=== PATIENT | male | born 1955 | race Caucasian/White ===

== ENCOUNTER → 2019-06-15 13:46 | Outpatient (CLI) | payer BC, SELFPAY ==
--- NOTE | ~2019-06-15 | XR_ITS ---
EXAMINATION: XR chest 2V DATE: 06/15/2019 13:58 INDICATION: Cough and chest tightness TECHNIQUE: Frontal and lateral views of the chest are obtained COMPARISON: 08/23/2018 FINDINGS: The lungs are free of acute opacities. There is no pleural effusion or pneumothorax. The ca rdiomediastinal silhouette is normal. There are bridging osteophytes at multiple levels in the spine, consistent with diffuse idiopathic skeletal hyperostosis (DISH). IMPRESSION: 1. No acute cardiopulmonary abnormality. Reviewed, dictated and finalized at location B.
== END ==
PROVIDERS: PCP Family Medicine; Visit Provider Family Medicine
DX: R05 Cough (principal)
CPT/HCPCS: 71046

== ENCOUNTER 2019-09-07 17:52 | Emergency (ER) | payer BC, SELFPAY ==
--- NOTE | ~2019-09-07 | CT_ITS ---
EXAMINATION: CTA chest PE protocol DATE: 09/07/2019 19:38 INDICATION: Chest pain, shortness of breath, fever and cough TECHNIQUE: Computed tomography (CT) pulmonary angiogram of the chest was performed with 100 mL Omnipa que-350 intravenous contrast. Additional 3D reconstructions utilizing coronal maximum intensity proje ction (MIP) were performed. Automated exposure control and iterative reconstruction technique were em ployed. The dose-length product was 870.30 mGy-cm. COMPARISON: 10/16/2015 FINDINGS: Excellent contrast opacification of the pulmonary arteries. There is mild streak artifact from dense contrast in the superior vena cava and right atrium. Mild scattered respiratory motion artifact. No p ulmonary embolism. Calcified nodule in the right middle lobe consistent with old granulomatous diseas e. Unchanged noncalcified 4 mm left lower lobe granuloma. Mild linear atelectasis in the lingula and left lower lobe. No pneumonia, pulmonary edema, pleural effusion or pneumothorax. Heart size is jones l. No pericardial effusion. Minimal atherosclerotic calcific lesion along the left anterior descendin g coronary artery. No pathologically enlarged thoracic lymphadenopathy. Visualized upper abdomen is u nremarkable. There are bridging osteophytes at multiple levels in the spine, consistent with diffuse idiopathic skeletal hyperostosis (DISH). IMPRESSION: 1. No pulmonary embolism or other acute cardiopulmonary disease. Reviewed, dictated and finalized at location A.
--- NOTE | ~2019-09-07 | XR_ITS ---
EXAMINATION: XR chest 1V portable DATE: 09/07/2019 18:17 INDICATION: Mid chest pain, shortness of breath, fever and cough TECHNIQUE: frontal view of the chest was obtained. COMPARISON: Chest radiograph dated 06/15/2019 FINDINGS: The lungs remain clear with no focal airspace opacities, pulmonary edema, pleural effusion or pneumot horax. The cardiomediastinal silhouette is normal. Moderate polyarticular osteoarthritis at the right glenohumeral and bilateral acromioclavicular joints. IMPRESSION: 1. No acute cardiopulmonary disease. Reviewed, dictated and finalized at location A.
--- NOTE | 2019-09-07 17:53 | ECG_ITS ---
Measurements Intervals [place] Rate: 103 P: 60 GA: 141 QRS: 9 QRSD: 97 T: 28 QT: 327 QTc: 429 Interpretive Statements SINUS TACHYCARDIA INCOMPLETE RIGHT BUNDLE BRANCH BLOCK BASELINE ARTIFACT- V1-V6 ABNORMAL ECG Electronically Signed On 09-08-2019 10:43:59 CDT by Feng Calderon D.O.
[2019-09-07 17:56] VITALS: BP 161/99; PULSE 113; RESP 18; TEMP 36.6; O2SAT 97
[2019-09-07 18:01] VITALS: PULSE 119
--- NOTE | 2019-09-07 18:03 | ED.CHESTPAIN ---
HPI - Chest Pain General Chief Complaint: Chest Pain <Roni Arellano DO - Last Filed: 09/07/19 18:06> Stated Complaint: CP <Roni Arellano DO - Last Filed: 09/07/19 18:06> Time Seen by Provider: 09/07/19 17:56 <Roni Arellano DO - Last Filed: 09/07/19 18:06> Source: RN notes reviewed <Roni Arellano DO - Last Filed: 09/07/19 18:06> History of Present Illness HPI narrative: Patient presents emergency department from home for chest pain. Patient states symptoms been ongoing for the past 3 months worse over the past 2 days. States pain across the bilateral anterior chest with shortness of breath. Feels that the pain is described as a tightness. He states that he has had a cough that the symptoms. He states he was seen by his PCP on Wednesday and had a cover test that came back negative. He states he has had a fever up to 101 on Wednesday and states he has had a fever yesterday. He denies any abdominal pain nausea vomiting or any other symptoms <Roni Arellano DO - Last Filed: 09/07/19 18:06> Related Data Allergies/Adverse Reactions: Allergies Allergy/AdvReac Type Severity Reaction Status Date / Time No Known Allergies Allergy Unknown Verified 10/10/18 16:22 <Roni Arellano DO - Last Filed: 09/07/19 18:06> Review of Systems Review of Systems: Narrative: Gen.: Denies fevers or chills ENT: Denies congestion Respiratory: Reports shortness of breath CV: Reports chest pain GI: Denies abdominal pain nausea, emesis or diarrhea Musculoskeletal: Denies back pain or muscle pain Neuro: Denies numbness, tingling, weakness or focal weakness Skin: Denies rash Except as documented, all other systems reviewed and negative <Roni Arellano DO - Last Filed: 09/07/19 18:06> PMFSH Past Medical History Medical History: Medical History (Updated 09/07/19 @ 21:25 by Katelyn Pope MD) GERD (gastroesophageal reflux disease) Hypercholesterolemia <Roni Arellano DO - Last Filed: 09/07/19 18:06> Social History Social History: Social History (Updated 09/07/19 @ 18:05 by oRni Arellano DO) Smoking status: Never smoker Gender identity (if verbalized by the patient): Male <Roni Arellano DO - Last Filed: 09/07/19 18:06> Exam Narrative: Exam Narrative: Gen.: Denies fevers or chills Eyes: Denies eye pain or visual change ENT: Denies congestion Respiratory: Denies shortness of breath or cough CV: Denies chest pain or palpitations GI: Denies abdominal pain nausea, emesis or diarrhea Musculoskeletal: Denies back pain or muscle pain Neuro: Denies numbness, tingling, weakness or focal weakness Skin: Denies rash Except as documented, all other systems reviewed and negative <Roni Arellano DO - Last Filed: 09/07/19 18:06> Course Vital Signs Vital signs: Vital Signs Temperature 36.6 C 09/07/19 17:56 Pulse Rate 113 H 09/07/19 17:56 Respiratory Rate 18 09/07/19 17:56 Blood Pressure 161/99 H 09/07/19 17:56 Pulse Oximetry 97 09/07/19 17:56 Temperature 36.8 C 09/07/19 20:26 Pulse Rate 92 09/07/19 20:26 Respiratory Rate 14 09/07/19 20:26 Blood Pressure 138/80 09/07/19 20:26 Pulse Oximetry 94 09/07/19 20:26 <Roni Arellano DO - Last Filed: 09/07/19 18:06> Vital Signs Temperature 36.6 C 09/07/19 17:56 Pulse Rate 113 H 09/07/19 17:56 Respiratory Rate 18 09/07/19 17:56 Blood Pressure 161/99 H 09/07/19 17:56 Pulse Oximetry 97 09/07/19 17:56 Temperature 36.8 C 09/07/19 20:26 Pulse Rate 92 09/07/19 20:26 Respiratory Rate 14 09/07/19 20:26 Blood Pressure 138/80 09/07/19 20:26 Pulse Oximetry 94 09/07/19 20:26 <Katelyn Pope MD - Last Filed: 09/07/19 21:26> MDM - Chest Pain Differential Diagnosis Differential diagnosis: Likely atypical chest pain, chest pain and biliary colic <Katelyn Pope MD - Last Filed: 09/07/19 21:26> Medical Records Data Atte
[2019-09-07 18:12] LABS: Basophils Absolute Auto 0.1 K/mm3 (0.0-0.1); Basophils Percent Auto 0.7 % (0.2-1.2); Eosinophils Absolute Auto 0.1 K/mm3 (0-0.3); Eosinophils Percent Auto 1.5 % (0-4.4); Hematocrit 50.1 % (42.0-52.0); Hemoglobin 17.2 g/dL (14.0-18.0); Immature Granulocyte Absolute 0.04 K/mm3 (0.00-0.031); Immature Granulocyte Percent A 0.5 % (0-0.5); Lymphocytes Absolute Auto 1.42 K/mm3 (0.9-3.2); Lymphocytes Percent Auto 16.1 % (18.3-44.2); Mean Corpuscular HGB Conc 34.3 g/dl (32-36); Mean Corpuscular Hemoglobin 29.9 pg (26-34); Mean Corpuscular Volume 87.1 fl (80-100); Monocytes Absolute Auto 0.7 K/mm3 (0.1-0.6); Monocytes Percent Auto 8.4 % (2.6-8.5); Neutrophils Absolute Auto 6.4 K/mm3 (1.3-6.7); Neutrophils Percent Auto 72.8 % (45.5-73.1); Platelet Count Result 246 k/mm3 (150-375); Red Blood Count 5.75 M/mm3 (4.6-6.20); Red Cell Distribution Width 12.4 % (11.5-14.5); White Blood Count 8.8 K/mm3 (4.5-10.0)
[2019-09-07 18:23] LABS: Blood Urea Nitrogen 17 mg/dL (9-20); Calcium 9.1 mg/dL (8.4-10.2); Carbon Dioxide 26 mmol/L (22-30); Chloride 99 mmol/L (98-107); Estimated CRCL calculation 69 ml/min; Estimated Glomerular Filt Rate > 60; Glucose 357 mg/dL (75-110); Potassium 4.2 mmol/L (3.4-5.0); Sodium 133 mmol/L (137-145)
[2019-09-07 18:35] LABS: Troponin I < 0.012 ng/mL (0.000-0.034)
[2019-09-07] MEDS: SODIUM CHLORIDE 0.9% IV 1,000 ML 999 ML IV CONT (18:36)
[2019-09-07] MEDS: ASPIRIN 81 MG CHEWABLE TABLET 324 MG PO (18:36)
[2019-09-07 18:38] LABS: Prothrombin Time 12.8 Seconds (11.1-14.7)
[2019-09-07 18:39] LABS: Partial Thromboplastin Time 25.8 SECONDS (22.3-36.8)
[2019-09-07 19:09] VITALS: BP 149/87; PULSE 96; RESP 13; O2SAT 96
[2019-09-07 20:26] VITALS: BP 138/80; PULSE 92; RESP 14; TEMP 36.8; O2SAT 94
[2019-09-07 21:20] LABS: Troponin I < 0.012 ng/mL (0.000-0.034)
[2019-09-07 21:58] VITALS: BP 132/88; PULSE 80; RESP 20; TEMP 36.7; O2SAT 99
== END 2019-09-07 21:59 | disposition home or self-care (01) ==
PROVIDERS: Emergency Medicine; Emergency Provider Emergency Medicine; PCP Family Medicine
DX: R07.89 Other chest pain (principal); K21.9 Gastro-esophageal reflux disease without esophagitis; E78.00 Pure hypercholesterolemia, unspecified; R00.0 Tachycardia, unspecified; I45.10 Unspecified right bundle-branch block
CPT/HCPCS: 36415; 71045; 71275; 80048; 84484; 85025; 85610; 85730; 93005; 96360; 99284; A9270; J7030; Q9967

== ENCOUNTER → 2020-06-11 02:49 | Outpatient (CLI) | payer BC, SELFPAY ==
[2020-06-11 18:08] LABS: SARS-CoV-2 RNA PCR Negative
== END ==
PROVIDERS: Family Provider Family Medicine; PCP Family Medicine; Visit Provider Internal Medicine Gastroenterology
DX: Z01.812 Encounter for preprocedural laboratory examination (principal); Z20.822 Contact with and (suspected) exposure to COVID-19
CPT/HCPCS: C9803; U0003; U0005

== ENCOUNTER 2020-06-14 00:36 | Day surgery (SDC) | payer BC, SELFPAY ==
[2020-04-19 15:30] VITALS: BMI 35.3
--- NOTE | 2020-05-31 13:43 | PC.NURSE ---
Patient denies any changes in health history or medications. Updated on new arrival and COVID times. No questions at this time.
[2020-06-14 09:02] VITALS: BP 137/87; PULSE 97; RESP 18; TEMP 35.8; O2SAT 95
[2020-06-14] MEDS: LACTATED RINGERS 1,000 ML 150 ML IV CONT (09:07)
--- NOTE | 2020-06-14 09:22 | WPDANESEPPF ---
Anes - Initial Pre Proc Eval Procedure: Operation Date: 06/14/20 10:30 Proposed Procedures p Screening Colonoscopy - Benjamin Tolbert MD Date/Time: 06/14/20 09:22 Surgeon: Benjamin Tolbert MD Pre Op Diagnosis: Neoplasm Screening Patient Data Age: 65 Gender: M Height: 5 ft 9.5 in Weight: 110 kg Last Vital Signs Temp 96.4 F L 06/14/20 09:02 Pulse 97 06/14/20 09:02 Resp 18 06/14/20 09:02 BP 137/87 06/14/20 09:02 Pulse Ox 95 06/14/20 09:02 Allergies Allergy/AdvReac Type Severity Reaction Status Date / Time No Known Allergies Allergy Unknown Verified 06/14/20 09:01 Home Medications Medication Instructions Recorded Confirmed Type albuterol sulfate 1 puff INHALATION DAILY PRN 04/19/20 06/14/20 History alprazolam 0.5 mg PO DAILY PRN 04/19/20 06/14/20 History escitalopram oxalate 20 mg PO DAILY 04/19/20 06/14/20 History esomeprazole magnesium [Nexium] 20 mg PO BID 04/19/20 06/14/20 History finasteride 5 mg PO DAILY 04/19/20 06/14/20 History meclizine 25 mg PO DAILY PRN 04/19/20 06/14/20 History Patient hx anesthesia problems: none Family hx anesthesia problems: none PMFSH Past Medical History Medical History (Updated 03/28/20 @ 16:05 by LANRE Baker) Anxiety Arthritis Chest tightness Coughing Diabetes Diarrhea GERD (gastroesophageal reflux disease) Hypercholesterolemia Light headedness Obstructive sleep apnea Prepatellar bursitis Psoriasis Right knee pain Vertigo Vomiting Wears glasses Surgical History Surgical History History of carpal tunnel release 2018 History of neck surgery 2014 Family History Family History Other Arthritis Depression Diabetes mellitus Heart disease High cholesterol Hypertension Kidney disorder Lung disease Malignant neoplasm Social History Social History Smoking packs per day: 3 Smoking cigarettes per day: 60.0 Years smoked: 15 Smoking pack-years: 45.00 Smoking status: Former smoker Smokeless tobacco user: chewing tobacco Smoking end date: 03/22/87 Alcohol intake: never Substance use: never Substance use type: does not use Living arrangements: with family Gender identity (if verbalized by the patient): Male Spiritual care concerns: No Anes - Eval Final PreProcedure Day of Procedure 06/14/20 09:22 Patient weight: obese Heart: regular rate and rhythm Lungs: clear to auscultation Airway: Mallampati scale class II Neurological: alert and oriented Last oral intake: >/= 8 hours ASA classification: III Emergent: no Anesthetic plan: proceed Anesthesia type and monitoring: general GIVS and standard monitoring Informed Consent: The patient's anesthetic plan and its attendant risks and benefits were discussed with the patient/family/POA. Questions were solicited and answers provided to the satisfaction of the patient/family/POA.
--- NOTE | 2020-06-14 09:46 | PM.HPGS ---
History of Present Illness History of Present Illness Consent: Risks, benefits, and alternatives have been discussed and questions answered. Patient agrees to proceed with procedure. Chief complaint: Neoplasm Screening Narrative: Keyur Carranza is a 65 year old male here for screening colonoscopy, last one in the 80's Review of Systems Constitutional: Constitutional: Denies headache(s) and Denies weakness Eyes: Eyes: Denies blurry vision ENT: Reports Normal hearing present, Denies headache(s) and Denies neck pain Cardiovascular: Cardiovascular: Denies chest pain and Denies dyspnea Respiratory: Respiratory: Denies dyspnea Gastrointestinal: Gastrointestinal: Reports no additional gastrointestinal complaints Genitourinary: Genitourinary: Denies dysuria Musculoskeletal: Musculoskeletal: Denies neck pain Integumentary/Breasts: Skin/Breast: Denies dry skin Neurologic: Reports Normal hearing present, Denies headache(s) and Denies weakness Psychiatric: Psychiatric: Denies anxiety Endocrine: Endocrine: Denies change in body appearance Hematologic/Lymphatic: Hematologic/Lymphatic: Denies easy bleeding Allergic/Immunologic: Allergic/Immunologic: Denies urticaria PMFSH Past Medical History Medical History (Updated 06/14/20 @ 09:47 by Benjamin Tolbert MD) Anxiety Arthritis Chest tightness Colon cancer screening Coughing Diabetes Diarrhea GERD (gastroesophageal reflux disease) Hypercholesterolemia Light headedness Obstructive sleep apnea Prepatellar bursitis Psoriasis Right knee pain Vertigo Vomiting Wears glasses Surgical History Surgical History History of carpal tunnel release 2018 History of neck surgery 2014 Family History Family History Other Arthritis Depression Diabetes mellitus Heart disease High cholesterol Hypertension Kidney disorder Lung disease Malignant neoplasm Social History Social History Smoking packs per day: 3 Smoking cigarettes per day: 60.0 Years smoked: 15 Smoking pack-years: 45.00 Smoking status: Former smoker Smokeless tobacco user: chewing tobacco Smoking end date: 03/22/87 Alcohol intake: never Substance use: never Substance use type: does not use Living arrangements: with family Gender identity (if verbalized by the patient): Male Spiritual care concerns: No Meds Home Medications and Allergies Home Medications Medication Instructions Recorded Confirmed Type albuterol sulfate 1 puff INHALATION DAILY PRN 04/19/20 06/14/20 History alprazolam 0.5 mg PO DAILY PRN 04/19/20 06/14/20 History escitalopram oxalate 20 mg PO DAILY 04/19/20 06/14/20 History esomeprazole magnesium [Nexium] 20 mg PO BID 04/19/20 06/14/20 History finasteride 5 mg PO DAILY 04/19/20 06/14/20 History meclizine 25 mg PO DAILY PRN 04/19/20 06/14/20 History Allergies Allergy/AdvReac Type Severity Reaction Status Date / Time No Known Allergies Allergy Unknown Verified 06/14/20 09:01 Vital Signs Vital Signs - 24 hr 06/14/20 09:02 Temperature 96.4 F L Pulse Rate 97 Respiratory Rate 18 Blood Pressure 137/87 Pulse Oximetry 95 Exam Const: General: comfortable and no acute distress HENMT: General nose exam: Normal nares present Eyes: General: appearance normal, both eyes and all related structures Neck: Neck: no JVD Resp: Auscultation: clear to auscultation bilaterally Cardio: Rate: regular rate Rhythm: regular rhythm GI: Inspection: non-distended GI Palp: Yes Soft to palpation Skin: General skin exam: normal color Neuro: General: gait normal Speech: normal speech Extrem: General: normal to inspection Psych: Mental Status: mental status grossly normal Assessment and Plan Assessment and plan (1) Colon cancer screening: Code(s): Z12.11 - [place]
[2020-06-14 10:12] VITALS: BP 118/70; PULSE 86; RESP 34; O2SAT 95
[2020-06-14 10:22] VITALS: BP 117/65; PULSE 76; RESP 13; O2SAT 95
[2020-06-14 10:32] VITALS: BP 124/82; PULSE 82; RESP 18; O2SAT 95
== END 2020-06-14 10:57 | disposition home or self-care (01) ==
PROVIDERS: Family Provider Family Medicine; PCP Family Medicine; Visit Provider Internal Medicine Gastroenterology
PROC: 0DJD8ZZ Inspection of Lower Intestinal Tract, Via Natural or Artificial Opening Endoscopic (ICD-10-PCS; CPT 45378; principal; 2020-06-14 10:30)
DX: Z12.11 Encounter for screening for malignant neoplasm of colon (principal); D12.0 Benign neoplasm of cecum; K63.5 Polyp of colon; K57.30 Diverticulosis of large intestine without perforation or abscess without bleeding; K64.8 Other hemorrhoids; E11.9 Type 2 diabetes mellitus without complications; G47.33 Obstructive sleep apnea (adult) (pediatric); E78.00 Pure hypercholesterolemia, unspecified; K21.9 Gastro-esophageal reflux disease without esophagitis; F41.9 Anxiety disorder, unspecified; L40.9 Psoriasis, unspecified; Z87.891 Personal history of nicotine dependence; Z79.51 Long term (current) use of inhaled steroids; E66.9 Obesity, unspecified; Z68.35 Body mass index [BMI] 35.0-35.9, adult
CPT/HCPCS: 45385; 88305; J2704; J7120

== ENCOUNTER 2022-04-28 11:21 | Emergency (ER) | payer MEDICARE, SELFPAY ==
--- NOTE | ~2022-04-28 | CT_ITS ---
EXAMINATION: CT thoracic lumbar wo con DATE: 04/28/2022 12:33 INDICATION: Back injury. Back pain. TECHNIQUE: Computed tomography (CT) of the thoracic and lumbar spine was performed without intravenou s contrast. Automated exposure control and iterative reconstruction technique were employed. The dose -length product was 2184.52 mGy-cm. COMPARISON: Chest CT 09/07/2019 FINDINGS: CT THORACIC SPINE: There is 3 degrees dextrocurvature of thoracic spine. 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 There are bridging endplate osteophytes from C7 to at least L1, consistent with diffuse idiopathic skeletal hyperostosis (DISH). There is mild chronic anterior wedgi ng of T8 and T9 vertebral bodies. There is multilevel level mild facet joint osteoarthritis. At T9-T1 0, there is moderate right facet joint hypertrophy with moderate right neural foraminal stenosis. The re is no central canal stenosis in thoracic spine. CT LUMBAR SPINE: Bone alignment is normal. Vertebral body heights are normal. There are bridging endp late osteophytes from the thoracic spine and L5, consistent with DISH. The following disc levels are specifically discussed: L1-L2: The disc does not extend beyond the endplate margin. There is mild bilateral facet joint hyper trophy. There is no neural foraminal stenosis. There is no central canal stenosis. L2-L3: There is a left foraminal protrusion. There is mild bilateral facet joint hypertrophy. There i s mild left neural foraminal stenosis. There is no central canal stenosis. L3-L4: The disc does not extend beyond the endplate margin. There is mild bilateral facet joint hyper trophy. There is no neural foraminal stenosis. There is no central canal stenosis. L4-L5: The disc is bulging. There is severe bilateral facet joint hypertrophy. There is moderate bila teral neural foraminal stenosis. There is mild central canal stenosis. L5-S1: The disc is bulging. There is severe bilateral facet joint osteoarthritis. There is mild bilat eral neural foraminal stenosis. There is no central canal stenosis. IMPRESSION: 1. No fracture. 2. DISH. 3. Moderate spondylosis at T9-T10 and L4-L5. Reviewed, dictated and finalized at location A. ENT SERVICES REP
--- NOTE | ~2022-04-28 | XR_ITS ---
Right wrist Technique: PA, oblique, lateral, and ulnar deviation views were obtained. Clinical History: Pain Findings: No acute fracture or dislocation is seen. Osseous alignment is anatomic. Joint spaces are p reserved. Soft tissues are unremarkable. Impression: Unremarkable right wrist radiographs. Reviewed, dictated and finalized at location . W[employer]ER Impression: Unremarkable right wrist radiographs.
--- NOTE | ~2022-04-28 | XR_ITS ---
EXAMINATION: XR knee RT min 4V DATE: 04/28/2022 12:47 INDICATION: Right knee pain and swelling. TECHNIQUE: 4 views of right knee were obtained. COMPARISON: Right knee radiographs 03/07/2020 FINDINGS: Bone alignment is normal. No fracture. There is mild tricompartmental osteoarthritis. There is a small knee joint effusion. There is prepatellar and superficial infrapatellar bursitis. IMPRESSION: 1. Mild right knee osteoarthritis. 2. Small right knee joint effusion. 3. Prepatellar and superficial infrapatellar bursitis. Reviewed, dictated and finalized at location A. DATA ADMIN
--- NOTE | ~2022-04-28 | XR_ITS ---
AP and lateral views of the right tibia/fibula Clinical History: Trauma Findings: No acute fracture or dislocation is seen. Osseous alignment is anatomic. Joint spaces are p reserved without significant erosive or degenerative change. Evidence of old [place]-Schlatter's disea se noted. Soft tissues are unremarkable. Impression: No acute abnormality. Reviewed, dictated and finalized at location . [employer] Impression: No acute abnormality.
--- NOTE | ~2022-04-28 | CT_ITS ---
EXAMINATION: CT cervical spine wo con DATE: 04/28/2022 12:33 INDICATION: Neck pain. Head injury. TECHNIQUE: Computed tomography (CT) of the cervical spine was performed without intravenous contrast. Automated exposure control and iterative reconstruction technique were employed. The dose-length pro duct was 484.54 mGy-cm. COMPARISON: None FINDINGS: There is mild kyphosis of cervical spine. Vertebral body heights are normal. There is mildl y decreased disc height at C5-C6 and C6-C7. There are bridging anterior endplate osteophytes from C2 to C6, consistent with diffuse idiopathic skeletal hyperostosis (DISH). There are bridging endplate o steophytes at C7-T1. 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 There is an old fracture of T1 spinous process with nonunion. There are changes of posterior fus ion procedure from C2 to C4 with lateral mass screws. There are left hemilaminectomies from C4 to C6 with instrumentation. The following disc levels are specifically discussed: C2-C3: There is no uncovertebral joint hypertrophy. There is no facet joint hypertrophy. There is no neural foraminal stenosis. There is mild central canal stenosis with posterior decompression. C3-C4: There is mild right and moderate left uncovertebral joint hypertrophy. There is mild right and moderate left facet joint hypertrophy. There is mild right and moderate left neural foraminal stenos is. There is mild central canal stenosis with posterior decompression. C4-C5: There is moderate right and mild left uncovertebral joint hypertrophy. There is moderate right and mild left facet joint hypertrophy. There is moderate and mild left neural foraminal stenosis. Th ere is mild central canal stenosis with posterior decompression. C5-C6: There is mild bilateral uncovertebral joint hypertrophy. There is mild right and moderate left facet joint hypertrophy. There is mild bilateral neural foraminal stenosis. There is mild central ca nal stenosis. C6-C7: There is moderate right and severe left uncovertebral joint osteoarthritis. There is mild bila teral facet joint osteoarthritis. There is mild right and moderate left neural foraminal stenosis. Th ere is mild central canal stenosis with posterior decompression. C7-T1: There is mild bilateral uncovertebral joint hypertrophy. There is mild bilateral facet joint h ypertrophy. There is no neural foraminal stenosis. There is mild central canal stenosis. IMPRESSION: 1. No fracture. 2. Moderate cervical spondylosis. 3. DISH. 4. Posterior fusion procedure from C2 to C4. Reviewed, dictated and finalized at location A. [employer]
--- NOTE | ~2022-04-28 | XR_ITS ---
EXAMINATION: XR chest 1V INDICATION: Ground-level fall TECHNIQUE: Frontal view of the chest is obtained. COMPARISON: 09/07/2019 FINDINGS: The lungs are free of acute opacities. No pleural effusion or pneumothorax. The cardiomedia stinal silhouette is normal. There is moderate osteoarthritis of the shoulders. IMPRESSION: 1. No acute cardiopulmonary abnormality. Reviewed, dictated and finalized at location L. S MAKER
--- NOTE | ~2022-04-28 | CT_ITS ---
Non-contrast Head CT History: Head injury COMPARISON: 07/18/2015 Technique: Axial non-contrast imaging of the brain was performed. Dose reduction technique was used on this scan by utilizing automated exposure control and iterative reconstruction technique. The dose -length product (DLP) was 605.33 mGy-cm. Findings: There is no evidence of intracranial hemorrhage, mass lesion, or acute infarct. Brain par enchyma appears normal. The ventricles and subarachnoid spaces are normal in size. The calvarium ap pears normal. The visualized paranasal sinuses and mastoid air cells are clear. Impression: No significant abnormality seen. Reviewed, dictated and finalized at [facility]. GATION TEACHER Impression: No significant abnormality seen.
--- NOTE | ~2022-04-28 | XR_ITS ---
EXAMINATION: XR pelvis 1-2V DATE: 04/28/2022 12:20 INDICATION: Fall. TECHNIQUE: An anteroposterior view of the pelvis was obtained. COMPARISON: Pelvis radiograph 10/10/2018 FINDINGS: Bone alignment is normal. No fracture. There is moderate osteoarthritis of the hips. Widesp read enthesophytes are noted. IMPRESSION: 1. Moderate osteoarthritis of the hips. Reviewed, dictated and finalized at location A. ER
[2022-04-28 11:28] VITALS: BP 115/75; PULSE 96; RESP 16; TEMP 36.7; O2SAT 95
--- NOTE | 2022-04-28 11:51 | PC.NURSE ---
EDP at bedside to assess pt.
--- NOTE | 2022-04-28 12:03 | ED.FALL ---
HPI - Fall General Chief Complaint: Fall Stated Complaint: fall/hi/knee injury/no thinners Time Seen by Provider: 04/28/22 11:30 Source: patient Mode of arrival: wheelchair Limitations: no limitations History of Present Illness HPI Narrative: This is a 67-year-old male that presents to the emergency department after a fall today with head injury. Reports he got tangled up in a cord and tripped and fell. He did hit his head. He did not lose consciousness. Since he has had headache, neck pain, back pain, right wrist pain, and right knee pain. Denies visual changes, vomiting, numbness, or weakness. Related Data Home Medications Medication Instructions Recorded Confirmed albuterol sulfate 90 mcg/actuation 1 puff inhalation DAILY PRN 04/19/20 06/14/20 aerosol inhaler .difficulty breathing alprazolam 0.5 mg tablet 0.5 mg PO DAILY PRN Anxiety 04/19/20 06/14/20 escitalopram oxalate 20 mg tablet 20 mg PO DAILY 04/19/20 06/14/20 esomeprazole magnesium 20 mg 20 mg PO BID 04/19/20 06/14/20 capsule,delayed release (Nexium) finasteride 5 mg tablet 5 mg PO DAILY 04/19/20 06/14/20 meclizine 25 mg tablet 25 mg PO DAILY PRN Dizziness 04/19/20 06/14/20 Allergies Allergy/AdvReac Type Severity Reaction Status Date / Time No Known Allergies Allergy Unknown Verified 04/28/22 11:35 Review of Systems Review of Systems: CONSTITUTIONAL: Denies fever EYES: Denies visual changes CARDIOVASCULAR: Denies chest pain GASTROINTESTINAL: Denies vomiting MUSCULOSKELETAL: Reports back pain, joint pain, and myalgia. NEUROLOGIC: Reports headache. Denies numbness, or weakness. All systems reviewed & are unremarkable except as noted in HPI and below PMFSH Past Medical History Medical History (Updated 04/28/22 @ 13:57 by Lorenza Schuler PA-C) Anxiety Arthritis Chest tightness Colon cancer screening Coughing Diabetes Diarrhea GERD (gastroesophageal reflux disease) Hypercholesterolemia Light headedness Obstructive sleep apnea Prepatellar bursitis Psoriasis Right knee pain Vertigo Vomiting Wears glasses Surgical History Surgical History History of carpal tunnel release 2018 History of neck surgery 2013 Family History Family History Other Arthritis Depression Diabetes mellitus Heart disease High cholesterol Hypertension Kidney disorder Lung disease Malignant neoplasm Social History Social History Smoking packs per day: 3 Smoking cigarettes per day: 60.0 Years smoked: 15 Smoking pack-years: 45.00 Smoking status: Former smoker Smokeless tobacco user: chewing tobacco Smoking end date: 03/22/87 Alcohol intake: never Substance use: never Substance use type: does not use Living arrangements: with family Gender identity (if verbalized by the patient): Male Spiritual care concerns: No Exam Narrative: GENERAL: Well-appearing, well-nourished, and in no acute distress. HEAD: Normocephalic. Superficial 1cm irregular laceration over the right eyebrow EYES: PERRLA and EOMI. ENT: Nares clear, no rhinorrhea or epistaxis. Mucous membranes moist. Oropharynx without tonsillar hypertrophy exudate or other lesions. Bilateral TMs pearly stein non-bulging NECK: Supple. No adenopathy or masses. C-collar in place CHEST: Clear to auscultation. No respiratory distress. No wheezes rales or rhonchi HEART: Regular rate and rhythm. No murmur heard. Normal peripheral pulses. BACK: Tender to palpation of midline thoracic and lumbar spine EXTREMITIES: Normal range of motion and strength in the upper extremities. Decreased active range of motion in the right knee with pre-patellar swelling noted. No overlying erythema. Normal straight leg raise. Normal DP pulse. Normal sensation SKIN: Warm, dry, no rash. NEURO: No focal deficits. Alert and oriented x3. Cranial ner
--- NOTE | 2022-04-28 12:17 | PC.NURSE ---
Patient off unit to CT.
[2022-04-28] MEDS: HYDROcodone/acetaminophen (*CRX) 5-325 MG TABLET 1 TAB PO (13:07)
[2022-04-28] MEDS: TETANUS,DIPHTHERIA,AC PERTUSSIS ADULT (0.5 ML) BOOSTRIX IM (14:16)
[2022-04-28 14:29] VITALS: BP 133/73; PULSE 75; RESP 18; TEMP 36.2; O2SAT 96
== END 2022-04-28 14:31 | disposition home or self-care (01) ==
PROVIDERS: Emergency Provider Physician Assistant; PCP Family Medicine
DX: S01.111A Laceration without foreign body of right eyelid and periocular area, initial encounter (principal); S83.91XA Sprain of unspecified site of right knee, initial encounter; Z23 Encounter for immunization; E11.9 Type 2 diabetes mellitus without complications; E78.00 Pure hypercholesterolemia, unspecified; K21.9 Gastro-esophageal reflux disease without esophagitis; G47.33 Obstructive sleep apnea (adult) (pediatric); F41.9 Anxiety disorder, unspecified; Z87.891 Personal history of nicotine dependence; M16.0 Bilateral primary osteoarthritis of hip; Z98.1 Arthrodesis status; M48.12 Ankylosing hyperostosis [Forestier], cervical region; M47.812 Spondylosis without myelopathy or radiculopathy, cervical region; M47.816 Spondylosis without myelopathy or radiculopathy, lumbar region; M47.814 Spondylosis without myelopathy or radiculopathy, thoracic region; M17.11 Unilateral primary osteoarthritis, right knee; W18.09XA Striking against other object with subsequent fall, initial encounter
CPT/HCPCS: 12011; 70450; 71045; 72125; 72128; 72131; 72170; 73110; 73564; 73590; 90471; 90715; 99284; A9270; L0140

== ENCOUNTER → 2023-02-16 08:35 | Outpatient (CLI) | payer MEDICARE, SELFPAY ==
--- NOTE | ~2023-02-16 | XR_ITS ---
EXAMINATION: XR chest 2V 02/16/2023 08:56 INDICATION: Chronic cough PROCEDURE: 2 view chest COMPARISON: Comparison to multiple prior studies sequentially, with oldest reviewed study dated 06/2018. FINDINGS: The lungs are clear. The cardiomediastinal silhouette is within normal limits. There are no pleural effusions. There is no pneumothorax suspected. IMPRESSION: 1: NO ACUTE CARDIOPULMONARY DISEASE. Reviewed, dictated and finalized at location L. FILLER P[employer] DO[employer]S
== END ==
PROVIDERS: PCP Family Medicine; Visit Provider Family Medicine
DX: R05.3 Chronic cough (principal); R01.1 Cardiac murmur, unspecified
CPT/HCPCS: 71046

== ENCOUNTER 2023-04-13 07:02 | Outpatient (CLI) | payer MEDICARE, SELFPAY ==
--- NOTE | 2023-04-13 | ECHO_ITS ---
Patient Info Name: Keyur Carranza Age: 68 years : 1955 Gender: Male Ht: 70 in Wt: 230 lbs BSA: 2.30 m2 HR: 71 bpm BP: 137 / 83 mmHg Heart Rhythm: Sinus Rhythm Technical Quality: Fair Exam Date: 04/13/2023 7:59 AM Exam Location: Echo Lab Patient Status: Outpatient Admit Date: 04/13/2023 Staff Ordering Physician: PHYSICIAN NOT ON STAFF, NONSTAFF Attending Provider: PHYSICIAN NOT ON STAFF, NONSTAFF Exam Type: CA echo doppler color flow Study Info Indications R01.1 - Cardiac murmur, unspecified Complete two-dimensional, color flow and Doppler transthoracic echocardiogram is performed. Summary 1. Complete two-dimensional, color flow and Doppler transthoracic echocardiogram is performed. 2. Left ventricular chamber dimension is normal. 3. Left ventricular systolic function is normal, estimated at 55-60%. 4. There is mildly increased left ventricular wall thickness. 5. The left ventricular diastolic function is grade I diastolic dysfunction. 6. Right ventricular systolic function is normal. 7. There is moderate aortic valve calcification. 8. There is mild aortic valve stenosis. 9. There is mild aortic valve regurgitation. Left Ventricle Left ventricular chamber dimension is normal. Left ventricular systolic function is normal, estimated at 55-60%. There is mildly increased left ventricular wall thickness. The left ventricular diastolic function is grade I diastolic dysfunction. Right Ventricle Right ventricular chamber dimension is normal. Right ventricular systolic function is normal. Left Atria Left atrial chamber dimension is normal. Right Atria Right atrial chamber dimension is normal. Atrial Septum Intact interatrial septum visualized by color flow imaging. Aortic Valve The aortic valve is probable trileaflet. There is mild aortic valve stenosis. There is mild aortic valve regurgitation. There is moderate aortic valve calcification. Pulmonic Valve The pulmonic valve is not well visualized. Mitral Valve There is trace mitral valve regurgitation. Tricuspid Valve There is trace tricuspid valve regurgitation. Pericardium/Pleural The pericardium appears epicardial fat pad. There is no pericardial effusion. Inferior Vena Cava Normal inferior vena cava with >50% collapse upon inspiration consistent with normal right atrial pressure, 3 mmHg. Aorta The aortic root size at the sinus of Valsalva is normal. Left Ventricular Outflow Tract Name Value Normal LVOT 2D LVOT Diameter 2.0 cm LVOT Doppler LVOT Peak Gradient 5 mmHg LVOT Mean Gradient 3 mmHg LVOT VTI 23 cm LVOT VTI/AV VTI Ratio 0.5 LVOT Stroke Volume 75 ml LVOT CO 4.9 l/min LVOT CI 2.1 l/min/m2 Pulmonic Valve Name Value Normal PV Doppler PV Peak Gradient
== END 2023-04-13 07:03 | disposition home or self-care (01) ==
PROVIDERS: PCP Family Medicine; Visit Provider Family Medicine
DX: R01.1 Cardiac murmur, unspecified (principal); I34.0 Nonrheumatic mitral (valve) insufficiency; I35.1 Nonrheumatic aortic (valve) insufficiency
CPT/HCPCS: 93306

== ENCOUNTER 2023-07-20 09:31 | Outpatient (CLI) | payer MEDICARE, SELFPAY ==
--- NOTE | ~2023-07-20 | CT_ITS ---
EXAMINATION: CT soft tissue neck w con DATE: 07/20/2023 10:04 INDICATION: Cervical lymphadenopathy. TECHNIQUE: Computed tomography (CT) of the neck was performed with 75 mL Omnipaque-350 intravenous co ntrast. Automated exposure control and iterative reconstruction technique were employed. The dose-beverly gth product was 474.03 mGy-cm. COMPARISON: None FINDINGS: There are no pathologically enlarged lymph nodes. There is no visible plaque in the proxima l internal carotid arteries. The paranasal sinuses are clear. The mastoid air cells are normal. There are bridging endplate osteophytes at multiple levels in the spine, consistent with diffuse idiopathi c skeletal hyperostosis (DISH). There are changes of posterior fusion procedure from C3 to C4. There are laminoplasties from C4 to C6. IMPRESSION: 1. No abnormal cervical lymphadenopathy. Reviewed, dictated and finalized at location A.
[2023-07-20 09:51] LABS: Estimated Glomerular Filt Rate > 60
== END 2023-07-20 09:32 ==
LOC: MICIMG 09:33
PROVIDERS: PCP Family Medicine; Visit Provider Family Medicine
DX: R59.0 Localized enlarged lymph nodes (principal)
CPT/HCPCS: 70491; Q9967

== ENCOUNTER 2024-05-21 18:16 | Inpatient (IN) | payer MEDICARE, SELFPAY ==
[2024-05-21] VITALS (7 sets, daily range): BP systolic 121–174; BP diastolic 70–83; PULSE 79–100; RESP 10–16; TEMP 36.5; O2SAT 95–98
--- NOTE | ~2024-05-21 | CT_ITS ---
Non-contrast Head CT History: Syncope COMPARISON: 04/28/2022 Technique: Axial non-contrast imaging of the brain was performed. Dose reduction technique was used on this scan by utilizing automated exposure control and iterative reconstruction technique. The dose -length product (DLP) was 681.00 mGy-cm. Findings: There is no evidence of intracranial hemorrhage, mass lesion, or acute infarct. Brain par enchyma appears normal. The ventricles and subarachnoid spaces are normal in size. The calvarium ap pears normal. The visualized paranasal sinuses and mastoid air cells are clear. Impression: No significant abnormality seen. Reviewed, dictated and finalized at [facility]. [employer] Impression: No significant abnormality seen.
--- NOTE | ~2024-05-21 | US_ITS ---
EXAMINATION: US carotid duplex BI DATE: 05/22/2024 15:50 SUPERVISOR PUMPING INDICATION: Syncope TECHNIQUE: Grayscale, color Doppler, and pulsed Doppler images of the cervical carotid arteries were obtained. The degree of vessel stenosis is placed in one of the following categories: normal, <50%, 50-69%, >=7 0% but less than near-occlusion, near-occlusion, or total occlusion. Note that percent stenosis relative to normal distal artery lumen diameter is indirectly measured fro m velocity measurements as described originally by Canelo, et al. Radiology 2003; 229:340-346 and upda dorothy by Maximiliano Ku et al STROKE 2012;43(3);915-921. COMPARISON: None. FINDINGS: There is mild atherosclerosis of both carotid arteries. Peak systolic velocity (in cm/s) is detailed below RIGHT: Right common carotid artery (CCA): 108 cm/s. Right internal carotid artery (ICA) PSV: 89 cm/s. Right ICA end-diastolic velocity (EDV): 22 cm/s. Right ICA/CCA PSV ratio is 0.8. Right external carotid artery (ECA): 173cm/s. There is antegrade flow in the right vertebral artery with a LEFT: Left common carotid artery (CCA): 109 cm/s. Left internal carotid artery (ICA) PSV: 96 cm/s. Left ICA end-diastolic velocity (EDV): 26 cm/s. Left ICA/CCA PSV ratio is 0.9. Left external carotid artery (ECA): 118cm/s. There is antegrade flow in the left vertebral artery. IMPRESSION: 1. Less than 50% stenosis in the right internal carotid artery. 2. Less than 50% stenosis in the left internal carotid artery. Reviewed, dictated and finalized at location [facility]. RVISOR PUMPING
--- NOTE | ~2024-05-21 | MR_ITS ---
EXAMINATION: MR brain/brain stem wo/w con DATE: 05/24/2024 08:04 INDICATION: Syncope. TECHNIQUE: Magnetic resonance imaging (MRI) of the brain and brainstem was performed without and with 20 mL ProHance intravenous contrast. COMPARISON: Brain MRI 07/26/2013, head CT 05/21/2024 FINDINGS: There are scattered areas of nonspecific increased T2-weighted signal intensity in the cere bral white matter, which is within normal limits for the patient's age. There is no intracranial hemo rrhage, acute infarction, or abnormal intracranial mass lesion. The ventricles are normal in size. Th ere is minimal mucosal thickening in the left ethmoid sinuses. The orbits are normal. The mastoid air cells are normal. IMPRESSION: 1. Normal aging brain. Reviewed, dictated and finalized at location [] E SURGEON IMPRESSION: 1. Normal aging brain.
--- NOTE | ~2024-05-21 | CT_ITS ---
Clinical Indication: Syncope CT Scan of the Chest with Contrast: Technique: Contiguous sections were acquired throughout the chest after intravenous administration of 100 cc of Omnipaque 350. Dose reduction technique was used on this scan by utilizing automated expos ure control and iterative reconstruction technique. The dose-length product (DLP) was 975.15 mGy-cm. Findings: There is no evidence of any significant mediastinal, hilar or axillary lymphadenopathy. There is no f illing defect in the pulmonary arterial tree to suggest pulmonary embolus. There is no evidence of ao rtic dissection or aneurysm. There is no evidence of pleural or pericardial effusion. The lungs are clear. No pulmonary nodules or infiltrates are noted. Images through the upper abdomen reveal no abnormalities. Impression: No evidence of pulmonary embolus, aortic dissection, or aortic aneurysm. Clear lungs. Reviewed, dictated and finalized at [facility]. NICAL ARCHITECT Impression: No evidence of pulmonary embolus, aortic dissection, or aortic aneurysm. Clear lungs.
--- NOTE | ~2024-05-21 | XR_ITS ---
XR chest 2V Ordering provider: Lorenza Schuler PA-C History: 69 years Male with . syncope . Comparison: February 16, 2023 FINDINGS: MEDIASTINUM: The cardiac silhouette is not enlarged. LUNGS: No infiltrates, effusions or pneumothorax. OTHER: No free air under the diaphragm. Degenerative changes of the spine. IMPRESSION: No acute cardiopulmonary pathology. Reviewed, dictated and finalized at location A. CHOOL EDUCATION DIRECTOR
--- OUTSIDE RECORDS SUMMARY | 2024-05-21 18:18 | XMS_ITS | Clinical Summary ---
Author Organization [facility] Address [address] [place] [address] Care Team Providers Care Run Lead Name Role Phone Unavailable Primary Care Provider Unavailabl e Source Comments [facility],non-owned Affiliates and Associated Physician Practices is amultiple site organization consisting of ambulatory clinics and hospital sitesin [place], [place], [place] and [place]. This disclosure is being madepursuant to the Care Everywhere program and may not contain all information available regarding this patient. Last updated 17.[facility] Social History Tobacco Use Types Packs/Day Years Used Date Smoking Tobacco: Never Assessed Sex and Gender Information Value Date Recorded Sex Assigned at Not on file Gender Identity Not on file Sexual Orientation Not on file Plan of Treatment Health Maintenance Due Date Last Done Comments COLOGUARD (AGES 45-75) - COL ON CA SCREENING 1955 COLON MONITORING 1955 COLONOSCOPY - COLON CA SCREENING 1955 CT COLONOGRAPHY - COLON CA SCREENING 1955 Colorectal Cancer Screening 1955 FIT - COLON CA SCREENING 1955 FLEX SIG - COLON CA SCREENING 1955 LIPID TESTING 1955 HEPATITIS C SCREENING 01/14/1975 DTAP/TDAP/TD VACCINES (1 - Tdap) 01/19/1976 PNEUMOCOCCAL VACCINE 50+ (1 of 1 - PCV) 2007 ZOSTER VACCINE (1 of 2) 2007 COVID-19 VACCINE ( - 2023-2 5 season) 2023 INFLUENZA VACCINE (#1) 2023 DEPRESSION SCREENING 03/22/2024 Respiratory Syncytial Virus (RSV) Vaccine Pt: or over 60 yrs (1 - 1-dose 75+ series) 01/19/2032 HEPATITIS B VACCINE Aged Out No longe r eligible based on patient's age to complete this topic HIB VACCINE Aged Out No longer eligi ble based on patient's age to complete this topic HPV VACCINE Aged Out No longer eligi ble based on patient's age to complete this topic MENINGOCOCCAL (Group B) VACCINE Aged Out No longer eligible based on patient's age to complete this topic MENINGOCOCCAL VACCINE Aged Out No irina sia eligible based on patient's age to complete this topic
--- OUTSIDE RECORDS SUMMARY | 2024-05-21 18:18 | XMS_ITS | Continuity of Care Document ---
Author Organization [facility] Address [address] [place] [address] Phone Care Team Providers Care Personalized Living Manager Name Role Phone Maggi SIMPSON, Gregorio Unavailable Unavai lable Allergies, Adverse Reactions, Alerts Substance Reaction Status Criticality No Known Allergies Active No Inform ation Medications Medication Instructions Dosage Effective Dates (start - stop) Status Comments methotrexate sodium 2.5 mg tablet take 1 tablet by oral route every week 2.5 MG - Active escitalopram 5 mg tablet take 1 tablet by oral route every day 5 MG - Active folic acid 1 mg tablet take 1 tablet by oral route every day 1 MG - Active Nexium 24HR 20 mg tablet,delayed release - Active Synjardy XR 10 mg-1,000 mg tablet, extended release take 2 tablet by oral route every day in the morning with a meal 2.00 tablet - Active atorvastatin 10 mg tablet take 1 tablet by oral route every day 10 MG - Active Procedures Procedure Date Medical Testimony Deposition X-ray exam Cervical 4 Or 5 Views [address] Advance Directives Directive Yes / No Effective Date File Name No Information Encounters Encounter Description Practice Location Reason(s) For Visit Diagnoses Date Provider Providers Copied on Encounter [facility], [address], [place], [place], [id number], [place] tel:[phone] [facility] No Information 3 Maggi Rodriguez er. [address], [address], [place], [place], [id number] , [place]. tel: [phone] Independent Medical Examination [facility], [address], [place], [place], [id number], [phone] [facility] LANE (chief complaint)c ervical spine (chief complaint) Cervicalgia Sep 2 Maggi Rodriguez er. [address], [address], [place], [place], [id number] , [place]. tel: [phone] Family History Family Member Type Diagnosis Age At Onset Brother Problem (finding) Diabetes Mother Problem (finding) Heart Disease Mother Problem (finding) Cancer, unknown Sister Problem (finding) Cancer, unknown Father Problem (finding) Diabetes Mother Problem (finding) Kidney Disease Father Problem (finding) Cancer, unknown Father Problem (finding) Osteoarthritis Payers Payer name Insurance type Covered republican ID Authoriza tion(s) No Information Social History Type Description Quantity Date Captured Comments Sex Male Smoking Status No Information Chief Complaint And Reason For Visit No Information Reason For Referral Reason For Referral No Information Plan Of Treatment Date Type Action Status Referral Ordered: X-ray exam Cervical 4 Or 5 Views spine, cervical ordered History Of Present Illness Encounter Date Complaint History Of Prese nt Illness LANE Urrutiaclau comes int o the office for an LANE. cervical spine Dr. Gregorio TayBoard Certified Orthopedic Surgeon with Fellowship Training in Spine SurgeryOrthopedic [facility] [place] [address], [address] [address] Keyur Carranza is a pleasant 66-year-old male who presents as part of an independent medical examination for a work-related injury sustained on 07/22/2020. He is accompanied by an adult female on today's visit. The patient reports that he does not have a specific mechanism of injury. 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 He states that he finished the last apartment and moved onto [employer]. He did have aches and pain throughout his body during the year of working on apartments. He then began to have progressive pain across his shoulders, between his scapulae, and in his neck while picking up and moving small rocks. The day before that, he was pulling weeds, plants, and filter cloths out of plant beds. The patient reports a history of cervical issues, which was initially evaluated in 2014 with Rochelle Bassett MSN, [facility], . She referred him to Dr. Omar Beck for his neck and Dr. Wil Camejo for his shoulders. He was seen by Dr. Beck, who ordered an MRI of the cervical spine and x-rays. He subsequently underwent a cervical spine surgery with Dr. Beck in 2014 secondary to significant numbness and tingling, dropping objects, and difficulty with ambulation and balance. These difficulties improved postoperatively; however, he began having tingling in his fingers in approximately 2019.Following his recent onset of symptoms, the patient presented to JO[facility]O Joe, [facility] [place] for an evaluation of his new through the neck and shoulders. He was referred to Dr. Shepard for increased his shoulder pain, Dr. Hale for generalized joint pains, and Dr. Beck for an evaluation of his neck secondary to his pain. Dr. Beck informed him that while he was in need of a shoulder surgery, his cervical spine took priority as he had significant stenosis at C2-3. After waiting several months for his A1c to decrease, he underwent a second cervical surgery. He notes that he did have balance issues prior to his second spine surgery, in addition to pain while looking up. He was last seen by Dr. Beck yesterday for his 1-year postoperative follow-up evaluation, who informed him that the current state of his neck is likely going to be his new baseline. Today, the patient reports decreased range of motion of the neck that causes difficulty with looking up and rotating the neck. 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 He notes that he does drive his own vehicle as it has many sensors and other devices to help him drive with limited motion. He refuses to drive company vehicles secondary to his lack of range of motion. The patient also reports that he continues to have tingling in his fingers. He has difficulty with balance when he first stands from a resting state, which improves as he ambulates. The adult female relates that he has been taking pain medication for 2 years. The patient reports that he is currently off of work due to a recent right rotator cuff repair with Dr. Camejo. Prior to that, he was treated with a left rotator cuff repair and biceps procedure in the past. His restriction of no lifting with the right arm, and no lifting over 4 to [address] Camejo has advised him that he will likely not be able to return to all of his preoperative activities. The patient has been diagnosed with rheumatoid arthritis by Dr. Hale after blood testing and MRI scans. He takes methotrexate for this, which does help with his generalized joint aches throughout his body.The patient reports that he is a nonsmoker. Functional Status Date Functional Assessmen t No Information Instructions Date Instruction Additional Infor cony Plan of Care:Keyur Carranza is a pleasant 66-year-old male who has a reported date of injury of 08/19/2020; however, he does not have a specific reported event on that date. He describes it more as a culmination of symptoms and a differentiation of his symptoms as of that date. Again, there is no specific event that preceded his report of injury. His diagnoses today include cervicalgia, cervical stenosis potentially resulting in cervical myelopathy, cervical spondylosis, status post C2 to C4 decompression and fusion, and a previous laminoplasty from C4 to C6. Of note, I have no imaging for this patient. All imaging has been requested and I will complete this document after the arrival of that imaging. Related to Cervicalgia Assessments Type Assessment Date No Information Patient Care Teams Name Effective Dates (start - stop) Status Members No Information
--- OUTSIDE RECORDS SUMMARY | 2024-05-21 18:18 | XMS_ITS | Encounter Summary ---
Author Organization [facility] Address [address] [place] [address] Care Team Providers Care Magazine Editor Name Role Phone Marisa Boyce MD Primary Care Provider + Unknown, Notinfile Primary Care Provider Unavail able Matt Mendez MD Unavailable [phone] Fariha Dennis MD Primary Care Provider + Main Ny MD Unavailable Wil Camejo MD Unavailable [phone] Leola Hale MD Unavailable Da Villaseñor OT Unavailable Unavailable Reason for Visit * Auth/Cert (Routine) Specialty Diagnoses / Procedures Referred By Contac t Referred To Contact Diagnoses Primary osteoarthritis of right hip Primary osteoarthritis of right hip [M16.11] Procedures NH ARTHRP ACETBLR/PROX FEM PROSTC AGRFT/ALGRFT NH CPTR-ASST SHAD BARRJ ORTHO CT/MRI ARTHROPLASTY RIGHT TOTAL HIP - CARRIE ROBOTIC ARM - EM Referral ID Status Reason Start Date Expiration Date Visits Re quested Visits Authorized [id number] 1 1 Encounter Details Date Type Department Care Team (Late st Contact Info) Description 06/17/2023 Hospital Encounter [facility] Operating Room [address] [address] [id number] Michael Anguiano MD [address] [place] [address] Social History Tobacco Use Types Packs/Day Years Used Date Smoking Tobacco: Former Cigarettes 1 15 0 03/22/1971 - 03/22/1984 Smokeless Tobacco: Current Snuff Last attempted to quit: 2021 Comments:Currently uses a ni cotine and tobacco free chew that is just herbs Alcohol Use Standard Drinks/Week Comments No 0 (1 standard drink = 0.6 oz pur e alcohol) AUDIT-C Answer Date Recorded Q1: How often do you have a drink containing alc ohol? Monthly or less 05/18/2024 Q2: How many drinks containi ng alcohol do you have on a typical day when you are drinking? 1 or 2 05/18/2024 Q3: How often do you have si x or more drinks on one occasion? Less than monthly 05/18/2024 PHQ-2 Answer Date Recorded PHQ-2 Total Score (If total score is 3 or more points, staff should administer the PHQ-9) 0 05/18/2024 Personal Safety Answer Date Recorded Have you ever been in or are you currently in a harmful physical or emotional relationship or is someone making you feel afraid or unsafe? 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 Monthly or less 05/18/2024 8:48 AM Vita Gandara MA Q2: How many drinks containing alcohol do you have on a typical day when you are drinking? 1 or 2 05/18/2024 8:48 AM Vita Gandara MA Q3: How often do you have six or more drinks on one occasion? Less than monthly 05/18/2024 8:48 AM Vita Gandara MA documented as of this encounter Plan of Treatment Upcoming Encounters Date Type Department Care Team (Latest Contact Info) Description 05/24/2024 11:25 AM BANK APPRAISER Hospital Encounter [facility] Operating Room [address] [place] [address] Matt Mendez MD [address] [place] [address] 05/24/2024 11:25 AM BANK APPRAISER - 05/24/2024 1:50 PM BANK APPRAISER Surgery [facility] Operating Room [address] [place] [address] Matt Mendez MD [address] [place] [address] [address] [place] [address] Left Total Hip Artthroplasty- Anterior Approach, Depuy- Actis, Omnitrac, Aquamantys, 1 liter beta rinse, Pt to stay Scheduled Procedures Name Priority Associated Diagnoses Date/Ti me ARTHROPLASTY TOTAL HIP - ANTERIOR APPROACH Primary osteoarthritis of left hip 05/24/2024 11:25 AM BANK APPRAISER documented as of this encounter Visit Diagnoses Diagnosis Type 2 diabetes mellitus (HCC) Right bundle branch block (RBBB) ZAHIDA on CPAP Hyperlipidemia Other and unspecified hyperlipidemia Anxiety Anxiety state, unspecified Depressive disorder Depressive disorder, not elsewhere classified Inflammatory arthritis Unspecified inflammatory polyarthropathy Fatigue Other malaise and fatigue Osteoarthritis- Primary Osteoarthrosis, unspecified whether generalized or localized, unspecified site Primary osteoarthritis of left hip documented in this encounter Admitting Diagnoses Diagnosis Osteoarthritis Osteoarthrosis, unspecified whether generalized or localized, unspecified site documented in this encounter Care Teams Magazine Editor Relationship Specialty Start Date End Date Marisa Boyce MD [address] [place] [address] [address] [place] [address] PCP - General Family Medicine 08/12/20 02/07/24 Unknown, Notinfile PCP - General 02/08/24 04/16/24 Fariha Dennis MD [address] [place] [address] [address] [place] [address] PCP - General Family Medicine 04/17/24 Matt Mendez MD [address] [place] [address] [place] [address] Surgeon Orthopedic Surgery 02/15/24 Main Ny MD [address] [place] [address] [address] [place] [address] Consulting Physician General Surgery 04/17/24 Wil Camejo MD [address] [facility] [facility] [address]6B[address] [place] [address] Surgeon Orthopedic Surgery 04/17/24 Leola Hale MD [address] [address] [facility] [address] [place] [address] Consulting Physician Internal Medicine 04/17/24 Da Villaseñor OT Occupational Therapist Occupational Therapy 05/18/24 documented as of this encounter
--- OUTSIDE RECORDS SUMMARY | 2024-05-21 18:18 | XMS_ITS | Clinical Summary ---
Author Organization [facility] Address [address] [place] [address] Care Team Providers Care Fur Comber Name Role Phone Matt Mendez MD Unavailable Fariha Dennis MD Primary Care Provider + Main Ny MD Unavailable Wil Camejo MD Unavailable [phone] Leola Hale MD Unavailable Da Villaseñor OT Unavailable Unavailable Allergies Active Allergy Reactions Criticality Noted Date Comments Clindamycin Rash Medium 01/11/2024 Medications finasteride (PROSCAR) 5 mg tablet Take 1 tablet (5 mg total) by mouth every evening 2 8 Active esomeprazole magnesium (NEXIUM 24HR ORAL) Take 40 mg by mouth nightly Active meclizine (ANTIVERT) 25 mg tablet Take 1 tablet (25 mg total) by mouth as needed for dizziness Active valACYclovir (VALTREX) 1 gram tabletIndicatio ns:Prophylaxis, Medical,cold sore Take 1 tablet (1,000 mg total) by mouth as needed (cold sores) 2 Active ALPRAZolam (XANAX) 0.5 mg tablet Take 1 tablet (0.5 mg total) by mouth as needed for anxiety 3 Active triamcinolone (NASACORT) 55 mcg nasal inhaler Administer 2 sprays into each nostril as needed for allergies or rhinitis Active LANTUS 100 unit/mL (3 mL) pen for injection 25 Units nightly 3 Active OneTouch Verio test strips strip USE TO TEST BLOOD SUGAR TWICE DAILY 3 Active OneTouch Verio Flex meter misc 2 (two) times a day 3 Active BD Aletha 2nd Gen Pen Needle 32 gauge x 5/32 needle daily 3 Active lancets (Microlet Lancet) misc TEST DAILY UTD Ac tive DULoxetine DR (CYMBALTA) 60 mg capsule Take 1 capsule (60 mg total) by mouth daily 30 capsule 11 4 09/07/19 25 Active Farxiga 10 mg tablet Take 1 tablet (10 mg total) by mouth daily Active metFORMIN (FORTAMET) 1,000 mg 24 hr tablet Take 2 tablets (2,000 mg total) by mouth daily with breakfast Active naproxen (NAPROSYN) 500 mg tablet Take 1 tablet (500 mg total) by mouth 2 (two) times a day with meals 60 tablet 1 5 06/11/19 25 Active traZODone (DESYREL) 100 mg tablet TAKE 1 TABLET BY MOUTH EVERY DAY AT BEDTIME NEEDED FOR INSOMNIA 5 Active albuterol HFA (PROVENTIL HFA,VENTOLIN HFA,PROAIR HFA) 90 mcg/actuation inhaler Inhale 2 puffs as needed for shortness of breath (cough) 1 each 11 5 Active atorvastatin (LIPITOR) 20 mg tablet Take 1 tablet (20 mg total) by mouth nightly 90 tablet 1 5 Active benzonatate (TESSALON) 100 mg capsuleIndicati ons:Cough Take 1 capsule (100 mg total) by mouth 3 (three) times a day as needed for cough 42 capsule 5 Active azithromycin (ZITHROMAX) 250 mg tabletIndicatio ns:Acute bronchitis, unspecified organism Take 2 tabs (500 mg) by mouth today, than 1 tab (250 mg) daily for 4 days. 6 tablet 5 05/24/19 25 Active atorvastatin (LIPITOR) 20 mg tablet Take 1 tablet (20 mg total) by mouth nightly 1 05/15/19 25 Discontin ued(Reord er) Active Problems Problem Noted Date Diagnosed Date Preop examination 05/18/2024 Assessment & Plan (05/18/2024 11:21 AM FLAME CUTTING MACHINE OPERATOR): Revised Cardiac Risk Index; 6% risk for major cardiac event. Perioperative risk for [place]/CA; 0.2% Patient is at acceptable risk for the left hip arthroplasty with Dr. Mendez on 05/24/24. Discussed with Orthopedic Surgery, THELMA Gonzaelz, regarding patient's cough and plan for course of antibiotics. Ortho aware, and planning on proceeding with surgery barring any issues with cough resolution. Pre-Op Evaluation form completed and faxed to Ortho office. Primary osteoarthritis of left hip 05/18/2024 Assessment & Plan (05/18/2024 2:00 PM FLAME CUTTING MACHINE OPERATOR): Primary OA of left hip. Plans for arthroplasty by orthopedic surgery. Type 2 diabetes mellitus with hyperglycemia ([facility]) 04/17/2024 Acute cough 04/17/2024 Assessment & Plan (04/17/2024 8:49 AM FLAME CUTTING MACHINE OPERATOR): No evidence of bacterial infection. Will refill albuterol and patient will let me know if not improving or wrosening in the next week or so Severe obesity 04/17/2024 Assessment & Plan (04/17/2024 11:12 AM FLAME CUTTING MACHINE OPERATOR): We discussed healthy lifestyle issues including healthy diet and regular exercise of 150 minutes weekly, and exercise including resistance training. Primary osteoarthritis of right hip 02/14/2024 Mass of subcutaneous tissue of back 01/13/2024 Assessment & Plan (01/25/2024 9:28 AM FLAME CUTTING MACHINE OPERATOR): Pathology has been reviewed with the patient and family is just a simple cyst. Sutures removed and Steri-Strips placed. They can cover with gauze and tape as needed for comfort. Call us back with any further questions or concerns. S/P bilateral inguinal hernia repair, follow-up exam 10/28/2023 Cervical lymphadenopathy 06/02/2023 Bilateral inguinal hernia 06/02/2023 Assessment & Plan (10/14/2023 10:25 AM CDT): Given the symptomatic nature we will set him up for bilateral inguinal hernia repairs. We have discussed the need for mesh implantation. We have discussed postoperative restrictions. All questions have been answered. Preadmission testing will be sent in. Consent to be obtained. Abnormal magnetic resonance imaging of cervical spine 06/02/2023 Mild aortic valve stenosis 02/15/2023 Overview (10/07/2023): Echo 03/2023 Assessment & Plan (05/18/2024 2:08 PM FLAME CUTTING MACHINE OPERATOR): Reportedly has mild aortic stenosis on echo from . Not available in chart. Grade 1/4 murmur heard on exam. Currently asymptomatic. Post-viral cough syndrome 02/15/2023 Pruritic rash 12/24/2022 Rash 07/27/2022 Multiple joint pain 05/26/2022 Insomnia 05/26/2022 Assessment & Plan (04/17/2024 11:06 AM FLAME CUTTING MACHINE OPERATOR): Currently using trazodone at night, alprazolam p.r.n.. Recommended he cut down the use of alprazolam as tolerated, however with his intermittent use I am okay with refilling when the time comes. Inflammatory arthritis 10/01/2021 Right bundle branch block (RBBB) 11/20/2020 Class 1 obesity in adult 11/20/2020 Complete tear of left rotator cuff 11/13/2020 Overview (11/13/2020): Added automatically from request for surgery [id number] Spinal stenosis in cervical region 09/17/2020 Raised prostate specific antigen 04/30/2020 Assessment & Plan (04/17/2024 11:06 AM FLAME CUTTING MACHINE OPERATOR): His chart has previously elevated PSA, he also has known BPH. No longer follow with Urology, will check PSA this year Hyperlipidemia 04/30/2020 Assessment & Plan (05/18/2024 2:04 PM FLAME CUTTING MACHINE OPERATOR): Lipid panel ordered. Continue atorvastatin 20 mg daily. Assessment & Plan (04/17/2024 8:47 AM FLAME CUTTING MACHINE OPERATOR): Will recheck lipids, unclear to me why he is not on a statin. Type 2 diabetes mellitus 04/30/2020 Assessment & Plan (05/18/2024 2:03 PM FLAME CUTTING MACHINE OPERATOR): A1c 7.3, Can be better controlled, but stable at this time. Continue current Lantus 25 units nightly, metformin 2000 mg daily, and Farxiga 10 mg. Assessment & Plan (04/17/2024 11:14 AM FLAME CUTTING MACHINE OPERATOR): Has been well controlled previously, will check A1c, needs dilated eye exam and urine microalbumin. Spinal stenosis 04/08/2020 ZAHIDA on CPAP 04/08/2020 Diverticulitis 04/08/2020 Depressive disorder 04/08/2020 Chronic sinusitis 04/08/2020 Osteoarthritis 04/08/2020 Anxiety 04/08/2020 Acute bronchitis 04/07/2020 Assessment & Plan (05/18/2024 11:20 AM FLAME CUTTING MACHINE OPERATOR): Clinically consistent with acute bronchitis. Cough with low concerns for cardiac/pulmonary etiology. Exam with clear breath sounds. Does have a known murmur from mild aortic stenosis. No evidence of volume overload. CXR images reviewed by myself, with no evidence of any acute cardiopulmonary abnormalities. Possible cough may be related to post nasal drip or GERD, however, patient is on appropriate therapy, with no significant issues. Discussed diagnosis and treatment with patient. Patient prefers to be treated with course of antibiotics, as it previously was beneficial for him. Risks of antibiotic use discussed. -Plan for treatment with course of Z-pack -RTC in 5 days prior to surgery to ensure cough resolution -Benzonatate PRN -Mucinex OTC -Continue with nasocort, saline spray, and Nexium. -If no improvement/worsening, consider communicating with Ortho for possible rescheduling of surgery Knee pain 01/29/2016 Cervicalgia 07/13/2014 Paresthesia 06/06/2014 Paresthesia of lower extremity 06/06/2014 Fatigue 06/06/2014 Lumbago 06/06/2014 Resolved Problems Problem Noted Date Diagnosed Date Resolved Date Tobacco user 05/09/2020 01/13/2024 Encounters Date Type Department Care Team Description 05/18/2024 9:00 AM FLAME CUTTING MACHINE OPERATOR Office Visit [facility] Medical [facility] Residency Clinic at [address] [place] [address] Riri Veliz MD Preop examination (Primary Dx); Primary osteoarthritis of left hip; Acute bronchitis, unspecified organism; Type 2 diabetes mellitus without complication, with long-term current use of insulin ([facility] ([facility]); Hyperlipidemia, unspecified hyperlipidemia type; Mild aortic valve stenosis 05/16/2024 Telephone [facility] Medical [facility] [address] [place] [address] [address] [place] [address] Eun Baeza MA 05/12/2024 8:46 AM FLAME CUTTING MACHINE OPERATOR - 05/12/2024 11:59 PM FLAME CUTTING MACHINE OPERATOR Hospital Encounter [address] [address] Pre-op testing Discharge Disposition: Discharge to home or self care 05/12/2024 8:35 AM FLAME CUTTING MACHINE OPERATOR Lab [address] [address] Pre-op testing 05/12/2024 Telephone [facility] Medical Group Primary Care at [address] [place] [address] Fariha Dennis MD 05/08/2024 Telephone [facility] [address] [place] [address] [address], [place] [address] Matt Mendez MD Surgery Date 04/25/2024 11:45 AM FLAME CUTTING MACHINE OPERATOR Office Visit [facility] Medical [facility] [address] [place] [phone] Matt Mendez MD Primary osteoarthritis of left hip (Primary Dx); Pre-op testing 04/25/2024 7:44 AM FLAME CUTTING MACHINE OPERATOR - 04/25/2024 11:59 PM FLAME CUTTING MACHINE OPERATOR Hospital Encounter [facility] [address] [place] [phone] Discharge Disposition: Discharge to home or self care 04/25/2024 Documentation [facility] Medical [facility] [address] [place] [address] [place] [phone] Eun Baeza MA 04/25/2024 Telephone [facility] Primary Care at [address] [phone] Fariha Dennis MD Medication 04/18/2024 Orders Only [facility] at [address] [phone] Fariha Dennis MD Type 2 diabetes mellitus without complication, with long-term current use of insulin ([facility]) ([facility]) (Primary Dx); Diabetic eye exam ([facility]) (HCC) 04/17/2024 8:00 AM FLAME CUTTING MACHINE OPERATOR Office Visit [facility] at [address] [phone] Fariha Dennis MD Hyperlipidemia, unspecified hyperlipidemia type (Primary Dx); Raised prostate specific antigen; Type 2 diabetes mellitus without complication, with long-term current use of insulin (CMS/HCC) ([facility]); Type 2 diabetes mellitus with hyperglycemia, with long-term current use of insulin ([facility]); Acute cough; Primary insomnia; Arthritis; Encounter for abdominal aortic aneurysm (AAA) screening; Severe obesity (HCC) 04/17/2024 Telephone [facility] Medical [facility] at [address] [phone] Fariha Dennis MD 04/17/2024 Orders Only [facility] Primary Care at [address] [phone] Vita Saravia MA 04/12/2024 8:45 AM FLAME CUTTING MACHINE OPERATOR Therapy [facility] - [place] [address] Roni Gaspar, PT S/P total right hip arthroplasty (Primary Dx) 04/11/2024 8:15 AM FLAME CUTTING MACHINE OPERATOR Office Visit [facility] [address] [place] [address] [address] [place] [phone] Janine Ayers NP Aftercare following right hip joint replacement surgery (Primary Dx) 04/11/2024 7:48 AM FLAME CUTTING MACHINE OPERATOR - 04/11/2024 11:59 PM FLAME CUTTING MACHINE OPERATOR Hospital Encounter [facility] [address] [place] [address] [address] [place] [phone] Discharge Disposition: Discharge to home or self care 04/05/2024 8:30 AM FLAME CUTTING MACHINE OPERATOR Therapy [facility] [place] [address] Silvina Rey, PT S/P total right hip arthroplasty (Primary Dx) 03/09/2024 9:15 AM FLAME CUTTING MACHINE OPERATOR Therapy [facility] [place] [address] Silvina Rey, PT S/P total right hip arthroplasty (Primary Dx) 03/09/2024 Plan of Care Documentation [facility] [place] [address] 03/07/2024 9:30 AM FLAME CUTTING MACHINE OPERATOR Telemedicine [facility] [address] [place] [address] [address] [place] [address] Janine Ayers NP Aftercare following right hip joint replacement surgery (Primary Dx) 03/07/2024 Telephone [facility] [address] [place] [address] [address] [place] [address] Matt Mendez MD 03/07/2024 Orders Only [facility] [address] [place] [address] [address] [place] [address] Janine Ayers NP S/P total right hip arthroplasty (Primary Dx) from Last 3 Months Immunizations Immunization Administration Dates Next Due Hep B Vaccine 11/06/2003,07/09/2003,06/06/2003 Influenza, Quadrivalent, Hig h Dose, Preservative Free, Intrr 03/18/2023,02/07/2022 Influenza, Quadrivalent, Spl it, Intramuscular 12/05/2019 Influenza, Quadrivalent, Spl it, Preservative Free, Intramuscular 12/31/2020 Influenza, Trivalent, High D ose, Split, Preservative Free, Intramuscular 12/25/2023 Influenza, Unspecified 11/24/2023 Moderna SARS-CoV-2 Monovalen t Vaccination (12+ YRS) 04/27/2020,03/30/2020 Pneumococcal Conjugate PCV 13 12/31/2020 Pneumococcal Polysaccharide PPV23 02/16/2022 Tdap 04/28/2022 Surgical History Surgery Date Site/Laterality Comments CARPAL TUNNEL RELEASE 03/22/2017 - 03/21/2018 Bilateral ELBOW SURGERY 03/22/2017 - 03/21/2018 Bilateral CERVICAL LAMINECTOMY 03/22/2014 - 03/21/2015 with laminoplasty C2-7 CERVICAL FUSION 11/26/2020 C2-4 FLUORO GUIDED INJECTION HIP RIGHT 01/29/2022 Right ROTATOR CUFF REPAIR 03/22/2021 - 03/21/2022 Bilateral COSMETIC SURGERY SPINE SURGERY 2014 & 2020 VASECTOMY 1989 COLONOSCOPY HERNIA REPAIR CYSTECTOMY on the back JOINT REPLACEMENT 02/14/2024 Right hip Medical History Medical History Date Comments Arthritis Gout Gastric reflux Sleep apnea does not use c-p ap GERD (gastroesophageal reflux disease) HLD (hyperlipidemia) Cervical myelopathy (HCC) PONV (postoperative nausea a nd vomiting) vomiting after cervical surg andi transporting to radiology Motion sickness Diabetes mellitus, type 2 (HCC) BPH (benign prostatic hyperplasia) Osteoarthritis Emphysema of lung (HCC) Heart murmur Tobacco user 05/09/2020 Family History Medical History Relation Name Comments Arthritis Brother Matt Lobo. Family history of arthritis - (Added by TW Conv) Diabetes Brother Matt W. Arthritis Father Matt D. Family history of arthritis - (Added by TW Conv) Cancer Father Matt D. Diabetes Father Matt D. Family history of diabetes mellitus - (Added by TW Conv) Lung disease Father Matt D. Cancer Maternal Grandfather Apollo Cai Fa lane history of malignant neoplasm - Relation: Grandfather (Added by TW Conv) Heart disease Maternal Grandfather Apollo Mccartypj F amiljustin history of cardiac disorder - Relation: Grandfather (Added by TW Conv) Stroke Maternal Grandfather Apollo Cai [address] history of cerebrovascular accident - Relation: Grandfather (Added by TW Conv) Cancer Mother Irma Esquivel. Family history of malignant neoplasm - (Added by TW Conv) Diabetes Mother Irma Esquivel. Family history of diabetes mellitus - (Added by TW Conv) Heart disease Mother Irma Esquivel. Family history of cardiac disorder - (Added by TW Conv) Kidney disease Mother Irma Esquivel. Family histor y of kidney disease - (Added by TW Conv) Arthritis Other Blood Clot Other Gout Other Osteoporosis Other Cancer Sister Giovana Mayes Family history of malignant neoplasm - (Added by TW Conv) Anesthesia problems Neg Hx Relation Name Status Comments Brother Matt Lobo. Father Matt Jaeger. 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 Not on file Not on file Not on file Obstetrics History Last Filed Vital Signs Vital Sign Reading Time Taken Comments Blood Pressure 127/74 05/18/2024 8:49 AM FLAME CUTTING MACHINE OPERATOR Pulse 87 05/18/2024 8:49 AM FLAME CUTTING MACHINE OPERATOR Temperature 36.7 C (98 F) 05/18/2024 8:49 AM FLAME CUTTING MACHINE OPERATOR Respiratory Rate 18 05/18/2024 8:49 AM FLAME CUTTING MACHINE OPERATOR Oxygen Saturation 99% 05/18/2024 8:49 AM FLAME CUTTING MACHINE OPERATOR Inhaled Oxygen Concentration - - Weight 109.8 kg (242 lb) 05/18/2024 8:49 AM FLAME CUTTING MACHINE OPERATOR Height 174.2 cm (5' 8.58 ) 05/18/2024 8:49 AM CS T Body Mass Index 36.17 05/18/2024 8:49 AM FLAME CUTTING MACHINE OPERATOR Plan of Treatment Upcoming Encounters Date Type Department Care Team (Latest Contact Info) Description 05/24/2024 11:25 AM FLAME CUTTING MACHINE OPERATOR Hospital Encounter [facility] Operating Room [address] [place] [address] Matt Mendez MD [address] [place] [address] 05/24/2024 11:25 AM FLAME CUTTING MACHINE OPERATOR - 05/24/2024 1:50 PM FLAME CUTTING MACHINE OPERATOR Surgery [facility] Operating Room [address] [place] [address] Matt Mendez MD [address] [place] [address] Left Total Hip Artthroplasty- Anterior Approach, Depuy- Actis, Omnitrac, Aquamantys, 1 liter beta rinse, Pt to stay Scheduled Procedures Name Priority Associated Diagnoses Date/Ti me ARTHROPLASTY TOTAL HIP - ANTERIOR APPROACH Primary osteoarthritis of left hip 05/24/2024 11:25 AM FLAME CUTTING MACHINE OPERATOR Health Maintenance Due Date Last Done Comments Albumin Creatinine Ratio, Urine 1957 Colon Cancer Screening-Colonoscopy 1957 Prostate Cancer Screening-PSA 1957 Dilated Eye Exam 1957 Lipid Panel 1957 Zoster Vaccine (1 of 2) 2007 Well Visit 65+ 2022 Covid-19 Vaccine (2023-2 5 season) 2024 12/25/2023, 02/07/2022, 03/06/2021, Additional history exists Hemoglobin A1C 11/09/2024 05/12/2024, 01/20, 12/07/2023, Additional history exists Fall Risk Assessment 04/17/2025 04/17/2024, 02/15/20 24 Foot Exam 04/17/2025 04/17/2024 eGFR 05/12/2025 05/12/2024, 01/21, 02/02/2024, Additional history exists Depression Screening 05/18/2025 05/18/2024, 04/17/19 25 DTaP/Tdap/Td Vaccine (2 - Td or Tdap) 04/28/2032 04/28/2022 Hepatitis B Screening Completed 11/06/2003 , 07/09/2003, 06/06/2003 Hepatitis C Screening Completed 10/28/2020 Pneumococcal vaccine 65+ Completed 02/16/2022, 12/20 Influenza Vaccine Completed 12/25/2023, , 03/18/2023, Additional history exists Abdominal Aortic Aneurysm (A AA) Screen Completed 04/17/2024 Medical Devices Implanted Type Area Post Acute Care Nurse Practitioner Device Identifier Shelf Expiration Date Model / Serial / Lot Depuy Synthes Spine [id number] Set Screw - [id number] Implanted:Qty: 6 on 11/26/2020 by Omar Beck MD at [facility] N/A: Spine Cervical Depuy Synthes Spine [id number] / / Depuy Synthes Spine [id number] 3.5mm 18mm Ply Spine Screw Bone Nonsterile 4mm Gold - [id number] Implanted:Qty: 2 on 11/26/2020 by Omar Beck MD at [facility] N/A: Spine Cervical Depuy Synthes Spine [id number] / / Depuy Synthes Spine [id number] 4mm 240mm Straight Gold Spinal Titanium - [id number] Implanted:Qty: 1 on 11/26/2020 by Omar Beck MD at [facility] N/A: Spine Cervical Depuy Synthes Spine [id number] / / Depuy Synthes Spine [id number] 3.5mm 16mm Ply Spine Screw Bone Nonsterile 4mm Gold - [id number] Implanted:Qty: 2 on 11/26/2020 by Omar Beck MD at [facility] N/A: Spine Cervical Depuy Synthes Spine [id number] / / 4.0x20mm Screw Implanted:Qty: 2 on 11/26/2020 by Omar Beck MD at [facility] N/A: Spine Cervical DEPUY SYNTHES COMPANIES [id number] / / Description:Depuy synthes sy mphony spine Allosource [id number] Freeze Dried Crushed 1-4mm Graft 15ml Bone Cancellous - [id number] Implanted:Qty: 1 on 11/26/2020 by Omar Beck MD at [facility] N/A: Spine Cervical [employer]ource 06/08/2025 [id number] / / [id number] [employer] Ar-2324 Bcm Swivelock 4.75mm 24.5mm Self Punch Vent Shoulder Randolph Suture - [id number] Implanted:Qty: 1 on 04/17/2021 by Wil Camejo MD at [facility] Left: Shoulder [employer] 12/19/2024 AR-2324BCM / / [id number] [employer] Ar-2290 Fiberloop 3.2mm Drill Pin Needle Shoehorn Cannula Kit Suture - [id number] Implanted:Qty: 1 on 04/17/2021 by Wil Camejo MD at [facility] Left: Shoulder [employer] 02/18/2026 AR-2290 / / [id number] [employer] Ar-1927bct Corkscrew Suturetape 5.5mm 14.7mm Bioabsorbable Full Thread 1.3mm - [id number] Implanted:Qty: 1 on 04/17/2021 by Wil Camejo MD at [facility] Left: Shoulder [employer] 01/19/2023 AR-[id number] / / [id number] [employer] Ar-2324 Bcm Swivelock 4.75mm 24.5mm Self Punch Vent Shoulder Randolph Suture - [id number] Implanted:Qty: 1 on 04/17/2021 by Wil Camejo MD at [facility] Left: Shoulder [employer] 12/19/2024 AR-2324BCM / / [id number] [employer] Fiberloop 3.2mm Drill Pin Needle Shoehorn Cannula Kit Suture Ar-2290 - [id number] Implanted:Qty: 1 on 10/10/2021 by Wil Camejo MD at [facility] Right: Shoulder [employer] 05/19/2026 AR-2290 / / [id number] [employer] Corkscrew Suturetape 5.5mm 14.7mm Bioabsorbable Full Thread 1.3mm Ar-1927bct - [id number] Implanted:Qty: 1 on 10/10/2021 by Wil Camejo MD at [facility] Right: Shoulder [employer] 06/20/2023 AR-1927BCT / / [id number] [employer] Ar-2324 Bcm Swivelock 4.75mm 24.5mm Self Punch Vent Shoulder Randolph Suture - [id number] Implanted:Qty: 1 on 10/10/2021 by Wil Camejo MD at [facility] Right: Shoulder [employer] 05/19/2025 AR-2324BCM / / [id number] [employer] Ar-2324 Bcm Swivelock 4.75mm 24.5mm Self Punch Vent Shoulder Randolph Suture - [id number] Implanted:Qty: 1 on 10/10/2021 by Wil Camejo MD at [facility] Right: Shoulder [employer] 05/19/2025 AR-2324BCM / / [id number] [employer]/C R Bard Mesh Surgical Mid Anatomical Synthetic Patch 3dmax 4x6in [id number] - [id number] Implanted:Qty: 1 on 10/20/2023 by Main Ny MD at [facility] Right: Inguinal [employer] Bard 01/17/2028 [id number] / / [id number] [employer] Mesh Surgical Inguinal Hernia Synthetic Patch 3dmax 4x6in [id number] - [id number] Implanted:Qty: 1 on 10/20/2023 by Main Ny MD at [facility] Left: Inguinal [employer] 04/18/2028 [id number] / / [id number] [employer] Center Sandwich 58mm Sector Hip Shell Acetabular Gription Sterile Latex Free [id number] - [id number] Implanted:Qty: 1 on 02/14/2024 by Matt Mendez MD at [facility] Right: Hip [employer] [id number] 11/19/2033 [id number] / / [id number] [employer] Center Sandwich 58mm 36mm Hip Neutral Liner Acetabular Altrx Sterile Latex Free [id number] - [id number] Implanted:Qty: 1 on 02/14/2024 by Matt Mendez MD at [facility] Right: Hip [employer] [id number] 11/19/2028 [id number] / / [id number] [employer] Actis L107 Mm Collar Hip 6 High Offset Stem Femoral [id number] - [id number] Implanted:Qty: 1 on 02/14/2024 by Matt Mendez MD at [facility] Right: Hip [employer] [id number] 06/19/2033 [id number] / / [id number] [employer] Articul/Francisco Javier 36mm Cementless Hip +1.5mm 12/14 Taper Head Femoral Latex Free [id number] - [id number] Implanted:Qty: 1 on 02/14/2024 by Matt Mendez MD at [facility] Right: Hip [employer] [id number] 11/19/2028 [id number] / / [id number] Procedures Procedure Name Priority Date/Time Associated Diagnosis Comments XR CHEST PA LATERAL 2 VIEWS Schedule Routine, Read Routine (OP Routine) 05/12/2024 9:42 AM FLAME CUTTING MACHINE OPERATOR Pre-op testing EGFR Routine 05/12/2024 8:41 AM FLAME CUTTING MACHINE OPERATOR Pre-op testing DIFFERENTIAL AUTO Routine 05/12/2024 8:4 1 AM FLAME CUTTING MACHINE OPERATOR Pre-op testing URINALYSIS, MICROSCOPIC ONLY Routine 05/12/2024 8:41 AM FLAME CUTTING MACHINE OPERATOR Pre-op testing HEMOGLOBIN A1C Routine 05/12/2024 8:41 AM FLAME CUTTING MACHINE OPERATOR Pre-op testing COMPREHENSIVE METABOLIC PANEL Routine 05/12/2024 8:41 AM FLAME CUTTING MACHINE OPERATOR Pre-op testing CBC WITH AUTO DIFFERENTIAL Routine 05/12/2024 8:41 AM FLAME CUTTING MACHINE OPERATOR Pre-op testing URINE CULTURE Routine 05/12/2024 8:41 AM FLAME CUTTING MACHINE OPERATOR URINALYSIS AND REFLEX TO MICROSCOPIC AND CULTURE Routine 05/12/2024 8:41 AM FLAME CUTTING MACHINE OPERATOR Pre-op testing XR HIP LEFT 2 OR 3 VIEWS Schedule Routine, Read Routine (OP Routine) 04/25/2024 11:03 AM FLAME CUTTING MACHINE OPERATOR Primary osteoarthritis of left hip US ABDOMINAL AORTIC ANEURYSM SCREENING Schedule Routine, Read Routine (OP Routine) 04/17/2024 11:32 AM FLAME CUTTING MACHINE OPERATOR Encounter for abdominal aortic aneurysm (AAA) screening XR HIP RIGHT 2 OR 3 VIEWS Schedule Routine, Read Routine (OP Routine) 04/11/2024 8:04 AM FLAME CUTTING MACHINE OPERATOR Aftercare following right hip joint replacement surgery HEPATITIS PANEL, ACUTE Routine 10/28/2020 11:46 AM CDT DISH (diffuse idiopathic skeletal hyperostosis) from Last 3 Months or Most Recently Relevant to Health Maintenance Results * XR Chest PA Lateral 2 View (05/12/2024 9:42 AM FLAME CUTTING MACHINE OPERATOR) Anatomical Region Laterality Modality Body, Chest N/A Computed Radiogr aphy 05/18/2024 12:2 9 PM FLAME CUTTING MACHINE OPERATOR Narrative 05/18/2024 12:30 PM FLAME CUTTING MACHINE OPERATOR EXAM DESCRIPTION: XR CHEST PA LATERAL 2 VIEWS REASON FOR STUDY: Pre op for hip replacement No current chest complaints No known heart/lung conditions Sleep apnea and diabetic TECHNIQUE: Frontal and lateral radiographic view(s) of the chest. COMPARISON: 12/07/2023. FINDINGS: LUNGS: No focal opacity, pleural effusion, or pneumothorax. HEART/MEDIASTINUM: Cardiac silhouette normal in size. Mediastinal and hilar contours appear normal. LINES/TUBES: None. BONES: No acute osseous abnormality. IMPRESSION: No acute cardiopulmonary abnormality. THIS IS AN ELECTRONICALLY VERIFIED FINAL REPORT 05/18/2024 12:30 PM - Electronically signed by Noe Sanchez M.D. CH: Report ID: [id number] Reading Location: [id number] Procedure Note Noe Sanchez Jr., MD - 05/18/2024 EXAM DESCRIPTION: XR CHEST PA LATERAL 2 VIEWS REASON FOR STUDY: Pre op for hip replacement No current chest complaints No knownheart/lung conditions Sleep apnea and diabetic TECHNIQUE: Frontal and lateral radiographic view(s) of the chest. COMPARISON: 12/07/2023. FINDINGS: LUNGS: No focal opacity, pleural effusion, or pneumothorax. HEART/MEDIASTINUM: Cardiac silhouette normal in size. Mediastinal andhilar contours appear normal. LINES/TUBES: None. BONES: No acute osseous abnormality. IMPRESSION: No acute cardiopulmonary abnormality. THIS IS AN ELECTRONICALLY VERIFIED FINAL REPORT 05/18/2024 12:30 PM - Electronically signed by Noe Sanchez M.D. CH: Report ID: [id number] Reading Location: [id number] Matt Mendez MD IMG XR PROCEDURES Final Result * eGFR (05/12/2024 8:41 AM FLAME CUTTING MACHINE OPERATOR) eGFR 75 >=60 mL/min/1. 73 m2 Comment: Interpretive Data Reference Interval Normal >/= 90 mL/min/1.73m2 Mildly decreased* 60 - 89 mL/min/1.73m2 Mildly to moderately decreased 45 - 59 mL/min/1.73m2 Moderately to severely decreased 30 - 44 mL/min/1.73m2 Severely decreased 15 - 29 mL/min/1.73m2 Kidney Failure < 15 mL/min/1.73m2 *Relative to young adult level Estimated glomerular filtration rate is determined by the 2020 CKD-EPI equation recommended by the National Kidney Foundation (A Unifying Approach to GFR Estimation: Recommendations of the NKF-ASK Task Force on Reassessing the Inclusion of Race in Diagnosing Kidney Disease, JASN 2020). The CKD-EPI equation should not be used for patients with unstable renal function and has not been validated in children and those over 70. Current interpretive data was last reviewed 2021. Blood 05/12/2024 8:41 AM FLAME CUTTING MACHINE OPERATOR 05/12/2024 9:04 AM FLAME CUTTING MACHINE OPERATOR us Matt Mendez MD LAB BLOOD ORDERABLES Fin al Result [facility] [address] [facility] Department [place] [address] * Differential, auto (05/12/2024 8:41 AM FLAME CUTTING MACHINE OPERATOR) Neutrophil abs 4.6 1.5 - 6.5 K/cumm Imm gran abs 0.0 0.0 - 0.1 K/cumm [facility] ([place]) Lymphocyte abs 1.6 0.8 - 3.3 K/cumm [facility] ([place]) Monocyte abs 0.6 0.2 - 0.8 K/cumm [facility] ([place]) Eosinophil abs 0.5 0.0 - 0.5 K/cumm [facility] ([place]) Basophil abs 0.1 0.0 - 0.1 K/cumm [facility] ([place]) Neutrophil pct 63.1 % [facility] ([place] Comment: Interpretive Data Percent cell count reference ranges are not reported, since discordance with absolute values may lead to misinterpretation of CBC data. Current Interpretive Data was last revised on 2017. Imm gran pct 0.4 % [facility] ([place]) Comment: Interpretive Data Percent cell count reference ranges are not reported, since discordance with absolute values may lead to misinterpretation of CBC data. Current Interpretive Data was last revised on 2017. Lymphocyte pct 21.3 % [facility] ([place] Comment: Interpretive Data Percent cell count reference ranges are not reported, since discordance with absolute values may lead to misinterpretation of CBC data. Current Interpretive Data was last revised on 2017. Monocyte pct 7.8 % [facility] ([place]) Comment: Interpretive Data Percent cell count reference ranges are not reported, since discordance with absolute values may lead to misinterpretation of CBC data. Current Interpretive Data was last revised on 2017. Eosinophil pct 6.4 % [facility] ([place] Comment: Interpretive Data Percent cell count reference ranges are not reported, since discordance with absolute values may lead to misinterpretation of CBC data. Current Interpretive Data was last revised on 2017. Basophil pct 1.0 % [facility] ([place]) Comment: Interpretive Data Percent cell count reference ranges are not reported, since discordance with absolute values may lead to misinterpretation of CBC data. Current Interpretive Data was last revised on 2017. Blood 05/12/2024 8:41 AM FLAME CUTTING MACHINE OPERATOR 05/12/2024 9:04 AM FLAME CUTTING MACHINE OPERATOR us Matt Mendez MD LAB BLOOD ORDERABLES Fin al Result [facility] [address] [facility] Department [place] [address] * (ABNORMAL) Urinalysis reflex to microscopic and culture Urine, clean voided (05/12/2024 8:41 AM FLAME CUTTING MACHINE OPERATOR) Color, ur Yellow Yellow Clarity, ur Clear Clear [facility]) Specific gravity, ur 1.028 1.003 - 1.030 [facility] ([place]) pH, urine 5.5 [facility] ([place]) Comment: Interpretive Data U rine pH is affected by diet, medications, systemic acid-base disturbances, and renal tubular function. pH may affect urinary stone formation. For example, urine pH below 6.0 may help reduce the tendency for calcium phosphate stones and pH greater than 6.0 may reduce the tendency for uric acid stone formation. Source: [facility] [employer] Current Interpretive Data was last revised on 2017 Protein, ur ql Negative Negative [facility] Glucose, ur ql 4+(A) Negative [facility] Ketones, ur Negative Negative [facility] Bilirubin, ur Negative Negative [facility] ([place]) Blood, ur Negative Negative [facility] ([place]) Urobilinogen, ur <2.0 <2.0 mg/dL [facility] ([place]) Nitrite, ur Negative Negative [facility] ([place]) Leukocyte esterase, ur 3+(A) Negative [facility] ([place]) UA reflex comment Reflex to microscopic UA will be performed. [facility] ([place]) Urine, clean voided 05/12/2024 8:41 AM FLAME CUTTING MACHINE OPERATOR 05/12/2024 8:52 AM FLAME CUTTING MACHINE OPERATOR us Matt Mendez MD LAB MICROBIOLOGY - GENER AL ORDERABLES Final Result [facility] ([place] [address] [facility] [place] [address] * (ABNORMAL) CBC with auto differential (05/12/2024 8:41 AM FLAME CUTTING MACHINE OPERATOR) WBC 7.3 3.8 - 9.9 K/cumm Hgb 15.4 13.0 - 17.5 g/dL [facility] Hct 48.6 38.9 - 50.3 % [facility] Plt 240 150 - 400 K/cumm [facility] MPV 9.8 9.1 - 12.3 fL [facility] RBC 5.67 4.30 - 5.80 M/cumm [facility] MCV 85.7 81.3 - 96.4 fL [facility] MCH 27.2 27.1 - 33.3 pg [facility] MCHC 31.7(L) 32.3 - 35.7 g/dL [facility] RDW CV 13.2 11.1 - 14.9 % [facility] RDW SD 41.3 35.7 - 48.1 fL [facility] NRBC abs 0.00 0.00 - 0.01 K/cumm [facility] Blood 05/12/2024 8:41 AM FLAME CUTTING MACHINE OPERATOR 05/12/2024 9:04 AM FLAME CUTTING MACHINE OPERATOR Matt Mendez MD LAB BLOOD ORDERABLES Fin al Result Performing Organization Address City/[facility] Co de Phone Number [facility] ([place]) [address] [facility] [employer] [place] [address] * (ABNORMAL) Urinalysis, microscopic only (05/12/2024 8:41 AM FLAME CUTTING MACHINE OPERATOR) WBC, ur 11-20(A) 0 - 5 /HPF RBC, ur 0-2 0 - 2 /HPF [facility] ([place]) Epithelial cells, squamous, ur 1-5 0 - 5 /HPF [facility] Culture Reflex Comment Reflex to urine culture will be performed. [facility]) Urine, clean voided 05/12/2024 8:41 AM FLAME CUTTING MACHINE OPERATOR 05/12/2024 8:52 AM FLAME CUTTING MACHINE OPERATOR us Matt Mendez MD LAB URINE ORDERABLES Fin al Result Performing Organization Address [facility] de Phone Number [facility] ([place] [address] [place] [address] * Urine culture Urine, clean voided (05/12/2024 8:41 AM FLAME CUTTING MACHINE OPERATOR) Report Final Report: Less than 100,000 colonies/mL (clinically insignificant growth based on current clinical standards) Comment:Testing performed by : [facility], [address] [place] [address] Organism (CLINICALLY INSIGNIFICANT GROWTH [facility] Urine, clean voided 05/12/2024 8:41 AM FLAME CUTTING MACHINE OPERATOR 05/12/2024 6:07 PM FLAME CUTTING MACHINE OPERATOR Narrative [facility] ([place]) - 05/13/2024 8:19 PM FLAME CUTTING MACHINE OPERATOR Urine culture reflexed based upon urinalysis results. Testing performed by [facility] Microbiology Laboratory ([phone]) us Matt Mendez MD LAB MICROBIOLOGY - GENER AL ORDERABLES Final Result Performing Organization Address [facility] Co de Phone Number [facility] ([place]) [address] [facility] [employer] [place] [address] * (ABNORMAL) Hemoglobin A1c (05/12/2024 8:41 AM FLAME CUTTING MACHINE OPERATOR) Hgb A1C 7.3(H) 4.0 - 5.6 % Estimated Average Glucose 163 mg/dL [facility] ([place]) Comment: The ADA recommends reporting an estimated Average Glucose (eAG) with all Hemoglobin A1c results using the equation derived from a study of 507 normal and diabetic adults. Minority populations were underrepresented and children were not included. (Diabetes Care 31:2255-3325, 2008). The eAG is not equivalent to a fasting glucose. Blood 05/12/2024 8:41 AM FLAME CUTTING MACHINE OPERATOR 05/12/2024 9:04 AM FLAME CUTTING MACHINE OPERATOR us Matt Mendez MD LAB BLOOD ORDERABLES Fin al Result [facility] ([place] [address] [facility] Department [place] [address] * Comprehensive metabolic panel (05/12/2024 8:41 AM FLAME CUTTING MACHINE OPERATOR) Sodium 138 135 - 145 mmol/L Potassium, pl 4.5 3.3 - 4.9 mmol/L [facility] ([place]) Chloride 101 97 - 110 mmol/L [facility] ([place]) CO2 26 22 - 32 mmol/L [facility] ([place] Anion gap 11 2 - 15 mmol/L [facility] ([place] BUN 12 6 - 25 mg/dL [facility] ([place]) Creatinine 1.08 0.80 - 1.30 mg/dL [facility] ([place] Glucose 133 70 - 199 mg/dL [facility] ([place]) Comment: Interpretive Data Fasting glucose >/= 126 mg/dl is diagnostic for diabetes. Fasting is defined as no caloric intake for at least 8 hours. Fasting glucose between 100 mg/dl to 125 mg/dl is diagnostic of prediabetes. In a patient with classic symptoms of hyperglycemia or hyperglycemic crisis, a random glucose >/= 200 mg/dl is diagnostic for diabetes. In the absence of unequivocal hyperglycemia, results should be confirmed by repeat testing. The classification and Diagnosis of Diabetes Diabetes Care 2021; 46: S19-S40. Current interpretive data was last revised 2022. Calcium 9.3 8.5 - 10.3 mg/dL [facility] ([place]) Bilirubin, total 0.4 0.1 - 1.2 mg/dL [facility] ([place]) Protein, pl 7.1 6.5 - 8.5 g/dL [facility] ([place]) Albumin 4.4 3.5 - 5.0 g/dL [facility] ([place]) Alk phos 117 40 - 130 Units/L [facility] ([place]) ALT 22 7 - 55 Units/L [facility]) AST 22 10 - 50 Units/L [facility] ([place]) Blood 05/12/2024 8:41 AM FLAME CUTTING MACHINE OPERATOR 05/12/2024 9:04 AM FLAME CUTTING MACHINE OPERATOR Matt Mendez MD LAB BLOOD ORDERABLES Fin al Result [facility] [address] [facility] Department [place] [address] * XR Hip Left 2 or 3 Views (04/25/2024 11:03 AM FLAME CUTTING MACHINE OPERATOR) Anatomical Region Laterality Modality Lower Extremities, Hip, Pelvis Left D igital Radiography Narrative 04/27/2024 12:58 PM FLAME CUTTING MACHINE OPERATOR Severe advanced left hip osteoarthritis with [id number] contact, osteophyte formation, subluxation. Right total hip arthroplasty noted in appropriate position. Matt Mendez MD IMG XR PROCEDURES Final Result * US Abdominal Aortic Aneurysm Screening (04/17/2024 11:32 AM FLAME CUTTING MACHINE OPERATOR) Anatomical Region Laterality Modality Abdomen Ultrasound Fariha Dennis MD IMG US PROCEDURES Final Result * XR Hip Right 2 or 3 Views (04/11/2024 8:04 AM FLAME CUTTING MACHINE OPERATOR) Anatomical Region Laterality Modality Lower Extremities, Hip, Pelvis Right D igital Radiography Narrative 04/11/2024 8:25 AM FLAME CUTTING MACHINE OPERATOR Radiographs taken of the right hip today reveal a total hip arthroplasty in appropriate position with no interval change from the time of surgery. us Janine Ayers NP IMG XR PROCEDURES Final Result * Hepatitis panel, acute (10/28/2020 11:46 AM CDT) Hep A IgM Nonreactive Nonreactive [facility] Comment: Interpretive Data: If Hep A IgM Ab is reported as Equivocal, a new sample should be drawn in two weeks for testing. Current interpretive data was last revised on 19. Hep B core IgM Nonreactive Nonreactive [facility] Comment: Interpretive Data If HepB Core IgM Ab is reported as Equivocal, a new sample should be drawn in two weeks for testing. Current interpretive data was last revised on 19. Hep C Ab Nonreactive Nonreactive [facility] Comment:Antibodies to HCV no t detected. Does NOT exclude the possibility of recent exposure to HCV. HepBsAg Nonreactive Nonreactive [facility] Blood specimen (specimen) 10/28/2020 11:46 AM CDT 10/28/2020 1:42 PM CDT us Leola Hale MD LAB MICROBIOLOGY - GENERAL ORDER ELIS Edited Result - Final [facility] [address] [facility] Department [place] [address] from Last 3 Months or Most Recently Relevant to Health Maintenance Insurance MEDICARE SOLUTIONS MEDICARE SOLUTIONS Advance Directives For more information, please contact: [phone] * Full Code (Latest Code Status on File) Date Activated Date Inactivated Comments 02/14/2024 3:12 PM 02/15/2024 3:18 PM * Full Code Date Activated Date Inactivated Comments 11/26/2020 12:56 PM 11/28/2020 2:34 PM Care Teams Fur Comber Relationship Specialty Start Date End Date Fariha Dennis MD [address] [place] [address] [address] [place] [place] [address] PCP - General Family Medicine 04/17/24 Matt Mendez MD [address] [facility] [place] [address] Surgeon Orthopedic Surgery 02/15/24 Main Ny MD [address] [facility] [address] [place] [address] Consulting Physician General Surgery 04/17/24 Wil Camejo MD [address] [facility] [address] [place] [address] Surgeon Orthopedic Surgery 04/17/24 Leola Hale MD [address] [facility] [address] [place] [address] Consulting Physician Internal Medicine 04/17/24 Da Villaseñor, OT Occupational Therapist Occupational Therapy 05/18/24
--- OUTSIDE RECORDS SUMMARY | 2024-05-21 18:18 | XMS_ITS | Encounter Summary ---
Author Organization [facility] Address [address] [place] [address] Care Team Providers Care Model Maker Plastic Name Role Phone Unavailable Primary Care Provider Unavailabl e Encounter Details Date Type Department Care Team (Late st Contact Info) Description 01/20/2022 Lab Requisition [facility] [address] [facility] [place] [place] [id number] Juan Justice MD [address] [place] [address] Social History Tobacco Use Types Packs/Day Years Used Date Smoking Tobacco: Never Assessed Sex and Gender Information Value Date Recorded Sex Assigned at Not on file Gender Identity Not on file Sexual Orientation Not on file documented as of this encounter Plan of Treatment Not on file documented as of this encounter Procedures Procedure Name Priority Date/Time Associated Diagnosis Comments DERMATOPATHOLOGY Routine 01/20/2022 12:0 0 AM CDT documented in this encounter Results * DERMATOPATHOLOGY (01/20/2022 12:00 AM CDT) Case Report Dermatopathology Report Case: [id number] Authorizing Provider: Juan Justice MD Collected: 01/20/2022 12:00 AM Ordering Location: [facility] Lab Received: 01/20/2022 04:46 PM Pathologist: Floresita White MD Specimens: A) - Skin, left sup shoulder B) - Skin, left waist 2 5:32 PM CDT DERMATOPATHOLOGY LABORATORY Final Diagnosis Specimen A. SKIN, left sup shoulder: ACROCHORDON (SOFT FIBROMA, SKIN TAG) (L91.8) PRESENT AT MARGIN Specimen B. SKIN, left waist: BENIGN VERRUCOUS KERATOSIS, INFLAMED (L82.1) PRESENT AT MARGIN 2 5:32 PM CDT DERMATOPATHOLOGY LABORATORY Clinical History A-B: IFEP. Please Check Margins. 2 5:32 PM T DERMATOPATHOLOGY LABORATORY Gross Description Specimen A: Received is one formalin filled container labeled with the patients name and designated left sup shoulder. The specimen consists of a shave removal measuring [id number] that is inked and bisected. Jar 0. Specimen B: Received is one formalin filled container labeled with the patients name and designated left waist. The specimen consists of a shave removal measuring [id number] that is inked and bisected. Jar 0. 2 5:32 PM [facility] DERMATOPATHOLOGY LABORATORY Microscopic Description Specimen A. SKIN, left sup shoulder: There is a gently folded epidermis surrounding a connective tissue core in which fat and collagen are intermingled. This lesion is present at the margin of the specimen. Specimen B. SKIN, left waist: Sections show hyperkeratosis, papillomatosis, hypergranulosis, and acanthosis. Inflammatory cells are present within the dermis. These histological findings can be seen in a verruca vulgaris or a seborrheic keratosis. This lesion is present at the margin of the specimen. 2 5:32 PM [facility] DERMATOPATHOLOGY LABORATORY Disclaimer An external and internal positive and negative controls are appropriate for the histochemical, immunohistochemical and immunofluorescence stain(s) in this case (if any), except where stated explicitly. The performance characteristics of the stain(s) cited in this report were developed and its performance characteristic determined by the Dermatopathology Laboratory at [facility], directed by Dr. Sugey White. These tests need not be, and therefore are not, approved by the [place] Food and Drug Administration. The tests are used for clinical purposes. Billing Codes Specimen Charges Stain Charges 67989 03272 1 1 2 5:32 PM CDT DERMATOPATHOLOGY LABORATORY Embedded Images 2 5:32 PM T DERMATOPATHOLOGY LABORATORY Pathology/Cytology TISSUE SPECIMEN FROM SKIN / Unknown 01/20/2022 01/20/2022 4:46 PM CDT Miscellaneous samples (specimen) TISSUE SPECIMEN FROM SKIN / Unknown 01/20/2022 01/20/2022 4:46 PM CDT Juan Justice MD LAB - PATHOLOGY/CYTO LOGY ORDERABLES DERMATOPATHOLOGY LABORATORY [facility] - Department of Dermatology [facility] Specialized Medicine [address] [place] [address], [address] [phone] documented in this encounter Visit Diagnoses Not on filedocumented in this encounter
--- OUTSIDE RECORDS SUMMARY | 2024-05-21 18:18 | XMS_ITS | Referral Summary ---
Author Organization [facility] Address [address] [facility] [place] [address] Care Team Providers Care Member Of The Legislative [employer] Name Role Phone Unavailable Primary Care Provider Unavailabl e Source Comments [facility],non-owned Affiliates and Associated Physician Practices is amultiple site organization consisting of ambulatory clinics and hospital sitesin [place], [place], [place] and [place]. This disclosure is being madepursuant to the Care Everywhere program and may not contain all information available regarding this patient. Last updated 17.[facility] [employer] Social History Tobacco Use Types Packs/Day Years Used Date Smoking Tobacco: Never Assessed Sex and Gender Information Value Date Recorded Sex Assigned at Not on file Gender Identity Not on file Sexual Orientation Not on file Plan of Treatment Not on file
--- OUTSIDE RECORDS SUMMARY | 2024-05-21 18:18 | XMS_ITS | Referral Summary ---
Author Organization [facility] Address [address] [place] [address] Care Team Providers Care Clay Molder Name Role Phone Matt Mendez MD Unavailable [phone] Fariha Dennis MD Primary Care Provider + Main Ny MD Unavailable Wil Camejo MD Unavailable [phone] Leola Hale MD Unavailable Da Villaseñor OT Unavailable Unavailable Encounters Date Type Department Care Team Description 05/18/2024 9:00 AM RN RENAL Office Visit [facility] Residency Clinic at [address] [place] [address] Riri Veliz MD Preop examination (Primary Dx); Primary osteoarthritis of left hip; Acute bronchitis, unspecified organism; Type 2 diabetes mellitus without complication, with long-term current use of insulin ([facility]) (HCC); Hyperlipidemia, unspecified hyperlipidemia type; Mild aortic valve stenosis 05/16/2024 Telephone [facility] Orthopedics and Sports Medicine [address] [facility] [address] [place] [address] Eun Baeza MA 05/12/2024 Telephone [facility] Primary Care at [address] [place] [address] Fariha Dennis MD 05/12/2024 8:46 AM RN RENAL - 05/12/2024 11:59 PM RN RENAL Hospital Encounter [facility] [address] [place] [address] Pre-op testing Discharge Disposition: Discharge to home or self care 05/12/2024 8:35 AM RN RENAL Lab [address] [address] Pre-op testing 05/08/2024 Telephone [facility] [address] [place] [address] [address] [place] [address] Matt Mendez MD Surgery Date 04/25/2024 Documentation [facility] Medical [facility] Orthopedics and Sports Medicine [address] [place] [address] [address] [place] [address] Eun Baeza MA 04/25/2024 Telephone [facility] Primary Care at [address] [address] Fariha Dennis MD Medication 04/25/2024 7:44 AM RN RENAL - 04/25/2024 11:59 PM RN RENAL Hospital Encounter [facility] [address] [place] [address] [address] [place] [address] Discharge Disposition: Discharge to home or self care 04/25/2024 11:45 AM RN RENAL Office Visit [facility] [address] [place] [address] [address] [place] [address] Matt Mendez MD Primary osteoarthritis of left hip (Primary Dx); Pre-op testing 04/18/2024 Orders Only [facility] Residency Clinic at [address] [address] Fariha Dennis MD Type 2 diabetes mellitus without complication, with long-term current use of insulin ([facility]) ([facility]) (Primary Dx); Diabetic eye exam (CMS/[facility]) (HCC) 04/17/2024 Telephone [facility] Residency Clinic at [address] [address] Fairha Dennis MD 04/17/2024 Orders Only [facility] Primary Care at [address] [address] Rani VitaLUCAS munoz 04/17/2024 8:00 AM RN RENAL Office Visit [facility] Residency Clinic at [place] [address] [facility] [address] [place] [address] Fariha Dennis MD Hyperlipidemia, unspecified hyperlipidemia type (Primary Dx); Raised prostate specific antigen; Type 2 diabetes mellitus without complication, with long-term current use of insulin (CMS/HCC) (HCC); Type 2 diabetes mellitus with hyperglycemia, with long-term current use of insulin ([facility]); Acute cough; Primary insomnia; Arthritis; Encounter for abdominal aortic aneurysm (AAA) screening; Severe obesity (HCC) 04/12/2024 8:45 AM RN RENAL Therapy [facility] [place] [address] Roni Gaspar, PT S/P total right hip arthroplasty (Primary Dx) 04/11/2024 7:48 AM RN RENAL - 04/11/2024 11:59 PM RN RENAL Hospital Encounter [facility] Medical [facility] Orthopedics and Sports Medicine [address] [place] [address] [address] [place] [address] Discharge Disposition: Discharge to home or self care 04/11/2024 8:15 AM RN RENAL Office Visit [facility] [address] [place] [address] [address] [place] [address] Janine Ayers NP Aftercare following right hip joint replacement surgery (Primary Dx) 04/05/2024 8:30 AM RN RENAL Therapy [facility] [place] [address] Silvina Rey, PT S/P total right hip arthroplasty (Primary Dx) 03/09/2024 Plan of Care Documentation [facility] [place] [address] 03/09/2024 9:15 AM RN RENAL Therapy [facility] [place] [address] Silvina Rey, PT S/P total right hip arthroplasty (Primary Dx) 03/07/2024 Telephone [facility] [address] [facility] [address] [place] [address] Matt Mendez MD 03/07/2024 Orders Only [facility] [address] [facility] [address] [place] [address] Janine Ayers NP S/P total right hip arthroplasty (Primary Dx) 03/07/2024 9:30 AM RN RENAL Telemedicine [facility] [address] [facility] [address] [place] [address] Janine Ayers NP Aftercare following right hip joint replacement surgery (Primary Dx) from Last 3 Months Allergies Active Allergy Reactions Criticality Noted Date [...] 05/18/2024 Assessment & Plan (05/18/2024 11:21 AM RN RENAL): Revised Cardiac Risk Index; 6% risk for major cardiac event. Perioperative risk for AL/CA; 0.2% Patient is at acceptable risk for the left hip arthroplasty with Dr. Mendez on 05/24/24. Discussed with Orthopedic Surgery, THELMA Gonzalez, regarding patient's cough and plan for course of antibiotics. Ortho aware, and planning on proceeding with surgery barring any issues with cough resolution. Pre-Op Evaluation form completed and faxed to Ortho office. Primary osteoarthritis of left hip 05/18/2024 Assessment & Plan (05/18/2024 2:00 PM RN RENAL): Primary OA of left hip. Plans for arthroplasty by orthopedic surgery. Type 2 diabetes mellitus with hyperglycemia ([facility]) 04/17/2024 Acute cough 04/17/2024 Assessment & Plan (04/17/2024 8:49 AM RN RENAL): No evidence of bacterial infection. Will refill albuterol and patient will let me know if not improving or wrosening in the next week or so Severe obesity 04/17/2024 Assessment & Plan (04/17/2024 11:12 AM RN RENAL): We discussed healthy lifestyle issues including healthy diet and regular exercise of 150 minutes weekly, and exercise including resistance training. Primary osteoarthritis of right hip 02/14/2024 Mass of subcutaneous tissue of back 01/13/2024 Assessment & Plan (01/25/2024 9:28 AM RN RENAL): Pathology has been reviewed with the patient [...] 03/2023 Assessment & Plan (05/18/2024 2:08 PM RN RENAL): Reportedly has mild aortic stenosis on echo from . Not available in chart. Grade 1/4 murmur heard on exam. Currently asymptomatic. Post-viral cough syndrome 02/15/2023 Pruritic rash 12/24/2022 Rash 07/27/2022 Multiple joint pain 05/26/2022 Insomnia 05/26/2022 Assessment & Plan (04/17/2024 11:06 AM RN RENAL): Currently using trazodone at night, alprazolam p.r.n.. Recommended he cut down the use of alprazolam as tolerated, however with his intermittent use I am okay with refilling when the time comes. Inflammatory arthritis 10/01/2021 Right bundle branch block (RBBB) 11/20/2020 Class 1 obesity in adult 11/20/2020 Complete tear of left rotator cuff 11/13/2020 Overview (11/13/2020): Added automatically from request for surgery [id number] Spinal stenosis in cervical region 09/17/2020 Raised prostate specific antigen 04/30/2020 Assessment & Plan (04/17/2024 11:06 AM RN RENAL): His chart has previously elevated PSA, he also has known BPH. No longer follow with Urology, will check PSA this year Hyperlipidemia 04/30/2020 Assessment & Plan (05/18/2024 2:04 PM RN RENAL): Lipid panel ordered. Continue atorvastatin 20 mg daily. Assessment & Plan (04/17/2024 8:47 AM RN RENAL): Will recheck lipids, unclear to me why he is not on a statin. Type 2 diabetes mellitus 04/30/2020 Assessment & Plan (05/18/2024 2:03 PM RN RENAL): A1c 7.3, Can be better controlled, but stable at this time. Continue current Lantus 25 units nightly, metformin 2000 mg daily, and Farxiga 10 mg. Assessment & Plan (04/17/2024 11:14 AM RN RENAL): Has been well controlled previously, will check A1c, needs dilated eye exam and urine microalbumin. Spinal stenosis 04/08/2020 ZAHIDA on CPAP 04/08/2020 Diverticulitis 04/08/2020 Depressive disorder 04/08/2020 Chronic sinusitis 04/08/2020 Osteoarthritis 04/08/2020 Anxiety 04/08/2020 Acute bronchitis 04/07/2020 Assessment & Plan (05/18/2024 11:20 AM RN RENAL): Clinically consistent with acute bronchitis. 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 Not on file Not on file Not on file Last Filed Vital Signs Vital Sign Reading Time Taken Comments Blood Pressure 127/74 05/18/2024 8:49 AM RN RENAL Pulse 87 05/18/2024 8:49 AM RN RENAL Temperature 36.7 C (98 F) 05/18/2024 8:49 AM RN RENAL Respiratory Rate 18 05/18/2024 8:49 AM RN RENAL Oxygen Saturation 99% 05/18/2024 8:49 AM RN RENAL Inhaled Oxygen Concentration - - Weight 109.8 kg (242 lb) 05/18/2024 8:49 AM RN RENAL Height 174.2 cm (5' 8.58 ) 05/18/2024 8:49 AM CS T Body Mass Index 36.17 05/18/2024 8:49 AM RN RENAL Plan of Treatment Upcoming Encounters Date Type Department Care Team (Latest Contact Info) Description 05/24/2024 11:25 AM RN RENAL Hospital Encounter [facility] [address] [place] [address] Matt Mendez MD [address] [place] [address] [address] [place] [address] 05/24/2024 11:25 AM RN RENAL - 05/24/2024 1:50 PM RN RENAL Surgery [facility] [address] [place] [address] Matt Mendez MD [address] [place] [address] [address] [place] [address] Left Total Hip Artthroplasty- Anterior Approach, Depuy- Actis, Omnitrac, Aquamantys, 1 liter beta rinse, Pt to stay Scheduled Procedures Name Priority Associated Diagnoses Date/Ti me ARTHROPLASTY TOTAL HIP - ANTERIOR APPROACH Primary osteoarthritis of left hip 05/24/2024 11:25 AM RN RENAL Medical Devices Implanted Type Area Construction Secretary Device Identifier Shelf Expiration Date Model / Serial / Lot Depuy Synthes Spine [id number] Set Screw - [id number] Implanted:Qty: 6 on 11/26/2020 by Omar Beck MD at [facility] N/A: Spine Cervical Depuy Synthes Spine [id number] / / Depuy Synthes Spine [id number] 3.5mm 18mm Ply Spine Screw Bone Nonsterile 4mm Gold - [id number] Implanted:Qty: 2 on 11/26/2020 by Omar Beck MD at [facility] N/A: Spine Cervical Depuy Synthes Spine [id number] / / Depuy Synthes Spine [id number] 4mm 240mm Straight Gold Spinal Titanium - [id number] Implanted:Qty: 1 on 11/26/2020 by Omar Beck MD at [facility] N/A: Spine Cervical Depuy Synthes Spine [id number] / / Depuy Synthes Spine [id number] 3.5mm 16mm Ply Spine Screw Bone Nonsterile 4mm Gold - [id number] Implanted:Qty: 2 on 11/26/2020 by Omar Beck MD at [facility] N/A: Spine Cervical Depuy Synthes Spine [id number] / / 4.0x20mm Screw Implanted:Qty: 2 on 11/26/2020 by Omar Beck MD at [facility] N/A: Spine Cervical DEPUY SYNTHES [place] [id number] / / Description:Depuy synthes sy mphony spine Allosource [id number] Freeze Dried Crushed 1-4mm Graft 15ml Bone Cancellous - [id number] Implanted:Qty: 1 on 11/26/2020 by Omar Beck MD at [facility] N/A: Spine Cervical Allosource 06/08/2025 [id number] / / [id number] [employer] Ar-2324 Bcm Swivelock 4.75mm 24.5mm Self Punch Vent Shoulder [place] Suture - [id number] Implanted:Qty: 1 on 04/17/2021 by Wil Camejo MD at [facility] Left: Shoulder [employer] 12/19/2024 AR-2324BCM / / [id number] [employer] Ar-2290 Fiberloop 3.2mm Drill Pin Needle [facility] Cann[facility] Kit Suture - [id number] Implanted:Qty: 1 on 04/17/2021 by Wil Camejo MD at [facility] Left: Shoulder [employer] 02/18/2026 AR-2290 / / [id number] [employer] Ar-1927bct Corkscrew Suturetape 5.5mm 14.7mm Bioabsorbable Full Thread 1.3mm - [id number] Implanted:Qty: 1 on 04/17/2021 by Wil Camejo MD at [facility] Left: Shoulder [employer] 01/19/2023 AR-1927BCT / / [id number] [employer] Ar-2324 Bcm Swivel[place] 4.75mm 24.5mm Self Punch Vent Shoulder [place] Suture - [id number] Implanted:Qty: 1 on 04/17/2021 by Wil Camejo MD at [facility] Left: Shoulder [employer] 12/19/2024 AR-2324BCM / / [id number] [employer] Fiberloop 3.2mm Drill Pin Needle [place] Cannula Kit Suture Ar-2290 - [id number] Implanted:Qty: 1 on 10/10/2021 by Wil Camejo MD at [facility] Right: Shoulder [employer] 05/19/2026 AR-2290 / / [id number] [employer] Corkscrew Suturetape 5.5mm 14.7mm Bioabsorbable Full Thread 1.3mm Ar-1927bct - [id number] Implanted:Qty: 1 on 10/10/2021 by Wli Camejo MD at [facility] Right: Shoulder [employer] 06/20/2023 AR-1927BCT / / [id number] [employer] Ar-2324 Bcm Swivelock 4.75mm 24.5mm Self Punch Vent Shoulder [place] Suture - [id number] Implanted:Qty: 1 on 10/10/2021 by Wil Camejo MD at [facility] Right: Shoulder [employer] 05/19/2025 AR-2324BCM / / [id number] [employer] Ar-2324 Bcm Swivelock 4.75mm 24.5mm Self Punch Vent Shoulder [place] Suture - [id number] Implanted:Qty: 1 on 10/10/2021 by Wil Camejo MD at [facility] Right: Shoulder [employer] 05/19/2025 AR-2324BCM / / [id number] Davol Inc/C R Bard Mesh Surgical Mid Anatomical Synthetic Patch 3dmax 4x6in [id number] - [id number] Implanted:Qty: 1 on 10/20/2023 by Main Ny MD at [facility] Right: Inguinal [employer]ol Inc/C R Bard 01/17/2028 [id number] / / [id number] [employer]ol Inc/C R Bard Mesh Surgical Inguinal Hernia Synthetic Patch 3dmax 4x6in [id number] - [id number] Implanted:Qty: 1 on 10/20/2023 by Main Ny MD at [facility] Left: Inguinal [employer] Inc/C R Bard 04/18/2028 [id number] / / [id number] Depuy Orthopaedics Inc [place] 58mm Sector Hip Shell Acetabular Gription Sterile Latex Free [id number] - [id number] Implanted:Qty: 1 on 02/14/2024 by Matt Mendez MD at [facility] Right: Hip Depuy Orthopaedics Inc [id number] 11/19/2033 [id number] / / [id number] Depuy [employer] [place] 58mm 36mm Hip Neutral Liner Acetabular Altrx Sterile Latex Free [id number] - [id number] Implanted:Qty: 1 on 02/14/2024 by Matt Mendez MD at [facility] Right: Hip Depuy Orthopaedics Inc [id number] 11/19/2028 [id number] / / [id number] Depuy Orthopaedics Inc Actis L107 Mm Collar Hip 6 High Offset Stem Femoral [id number] - [id number] Implanted:Qty: 1 on 02/14/2024 by Matt Mendez MD at [facility] Right: Hip Depuy Orthopaedics Inc [id number] 06/19/2033 [id number] / / [id number] Depuy Orthopaedics Inc Articul/Francisco Javier 36mm Cementless Hip +1.5mm 12/14 Taper Head Femoral Latex Free [id number] - [id number] Implanted:Qty: 1 on 02/14/2024 by Matt Mendez MD at [facility] Right: Hip Depuy Orthopaedics Inc [id number] 11/19/2028 [id number] / / [id number] Procedures Procedure Name Priority Date/Time Associated Diagnosis Comments XR CHEST PA LATERAL 2 VIEWS Schedule Routine, Read Routine (OP Routine) 05/12/2024 9:42 AM RN RENAL Pre-op testing EGFR Routine 05/12/2024 8:41 AM RN RENAL Pre-op testing DIFFERENTIAL AUTO Routine 05/12/2024 8:4 1 AM RN RENAL Pre-op testing URINALYSIS, MICROSCOPIC ONLY Routine 05/12/2024 8:41 AM RN RENAL Pre-op testing HEMOGLOBIN A1C Routine 05/12/2024 8:41 AM RN RENAL Pre-op testing COMPREHENSIVE METABOLIC PANEL Routine 05/12/2024 8:41 AM RN RENAL Pre-op testing CBC WITH AUTO DIFFERENTIAL Routine 05/12/2024 8:41 AM RN RENAL Pre-op testing URINE CULTURE Routine 05/12/2024 8:41 AM RN RENAL URINALYSIS AND REFLEX TO MICROSCOPIC AND CULTURE Routine 05/12/2024 8:41 AM RN RENAL Pre-op testing XR HIP LEFT 2 OR 3 VIEWS Schedule Routine, Read Routine (OP Routine) 04/25/2024 11:03 AM RN RENAL Primary osteoarthritis of left hip US ABDOMINAL AORTIC ANEURYSM SCREENING Schedule Routine, Read Routine (OP Routine) 04/17/2024 11:32 AM RN RENAL Encounter for abdominal aortic aneurysm (AAA) screening XR HIP RIGHT 2 OR 3 VIEWS Schedule Routine, Read Routine (OP Routine) 04/11/2024 8:04 AM RN RENAL Aftercare following right hip joint replacement surgery HEPATITIS PANEL, ACUTE Routine 10/28/2020 11:46 AM CDT DISH (diffuse idiopathic skeletal hyperostosis) from Last 3 Months or Most Recently Relevant to Health Maintenance Results * XR Chest PA Lateral 2 View (05/12/2024 9:42 AM RN RENAL) Anatomical Region Laterality Modality Body, Chest N/A Computed Radiogr aphy 05/18/2024 12:2 9 PM RN RENAL Narrative 05/18/2024 12:30 PM RN RENAL EXAM DESCRIPTION: XR CHEST PA LATERAL 2 [...] Electronically signed by Noe Sanchez M.D. CH: JUSTICE Report ID: [id number] Reading Location: [id number] Procedure Note Noe Sanchez Jr., MD - [...] Electronically signed by Noe Sanchez M.D. CH: JUSTICE Report ID: [id number] Reading Location: [id number] us Matt Mendez MD IMG XR PROCEDURES Final Result * eGFR (05/12/2024 8:41 AM RN RENAL) eGFR 75 >=60 mL/min/1. 73 m2 Comment: [...] last reviewed 2021. Blood 05/12/2024 8:41 AM RN RENAL 05/12/2024 9:04 AM RN RENAL us Matt Mendez MD LAB BLOOD ORDERABLES Fin al Result [facility] ([place]) [address] [facility] [place] [address] * Differential, auto (05/12/2024 8:41 AM RN RENAL) Neutrophil abs 4.6 1.5 - 6.5 K/cumm Imm gran abs 0.0 0.0 - 0.1 K/cumm [facility] ([place]) Lymphocyte abs 1.6 0.8 - 3.3 K/cumm [facility] ([place]) Monocyte abs 0.6 0.2 - 0.8 K/cumm [...] revised on 2017. Basophil pct 1.0 % [facility] ([place]) Comment: Interpretive Data Percent cell count reference ranges are not reported, since discordance with absolute values may lead to misinterpretation of CBC data. Current Interpretive Data was last revised on 2017. Blood 05/12/2024 8:41 AM RN RENAL 05/12/2024 9:04 AM RN RENAL Matt Mendez MD LAB BLOOD ORDERABLES [facility] al Result [facility] ([place]) [address] [facility] Department of Laboratories [place], [place] [address] * (ABNORMAL) Urinalysis reflex to microscopic and culture Urine, clean voided (05/12/2024 8:41 AM RN RENAL) Color, ur Yellow Yellow Clarity, ur Clear Clear [facility] ([place]) Specific gravity, ur 1.028 1.003 - 1.030 [facility] ([place]) pH, urine 5.5 [facility] ([place]) Comment: Interpretive Data U rine pH is affected by diet, medications, systemic acid-base disturbances, and renal tubular function. pH may affect urinary stone formation. For example, urine pH below 6.0 may help reduce the tendency for calcium phosphate stones and pH greater than 6.0 may reduce the tendency for uric acid stone formation. Source: [facility] Laboratories Current Interpretive Data was last revised on 2017 Protein, ur ql Negative Negative [facility] ([place]) Glucose, ur ql 4+(A) Negative [facility] ([place]) Ketones, ur Negative Negative [facility] ([place]) Bilirubin, ur Negative Negative [facility] ([place]) Blood, ur Negative Negative [facility] ([place]) Urobilinogen, ur <2.0 <2.0 mg/dL [facility] ([place]) Nitrite, ur Negative Negative [facility] ([place]) Leukocyte esterase, ur 3+(A) Negative [facility] ([place]) UA reflex comment Reflex to microscopic UA will be performed. [facility] ([place]) Urine, clean voided 05/12/2024 8:41 AM RN RENAL 05/12/2024 8:52 AM RN RENAL Matt Mendez MD LAB MICROBIOLOGY - [facility] AL ORDERABLES Final Result [facility] ([place]) [address] [facility] Department [place] [address] * (ABNORMAL) CBC with auto differential (05/12/2024 8:41 AM RN RENAL) WBC 7.3 3.8 - 9.9 K/cumm Hgb 15.4 13.0 - 17.5 g/dL [facility] ([place]) Hct 48.6 38.9 - 50.3 % [facility] ([place]) Plt 240 150 - 400 K/cumm [facility] ([place]) MPV 9.8 9.1 - 12.3 fL [facility] ([place]) RBC 5.67 4.30 - 5.80 M/cumm [facility] ([place]) MCV 85.7 81.3 - 96.4 fL [facility] ([place]) MCH 27.2 27.1 - 33.3 pg [facility] ([place]) MCHC 31.7(L) 32.3 - 35.7 g/dL [facility] ([place]) RDW CV 13.2 11.1 - 14.9 % [facility] ([place]) RDW SD 41.3 35.7 - 48.1 fL [facility] NRBC abs 0.00 0.00 - 0.01 K/cumm [facility] ([place]) Blood 05/12/2024 8:41 AM RN RENAL 05/12/2024 9:04 AM RN RENAL Matt Mendez MD LAB BLOOD ORDERABLES Fin al Result Performing Organization Address City/[facility] Co de Phone Number [facility] ([place]) 1 [facility] [address] [place] [address] * (ABNORMAL) Urinalysis, microscopic only (05/12/2024 8:41 AM RN RENAL) WBC, ur 11-20(A) 0 - 5 /HPF RBC, ur 0-2 0 - 2 /HPF [facility] Epithelial cells, squamous, ur 1-5 0 - 5 /HPF [facility] ([place]) Culture Reflex Comment Reflex to urine culture will be performed. [facility] ([place] Urine, clean voided 05/12/2024 8:41 AM RN RENAL 05/12/2024 8:52 AM RN RENAL Matt Mendez MD LAB URINE ORDERABLES Fin al Result Performing Organization Address [facility] Co de Phone Number [facility] ([place]) 1 [facility] [address] [place] [address] * Urine culture Urine, clean voided (05/12/2024 8:41 AM RN RENAL) Report Final Report: Less than 100,000 colonies/mL (clinically insignificant growth based on current clinical standards) Comment:Testing performed by : [facility], [address], [place]., [address] Organism (CLINICALLY INSIGNIFICANT GROWTH [facility] ([place]) Urine, clean voided 05/12/2024 8:41 AM RN RENAL 05/12/2024 6:07 PM RN RENAL Narrative [facility] ([place]) - 05/13/2024 8:19 PM RN RENAL Urine culture reflexed based upon urinalysis results. Testing performed by [facility] Microbiology Laboratory ([phone]) Matt Mendez MD LAB MICROBIOLOGY - GENER AL ORDERABLES Final Result Performing Organization Address [facility] de Phone Number [facility] ([place]) [address] [place] [address] * (ABNORMAL) Hemoglobin A1c (05/12/2024 8:41 AM RN RENAL) Hgb A1C 7.3(H) 4.0 - 5.6 % Estimated Average Glucose 163 mg/dL [facility] ([place]) Comment: The ADA recommends reporting an estimated Average Glucose (eAG) with all Hemoglobin A1c results using the equation derived from a study of 507 normal and diabetic adults. Minority populations were underrepresented and children were not included. (Diabetes Care 31:8383-7490, 2008). The eAG is not equivalent to a fasting glucose. Blood 05/12/2024 8:41 AM RN RENAL 05/12/2024 9:04 AM RN RENAL Matt Mendez MD LAB BLOOD ORDERABLES Fin al Result Performing Organization Address [facility] Co de Phone Number [facility] ([place]) [address] [place] [address] * Comprehensive metabolic panel (05/12/2024 8:41 AM RN RENAL) Sodium 138 135 - 145 mmol/L Potassium, pl 4.5 3.3 - 4.9 mmol/L [facility] ([place]) Chloride 101 97 - 110 mmol/L [facility] ([place]) CO2 26 22 - 32 mmol/L [facility] ([place]) Anion gap 11 2 - 15 mmol/L [facility] ([place]) BUN 12 6 - 25 mg/dL [facility] ([place]) Creatinine 1.08 0.80 - 1.30 mg/dL [facility] Glucose 133 70 - 199 mg/dL [facility] Comment: Interpretive Data Fasting glucose >/= [...] classification and Diagnosis of Diabetes Diabetes Care 202; 46: S19-S40. Current interpretive data was last [...] [facility] ([place]) Blood 05/12/2024 8:41 AM RN RENAL 05/12/2024 9:04 AM RN RENAL Matt Mendez MD LAB BLOOD ORDERABLES Fin al Result [facility] Department [place] [address] * XR Hip Left 2 or 3 Views (04/25/2024 11:03 AM RN RENAL) Anatomical Region Laterality Modality Lower Extremities, Hip, Pelvis Left D igital Radiography Narrative 04/27/2024 12:58 PM RN RENAL Severe advanced left hip osteoarthritis with jamr-le-[id number] contact, osteophyte formation, subluxation. Right total hip arthroplasty noted in appropriate position. Matt Mendez MD IMG XR PROCEDURES Final Result * US Abdominal Aortic Aneurysm Screening (04/17/2024 11:32 AM RN RENAL) Anatomical Region Laterality Modality Abdomen Ultrasound Fariha Dennis MD IMG US PROCEDURES Final Result * XR Hip Right 2 or 3 Views (04/11/2024 8:04 AM RN RENAL) Anatomical Region Laterality Modality Lower Extremities, Hip, Pelvis Right D igital Radiography Narrative 04/11/2024 8:25 AM RN RENAL Radiographs taken of the right hip today reveal a total hip arthroplasty in appropriate position with no interval change from the time of surgery. Janine Ayers NP IMG XR PROCEDURES Final Result * Hepatitis panel, acute (10/28/2020 11:46 AM CDT) Hep A IgM Nonreactive Nonreactive [facility] Comment: Interpretive Data: If Hep A IgM Ab is reported as Equivocal, a new sample should be drawn in two weeks for testing. Current interpretive data was last revised on 19. Hep B core IgM Nonreactive Nonreactive [facility] Comment: Interpretive Data If HepB Core IgM Ab is reported as Equivocal, a new sample should be drawn in two weeks for testing. Current interpretive data was last revised on 19. Hep C Ab Nonreactive Nonreactive [facility] Comment:Antibodies to HCV no t detected. Does NOT exclude the possibility of recent exposure to HCV. HepBsAg Nonreactive Nonreactive [facility] Blood specimen (specimen) 10/28/2020 11:46 AM CDT 10/28/2020 1:42 PM CDT Leola Hale MD LAB MICROBIOLOGY - GENERAL ORDER ELIS Edited Result - Final [facility] Department [place] [address] from Last 3 Months or Most Recently Relevant to Health Maintenance Insurance MED[employer]ARE [employer] MED[employer]ARE [employer]UTIONS Advance Directives For more information, please contact: [phone] * Full Code (Latest Code Status on File) Date Activated Date Inactivated Comments 02/14/2024 3:12 PM 02/15/2024 3:18 PM * Full Code Date Activated Date Inactivated Comments 11/26/2020 12:56 PM 11/28/2020 2:34 PM Care Teams Clay Molder Relationship Specialty Start Date End Date Fariha Dennis MD [address] [place] [address] PCP - General Family Medicine 04/17/24 Matt Mendez MD [address] [place] [address] [address] [place] [address] Surgeon Orthopedic Surgery 02/15/24 Main Ny MD [address] [place] [address] [address] [place] [address] Consulting Physician General Surgery 04/17/24 Wli Camejo MD [address] [facility] [address] [place] [address] Surgeon Orthopedic Surgery 04/17/24 Leola Hale MD [address] [facility] [address] [place] [address] Consulting Physician Internal Medicine 04/17/24 Da Villaseñor, OT Occupational Therapist Occupational Therapy 05/18/24
--- OUTSIDE RECORDS SUMMARY | 2024-05-21 18:18 | XMS_ITS | Patient Health Summary ---
Author Organization [facility] Address [address] [address] Care Team Providers Care Rental Representative Name Role Phone Unavailable Primary Care Provider Unavailabl e Note from [facility],non-owned Affiliates and Associated Physician Practices is amultiple site organization consisting of ambulatory clinics and hospital sitesin [place] and [place]. This disclosure is being madepursuant to the Care Everywhere program and may not contain all information available regarding this patient. Last updated 17.[facility] Social History Tobacco Use Types Packs/Day Years Used Date Smoking Tobacco: Never Assessed Sex and Gender Information Value Date Recorded Sex Assigned at Not on file Gender Identity Not on file Sexual Orientation Not on file Procedures * DERMATOPATHOLOGY(Performed 01/20/2022) Results * DERMATOPATHOLOGY (01/20/2022 12:00 AM CDT) Case Report Dermatopathology Report Case: [id number] Authorizing Provider: Juan Justice MD Collected: 01/20/2022 12:00 AM Ordering Location: [facility] DermPath Lab Received: 01/20/2022 04:46 PM [...] Clinical History A-B: IFEP. Please Check Margins. 5:32 PM CDT DERMATOPATHOLOGY LABORATORY Gross Description Specimen A: Received is one formalin filled container labeled with the patients name and designated left sup shoulder. The specimen consists of a shave removal measuring [id number] that is inked and bisected. Jar 0. Specimen B: Received is one formalin filled container labeled with the patients name and designated left waist. The specimen consists of a shave removal measuring [id number] that is inked and bisected. Jar 0. 2 5:32 PM T DERMATOPATHOLOGY LABORATORY Microscopic Description Specimen A. SKIN, [...] margin of the specimen. 2 5:32 PM T DERMATOPATHOLOGY LABORATORY Disclaimer An external and internal positive and negative controls are appropriate for the histochemical, immunohistochemical and immunofluorescence stain(s) in this case (if any), except where stated explicitly. The performance characteristics of the stain(s) cited in this report were developed and its performance characteristic determined by the Dermatopathology Laboratory at [facility], directed by Dr. Sugey White. These tests need not be, and therefore are not, approved by the [place] Food and Drug Administration. The tests are used for clinical purposes. Billing Codes Specimen Charges Stain Charges 48157 28522 1 1 2 5:32 PM CDT DERMATOPATHOLOGY LABORATORY Embedded Images 2 5:32 PM CDT DERMATOPATHOLOGY LABORATORY Pathology/Cytology TISSUE SPECIMEN FROM SKIN / Unknown 01/20/2022 01/20/2022 4:46 PM CDT Miscellaneous samples (specimen) TISSUE SPECIMEN FROM SKIN / Unknown 01/20/2022 01/20/2022 4:46 PM CDT Juan Justice MD LAB - PATHOLOGY/CYTO LOGY ORDERABLES DERMATOPATHOLOGY LABORATORY [facility] - Department of Dermatology [facility] [address] [place] [address], [facility] [phone]
--- OUTSIDE RECORDS SUMMARY | 2024-05-21 18:19 | XMS_ITS | Data Portability ---
Author Organization [facility] [employer], Main Office Address [address] [place] [address] Care Team Providers Care Migration Agent Name Role Phone MUNA PRADHAN Primary Care Provider [phone] Assessment No assessment recorded. Plan of Treatment Reminders Order Date Submit Date Provider Last Modified By Organization Details Last Modified Time Details Appointments None recorded. Lab drug screen, urine 2023 024 [facility] ([facility]), [address] [place], [address], 4 13:40:44 Referral pain managemen t referral - Please call patient to schedule an appointme nt. 2023 024 [facility], 2022 Shilo Barron, [facility] [address], [place], [address], 4 14:41:25 Procedures None recorded. Surgeries None recorded. Imaging CT, neck, soft tissue, w/ contrast - MRI cervical spine done at [facility] showed prominent asymmetri c left cervical lymph nodes [address] [facility], [address], [place], [address], 4 17:56:13 Medication Orders trazodone 100 mg tablet 2023 024 [facility] [address] [facility], [place], [address], 4 09:16:21 alprazola m 0.5 mg tablet [address] [facility] [address], [address], [place], [address], 4 09:16:22 metformin ER 500 mg tablet,ex tended release 24 hr [address] [facility] [address], [address], [place], [address], 4 08:49:45 Farxiga 10 mg tablet [address] [facility] [address], [address], [place], [address], 4 10:17:12 alprazola m 0.5 mg tablet [address] [facility] [address], [address], [place], [address], 4 09:41:24 Patient TargetsNo targets recorded. Patient InstructionsNo instructions recorded. Reason for Referral Pain Management Referral for Rheumatoid arthritis Please call patient to schedule an appointment. Referring Physician: Marisa Boyce, Family Medicine, Encounter Date: 06/02/2023 Results Created Date Observation Date Name Description Value Unit Range Abnormal Flag Note LastModifiedBy Organization Detail LastModifiedTime 05/07/19 24 05/07/2023 CBC/C OMPLE TE BLD COUNT W/DIF F white blood cells 6.7 x10'3 /uL 4.2-10 .8 Not Available [facility] (Lab) [address] [place], [address], 05/07/2023 20:27:30 05/07/19 24 05/07/2023 CBC/C OMPLE TE BLD COUNT W/DIF F red blood cells 5.59 x10'6 /uL 4.10-5 .80 Not Available [facility] (Lab) [address] [place], [address], 05/07/2023 20:27:30 05/07/19 24 05/07/2023 CBC/C OMPLE TE BLD COUNT W/DIF F hemoglobin 16.0 g/dL 13.2-1 7.0 Not Available [facility] (Lab) [address] [place], [address], 05/07/2023 20:27:30 05/07/19 24 05/07/2023 CBC/C OMPLE TE BLD COUNT W/DIF F hematocrit 49.9 % 39.3-5 0.0 Not Available [facility] (Lab) [address] [place], [address], 05/07/2023 20:27:30 05/07/19 24 05/07/2023 CBC/C OMPLE TE BLD COUNT W/DIF F mean red cell volume 89.3 fL 80.0-9 7.0 Not Available [facility] (Lab) [address] [place], [address], 05/07/2023 20:27:30 05/07/19 24 05/07/2023 CBC/C OMPLE TE BLD COUNT W/DIF F mean red cell hemoglobin 28.6 pg 27.0-3 3.0 Not Available [facility] (Lab) [address] [place], [address], 05/07/2023 20:27:30 05/07/19 24 05/07/2023 CBC/C OMPLE TE BLD COUNT W/DIF F mean RBC HGB concentratio n 32.1 g/dL 31.0-3 6.0 Not Available [facility] (Lab) [address] [place], [address], 05/07/2023 20:27:30 05/07/19 24 05/07/2023 CBC/C OMPLE TE BLD COUNT W/DIF F red cell distribution width 13.8 % 11.8-1 5.5 Not Available [facility] (Lab) [address] [place], [address], 05/07/2023 20:27:30 05/07/19 24 05/07/2023 CBC/C OMPLE TE BLD COUNT W/DIF F platelets 246 x10'3 /uL 150-40 0 Not Available [facility] (Lab) [address] [place], [address], 05/07/2023 20:27:30 05/07/19 24 05/07/2023 CBC/C OMPLE TE BLD COUNT W/DIF F mean platelet volume 10.2 fL 9.0-12 .4 Not Available [facility] (Lab) [address] [place], [address], 05/07/2023 20:27:30 05/07/19 24 05/07/2023 CBC/C OMPLE TE BLD COUNT W/DIF F neutrophils 66.8 % 39.0-7 2.0 Not Available [facility] (Lab) [address] [place], [address], 05/07/2023 20:27:30 05/07/19 24 05/07/2023 CBC/C OMPLE TE BLD COUNT W/DIF F lymphocytes 17.3 % 16.0-4 7.0 Not Available [facility] (Lab) [address] [place], [address], 05/07/2023 20:27:30 05/07/19 24 05/07/2023 CBC/C OMPLE TE BLD COUNT W/DIF F monocytes 9.7 % 5.0-12 .0 Not Available [facility] (Lab) [address] [place], [address], 05/07/2023 20:27:30 05/07/19 24 05/07/2023 CBC/C OMPLE TE BLD COUNT W/DIF F eosinophils 5.1 % 1.0-7. 0 Not Available [facility] (Lab) [address] [place], [address], 05/07/2023 20:27:30 05/07/19 24 05/07/2023 CBC/C OMPLE TE BLD COUNT W/DIF F basophils 1.0 % 0.0-2. 0 Not Available [facility] (Lab) [address] [place], [address], 05/07/2023 20:27:30 05/07/19 24 05/07/2023 CBC/C OMPLE TE BLD COUNT W/DIF F immature granulocytes 0.1 % 0.00-0 .50 Not Available [facility] (Lab) [address] [place], [address], 05/07/2023 20:27:30 05/07/19 24 05/07/2023 CBC/C OMPLE TE BLD COUNT W/DIF F neutrophils, absolute count 4.46 x10'3 /uL 1.5-8. 0 Not Available [facility] (Lab) [address] [place], [address], 05/07/2023 20:27:30 05/07/19 24 05/07/2023 CBC/C OMPLE TE BLD COUNT W/DIF F lymphocytes, absolute count 1.16 x10'3 /uL 1.07-3 .43 Not Available [facility] (Lab) [address] [place], [address], 05/07/2023 20:27:30 05/07/19 24 05/07/2023 CBC/C OMPLE TE BLD COUNT W/DIF F monocytes, absolute count 0.65 x10'3 /uL 0.29-0 .99 Not Available [facility] (Lab) [address] [place], [address], 05/07/2023 20:27:30 05/07/19 24 05/07/2023 CBC/C OMPLE TE BLD COUNT W/DIF F eosinophils, absolute count 0.34 x10'3 /uL 0.02-0 .53 Not Available [facility] (Lab) [address] [place], [address], 05/07/2023 20:27:30 05/07/19 24 05/07/2023 CBC/C OMPLE TE BLD COUNT W/DIF F basophils, absolute count 0.07 x10'3 /uL 0.01-0 .08 Not Available [facility] (Lab) [address] [place], [address], 05/07/2023 20:27:30 05/07/19 24 05/07/2023 CBC/C OMPLE TE BLD COUNT W/DIF F immature granulocytes ,absolute 0.01 x10'3 /uL 0.00-0 .05 Not Available [facility] (Lab) [address] [place], [address], 05/07/2023 20:27:30 05/07/19 24 05/07/2023 CBC/C OMPLE TE BLD COUNT W/DIF F nucleated red blood cells 0.0 % -0 Not Available [facility] (Lab) [address] [place], [address], 05/07/2023 20:27:30 05/07/19 24 05/07/2023 CBC/C OMPLE TE BLD COUNT W/DIF F NRBC# 0.00 x10'3 /uL Not Available [facility] (Lab) [address] [place], [address], 05/07/2023 20:27:30 05/07/19 24 05/07/2023 BASIC METAB OLIC PANEL sodium 140 mmol/ L 137-14 5 Not Available [facility] (Lab) [address] [place], [address], 05/07/2023 20:40:23 05/07/19 24 05/07/2023 BASIC METAB OLIC PANEL potassium 4.6 mmol/ L 3.5-5. 1 Not Available [facility] (Lab) [address] [place], [address], 05/07/2023 20:40:23 05/07/19 24 05/07/2023 BASIC METAB OLIC PANEL chloride 107 mmol/ L 98-107 Not Available [facility] (Lab) [address] [facility], [place], [address], 05/07/2023 20:40:23 05/07/19 24 05/07/2023 BASIC METAB OLIC PANEL carbon dioxide 25 mmol/ L 22-30 Not Available [facility] (Lab) [address] [place], [address], 05/07/2023 20:40:23 05/07/19 24 05/07/2023 BASIC METAB OLIC PANEL anion gap 12.6 mmol/ L 14-22 low Not Available [facility] (Lab) [address] [place], [address], 05/07/2023 20:40:23 05/07/19 24 05/07/2023 BASIC METAB OLIC PANEL glucose 147 mg/dL 70-99 high Not Available [facility] (Lab) [address] [place], [address], 05/07/2023 20:40:23 05/07/19 24 05/07/2023 BASIC METAB OLIC PANEL BUN 18 mg/dL 8-19 Not Available [facility] (Lab) [address] [place], [address], 05/07/2023 20:40:23 05/07/19 24 05/07/2023 BASIC METAB OLIC PANEL creatinine 0.96 mg/dL 0.66-1 .25 Not Available [facility] (Lab) [address] [place], [address], 05/07/2023 20:40:23 05/07/19 24 05/07/2023 BASIC METAB OLIC PANEL GFR >60 Refer ence Range : Soper ge GFR Healt hy Adult : >60 mL/mi n/1.7 3 m2 Chron ic Kidne y Disea se: 15-60 mL/mi n/1.7 3 m2 Kidne y Failu re: <15/m L/min /1.73 m2 www.n iddk. nih.g ov The MDRD study equat ion has not been valid ated in child monique <18 years of age; pregn ant women ; the elder ly >85 years of age; or in some racia l or ethni c subgr oups, such as Hispa nics. Outsi de the valid ated saman eters , estim ated GFR is less accur ate, requi ring clini caren judgm ent on a case- by-ca se basis . Clini caren inter preta tion for other races and ages must be made by the clini ruchi. The MDRD study equat ion has not been valid ated for the evalu ation of serum creat inine relat ed to nutri bassem l statu s or medic ation usage . For perso ns <18 years of age, a pedia tric GFR calcu lator is avail able on the [facility] websi te: https ://sandro w.kid yulisa.o rg/pr ofess ional s/kdo qi/gf r_cal culat or Not Available [facility] (Lab) [address] [place], [address], 05/07/2023 20:40:23 05/07/19 24 05/07/2023 BASIC METAB OLIC PANEL calcium 9.4 mg/dL 8.4-10 .2 Not Available [facility] (Lab) [address] [place], [address], 05/07/2023 20:40:23 05/07/19 24 05/07/2023 LIPID PANEL cholesterol 121 mg/dL 140-19 9 low NIH WISAM NSUS RECOM MENDA TION FOR IRVING STERO L: ADULT CHILD LOW RISK: <200 <170 BORDE RLINE : <200- 239 ----- HIGH RISK: >240 >200 Not Available [facility] (Lab) [address] [place], [address], 05/07/2023 20:40:27 05/07/19 24 05/07/2023 LIPID PANEL triglyceride s 97 mg/dL 0-150 NIH WISAM NSUS REPOR T RECOM MENDA TION FOR TRIGL YCERI RORY: ADULT CHILD LOW RISK: <150 ----- BODER LINE: 150-1 99 ----- HIGH RISK: >200 ----- Not Available [facility] (Lab) [address] [place], [address], 05/07/2023 20:40:27 05/07/19 24 05/07/2023 LIPID PANEL HDL cholesterol 41 mg/dL 40- Not Available [facility] (Lab) [address] [place], [address], 05/07/2023 20:40:27 05/07/19 24 05/07/2023 LIPID PANEL LDL cholesterol, calculated 61 mg/dL 0-130 NIH WISAM NSUS REPOR T RECOM MENDA TIONS FOR LDL: ADULT CHILD LOW RISK <130 <110 (OPTI MAL LDL) <100 ----- BORDE RLINE : 130-1 59 ----- HIGH RISK: >160 >130 A TRIGL YCERI DE RESUL T >400 INVAL IDATE S THE CALCU LATIO N FOR LDL FRACT IONAT ION - THE LDL RESUL T WILL NOT BE REPOR TAMMIE. Not Available [facility] (Lab) [address] [place], [address], 05/07/2023 20:40:27 05/07/19 24 05/07/2023 HEPAT IC/LI DARSHAN PANEL alkaline phosphatase 111 U/L 38-126 Not Available [facility] (Lab) [address] [place], [address], 05/07/2023 20:40:32 05/07/19 24 05/07/2023 HEPAT IC/LI DARSHAN PANEL alanine aminotransfe rase 26 U/L 0-50 Not Available [facility] (Lab) [address] [place], [address], 05/07/2023 20:40:32 05/07/19 24 05/07/2023 HEPAT IC/LI DARSHAN PANEL aspartate aminotransfe rase 28 U/L 15-46 Not Available [facility] (Lab) [address] [place], [address], 05/07/2023 20:40:32 05/07/19 24 05/07/2023 HEPAT IC/LI DARSHAN PANEL bilirubin, total 0.60 mg/dL 0.20-1 .30 Not Available [facility] (Lab) [address] [place], [address], 05/07/2023 20:40:32 05/07/19 24 05/07/2023 HEPAT IC/LI DARSHAN PANEL bilirubin, conjugated (direct) 0.00 mg/dL 0.00-0 .30 Not Available [facility] (Lab) [address] [place], [address], 05/07/2023 20:40:32 05/07/19 24 05/07/2023 HEPAT IC/LI DARSHAN PANEL biliurubin,u ncong. (indirect) 0.20 mg/dL 0.00-1 .1 Not Available [facility] (Lab) [address] [place], [address], 05/07/2023 20:40:32 05/07/19 24 05/07/2023 HEPAT IC/LI DARSHAN PANEL total protein 7.0 g/dL 6.3-8. 2 Not Available [facility] (Lab) [address] [place], [address], 05/07/2023 20:40:32 05/07/19 24 05/07/2023 HEPAT IC/LI DARSHAN PANEL albumin 4.1 g/dL 3.0-4. 4 Not Available [facility] (Lab) [address] [place], [address], 05/07/2023 20:40:32 05/07/19 24 05/07/2023 HEPAT IC/LI DARSHAN PANEL globulin 2.9 g/dL 2.6-4. 2 Not Available [facility] (Lab) [address] [place], [address], 05/07/2023 20:40:32 05/07/19 24 05/07/2023 HEPAT IC/LI DARSHAN PANEL A/G ratio 1.4 ratio 1.0-2. 0 Not Available [facility] (Lab) [address] [place], [address], 05/07/2023 20:40:32 05/07/19 24 05/07/2023 PSA SCREE N PSA medicare screen 3.06 NG/mL 0.00-4 .00 Not Available [facility] (Lab) [address] [place], [address], 05/07/2023 21:09:01 05/07/19 24 05/07/2023 HEMOG LOBIN A1C HA1C 7.4 % 4.0-6. 0 high Diabe easton Scree sridhar Crite mehnaz: <5.7% Consi stent with absen ce of diabe easton 5.7-6 .4% Consi stent with incre ased risk for diabe easton (pred iabet es) >OR=6 .5% Consi stent with diabe easton REFER ENCE: Diabe easton Care 2016, 39(Nice ppl.1 ):s13 -s22 Not Available Not Available 05/07/2023 21:28:45 04/16/19 24 04/13/2023 US, echoc ardio gram, trans thora cic, compl ete, w/ color flow No observ ation record ed. [email or web address] [place] [address] [address], [place], [address], 04/19/2023 09:51:41 07/20/19 24 07/20/2023 CT, neck, soft tissu e, w/ contr ast No observ ation record ed. [email or web address] [facility] [address], [place], [address], 07/26/2023 10:48:24 Result Notes None recorded. Problems Name Problem SNOMED Code Status Onset Date Resolution Date Notes Provider Name and Address Organization Details Recorded Time Tobacco user 606486452 Active 2020 Not Available [facility] 3 06:07:11 Large prostate 391271738 Active 2020 normal biopsy Not Available [facility] 3 06:07:11 Diverticulit is 387559281 Active 2020 Not Available [facility] 3 06:07:11 Bronchitis 89620408 Active 2020 Not Available [facility] 3 06:07:11 Depressive disorder 41042700 Active 2020 Not Available [facility] 3 06:07:11 Arthritis 8733277 Active 2020 Not Available [facility] 3 06:07:11 Prostate specific antigen above reference range 712395132 Active 2020 Not Available [facility] 3 06:07:11 Osteoarthrit is 212310452 Active 2020 [facility] Available [facility] 3 06:07:11 Chronic sinusitis 67550298 Active 2020 [facility] Available [facility] 3 06:07:12 Anxiety 89632079 Active 2020 Not Available [facility] 3 06:07:12 Hyperlipidem ia 95174166 Active 2020 Not Available [facility] 3 06:07:12 Acid reflux 933557422 Active 2020 Not Available [facility] 3 06:07:12 Rheumatoid arthritis 68024560 Active 2021 Not Available [facility] 3 06:07:12 Diabetes mellitus 97018751 Active 2020 Not Available [facility] 3 06:07:12 Spinal stenosis 55961344 Active 2020 Not Available [facility] 3 06:07:12 Obstructive sleep apnea syndrome 60206959 Active 2020 Not Available [facility] 3 06:07:13 Insomnia 986714688 Active 2022 Marisa Boyce MD [address], [place], [address] , [facility] [employer] [facility] [employer] 3 08:11:31 Multiple joint pain 78482676 Active 2022 Marisa Boyce MD [address], [place], [address] , [employer] [facility] [employer] [facility] 3 08:18:18 Eruption 708529708 Active 2022 Marisa Boyce MD [address], [place], [address] , [employer] - [facility] 3 09:24:59 Pruritic rash 91867577 Active 2022 LANRE Canales [address], [place], [address] , [employer] - [facility] 3 08:41:53 Postviral cough 419682660 Active 2022 Marisa Boyce MD [address], [place], [address] , [employer] - [facility] 3 09:05:40 Heart murmur 09419723 Active 2022 Marisa Boyce MD [address], [place], [address] , [employer] - [facility] 3 09:05:43 Mild aortic valve stenosis 601099757 Active 2023 Echo 03/2023 Marisa Boyce MD [address], [place], [address] , [facility] - [facility] 4 17:33:04 Magnetic resonance imaging of cervical spine abnormal 351493608 Active 2023 Marisa Boyce MD [address], [place], [address] , [facility] [employer] [facility] [employer] 4 12:41:06 Cervical lymphadenopa thy 031471492 Active 2023 Marisa Boyce MD [address] [facility], [facility] [address], [place], [address] , [facility] [employer] [facility] [employer] 4 12:42:43 Bilateral inguinal hernia 83519574 Active 2023 Marisa Boyce MD [address] [facility], [facility] [address], [place], [address] , [facility] [employer] [facility] [employer] 4 12:43:26 Pain in right lower limb 665106032 Active 2023 LANRE Del Cid [address] [facility], [address] [address], [place], [address] , [facility] [employer] [facility] [employer] 10:36:11 Problem Notes None recorded. Procedures Surgical History Date Name Laterality Status Provider Name and Address Organization Details Recorded Time colonoscopy completed Not Available [facility] 05/21/19 05:58:17 Imaging Results Imaging Date Name Status LastModified by Organiz ation Details LastModified Time 04/13/2023 US, echocardiogra m, transthoracic , complete, w/ color flow completed [address], [place], [address], 04/19/2023 09:51:41 07/20/2023 CT, neck, soft tissue, w/ contrast completed [email or web address] [facility] 2022 Shilo Barron [facility] [address], [place], [address], 07/26/2023 10:48:24 Procedure Notes None recorded. Medical Equipment None Reported. Allergies Allergen ID Allergen Name Allergen Category Reaction Reaction Severity Criticality Documentation Date Start Date Code Code System Note Provider Name and Address Organization Details Recorded Time [address] clindamyc in Not available rash Not available high 02/04/2024 2582 RxNorm Lissy Pedraza RN null, [place] [employer] [facility] [employer] 4 10:23:14 Medications Name Sig Start Date Stop Date Status Note LastModified by Organization Details LastModified Time celecoxib 200 mg capsule active Not Available Not Available Not Available prednisone 10 mg tablet TAKE 4 TABLETS BY MOUTH IN THE MORNING FOR 5 DAYS , THEN 2 TABLETS EACH MORNING FOR 5 DAYS, THEN 1 TABLET EACH MORNING FOR 5 DAYS 02/03 completed Not Available Not Available Not Available atorvastati n 20 mg tablet TAKE 1 TABLET BY MOUTH EVERY EVENING active Not Available Not Available No t Available clindamycin HCl 300 mg capsule TAKE 1 CAPSULE BY MOUTH THREE TIMES DAILY FOR 10 DAYS 02/03 completed Not Available Not Available Not Available cetirizine 10 mg tablet TAKE 1 TABLET BY MOUTH DAILY 02/03 completed Not Available Not Available Not Available azithromyci n 250 mg tablet active Not Available Not Available Not Available benzonatate 200 mg capsule Take 1 capsule 3 times a day by oral route as needed for 10 days. active Not Available Not Available No t Available valacyclovi r 1 gram tablet TAKE 2 TABLETS BY MOUTH TWICE DAILY AT ONSET FOR 1 DAY. REPEAT DOSE NEEDED AT ONSET OF SYMPTOMS THROUGH THE MONTHS 05/27 completed Not Available Not Available Not Available meloxicam 15 mg tablet TAKE 1 TABLET BY MOUTH EVERY DAY NEEDED FOR PAIN 09/08 completed Not Available Not Available Not Available prednisone 20 mg tablet 3 po qday x 3 days then 2 po qday x 3 days then 1 po qday x 3 days then 1/2 po qday x 3 days then stop 06/01 completed Not Available Not Available Not Available prednisone 5 mg tablet 08/18 completed Not Available Not Available Not Available promethazin e 6.25 mg-codeine 10 mg/5 mL syrup TK 5 ML PO QID PRN COU 04/08 completed Not Available Not Available Not Available leflunomide 10 mg tablet 07/27 completed Not Available Not Available Not Available Nexium 40 mg capsule,del ayed release Take 1 capsule every day by oral route. 2020 active Not Available Not Available Not Avai lable triamcinolo ne acetonide 0.1 % topical cream APPLY A THIN LAYER TO THE AFFECTED AREA TOPICALLY TWICE DAILY 09/08 completed Not Available Not Available Not Available oxycodone-a cetaminophe n 5 mg-325 mg tablet active Not Available Not Available No t Available alprazolam 0.5 mg tablet TAKE 1 TABLET BY MOUTH ONCE DAILY active Not Available Not Available No t Available amoxicillin 875 mg tablet TAKE 1 TABLET BY MOUTH EVERY 12 HOURS FOR 7 DAYS active Not Available Not Available No t Available triamcinolo ne acetonide 0.025 % topical cream APPLY AND RUB CREAM IN WELL TOPICALLY TO AFFECTED AREA TWICE DAILY UNTIL CLEAR 02/03 completed Not Available Not Available Not Available methotrexat e sodium 2.5 mg tablet TAKE 8 TABLETS BY MOUTH EVERY 7 DAYS 07/27 completed Not Available Not Available Not Available trazodone 100 mg tablet TAKE 1 TABLET BY MOUTH EVERY DAY AT BEDTIME NEEDED FOR INSOMNIA active Not Available Not Available No t Available meclizine 25 mg tablet TAKE 1 TABLET BY MOUTH THREE TIMES DAILY FOR DIZZINESS active Not Available Not Available No t Available baclofen 10 mg tablet 08/11 completed Not Available Not Available Not Available benzonatate 100 mg capsule TAKE 1 CAPSULE BY MOUTH THREE TIMES DAILY FOR 10 DAYS 02/16 completed Not Available Not Available Not Available cephalexin 500 mg capsule TAKE 1 CAPSULE BY MOUTH TWICE DAILY FOR 10 DAYS 02/16 completed Not Available Not Available Not Available metformin 1,000 mg tablet TAKE 2 TABLETS BY MOUTH ONCE DAILY DIRECTED 2024 active Not Available Not Available Not Avai lable triamcinolo ne acetonide 0.1 % topical ointment LIZBETH TO RIGHT KNEE HS active Not Available Not Available No t Available docusate sodium 100 mg capsule TAKE ONE CAPSULE BY MOUTH TWICE DAILY 02/03 completed Not Available Not Available Not Available gabapentin 300 mg capsule TAKE 1 CAPSULE BY MOUTH NIGHTLY FOR 3 DAYS THEN 1 TWICE DAILY FOR 3 DAYS THEN 1 THREE TIMES DAILY 09/08 completed Not Available Not Available Not Available Advil 200 mg tablet Take 1 tablet every 6 hours by oral route. 09/08 completed Not Available Not Available Not Available Tylenol 325 mg tablet Take 2 tablets every 6 hours by oral route. 09/08 completed Not Available Not Available Not Available diclofenac sodium 75 mg tablet,en yed release TAKE 1 TABLET BY MOUTH TWICE DAILY WITH FOOD 09/08 completed Not Available Not Available Not Available folic acid 1 mg tablet 1 po qday 09/08 completed Not Available Not Available Not Available codeine 10 mg-guaifene sin 100 mg/5 mL oral liquid TAKE 10 ML BY MOUTH FOUR TIMES DAILY 06/01 completed Not Available Not Available Not Available mupirocin 2 % topical ointment APPLY TOPICALLY TO NOSTRILS TWICE DAILY FOR 5 DAYS. STARTING 5 DAYS PRIOR TO SURGERY 09/08 completed Not Available Not Available Not Available levofloxaci n 500 mg tablet TK 1 T PO QD 04/08 completed Not Available Not Available Not Available albuterol sulfate HFA 90 mcg/actuati on aerosol inhaler INHALE 1 TO 2 PUFFS BY MOUTH EVERY 4 HOURS NEEDED FOR WHEEZING FOR 10 DAYS active Not Available Not Available No t Available ondansetron 4 mg disintegrat ing tablet active Not Available Not Available N ot Available metformin ER 500 mg tablet,exte nded release 24 hr TAKE 2 TABLETS BY MOUTH ONCE DAILY DIRECTED 12/09 completed Not Available Not Available Not Available finasteride 5 mg tablet TAKE 1 TABLET BY MOUTH ONCE DAILY active Not Available Not Available No t Available naproxen 500 mg tablet TAKE 1 TABLET BY MOUTH TWICE DAILY NEEDED FOR PAIN active Not Available Not Available No t Available Microlet Lancet TEST DAILY UTD active Not Available Not Available No t Available amoxicillin 875 mg-potassiu m clavulanate 125 mg tablet TAKE 1 TABLET BY MOUTH TWICE DAILY FOR 10 DAYS 02/16 completed Not Available Not Available Not Available oxycodone 5 mg tablet TAKE 1 TO 2 TABLETS BY MOUTH EVERY 4 TO 6 HOURS NEEDED FOR PAIN 12/24 completed Not Available Not Available Not Available escitalopra m 10 mg tablet TAKE 1 TABLET BY MOUTH EVERY DAY 12/09 completed Not Available Not Available Not Available escitalopra m 20 mg tablet TAKE 1 TABLET BY MOUTH EVERY DAY active Not Available Not Available No t Available duloxetine 30 mg capsule,del ayed release 12/09 completed Not Available Not Available Not Available duloxetine 60 mg capsule,del ayed release TAKE 1 CAPSULE BY MOUTH ONCE DAILY active Not Available Not Available No t Available methotrexat e per injection 09/08 completed Not Available Not Available Not Available Lantus Solostar U-100 Insulin 100 unit/mL (3 mL) subcutaneou s pen INJECT 30 UNITS SUBCUTANE OUSLY EVERY DAY AT BEDTIME 2024 active Not Available Not Available Not Avai lable Humalog KwikPen (U-100) Insulin 100 unit/mL subcutaneou s INJECT PER SLIDING SCALE UP TO 45 UNITS DAILY 09/08 completed Not Available Not Available Not Available Suprep Bowel Prep Kit 17.5 gram-3.13 gram-1.6 gram oral solution active Not Available Not Available Not Available OneTouch Verio test strips USE TO TEST BLOOD SUGAR TWICE DAILY active Not Available Not Available No t Available Stimulant Laxative Plus 8.6 mg-50 mg tablet TAKE 1 TABLET BY MOUTH TWICE DAILY. MAY INCREASE TO 4 TABLETS TWICE DAILY IF NEEDED. HOLD MEDICATIO N IF DIARRHEA OCCURS 09/08 completed Not Available Not Available Not Available Farxiga 10 mg tablet Take 1 tablet every day by oral route as directed for 30 days. 2023 active Not Available Not Available Not Avai lable Nasacort 55 mcg nasal spray aerosol Durant 2 sprays every day by intranasa l route. 2020 active Not Available Not Available Not Avai lable OneTouch Verio Flex Meter TEST TWICE DAILY active Not Available Not Available No t Available Synjardy XR 10 mg-1,000 mg tablet, extended release TAKE 2 TABLETS BY MOUTH EVERY DAY 09/08 completed Not Available Not Available Not Available Synjardy XR 5 mg-1,000 mg tablet, extended release Take 2 tablets every day by oral route. 08/11 completed Not Available Not Available Not Available BD Aletha 2nd Gen Pen Needle 32 gauge x 5/32 USE ONCE DAILY active Not Available Not Available No t Available Trijardy XR 12.5 mg-2.5 mg-1,000 mg tablet, extended release Take 1 tablet every day by oral route. 04/02 completed Not Available Not Available Not Available Trijardy XR 5 mg-2.5 mg-1,000 mg tablet, extended release Take 1 tablet every day by oral route. 04/02 completed Not Available Not Available Not Available Vitals Date Recorded Body height Provider Name an d Address Organization Details Last Updated DateTime 05/07/2023 176.53 cm Alee Daley LPN [place] - [facility] [employer] 05/07/2023 08:39:05 Date Recorded Body height Body mass index (BMI) Body weight Body temperature Heart rate Oxygen saturation Oxygen saturation in Arterial blood by Pulse oximetry Systolic blood pressure Diastolic blood pressure Provider Name and Address Organization Details Last Updated DateTime 4 176.53 cm 33.6 kg/m2 591477. 84 g 98 [degF] 81 /min 98 % 98 % 150 mm[Hg] 86 mm[Hg] Jahaira Irby RN [facility] [facility] 4 12:21:09 Date Recorded Body height Body mass index (BMI) Body weight Body temperature Heart rate Respiratory rate Oxygen saturation Oxygen saturation in Arterial blood by Pulse oximetry Pain severity - 0-10 verbal numeric rating [Score] - Reported Systolic blood pressure Diastolic blood pressure Provider Name and Address Organization Details Last Updated DateTime 4 176.53 cm 34.4 kg/m2 472539. 9 g 97.9 [degF] 73 /min 20 /min 96 % 96 % 4 140 mm[Hg] 82 mm[Hg] MARYANN Cali [facility] [employer] [facility] 4 09:02:11 Date Recorded Body height Body mass index (BMI) Body weight Body temperature Heart rate Respiratory rate Oxygen saturation Oxygen saturation in Arterial blood by Pulse oximetry Pain severity - 0-10 verbal numeric rating [Score] - Reported Systolic blood pressure Diastolic blood pressure Provider Name and Address Organization Details Last Updated DateTime 4 176.53 cm 35.4 kg/m2 612042 g 97.2 [degF] 76 /min 20 /min 97 % 97 % 2 142 mm[Hg] 70 mm[Hg] Lissy Pedraza RN [facility] [employer] [facility] 4 08:52:02 Date Recorded Body height Body mass index (BMI) Body weight Body temperature Heart rate Respiratory rate Oxygen saturation Oxygen saturation in Arterial blood by Pulse oximetry Pain severity - 0-10 verbal numeric rating [Score] - Reported Systolic blood pressure Diastolic blood pressure Provider Name and Address Organization Details Last Updated DateTime 4 176.53 cm 37.3 kg/m2 841195. 45 g 97.2 [degF] 87 /min 20 /min 94 % 94 % 0 136 mm[Hg] 88 mm[Hg] MARYANN Cali [facility] [employer] [facility] 4 10:28:41 Social History Question Answer Notes LastModified by Organization Details LastModified Time Tobacco Smoking Status Never [facility]oker Not Available [facility]22 05:56:01 Do You Have An Advance Directive? No Information not available 09/09/2023 What Is Your Level Of Alcohol Consumption? None [id number] Information not available 05/20/2022 Are You Blind Or Do You Have Difficulty Seeing? No Wears Glasses Information not available 09/09/2023 Is Blood Transfusion Acceptable In An Emergency? Yes Information not available 09/09/2023 What Is Your Level Of Caffeine Consumption? Occasional [id number] Information not available 05/20/2022 How Much Tobacco Do You Chew? 2-4/day [id number].[id number] Information not available 05/20/2022 What Is Your Code Status? Full Code Information not available 09/09/2023 In The 14 Days Before Symptom Onset, Have You Had Close Contact With A Laboratory-confi rmed COVID-19 While That Case Was Ill? No Information not available 09/09/2023 In The 14 Days Before Symptom Onset, Have You Had Close Contact With A Person Who Is Under Investigation For COVID-19 While That Person Was Ill? No Information not available 09/09/2023 Are You Deaf Or Do You Have Serious Difficulty Hearing? Yes Hard To Hear With Alot Of Back Ground Noises Information not available 09/09/2023 What Type Of Diet Are You Following? REGULAR [id number] Information not available 05/20/2022 Which Illicit Or Recreational Drugs Have You Used? 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 No Information not available 09/09/2023 Are There Any Guns Present In Your Home? Yes Information not available 09/09/2023 Do You Use Insect Repellent Routinely? No Information not available 09/09/2023 Where Do You Live? SingleLevelHouse Information not available 09/09/2023 Do You Have A Medical Power Of Postie? No Information not available 09/09/2023 How Many Children Do You Have? 5 Information not available 09/09/2023 Do You Have Any Pets? Yes Information not available 09/09/2023 What Is Your Relationship Status? Information not available 09/09/2023 Do You Use Your Seat Belt Or Car Seat Routinely? Yes Information not available 09/09/2023 Do You Have Smoke And Carbon Monoxide Detectors In Your Home? Yes Information not available 09/09/2023 At What Age Did You Start Smoking Tobacco? 25 [id number] Information not available 05/20/2022 Are You Passively Exposed To Smoke? No Information not available 09/09/2023 Do You Or Have You Ever Used Smokeless Tobacco? [id number] Chews But Herbal Information not available 02/04/2024 Are There Any Smokers In Your House? No Information not available 09/09/2023 Do You Participate In Social Media? No Information not available 09/09/2023 Do You Feel Stressed (tense, Restless, Nervous, Or Anxious, Or Unable To Sleep At Night)? [id number] Information not available 09/09/2023 Do You Use Sunscreen Routinely? No Information not available 09/09/2023 How Many Years Have You Smoked Tobacco? 40 MIGRATION.0301 [id number] Information not available 05/20/2022 Have You Recently Traveled Abroad? No Information not available 09/09/2023 Sex: Unknown Functional Status Question Answer Note LastModified by Organizat ion Details LastModified Time Do you have difficulty walking or climbing stairs? No Information not available 09/09/2023 Do you have transportation difficulties? Yes Information not available 09/09/2023 Are you able to walk? YESWOREST Information not available 09/09/2023 Do you have difficulty doing errands alone? No Information not available 09/09/2023 Are you able to care for yourself? Yes Information n ot available 09/09/2023 Do you have difficulty dressing or bathing? No Information not available 09/09/2023 What is your exercise level? Occasional [id number] Information not available 05/20/2022 Mental Status Question Answer Note LastModified by Organizat ion Details LastModified Time Do you have difficulty concentrating, remembering or making decisions? Yes at times Information no t available 09/09/2023 Family History Nothing Reported. Medical History Condition Response ARTHRITIS Y DIABETES, TYPE Y DEPRESSION (INCLUDING POST ) Y ASTHMA Y Immunizations Vaccine Type Date Status Note Provider Nam e and Address Organization Details Recorded Time SARS-COV-2 (COVID-19) vaccine, UNSPECIFIED 1 completed MARYANN Cali, [place] [employer] [facility] [employer] 02/04/2024 10:18:52 SARS-COV-2 (COVID-19) vaccine, UNSPECIFIED 1 completed Lissy Pedraza RN null, [employer] [facility] [employer] 02/04/2024 10:18:52 pneumococcal polysaccharide PPV23 2 completed Not Available [facility] 05/20/2022 06:17:19 Pneumococcal conjugate PCV 13 1 completed Not Available [facility] 05/20/2022 06:17:19 Influenza, split virus, quadrivalent, PF 1 completed Not Available [facility] 05/20/2022 06:17:19 Influenza, high-dose, quadrivalent, PF 3 completed Greta Hui CMA null, [employer] [facility] [employer] 03/18/2023 08:59:54 Past Encounters Encounter ID Performer Location Encounter Start Date Encounter Closed Date Diagnosis/Indication Diagnosis SNOMED-CT Code Diagnosis ICD10 Code Diagnosis Note [id number] [facility] [address] [place] [address] 10/07/2020 00:00:00 10/11/2020 09:36:43 [id number] [facility] [address] [place] [address] 10/21/2020 00:00:00 10/21/2020 13:38:07 [id number] [facility] [place] [address] [place] [address] 11/19/2020 00:00:00 11/19/2020 13:50:12 [id number] [facility] [place] [address] [place] [address] 12/31/2020 00:00:00 12/31/2020 09:49:29 [id number] [facility] [place] [address] [place] [address] 04/02/2021 00:00:00 04/02/2021 09:40:43 [id number] [facility] [place] [address] [place] [address] 08/11/2021 00:00:00 08/11/2021 08:54:35 [id number] [facility] [place] [address] [place] [address] 09/09/2021 00:00:00 09/10/2021 10:12:44 [id number] [facility] [place] [address] [place] [address] 11/11/2021 00:00:00 11/18/2021 13:58:50 [id number] [facility] [place] [address] [place] [address] 02/16/2022 00:00:00 02/16/2022 08:50:44 [id number] Marisa Boyce MD [facility] [place] [address] [place] [address] 05/27/2022 07:54:28 05/27/2022 08:22:46 Insomnia 380421552 G47.00 Anxiety 19077662 F41.9 Renewal of prescription 159389401 Z76.0 Multiple joint pain 3567 8005 M25.50 [id number] [facility] [place] [address] [place] [address] 07/27/2022 09:06:54 07/27/2022 09:42:24 Eruption 759221700 R21 Not responsive to steroids yet, but on lower doseIncrea se prednisone 60 mg and taper down over 12 days with foodstay off leflunomid ederm referral given, will try to get in ASAPwill call his rheumatolo gy office as well, he sent pics last week but has not gotten a response [id number] Marisa Boyce MD [facility] Primary Care [facility] [address] [place] [address] 08/18/2022 08:38:35 08/18/2022 09:09:22 Diabetes mellitus 47771993 E11.9 uncertain control-wheeler s been on steroids for for RAcontinue current medscheck labs Hyperlipidemia 66615853 E78.5 Z79.899 Rheumatoid arthritis 698 73466 M06.9 [id number] LANRE Canales [facility] Primary Care [facility] [address] [place] [address] 12/24/2022 08:07:43 12/24/2022 09:01:28 Depressive disorder 66470555 F32.A Not well controlled off anti-depre ssantsHigh ly encouraged pt to consider counseling . Denies any SI/HI at this time. Pt to stop medication and be seen if s/e develop. Will resume escitalopr am since pt no longer taking duloxetine and he reports sx were well controlled . Pt to start 10mg dose x 2 weeks, then resume 20mg dose. Rheumatoid arthritis 698 53234 M06.9 Not well controlled off medsNo improvemen t with ibuprofen/ acetaminop henStopped leflunomid e s/t skin peeling. Methotrexa te ineffectiv e. Duloxetine also caused skin peeling.Pt encouraged to keep upcoming f/u appt with rheumatolo gy. Will give rx for gabapentin to help with pain management in the meantime. Pruritic rash 86703681 L 28.2 Recurrentp soriasis vs eczema vs diabetic dry skin vs contact dermPt reports derm does not believe this is psoriasis. discussed in detail treatment for eczema including demonstrat ion of various lotions/cr eams/dyan leum. discussed moisturizi ng soaps, unscented/ mild products and detergents . discussed limited time for bathing, pat dry, apply medication and then emollient. discussed use of steroid cream until flareup resolved however if more than 3-4 weeks to hold steroid for 1-2 weeks then resume. [id number] Marisa Boyce MD [facility] Primary Care [address] [place] [address] 02/16/2023 08:28:32 02/16/2023 09:21:43 Diabetes mellitus 17632218 E11.9 uncertain control-wheeler s been on steroids for coughconti nue current medscheck labs, need to get to 7.5 for hip surgery in April Postviral cough 93242587 4 R05.3 persistent cough x 4 weekscxrpr ednisone taperhas albuterol hfa alreadycou gh syrup with codeine-us e sparingly, he understand s this can cause drowsiness Heart murmur 47694585 R0 1.1 newly dxecho ordered [id number] Marisa Boyce MD [facility] Primary Care [address] [place] [address] 03/18/2023 08:16:17 03/18/2023 08:43:14 Diabetes mellitus 06463351 E11.9 improving but not yet to baselinein crease lantus to 25 units and call with blood sugars in 1 weekNeed to get to 7.5 for hip surgery in April Administra tion of influenza vaccine 47707433 Z23 [id number] Marisa Boyce MD [facility] Primary Care [address] [place] [address] 05/07/2023 08:31:03 05/07/2023 08:57:43 [id number] Marisa Boyce MD [facility] Primary Care [address] [place] [address] 06/02/2023 12:08:08 06/02/2023 15:15:34 Cervical lymphadenopathy 483610434 R59.0 noted on MRI cervical spine-prom inent left cervical lymph nodes Bilateral inguinal hernia 99594043 K40.[address] abd/pelvis , ok to observe for now Rheumatoid arthritis 698 65934 M06.9 M50.30 [id number] Muna Pradhan [facility]_[address] [address] 09/09/2023 08:50:08 09/09/2023 09:53:28 Diabetes mellitus 64048526 E11.9 Anxiety 61966800 F41.9 [id number] Muna Pradhan [address] [address] 12/10/2023 08:42:30 12/10/2023 09:19:46 Diabetes mellitus 90870414 E11.9 Anxiety 33425683 F41.9 Insomnia 302638844 F51.0 1 [id number] Muna Pradhan [address] [address] 02/04/2024 10:13:32 02/04/2024 10:46:45 Pre-surgery evaluation 646585118 Z01.818 Last surgery cancelled. Patient is overall stable. Cleared for surgery, form completed and faxed Health Concerns Section Related Observation LastModified by Organization Detai ls LastModified Time None Recorded Concern Status LastModified by Organization Details LastModified Time None Recorded Advance Directives Directive N: Payers Encounter Date Sequence Insurance Name Policy Number Policy Portillo Covered Member ID Portillo Member ID Guarantor Name 05/07/2023 1 [facility] (MEDICARE REPLACEMENT/A DVANTAGE - HMO) [id number] Keyur Pinonox [id number] Keyur Carranza 06/02/2023 1 [facility] (MEDICARE REPLACEMENT/A DVANTAGE - HMO) [id number] Keyur Pinonox [id number] Keyur Carranza 09/09/2023 1 [facility] (MEDICARE REPLACEMENT/A DVANTAGE - HMO) [id number] Keyur Pinonox [id number] Keyur Carranza 12/10/2023 1 [facility] (MEDICARE REPLACEMENT/A DVANTAGE - HMO) [id number] Keyur Pinonox [id number] Keyur Carranza 02/04/2024 1 [facility] (MEDICARE REPLACEMENT/A DVANTAGE - HMO) [id number] Keyur Carranza [id number] Keyur Carranza Notes Date Note Type Note Provider Name and Address Organization Details Recorded Time 06/02/2023 text/html Right hip replacement in 2 weeks home blood sugars are running 140s-150s average lantus 26 units qhs, AM fasting was 144 today MRI cervical spine done 04/12/23 showed prominent left cervical lymph nodes CT can hip showed b/l inguinal hernias Marisa Boyce MD [address], [place], [address], [employer] 06/20/2023 07:58:55 09/09/2023 text/html Keyur Carranza isaak 68 year old male patient here today to establish care. He was previously under the care of Dr. Boyce Type 2 DM. A1C 7.4 05/15. Taking synjardy has doubled in freitas, cannot afford. He is taking Lantus solostar 30 units SQ HS. He states that he feels this works well. He Hyperlipidemia well controlled. Taking atorvastatin 20 mg PO HS. Enlarged prostate, negative biopsy. He is taking finasteride. No urinary symptoms. Spinal stenosis. He has seen pain management. He currently sees PT. He is taking naproxen 500 mg PO BID PRN for pain. History of mixed depression and anxiety. He has seen psych. He is currently weaning off of lexapro and starting duloxetine to help with pain management as well. He does take alprazolam 0.5 mg once daily. He sees rheumatologic for arthritis. He does have sleep apnea and is supposed to wear a CPAP but did not like it. It has been years since he saw a sleep specialist. Flu shots: 3COVID vaccines: 03/2020, 04/2020, 02/2021, 01/2022Tdap: dueDue for PCV20 and shingrixPSA: 05/07/2305/25Colonoscopy: 2022, normal 5 year FU LANRE Del Cid [address], [place], [address], Clifford Thames 09/15/2023 10:17:11 12/10/2023 text/html Johnny Carranza is a 68 year old male patient here today for a surgical clearance He is having a right sided hip replacement with Dr. Mendez at [facility] in [place], [place]. Recent labs done by ortho were all WNLs. Has 3 month for diabetes FU scheduled for 12/13. Will cancel. A1C was 6.8 with recent labs.Requires refill of alprazolam. Takes for panic and insomnia. Patient aware of risks and would like to continue Rheumatology changed lexapro to duloxetine for increased pain control, he notes his mood is worse than it was before and he is quicker to snap on his . LANRE Del Cid [address], [place], [address], Clifford Thames 12/10/2023 09:17:10 02/04/2024 text/html Johnny Carranza is a 68 year old male patient here today for a surgical clearance He is having a right sided hip replacement with Dr. Mendez at [facility] in [place], [place]. Recent labs done by ortho were all WNLs. Has 3 month for diabetes FU scheduled for 12/13. Will cancel. A1C was 7.3 with recent labs 02/01. Rheumatology changed lexapro to duloxetine for increased pain control, he notes his mood is worse than it was before and he is quicker to snap on his . LANRE Del Cid [address], [place], [address], [employer] 02/04/2024 10:44:28
--- NOTE | 2024-05-21 18:53 | ECG_ITS ---
Test Date: 2024-05-21 19:19:17 Measurements Intervals [place] Rate: 90 P: 62 NE: 145 QRS: 14 QRSD: 98 T: 57 QT: 355 QTc: 436 Interpretive Statements SINUS RHYTHM WITH FREQUENT VENTRICULAR PREMATURE COMPLEXES INCOMPLETE RIGHT BUNDLE BRANCH BLOCK [90+ ms QRS DURATION, TERMINAL R IN V1/V2, 40+ ms S IN I/aVL/V4/V5/V6] No previous ECG available for comparison Electronically Signed On 05-23-2024 15:34:28 PACKAGE HAND[employer]ER by Katia Thomas M.D.
[2024-05-21 19:17] LABS: Basophils Absolute Auto 0.1 K/mm3 (0.0-0.1); Basophils Percent Auto 1.5 % (0.2-1.2); Eosinophils Absolute Auto 0.6 K/mm3 (0-0.3); Eosinophils Percent Auto 6.9 % (0-4.4); Hematocrit 47.2 % (42.0-52.0); Hemoglobin 15.1 g/dL (14.0-18.0); Immature Granulocyte Absolute 0.02 K/mm3 (0.00-0.031); Immature Granulocyte Percent A 0.2 % (0-0.5); Lymphocytes Percent Auto 17.5 % (18.3-44.2); Mean Corpuscular Hemoglobin 27.4 pg (26-34); Mean Corpuscular Volume 85.7 fl (80-100); Mean Platelet Volume 9.8 fl (7.4-10.4); Monocytes Absolute Auto 0.8 K/mm3 (0.1-0.6); Monocytes Percent Auto 9.2 % (2.6-8.5); Neutrophils Absolute Auto 5.6 K/mm3 (1.3-6.7); Neutrophils Percent Auto 64.7 % (45.5-73.1); Platelet Count Result 258 k/mm3 (150-375); Red Blood Count 5.51 M/mm3 (4.6-6.20); Red Cell Distribution Width 13.4 % (11.5-14.5); White Blood Count 8.6 K/mm3 (4.5-10.0)
[2024-05-21 19:36] LABS: Alanine Aminotransferase 24 U/L (6-50); Albumin Level 4.5 g/dL (3.5-5.1); Alkaline Phosphatase 89 U/L (38-126); Anion Gap 10 mmol/L (4-12); Aspartate Amino Transferase 22 U/L (17-59); Bilirubin,Total 0.6 mg/dL (0.2-1.3); Blood Urea Nitrogen 18 mg/dL (9-20); Calcium 9.2 mg/dL (8.4-10.2); Carbon Dioxide 28 mmol/L (22-30); Chloride 102 mmol/L (98-107); Estimated CRCL calculation 81 ml/min; Estimated Glomerular Filt Rate > 60; Glucose 152 mg/dL (65-110); Potassium 3.9 mmol/L (3.4-5.0); Sodium 140 mmol/L (137-145)
[2024-05-21 19:47] LABS: Troponin I < 0.012 ng/mL (0.000-0.034)
[2024-05-21] MEDS: SODIUM CHLORIDE 0.9% IV 1,000 ML 999 ML IV CONT ×2 (19:48→21:43)
[2024-05-21] MEDS: IPRATROPIUM 0.5 MG/ALBUTEROL SULFATE 2.5 MG AMPUL.NEB 3 ML INHALATION (19:51)
--- OUTSIDE RECORDS SUMMARY | 2024-05-21 19:52 | XMS_ITS | Referral Summary ---
Author Organization [facility] Address [address] [place] [address] Care Team Providers Care Cloth Doffer Name Role Phone Unavailable Primary Care Provider Unavailabl e Source Comments [facility],non-owned Affiliates and Associated Physician Practices is amultiple site organization consisting of ambulatory clinics and hospital sitesin [place], [place], [place] and [place]. This disclosure is being madepursuant to the Care Everywhere program and may not contain all information available regarding this patient. Last updated 17.[facility] [employer] Social History Tobacco Use Types Packs/Day Years Used Date Smoking Tobacco: Never Assessed Sex and Gender Information Value Date Recorded Sex Assigned at Not on file Gender Identity Not on file Sexual Orientation Not on file Plan of Treatment Not on file
--- OUTSIDE RECORDS SUMMARY | 2024-05-21 19:52 | XMS_ITS | Clinical Summary ---
Author Organization [facility] [employer] Address [address] [place] [address] Care Team Providers Care Human Resources Department Supervisor Name Role Phone Unavailable Primary Care Provider Unavailabl e Source Comments [facility] [employer],non-owned Affiliates and Associated Physician Practices is amultiple site organization consisting of ambulatory clinics and hospital sitesin [place], [place], [place] and [place]. This disclosure is being madepursuant to the Care Everywhere program and may not contain all information available regarding this patient. Last updated 17.[facility] [employer] Social History Tobacco Use Types Packs/Day Years [...]
--- OUTSIDE RECORDS SUMMARY | 2024-05-21 19:52 | XMS_ITS | Patient Health Summary ---
Author Organization [facility] Address [address] [place] [address] Care Team Providers Care Head Turbine Operator Name Role Phone Unavailable Primary Care Provider Unavailabl e Note from [facility] [place],non-owned Affiliates and Associated Physician Practices is amultiple site organization consisting of ambulatory clinics and hospital sitesin [place], [place], [place] and [place]. This disclosure is being madepursuant to the Care Everywhere program and may not contain all information available regarding this patient. Last updated 17.[facility] Social History Tobacco Use Types Packs/Day Years Used Date Smoking Tobacco: Never Assessed Sex and Gender Information Value Date Recorded Sex Assigned at Not on file Gender Identity Not on file Sexual Orientation Not on file Procedures * DERMATOPATHOLOGY(Performed 01/20/2022) Results * DERMATOPATHOLOGY (01/20/2022 12:00 AM CDT) Case Report Dermatopathology Report Case: [id number] Authorizing Provider: Juan Justice MD Collected: 01/20/2022 12:00 AM Ordering Location: [facility] DermPath Lab Received: 01/20/2022 04:46 PM [...] specimen consists of a shave removal measuring [id number] that is inked and bisected. Jar 0. Specimen B: Received is one formalin filled container labeled with the patients name and designated left waist. The specimen consists of a shave removal measuring [id number] that is inked and bisected. Jar 0. [...] determined by the Dermatopathology Laboratory at [facility], directed by Dr. Sugey White. These tests need not be, and therefore are not, approved by the [place] Food and Drug Administration. The tests are used for clinical purposes. Billing Codes Specimen Charges Stain Charges 08805 [id number] 1 1 2 5:32 PM CDT DERMATOPATHOLOGY LABORATORY Embedded Images 2 5:32 PM CDT DERMATOPATHOLOGY LABORATORY Pathology/Cytology TISSUE SPECIMEN FROM SKIN / Unknown 01/20/2022 01/20/2022 4:46 PM CDT Miscellaneous samples (specimen) TISSUE SPECIMEN FROM SKIN / Unknown 01/20/2022 01/20/2022 4:46 PM CDT Juan Justice MD LAB - PATHOLOGY/CYTO LOGY ORDERABLES DERMATOPATHOLOGY LABORATORY [facility] - Department of Dermatology [facility] [address] [place] [address], [facility] [phone]
--- OUTSIDE RECORDS SUMMARY | 2024-05-21 19:52 | XMS_ITS | Encounter Summary ---
Author Organization [facility] Address [address] [place] [address] Care Team Providers Care Rubber Tire Curer Name Role Phone Unavailable Primary Care Provider Unavailabl e Encounter Details Date Type Department Care Team (Late st Contact Info) Description 01/20/2022 Lab Requisition [facility] DermPath Lab [address] [place] [id number] Juan Justice MD [address] [place] [address] Social History Tobacco Use Types [...] AM CDT) Case Report Dermatopathology Report Case: [id number] Authorizing Provider: Juan Justice MD Collected: 01/20/2022 12:00 AM Ordering Location: [facility] DermPath Lab Received: 01/20/2022 04:46 PM [...] specimen consists of a shave removal measuring [id number] that is inked and bisected. Jar 0. Specimen B: Received is one formalin filled container labeled with the patients name and designated left waist. The specimen consists of a shave removal measuring [id number] that is inked and bisected. Jar 0. 2 5:32 PM [facility] DERMATOPATHOLOGY LABORATORY Microscopic Description Specimen A. SKIN, [...] margin of the specimen. 2 5:32 PM [facility] NAMED [facility] DERMATOPATHOLOGY LABORATORY Disclaimer An external and internal positive and negative controls are appropriate for the histochemical, immunohistochemical and immunofluorescence stain(s) in this case (if any), except where stated explicitly. The performance characteristics of the stain(s) cited in this report were developed and its performance characteristic determined by the Dermatopathology Laboratory at [facility], directed by Dr. Sugey White. These tests need not be, and therefore are not, approved by the [place] Food and Drug Administration. The tests are used for clinical purposes. Billing Codes Specimen Charges Stain Charges 78949 [id number] 1 1 2 5:32 PM CDT DERMATOPATHOLOGY LABORATORY Embedded Images 2 5:32 PM T DERMATOPATHOLOGY LABORATORY Pathology/Cytology TISSUE SPECIMEN FROM SKIN / Unknown 01/20/2022 01/20/2022 4:46 PM CDT Miscellaneous samples (specimen) TISSUE SPECIMEN FROM SKIN / Unknown 01/20/2022 01/20/2022 4:46 PM CDT Juan Justice MD LAB - PATHOLOGY/CYTO LOGY ORDERABLES DERMATOPATHOLOGY LABORATORY [facility] - Department of Dermatology [facility] [address] [place] [address], [address] [phone] documented in this encounter Visit Diagnoses Not on filedocumented in this encounter
--- OUTSIDE RECORDS SUMMARY | 2024-05-21 19:52 | XMS_ITS | Clinical Summary ---
Author Organization [facility] Address [address] [place] [address] Care Team Providers Care Rn Acute Care Name Role Phone Matt Mendez MD Unavailable [phone] Fariha Dennis MD Primary Care Provider + Main Ny MD Unavailable Wil Camejo MD Unavailable [phone] Leola Hale MD Unavailable Da Villaseñor OT [...] 05/18/2024 Assessment & Plan (05/18/2024 11:21 AM REGULATORY PRODUCT MANAGER): Revised Cardiac Risk Index; 6% risk for major cardiac event. Perioperative risk for ME/CA; 0.2% Patient is at acceptable risk for [...] 05/18/2024 Assessment & Plan (05/18/2024 2:00 PM REGULATORY PRODUCT MANAGER): Primary OA of left hip. Plans for arthroplasty by orthopedic surgery. Type 2 diabetes mellitus with hyperglycemia ([facility]) 04/17/2024 Acute cough 04/17/2024 Assessment & Plan (04/17/2024 8:49 AM REGULATORY PRODUCT MANAGER): No evidence of bacterial infection. Will refill albuterol and patient will let me know if not improving or wrosening in the next week or so Severe obesity 04/17/2024 Assessment & Plan (04/17/2024 11:12 AM REGULATORY PRODUCT MANAGER): We discussed healthy lifestyle issues including healthy diet and regular exercise of 150 minutes weekly, and exercise including resistance training. Primary osteoarthritis of right hip 02/14/2024 Mass of subcutaneous tissue of back 01/13/2024 Assessment & Plan (01/25/2024 9:28 AM REGULATORY PRODUCT MANAGER): Pathology has been reviewed with the patient [...] 03/2023 Assessment & Plan (05/18/2024 2:08 PM REGULATORY PRODUCT MANAGER): Reportedly has mild aortic stenosis on echo from . Not available in chart. Grade 1/4 murmur heard on exam. Currently asymptomatic. Post-viral cough syndrome 02/15/2023 Pruritic rash 12/24/2022 Rash 07/27/2022 Multiple joint pain 05/26/2022 Insomnia 05/26/2022 Assessment & Plan (04/17/2024 11:06 AM REGULATORY PRODUCT MANAGER): Currently using trazodone at night, alprazolam p.r.n.. Recommended he cut down the use of alprazolam as tolerated, however with his intermittent use I am okay with refilling when the time comes. Inflammatory arthritis 10/01/2021 Right bundle branch block (RBBB) 11/20/2020 Class 1 obesity in adult 11/20/2020 Complete tear of left rotator cuff 11/13/2020 Overview (11/13/2020): Added automatically from request for surgery [id number] Spinal stenosis in cervical region 09/17/2020 Raised prostate specific antigen 04/30/2020 Assessment & Plan (04/17/2024 11:06 AM REGULATORY PRODUCT MANAGER): His chart has previously elevated PSA, he also has known BPH. No longer follow with Urology, will check PSA this year Hyperlipidemia 04/30/2020 Assessment & Plan (05/18/2024 2:04 PM REGULATORY PRODUCT MANAGER): Lipid panel ordered. Continue atorvastatin 20 mg daily. Assessment & Plan (04/17/2024 8:47 AM REGULATORY PRODUCT MANAGER): Will recheck lipids, unclear to me why he is not on a statin. Type 2 diabetes mellitus 04/30/2020 Assessment & Plan (05/18/2024 2:03 PM REGULATORY PRODUCT MANAGER): A1c 7.3, Can be better controlled, but stable at this time. Continue current Lantus 25 units nightly, metformin 2000 mg daily, and Farxiga 10 mg. Assessment & Plan (04/17/2024 11:14 AM REGULATORY PRODUCT MANAGER): Has been well controlled previously, will check A1c, needs dilated eye exam and urine microalbumin. Spinal stenosis 04/08/2020 ZAHIDA on CPAP 04/08/2020 Diverticulitis 04/08/2020 Depressive disorder 04/08/2020 Chronic sinusitis 04/08/2020 Osteoarthritis 04/08/2020 Anxiety 04/08/2020 Acute bronchitis 04/07/2020 Assessment & Plan (05/18/2024 11:20 AM REGULATORY PRODUCT MANAGER): Clinically consistent with acute bronchitis. Cough with [...] Department Care Team Description 05/18/2024 9:00 AM REGULATORY PRODUCT MANAGER Office Visit [facility] at [address] [place] [address] Riri Veliz MD Preop examination (Primary Dx); Primary osteoarthritis of left hip; Acute bronchitis, unspecified organism; Type 2 diabetes mellitus without complication, with long-term current use of insulin ([facility] ([facility]); Hyperlipidemia, unspecified hyperlipidemia type; Mild aortic valve stenosis 05/16/[address] [facility] Medical [facility] [address] [place] [address] [address] [place] [address] Eun Baeza MA 05/12/2024 8:46 AM REGULATORY PRODUCT MANAGER - 05/12/2024 11:59 PM REGULATORY PRODUCT MANAGER Hospital Encounter [address] [address] Pre-op testing Discharge Disposition: Discharge to home or self care 05/12/2024 8:35 AM REGULATORY PRODUCT MANAGER Lab [address] [address] Pre-op testing 05/12/[address] [facility] Primary Care at [address] [place] [address] Fariha Dennis MD 05/08/2024 Telephone [facility] [address] [place] [address] [address] [address] Matt Mendez MD Surgery Date 04/25/2024 11:45 AM REGULATORY PRODUCT MANAGER Office Visit [facility] Medical [facility] [address] [place] [phone] Matt Mendez MD Primary osteoarthritis of left hip (Primary Dx); Pre-op testing 04/25/2024 7:44 AM REGULATORY PRODUCT MANAGER - 04/25/2024 11:59 PM REGULATORY PRODUCT MANAGER Hospital Encounter [facility] [address] [place] [phone] Discharge Disposition: Discharge to home or self care 04/25/[address] [facility] Medical [facility] [address] [place] [address] [place] [phone] Eun Baeza MA 04/25/2024 Telephone [facility] Primary Care at [address] [phone] Fariha Dennis MD Medication 04/18/2024 Orders Only [facility] at [address] [phone] Fariha Dennis MD Type 2 diabetes mellitus without complication, with long-term current use of insulin ([facility]) ([facility]) (Primary Dx); Diabetic eye exam ([facility]) (HCC) 04/17/2024 8:00 AM REGULATORY PRODUCT MANAGER Office Visit [facility] at [address] [phone] Fariha Dennis MD Hyperlipidemia, unspecified hyperlipidemia type (Primary Dx); Raised prostate specific antigen; Type 2 diabetes mellitus without complication, with long-term current use of insulin (CMS/HCC) ([facility]); Type 2 diabetes mellitus with hyperglycemia, with long-term current use of insulin ([facility]); Acute cough; Primary insomnia; Arthritis; Encounter for abdominal aortic aneurysm (AAA) screening; Severe obesity (HCC) 04/17/[address] [facility] Medical [facility] at [address] [phone] Fariha Dennis MD 04/17/2024 Orders Only [facility] Primary Care at [address] [phone] Vita Saravia MA 04/12/2024 8:45 AM REGULATORY PRODUCT MANAGER Therapy [facility] - [place] [address] Roni Gaspar, PT S/P total right hip arthroplasty (Primary Dx) 04/11/2024 8:15 AM REGULATORY PRODUCT MANAGER Office Visit [facility] [address] [place] [address] [address] [place] [phone] Janine Ayers NP Aftercare following right hip joint replacement surgery (Primary Dx) 04/11/2024 7:48 AM REGULATORY PRODUCT MANAGER - 04/11/2024 11:59 PM REGULATORY PRODUCT MANAGER Hospital Encounter [facility] [address] [place] [address] [address] [place] [phone] Discharge Disposition: Discharge to home or self care 04/05/2024 8:30 AM REGULATORY PRODUCT MANAGER Therapy [facility] [place] [address] Silvina Rey, PT S/P total right hip arthroplasty (Primary Dx) 03/09/2024 9:15 AM REGULATORY PRODUCT MANAGER Therapy [facility] [place] [address] Silvina Rey, PT S/P total right hip arthroplasty (Primary Dx) 03/09/2024 Plan of Care Documentation [facility] [place] [address] 03/07/2024 9:30 AM REGULATORY PRODUCT MANAGER Telemedicine [facility] [address] [place] [address] [address] [place] [address] Jainne Ayers NP Aftercare following right hip joint replacement surgery (Primary Dx) 03/07/2024 Telephone [facility] [address] [place] [address] [address] [place] [address] Matt Mendez MD 03/07/2024 Orders Only [facility] [address] [place] [address] [address] [place] [address] Janine Ayers NP S/P total right hip [...] on file Legal Sex Male 2:32 AM REGULATORY PRODUCT MANAGER Gender Identity Not on file Sexual Orientation Not on file 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 Not on file Not on file Not on file Obstetrics History Last Filed Vital Signs Vital Sign Reading Time Taken Comments Blood Pressure 127/74 05/18/2024 8:49 AM REGULATORY PRODUCT MANAGER Pulse 87 05/18/2024 8:49 AM REGULATORY PRODUCT MANAGER Temperature 36.7 C (98 F) 05/18/2024 8:49 AM REGULATORY PRODUCT MANAGER Respiratory Rate 18 05/18/2024 8:49 AM REGULATORY PRODUCT MANAGER Oxygen Saturation 99% 05/18/2024 8:49 AM REGULATORY PRODUCT MANAGER Inhaled Oxygen Concentration - - Weight 109.8 kg (242 lb) 05/18/2024 8:49 AM REGULATORY PRODUCT MANAGER Height 174.2 cm (5' 8.58 ) 05/18/2024 8:49 AM CS T Body Mass Index 36.17 05/18/2024 8:49 AM REGULATORY PRODUCT MANAGER Plan of Treatment Upcoming Encounters Date Type Department Care Team (Latest Contact Info) Description 05/24/2024 11:25 AM REGULATORY PRODUCT MANAGER Hospital Encounter [facility] Operating Room [address] [place] [address] Matt Mendez MD [address] [place] [place] [address] 05/24/2024 11:25 AM REGULATORY PRODUCT MANAGER - 05/24/2024 1:50 PM REGULATORY PRODUCT MANAGER Surgery [facility] Operating Room [address] [place] [address] Matt Mendez MD [address] [place] [place] [address] Left Total Hip Artthroplasty- Anterior Approach, Depuy- Actis, Omnitrac, Aquamantys, 1 liter beta rinse, Pt to stay Scheduled Procedures Name Priority Associated Diagnoses Date/Ti me ARTHROPLASTY TOTAL HIP - ANTERIOR APPROACH Primary osteoarthritis of left hip 05/24/2024 11:25 AM REGULATORY PRODUCT MANAGER Health Maintenance Due Date Last Done Comments [...] Completed 04/17/2024 Medical Devices Implanted Type Area Operations Scheduler Device Identifier Shelf Expiration Date Model / Serial / Lot Depuy Synthes Spine [id number] Set Screw - [id number] Implanted:Qty: 6 on 11/26/2020 by Omar Beck MD at [facility] N/A: Spine Cervical Depuy Synthes Spine [id number] / / Depuy Synthes Spine [id number] 3.5mm 18mm Ply Spine Screw Bone Nonsterile 4mm Gold - [id number] Implanted:Qty: 2 on 11/26/2020 by Omar Beck MD at [facility] N/A: Spine Cervical Depuy Synthes Spine [id number] / / Depuy Synthes Spine [id number] 4mm 240mm Straight Gold Spinal Titanium - [id number] Implanted:Qty: 1 on 11/26/2020 by Omar Beck MD at [facility] N/A: Spine Cervical Depuy Synthes Spine [id number] / / Depuy Synthes Spine [id number] 3.5mm 16mm Ply Spine Screw Bone Nonsterile 4mm Gold - [id number] Implanted:Qty: 2 on 11/26/2020 by Omar Beck MD at [facility] N/A: Spine Cervical Depuy Synthes Spine [id number] / / 4.0x20mm Screw Implanted:Qty: 2 on 11/26/2020 by Omar Beck MD at [facility] N/A: Spine Cervical DEPUY SYNTHES COMPANIES [id number] / / Description:Depuy synthes sy mphony spine Allosource [id number] Freeze Dried Crushed 1-4mm Graft 15ml Bone Cancellous - [id number] Implanted:Qty: 1 on 11/26/2020 by Omar Beck MD at [facility] N/A: Spine Cervical Allosource 06/08/2025 [id number] / / [id number] [employer] Ar-2324 Bcm Swivelock 4.75mm 24.5mm Self Punch Vent Shoulder [place] Suture - [id number] Implanted:Qty: 1 on 04/17/2021 by Wil Camejo MD at [facility] Left: Shoulder [employer] Inc 12/19/2024 AR-2324BCM / / [id number] [employer] Ar-2290 Fiberloop 3.2mm Drill Pin Needle [place] Cannula Kit Suture - [id number] Implanted:Qty: 1 on 04/17/2021 by Wil Camejo MD at [facility] Left: Shoulder [employer] 02/18/2026 AR-2290 / / [id number] [employer] Ar-1927bct Corkscrew Suturetape 5.5mm 14.7mm Bioabsorbable Full Thread 1.3mm - [id number] Implanted:Qty: 1 on 04/17/2021 by Wil Camejo MD at [facility] Left: Shoulder [employer] 01/19/2023 AR-1927BCT / / [id number] [employer] Ar-2324 Bcm [place]ivel[place] 4.75mm 24.5mm Self Punch Vent Shoulder [place] Suture - [id number] Implanted:Qty: 1 on 04/17/2021 by Wil Camejo MD at [facility] Left: Shoulder [employer] 12/19/2024 AR-2324BCM / / [id number] [employer] Fiberloop 3.2mm Drill Pin Needle [place] Cannula Kit Suture Ar-2290 - [id number] Implanted:Qty: 1 on 10/10/2021 by Wil Camejo MD at [facility] Right: Shoulder [employer] 05/19/2026 AR-2290 / / [id number] [employer] Corkscrew Suturetape 5.5mm 14.7mm Bioabsorbable Full Thread 1.3mm Ar-1927bct - [id number] Implanted:Qty: 1 on 10/10/2021 by Wil Camejo MD at [facility] Right: Shoulder [employer] 06/20/2023 AR-1927BCT / / [id number] [employer] Ar-2324 Bcm [place]ivel[place] 4.75mm 24.5mm Self Punch Vent Shoulder [place] Suture - [id number] Implanted:Qty: 1 on 10/10/2021 by Wil Camejo MD at [facility] Right: Shoulder [employer] 05/19/2025 AR-2324BCM / / [id number] [employer] Ar-2324 Bcm [place]ivel[place] 4.75mm 24.5mm Self Punch Vent Shoulder [place] Suture - [id number] Implanted:Qty: 1 on 10/10/2021 by Wil Camejo MD at [facility] Right: Shoulder [employer] Inc 05/19/2025 AR-2324BCM / / [id number] [employer]ol Inc/C R Bard Mesh Surgical Mid Anatomical Synthetic Patch 3dmax 4x6in [id number] - [id number] Implanted:Qty: 1 on 10/20/2023 by Main Ny MD at [facility] Right: Inguinal [employer] Inc/C R Bard 01/17/2028 [id number] / / [id number] [employer] Inc/C R Bard Mesh Surgical Inguinal Hernia Synthetic Patch 3dmax 4x6in [id number] - [id number] Implanted:Qty: 1 on 10/20/2023 by Main Ny MD at [facility] Left: Inguinal [employer] Inc/C R Bard 04/18/2028 [id number] / / [id number] Depuy Orthopaedics Inc Nocona 58mm Sector Hip Shell Acetabular Gription Sterile Latex Free [id number] - [id number] Implanted:Qty: 1 on 02/14/2024 by Matt Mendez MD at [facility] Right: Hip Depuy Orthopaedics Inc [id number] 11/19/2033 [id number] / / [id number] Depuy Orthopaed[employer] Inc Nocona 58mm 36mm Hip Neutral Liner Acetabular Altrx Sterile Latex Free [id number] - [id number] Implanted:Qty: 1 on 02/14/2024 by Matt Mendez MD at [facility] Right: Hip Depuy Orthopaedics Inc [id number] 11/19/2028 [id number] / / [id number] Depuy Orthopaedics Inc Actis L107 Mm Collar Hip 6 High Offset Stem Femoral [id number] - [id number] Implanted:Qty: 1 on 02/14/2024 by Matt Mendez MD at [facility] Right: Hip Depuy Orthopaedics Inc [id number] 06/19/2033 [id number] / / [id number] Depuy Orthopaedics Inc Articul/Francisco Javier 36mm Cementless Hip +1.5mm 12/14 Taper Head Femoral Latex Free [id number] - [id number] Implanted:Qty: 1 on 02/14/2024 by Matt Mendez MD at [facility] Right: Hip Depuy Orthopaedics Inc [id number] 11/19/2028 [id number] / / [id number] Procedures Procedure Name Priority Date/Time Associated Diagnosis Comments XR CHEST PA LATERAL 2 VIEWS Schedule Routine, Read Routine (OP Routine) 05/12/2024 9:42 AM REGULATORY PRODUCT MANAGER Pre-op testing EGFR Routine 05/12/2024 8:41 AM REGULATORY PRODUCT MANAGER Pre-op testing DIFFERENTIAL AUTO Routine 05/12/2024 8:4 1 AM REGULATORY PRODUCT MANAGER Pre-op testing URINALYSIS, MICROSCOPIC ONLY Routine 05/12/2024 8:41 AM REGULATORY PRODUCT MANAGER Pre-op testing HEMOGLOBIN A1C Routine 05/12/2024 8:41 AM REGULATORY PRODUCT MANAGER Pre-op testing COMPREHENSIVE METABOLIC PANEL Routine 05/12/2024 8:41 AM REGULATORY PRODUCT MANAGER Pre-op testing CBC WITH AUTO DIFFERENTIAL Routine 05/12/2024 8:41 AM REGULATORY PRODUCT MANAGER Pre-op testing URINE CULTURE Routine 05/12/2024 8:41 AM REGULATORY PRODUCT MANAGER URINALYSIS AND REFLEX TO MICROSCOPIC AND CULTURE Routine 05/12/2024 8:41 AM REGULATORY PRODUCT MANAGER Pre-op testing XR HIP LEFT 2 OR 3 VIEWS Schedule Routine, Read Routine (OP Routine) 04/25/2024 11:03 AM REGULATORY PRODUCT MANAGER Primary osteoarthritis of left hip US ABDOMINAL AORTIC ANEURYSM SCREENING Schedule Routine, Read Routine (OP Routine) 04/17/2024 11:32 AM REGULATORY PRODUCT MANAGER Encounter for abdominal aortic aneurysm (AAA) screening XR HIP RIGHT 2 OR 3 VIEWS Schedule Routine, Read Routine (OP Routine) 04/11/2024 8:04 AM REGULATORY PRODUCT MANAGER Aftercare following right hip joint replacement surgery HEPATITIS PANEL, ACUTE Routine 10/28/2020 11:46 AM CDT DISH (diffuse idiopathic skeletal hyperostosis) from Last 3 Months or Most Recently Relevant to Health Maintenance Results * XR Chest PA Lateral 2 View (05/12/2024 9:42 AM REGULATORY PRODUCT MANAGER) Anatomical Region Laterality Modality Body, Chest N/A Computed Radiogr aphy 05/18/2024 12:2 9 PM REGULATORY PRODUCT MANAGER Narrative 05/18/2024 12:30 PM REGULATORY PRODUCT MANAGER EXAM DESCRIPTION: XR CHEST PA LATERAL 2 [...] by Noe Sanchez M.D. CH: Report ID: [id number] Reading Location: [id number] Procedure Note Noe Sanchez Jr., MD - [...] 12:30 PM - Electronically signed by Noe Sancehz M.D. CH: Report ID: [id number] Reading Location: [id number] Matt Mendez MD IMG XR PROCEDURES Final Result * eGFR (05/12/2024 8:41 AM REGULATORY PRODUCT MANAGER) eGFR 75 >=60 mL/min/1. 73 m2 Comment: [...] last reviewed 2021. Blood 05/12/2024 8:41 AM REGULATORY PRODUCT MANAGER 05/12/2024 9:04 AM REGULATORY PRODUCT MANAGER us Matt Mendez MD LAB BLOOD ORDERABLES Fin al Result [facility] 1 [facility] [place] [address] * Differential, auto (05/12/2024 8:41 AM REGULATORY PRODUCT MANAGER) Neutrophil abs 4.6 1.5 - 6.5 K/cumm Imm gran abs 0.0 0.0 - 0.1 K/cumm [facility] ([place]) Lymphocyte abs 1.6 0.8 - 3.3 K/cumm [facility] ([place]) Monocyte abs 0.6 0.2 - 0.8 K/cumm [...] revised on 2017. Blood 05/12/2024 8:41 AM REGULATORY PRODUCT MANAGER 05/12/2024 9:04 AM REGULATORY PRODUCT MANAGER us Matt Mendez MD LAB BLOOD ORDERABLES Fin al Result [facility] ([place]) [address] [facility] [place] [address] * (ABNORMAL) Urinalysis reflex to microscopic and culture Urine, clean voided (05/12/2024 8:41 AM REGULATORY PRODUCT MANAGER) Color, ur Yellow Yellow Clarity, ur Clear [...] tendency for uric acid stone formation. Source: [facility] Stat Current Interpretive Data was last revised on 2017 Protein, ur ql Negative Negative [facility] ([place]) Glucose, ur ql 4+(A) Negative [facility] ([place]) Ketones, ur Negative Negative [facility] ([place]) Bilirubin, ur Negative Negative [facility] ([place]) Blood, ur Negative Negative [facility] ([place]) Urobilinogen, ur <2.0 <2.0 mg/dL [facility] ([place]) Nitrite, ur Negative Negative [facility] ([place]) Leukocyte esterase, ur 3+(A) Negative [facility] ([place]) UA reflex comment Reflex to microscopic UA will be performed. [facility] ([place]) Urine, clean voided 05/12/2024 8:41 AM REGULATORY PRODUCT MANAGER 05/12/2024 8:52 AM REGULATORY PRODUCT MANAGER us Matt Mendez MD LAB MICROBIOLOGY - GENER AL ORDERABLES Final Result [facility] ([place]) [address] [facility] Department [place] [address] * (ABNORMAL) CBC with auto differential (05/12/2024 8:41 AM REGULATORY PRODUCT MANAGER) WBC 7.3 3.8 - 9.9 K/cumm Hgb 15.4 13.0 - 17.5 g/dL [facility] Hct 48.6 38.9 - 50.3 % [facility] ([place]) Plt 240 150 - 400 K/cumm [facility] ([place]) MPV 9.8 9.1 - 12.3 fL [facility] ([place]) RBC 5.67 4.30 - 5.80 M/cumm [facility] ([place]) MCV 85.7 81.3 - 96.4 fL [facility] ([place]) MCH 27.2 27.1 - 33.3 pg [facility] MCHC 31.7(L) 32.3 - 35.7 g/dL [facility] RDW CV 13.2 11.1 - 14.9 % [facility] ([place]) RDW SD 41.3 35.7 - 48.1 fL [facility] NRBC abs 0.00 0.00 - 0.01 K/cumm [facility] Blood 05/12/2024 8:41 AM REGULATORY PRODUCT MANAGER 05/12/2024 9:04 AM REGULATORY PRODUCT MANAGER Matt Mendez MD LAB BLOOD ORDERABLES Fin al Result Performing Organization Address [facility] [[email or web address]] Co de Phone Number [facility] ([place]) 1 [facility] [place] [address] * (ABNORMAL) Urinalysis, microscopic only (05/12/2024 8:41 AM REGULATORY PRODUCT MANAGER) WBC, ur 11-20(A) 0 - 5 /HPF RBC, ur 0-2 0 - 2 /HPF [facility] ([place]) Epithelial cells, squamous, ur 1-5 0 - 5 /HPF [facility] Culture Reflex Comment Reflex to urine culture will be performed. [facility] ([place]) Urine, clean voided 05/12/2024 8:41 AM REGULATORY PRODUCT MANAGER 05/12/2024 8:52 AM REGULATORY PRODUCT MANAGER us Matt Mendez MD LAB URINE ORDERABLES Fin al Result Performing Organization Address [facility] de Phone Number [facility] ([place]) [address] [place] [address] * Urine culture Urine, clean voided (05/12/2024 8:41 AM REGULATORY PRODUCT MANAGER) Report Final Report: Less than 100,000 colonies/mL (clinically insignificant growth based on current clinical standards) Comment:Testing performed by : [facility] [place], [address] [place] [address] Organism (CLINICALLY INSIGNIFICANT GROWTH [facility] ([place]) Urine, clean voided 05/12/2024 8:41 AM REGULATORY PRODUCT MANAGER 05/12/2024 6:07 PM REGULATORY PRODUCT MANAGER Narrative [facility] ([place]) - 05/13/2024 8:19 PM REGULATORY PRODUCT MANAGER Urine culture reflexed based upon urinalysis results. Testing performed by [facility] ([phone]) us Matt Mendez MD LAB MICROBIOLOGY - GENER AL ORDERABLES Final Result Performing Organization Address [facility] [[email or web address]] Co de Phone Number [facility] ([place]) 1 [facility] [place] [address] * (ABNORMAL) Hemoglobin A1c (05/12/2024 8:41 AM REGULATORY PRODUCT MANAGER) Hgb A1C 7.3(H) 4.0 - 5.6 % Estimated Average Glucose 163 mg/dL [facility] ([place]) Comment: The ADA recommends reporting an estimated Average Glucose (eAG) with all Hemoglobin A1c results using the equation derived from a study of 507 normal and diabetic adults. Minority populations were underrepresented and children were not included. (Diabetes Care 31:1444-9488, 2008). The eAG is not equivalent to a fasting glucose. Blood 05/12/2024 8:41 AM REGULATORY PRODUCT MANAGER 05/12/2024 9:04 AM REGULATORY PRODUCT MANAGER us Matt Mendez MD LAB BLOOD ORDERABLES Fin al Result [facility] ([place]) [address] [facility] Department [place] [address] * Comprehensive metabolic panel (05/12/2024 8:41 AM REGULATORY PRODUCT MANAGER) Sodium 138 135 - 145 mmol/L Potassium, pl 4.5 3.3 - 4.9 mmol/L [facility] ([place]) Chloride 101 97 - 110 mmol/L [facility] ([place] CO2 26 22 - 32 mmol/L [facility]) Anion gap 11 2 - 15 mmol/L [facility] ([place] BUN 12 6 - 25 mg/dL [facility] ([place] Creatinine 1.08 0.80 - 1.30 mg/dL [facility] ([place] Glucose 133 70 - 199 mg/dL [facility] ([place]) Comment: Interpretive Data Fasting glucose [...] [facility] ([place]) Blood 05/12/2024 8:41 AM REGULATORY PRODUCT MANAGER 05/12/2024 9:04 AM REGULATORY PRODUCT MANAGER Matt Mendez MD LAB BLOOD ORDERABLES Fin al Result [facility] ([place] [address] [facility] Department [place] [address] * XR Hip Left 2 or 3 Views (04/25/2024 11:03 AM REGULATORY PRODUCT MANAGER) Anatomical Region Laterality Modality Lower Extremities, Hip, Pelvis Left D igital Radiography Narrative 04/27/2024 12:58 PM REGULATORY PRODUCT MANAGER Severe advanced left hip osteoarthritis with [id number] contact, osteophyte formation, subluxation. Right total hip arthroplasty noted in appropriate position. Matt Mendez MD IMG XR PROCEDURES Final Result * US Abdominal Aortic Aneurysm Screening (04/17/2024 11:32 AM REGULATORY PRODUCT MANAGER) Anatomical Region Laterality Modality Abdomen Ultrasound Fariha Dennis MD IMG US PROCEDURES Final Result * XR Hip Right 2 or 3 Views (04/11/2024 8:04 AM REGULATORY PRODUCT MANAGER) Anatomical Region Laterality Modality Lower Extremities, Hip, Pelvis Right D igital Radiography Narrative 04/11/2024 8:25 AM REGULATORY PRODUCT MANAGER Radiographs taken of the right hip today reveal a total hip arthroplasty in appropriate position with no interval change from the time of surgery. us Janine Ayers NP IMG XR PROCEDURES Final Result * Hepatitis panel, acute (10/28/2020 11:46 AM CDT) Hep A IgM Nonreactive Nonreactive [facility] Comment: Interpretive Data: If Hep A IgM Ab is reported as Equivocal, a new sample should be drawn in two weeks for testing. Current interpretive data was last revised on 19. Hep B core IgM Nonreactive Nonreactive [facility] Comment: Interpretive Data If HepB Core IgM Ab is reported as Equivocal, a new sample should be drawn in two weeks for testing. Current interpretive data was last revised on 19. Hep C Ab Nonreactive Nonreactive [facility] Comment:Antibodies to HCV no t detected. Does NOT exclude the possibility of recent exposure to HCV. HepBsAg Nonreactive Nonreactive [facility] Blood specimen (specimen) 10/28/2020 11:46 AM CDT 10/28/2020 1:42 PM CDT us Leola Hale MD LAB MICROBIOLOGY - GENERAL ORDER ELIS Edited Result - Final [facility] Department [place] [address] from Last 3 Months or Most Recently Relevant to Health Maintenance Insurance MED[employer]ARE [employer]UTIONS MED[employer]ARE SOLUTIONS Advance Directives For more information, please contact: [phone] * Full Code (Latest Code Status on File) Date Activated Date Inactivated Comments 02/14/2024 3:12 PM 02/15/2024 3:18 PM * Full Code Date Activated Date Inactivated Comments 11/26/2020 12:56 PM 11/28/2020 2:34 PM Care Teams Rn Acute Care Relationship Specialty Start Date End Date Fariha Dennis MD [address] [place] [address] [address] [place] [address] PCP - General Family Medicine 04/17/24 Matt Mendez MD [address] [place] [address] Surgeon Orthopedic Surgery 02/15/24 Main Ny MD [address] [place] [address] Consulting Physician General Surgery 04/17/24 Wil Camejo MD [address] [facility] [address] [place] [address] Surgeon Orthopedic Surgery 04/17/24 Leola Hale MD [address] [facility] [address] [place] [address] Consulting Physician Internal Medicine 04/17/24 Da Villaseñor, OT Occupational Therapist Occupational Therapy 05/18/24
--- OUTSIDE RECORDS SUMMARY | 2024-05-21 19:52 | XMS_ITS | Encounter Summary ---
Author Organization [facility] Healthcare Address [address] [place] [address] Care Team Providers Care Hose Turner Name Role Phone Marisa Boyce MD Primary Care Provider + Unknown, Notinfile Primary Care Provider Unavail able Matt Mendez MD Unavailable [phone] Fariha Dennis MD Primary Care Provider + Main Ny MD Unavailable Wil Camejo MD Unavailable [phone] Leola Hale MD Unavailable Da Villaseñor OT Unavailable Unavailable Reason for Visit * Auth/Cert (Routine) Specialty Diagnoses / Procedures Referred By Contac t Referred To Contact Diagnoses Primary osteoarthritis of right hip Primary osteoarthritis of right hip [M16.11] Procedures OH ARTHRP ACETBLR/PROX FEM PROSTC AGRFT/ALGRFT [place] CPTR-ASST SHAD BARRJ ORTHO CT/MRI ARTHROPLASTY RIGHT TOTAL HIP - CARRIE ROBOTIC ARM - EM Referral ID Status Reason Start Date Expiration Date Visits Re quested Visits Authorized [id number] 1 1 Encounter Details Date Type Department Care Team (Late st Contact Info) Description 06/17/2023 Hospital Encounter [facility] Operating Room [address] [address] Michael Anguiano MD [address] [facility] 6A[address]6B[address]A [place] [address] Social History Tobacco Use Types Packs/Day Years [...] on file Legal Sex Male 2:32 AM POLISHER BRASS Gender Identity Not on file Sexual Orientation [...] (Latest Contact Info) Description 05/24/2024 11:25 AM POLISHER BRASS Hospital Encounter [facility] Operating Room [address] [place] [address] Matt Mendez MD [address] [facility] [address] [address] [place] [address] 05/24/2024 11:25 AM POLISHER BRASS - 05/24/2024 1:50 PM POLISHER BRASS Surgery [facility] Operating Room [address] [place] [address] Matt Mendez MD [address] [place] [address] [address] [place] [address] Left Total Hip Artthroplasty- Anterior Approach, Depuy- Actis, Omnitrac, Aquamantys, 1 liter beta rinse, Pt to stay Scheduled Procedures Name Priority Associated Diagnoses Date/Ti me ARTHROPLASTY TOTAL HIP - ANTERIOR APPROACH Primary osteoarthritis of left hip 05/24/2024 11:25 AM POLISHER BRASS documented as of this encounter Visit Diagnoses [...] site documented in this encounter Care Teams Hose Turner Relationship Specialty Start Date End Date Marisa Boyce MD [address] [place] [address] [address] [place] [address] PCP - General Family Medicine 08/12/20 02/07/24 Unknown, Notinfile PCP - General 02/08/24 04/16/24 Fariha Dennis MD [address] [place] [address] [address] [place] [address] PCP - General Family Medicine 04/17/24 Matt Mendez MD [address] [place] [address] [place] [address] Surgeon Orthopedic Surgery 02/15/24 Main Ny MD [address] [place] [address] [address] [place] [address] Consulting Physician General Surgery 04/17/24 Wil Camejo MD [address] [facility] 6A/6B/[address] [place] [address] Surgeon Orthopedic Surgery 04/17/24 Leola Hale MD [address] [facility] [address] [place] [address] Consulting Physician Internal Medicine 04/17/24 Da Villaseñor OT Occupational Therapist Occupational Therapy 05/18/24 documented as of this encounter
--- OUTSIDE RECORDS SUMMARY | 2024-05-21 19:53 | XMS_ITS | Referral Summary ---
Author Organization [facility] Address [address] [place] [address] Care Team Providers Care Transition Rn Name Role Phone Matt Mendez MD Unavailable [phone] Fariha Dennis MD Primary Care Provider + Main Ny MD Unavailable Wil Camejo MD Unavailable [phone] Leola Hale MD Unavailable Da Villaseñor OT Unavailable Unavailable Encounters Date Type Department Care Team Description 05/18/2024 9:00 AM CHUTE OPERATOR Office Visit [facility] Residency Clinic at [address] [place] [address] Riri Veliz MD Preop examination (Primary Dx); Primary osteoarthritis of left hip; Acute bronchitis, unspecified organism; Type 2 diabetes mellitus without complication, with long-term current use of insulin ([facility]) (HCC); Hyperlipidemia, unspecified hyperlipidemia type; Mild aortic valve stenosis 05/16/2024 Telephone [facility] Orthopedics and Sports Medicine [address] [place] [address] Eun Baeza MA 05/12/2024 Telephone [facility] Primary Care at [address] [place] [address] Fariha Dennis MD 05/12/2024 8:46 AM CHUTE OPERATOR - 05/12/2024 11:59 PM CHUTE OPERATOR Hospital Encounter [facility] [address] [place] [address] Pre-op testing Discharge Disposition: Discharge to home or self care 05/12/2024 8:35 AM CHUTE OPERATOR Lab [address] [address] Pre-op testing 05/08/2024 Telephone [facility] Orthopedics and Sports Medicine [address] [place] [address] [address] [place] [address] Matt Mendez MD Surgery Date 04/25/2024 Documentation [facility] Medical [facility] Orthopedics and Sports Medicine [address] [place] [address] [address] [place] [address] Eun Baeza MA 04/25/2024 Telephone [facility] Primary Care at [address] [address] Fariha Dennis MD Medication 04/25/2024 7:44 AM CHUTE OPERATOR - 04/25/2024 11:59 PM CHUTE OPERATOR Hospital Encounter [facility]ics and Sports Medicine [address] [place] [address] [address] [place] [address] Discharge Disposition: Discharge to home or self care 04/25/2024 11:45 AM CHUTE OPERATOR Office Visit [facility]opedics and Sports Medicine [address] [place] [address] [address] [place] [address] Matt Mendez MD Primary osteoarthritis of left hip (Primary Dx); Pre-op testing 04/18/2024 Orders Only [facility] Residency [facility] at [address] [address] Fariha Dennis MD Type 2 diabetes mellitus without complication, with long-term current use of insulin ([facility]) ([facility]) (Primary Dx); Diabetic eye exam ([facility]) (HCC) 04/17/2024 Telephone [facility] Residency Clinic at [address] [address] Fariha Dennis MD 04/17/2024 Orders Only [facility] Primary Care at [address] [address] Rani VitaLUCAS munoz 04/17/2024 8:00 AM CHUTE OPERATOR Office Visit [facility] at [place] [address] [place] [address] Fariha Dennis MD Hyperlipidemia, unspecified hyperlipidemia type (Primary Dx); Raised prostate specific antigen; Type 2 diabetes mellitus without complication, with long-term current use of insulin (CMS/HCC) (HCC); Type 2 diabetes mellitus with hyperglycemia, with long-term current use of insulin ([facility]); Acute cough; Primary insomnia; Arthritis; Encounter for abdominal aortic aneurysm (AAA) screening; Severe obesity (HCC) 04/12/2024 8:45 AM CHUTE OPERATOR Therapy [facility] [place] [address] Roni Gaspar, PT S/P total right hip arthroplasty (Primary Dx) 04/11/2024 7:48 AM CHUTE OPERATOR - 04/11/2024 11:59 PM CHUTE OPERATOR Hospital Encounter [facility] Orthopedics and Sports Medicine [address] [place] [address] [address] [place] [address] Discharge Disposition: Discharge to home or self care 04/11/2024 8:15 AM CHUTE OPERATOR Office Visit [facility]ics and Sports Medicine [address] [place] [address] [address] [place] [address] Janine Ayers NP Aftercare following right hip joint replacement surgery (Primary Dx) 04/05/2024 8:30 AM CHUTE OPERATOR Therapy [facility] [place] [address] Silvina Rey, PT S/P total right hip arthroplasty (Primary Dx) 03/09/2024 Plan of Care Documentation [facility] [place] [address] 03/09/2024 9:15 AM CHUTE OPERATOR Therapy [facility] [place] [address] Silvina Rey, PT S/P total right hip arthroplasty (Primary Dx) 03/07/2024 Telephone [facility] Orthopedics and Sports Medicine [address] [place] [address] Matt Mendez MD 03/07/2024 Orders Only [facility] Orthopedics and Sports Medicine [address] [place] [address] Janine Ayers NP S/P total right hip arthroplasty (Primary Dx) 03/07/2024 9:30 AM CHUTE OPERATOR Telemedicine [facility] Orthopedics and Sports Medicine [address] [place] [address] Janine Ayers NP Aftercare following [...] 05/18/2024 Assessment & Plan (05/18/2024 11:21 AM CHUTE OPERATOR): Revised Cardiac Risk Index; 6% risk for major cardiac event. Perioperative risk for [place]/CA; 0.2% Patient is at acceptable risk for [...] 05/18/2024 Assessment & Plan (05/18/2024 2:00 PM CHUTE OPERATOR): Primary OA of left hip. Plans for arthroplasty by orthopedic surgery. Type 2 diabetes mellitus with hyperglycemia ([facility]) 04/17/2024 Acute cough 04/17/2024 Assessment & Plan (04/17/2024 8:49 AM CHUTE OPERATOR): No evidence of bacterial infection. Will refill albuterol and patient will let me know if not improving or wrosening in the next week or so Severe obesity 04/17/2024 Assessment & Plan (04/17/2024 11:12 AM CHUTE OPERATOR): We discussed healthy lifestyle issues including healthy diet and regular exercise of 150 minutes weekly, and exercise including resistance training. Primary osteoarthritis of right hip 02/14/2024 Mass of subcutaneous tissue of back 01/13/2024 Assessment & Plan (01/25/2024 9:28 AM CHUTE OPERATOR): Pathology has been reviewed with the [...] 03/2023 Assessment & Plan (05/18/2024 2:08 PM CHUTE OPERATOR): Reportedly has mild aortic stenosis on echo from . Not available in chart. Grade 1/4 murmur heard on exam. Currently asymptomatic. Post-viral cough syndrome 02/15/2023 Pruritic rash 12/24/2022 Rash 07/27/2022 Multiple joint pain 05/26/2022 Insomnia 05/26/2022 Assessment & Plan (04/17/2024 11:06 AM CHUTE OPERATOR): Currently using trazodone at night, alprazolam p.r.n.. Recommended he cut down the use of alprazolam as tolerated, however with his intermittent use I am okay with refilling when the time comes. Inflammatory arthritis 10/01/2021 Right bundle branch block (RBBB) 11/20/2020 Class 1 obesity in adult 11/20/2020 Complete tear of left rotator cuff 11/13/2020 Overview (11/13/2020): Added automatically from request for surgery [id number] Spinal stenosis in cervical region 09/17/2020 Raised prostate specific antigen 04/30/2020 Assessment & Plan (04/17/2024 11:06 AM CHUTE OPERATOR): His chart has previously elevated PSA, he also has known BPH. No longer follow with Urology, will check PSA this year Hyperlipidemia 04/30/2020 Assessment & Plan (05/18/2024 2:04 PM CHUTE OPERATOR): Lipid panel ordered. Continue atorvastatin 20 mg daily. Assessment & Plan (04/17/2024 8:47 AM CHUTE OPERATOR): Will recheck lipids, unclear to me why he is not on a statin. Type 2 diabetes mellitus 04/30/2020 Assessment & Plan (05/18/2024 2:03 PM CHUTE OPERATOR): A1c 7.3, Can be better controlled, but stable at this time. Continue current Lantus 25 units nightly, metformin 2000 mg daily, and Farxiga 10 mg. Assessment & Plan (04/17/2024 11:14 AM CHUTE OPERATOR): Has been well controlled previously, will check A1c, needs dilated eye exam and urine microalbumin. Spinal stenosis 04/08/2020 ZAHIDA on CPAP 04/08/2020 Diverticulitis 04/08/2020 Depressive disorder 04/08/2020 Chronic sinusitis 04/08/2020 Osteoarthritis 04/08/2020 Anxiety 04/08/2020 Acute bronchitis 04/07/2020 Assessment & Plan (05/18/2024 11:20 AM CHUTE OPERATOR): Clinically consistent with acute bronchitis. 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 Not on file Not on file Not on file Last Filed Vital Signs Vital Sign Reading Time Taken Comments Blood Pressure 127/74 05/18/2024 8:49 AM CHUTE OPERATOR Pulse 87 05/18/2024 8:49 AM CHUTE OPERATOR Temperature 36.7 C (98 F) 05/18/2024 8:49 AM CHUTE OPERATOR Respiratory Rate 18 05/18/2024 8:49 AM CHUTE OPERATOR Oxygen Saturation 99% 05/18/2024 8:49 AM CHUTE OPERATOR Inhaled Oxygen Concentration - - Weight 109.8 kg (242 lb) 05/18/2024 8:49 AM CHUTE OPERATOR Height 174.2 cm (5' 8.58 ) 05/18/2024 8:49 AM CS T Body Mass Index 36.17 05/18/2024 8:49 AM CHUTE OPERATOR Plan of Treatment Upcoming Encounters Date Type Department Care Team (Latest Contact Info) Description 05/24/2024 11:25 AM CHUTE OPERATOR Hospital Encounter [facility] [address] [place] [address] Matt Mendez MD [address] [place] [address] [address] [place] [address] 05/24/2024 11:25 AM CHUTE OPERATOR - 05/24/2024 1:50 PM CHUTE OPERATOR Surgery [facility] [address] [place] [address] Matt Mendez MD [address] [place] [address] [address] [place] [address] Left Total Hip Artthroplasty- Anterior Approach, Depuy- Actis, Omnitrac, Aquamantys, 1 liter beta rinse, Pt to stay Scheduled Procedures Name Priority Associated Diagnoses Date/Ti me ARTHROPLASTY TOTAL HIP - ANTERIOR APPROACH Primary osteoarthritis of left hip 05/24/2024 11:25 AM CHUTE OPERATOR Medical Devices Implanted Type Area Endocrinology Physician Device Identifier Shelf Expiration Date Model / Serial / Lot Depuy Synthes Spine [id number] Set Screw - [id number] Implanted:Qty: 6 on 11/26/2020 by Omar Beck MD at [facility] N/A: Spine Cervical Depuy Synthes Spine [id number] / / Depuy Synthes Spine [id number] 3.5mm 18mm Ply Spine Screw Bone Nonsterile 4mm Gold - [id number] Implanted:Qty: 2 on 11/26/2020 by Omar Beck MD at [facility] N/A: Spine Cervical Depuy Synthes Spine [id number] / / Depuy Synthes Spine [id number] 4mm 240mm Straight Gold Spinal Titanium - [id number] Implanted:Qty: 1 on 11/26/2020 by Omar Beck MD at [facility] N/A: Spine Cervical Depuy Synthes Spine [id number] / / Depuy Synthes Spine [id number] 3.5mm 16mm Ply Spine Screw Bone Nonsterile 4mm Gold - [id number] Implanted:Qty: 2 on 11/26/2020 by Omar Beck MD at [facility] N/A: Spine Cervical Depuy Synthes Spine [id number] / / 4.0x20mm Screw Implanted:Qty: 2 on 11/26/2020 by Omar Beck MD at [facility] N/A: Spine Cervical DEPUY SYNTHES Digg [id number] / / Description:Depuy synthes sy mphony spine Allosource [id number] Freeze Dried Crushed 1-4mm Graft 15ml Bone Cancellous - [id number] Implanted:Qty: 1 on 11/26/2020 by Omar Beck MD at [facility] N/A: Spine Cervical Allosource 06/08/2025 [id number] / / [id number] [employer] Ar-2324 Bcm Swivelock 4.75mm 24.5mm Self Punch Vent Shoulder Metz Suture - [id number] Implanted:Qty: 1 on 04/17/2021 by Wil Camejo MD at [facility] Left: Shoulder [employer] 12/19/2024 AR-2324BCM / / [id number] [employer] Ar-2290 Fiberloop 3.2mm Drill Pin Needle [facility] Cannula Kit Suture - [id number] Implanted:Qty: 1 on 04/17/2021 by Wil Camejo MD at [facility] Left: Shoulder [employer] 02/18/2026 AR-2290 / / [id number] [employer] Ar-1927bct Corkscrew Suturetape 5.5mm 14.7mm Bioabsorbable Full Thread 1.3mm - [id number] Implanted:Qty: 1 on 04/17/2021 by Wil Camejo MD at [facility] Left: Shoulder [employer] 01/19/2023 AR-1927BCT / / [id number] [employer] Ar-2324 Bcm Swivelock 4.75mm 24.5mm Self Punch Vent Shoulder Metz Suture - [id number] Implanted:Qty: 1 on 04/17/2021 by Wil Camejo MD at [facility] Left: Shoulder [employer] 12/19/2024 AR-2324BCM / / [id number] [employer] Fiberloop 3.2mm Drill Pin Needle Shoehorn Cannula Kit Suture Ar-2290 - [id number] Implanted:Qty: 1 on 10/10/2021 by Wil Camejo MD at [facility] Right: Shoulder [employer] 05/19/2026 AR-2290 / / [id number] [employer] Corkscrew Suturetape 5.5mm 14.7mm Bioabsorbable Full Thread 1.3mm Ar-1927bct - [id number] Implanted:Qty: 1 on 10/10/2021 by Wil Camejo MD at [facility] Right: Shoulder [employer] 06/20/2023 AR-1927BCT / / [id number] [employer] Ar-2324 Bcm Swivelock 4.75mm 24.5mm Self Punch Vent Shoulder Metz Suture - [id number] Implanted:Qty: 1 on 10/10/2021 by Wil Camejo MD at [facility] Right: Shoulder [employer] 05/19/2025 AR-2324BCM / / [id number] [employer] Ar-2324 Bcm Swivelock 4.75mm 24.5mm Self Punch Vent Shoulder Metz Suture - [id number] Implanted:Qty: 1 on 10/10/2021 by Wil Camejo MD at [facility] Right: Shoulder [employer] 05/19/2025 AR-2324BCM / / [id number] [employer]ol Inc/C R Bard Mesh Surgical Mid Anatomical Synthetic Patch 3dmax 4x6in [id number] - [id number] Implanted:Qty: 1 on 10/20/2023 by Main Ny MD at [facility] Right: Inguinal [employer] Inc/C R Bard 01/17/2028 [id number] / / [id number] [employer] Inc/C R Bard Mesh Surgical Inguinal Hernia Synthetic Patch 3dmax 4x6in [id number] - [id number] Implanted:Qty: 1 on 10/20/2023 by Main Ny MD at [facility] Left: Inguinal [employer] Inc/C R Bard 04/18/2028 [id number] / / [id number] Depuy Orthopaedics Inc Dugspur 58mm Sector Hip Shell Acetabular Gription Sterile Latex Free [id number] - [id number] Implanted:Qty: 1 on 02/14/2024 by Matt Mendez MD at [facility] Right: Hip Depuy Orthopaed[employer] Inc [id number] 11/19/2033 [id number] / / [id number] Depuy Orth[employer]ed[employer] Inc Dugspur 58mm 36mm Hip Neutral Liner Acetabular Altrx Sterile Latex Free [id number] - [id number] Implanted:Qty: 1 on 02/14/2024 by Matt Mendez MD at [facility] Right: Hip Depuy Orthopaed[employer] Inc [id number] 11/19/2028 [id number] / / [id number] Depuy Orthopaedics Inc Actis L107 Mm Collar Hip 6 High Offset Stem Femoral [id number] - [id number] Implanted:Qty: 1 on 02/14/2024 by Matt Mendez MD at [facility] Right: Hip Depuy Orthopaed[employer] Inc [id number] 06/19/2033 [id number] / / [id number] Depuy Orthopaedics Inc Articul/Francisco Javier 36mm Cementless Hip +1.5mm 12/14 Taper Head Femoral Latex Free [id number] - [id number] Implanted:Qty: 1 on 02/14/2024 by Matt Mendez MD at [facility] Right: Hip Depuy Orthopaedics Inc [id number] 11/19/2028 [id number] / / [id number] Procedures Procedure Name Priority Date/Time Associated Diagnosis Comments XR CHEST PA LATERAL 2 VIEWS Schedule Routine, Read Routine (OP Routine) 05/12/2024 9:42 AM CHUTE OPERATOR Pre-op testing EGFR Routine 05/12/2024 8:41 AM CHUTE OPERATOR Pre-op testing DIFFERENTIAL AUTO Routine 05/12/2024 8:4 1 AM CHUTE OPERATOR Pre-op testing URINALYSIS, MICROSCOPIC ONLY Routine 05/12/2024 8:41 AM CHUTE OPERATOR Pre-op testing HEMOGLOBIN A1C Routine 05/12/2024 8:41 AM CHUTE OPERATOR Pre-op testing COMPREHENSIVE METABOLIC PANEL Routine 05/12/2024 8:41 AM CHUTE OPERATOR Pre-op testing CBC WITH AUTO DIFFERENTIAL Routine 05/12/2024 8:41 AM CHUTE OPERATOR Pre-op testing URINE CULTURE Routine 05/12/2024 8:41 AM CHUTE OPERATOR URINALYSIS AND REFLEX TO MICROSCOPIC AND CULTURE Routine 05/12/2024 8:41 AM CHUTE OPERATOR Pre-op testing XR HIP LEFT 2 OR 3 VIEWS Schedule Routine, Read Routine (OP Routine) 04/25/2024 11:03 AM CHUTE OPERATOR Primary osteoarthritis of left hip US ABDOMINAL AORTIC ANEURYSM SCREENING Schedule Routine, Read Routine (OP Routine) 04/17/2024 11:32 AM CHUTE OPERATOR Encounter for abdominal aortic aneurysm (AAA) screening XR HIP RIGHT 2 OR 3 VIEWS Schedule Routine, Read Routine (OP Routine) 04/11/2024 8:04 AM CHUTE OPERATOR Aftercare following right hip joint replacement surgery HEPATITIS PANEL, ACUTE Routine 10/28/2020 11:46 AM CDT DISH (diffuse idiopathic skeletal hyperostosis) from Last 3 Months or Most Recently Relevant to Health Maintenance Results * XR Chest PA Lateral 2 View (05/12/2024 9:42 AM CHUTE OPERATOR) Anatomical Region Laterality Modality Body, Chest N/A Computed Radiogr aphy 05/18/2024 12:2 9 PM CHUTE OPERATOR Narrative 05/18/2024 12:30 PM CHUTE OPERATOR EXAM DESCRIPTION: XR CHEST PA LATERAL [...] Noe Sanchez M.D. CH: JUSTICE Report ID: [id number] Reading Location: [id number] Procedure Note Noe Sanchez Jr., MD - [...] Noe Sanchez M.D. CH: JUSTICE Report ID: [id number] Reading Location: [id number] us Matt Mendez MD IMG XR PROCEDURES Final Result * eGFR (05/12/2024 8:41 AM CHUTE OPERATOR) eGFR 75 >=60 mL/min/1. 73 m2 [...] last reviewed 2021. Blood 05/12/2024 8:41 AM CHUTE OPERATOR 05/12/2024 9:04 AM CHUTE OPERATOR us Matt Mendez MD LAB BLOOD ORDERABLES Fin al Result [facility] ([place]) [address] [facility] [place] [address] * Differential, auto (05/12/2024 8:41 AM CHUTE OPERATOR) Neutrophil abs 4.6 1.5 - 6.5 [...] revised on 2017. Blood 05/12/2024 8:41 AM CHUTE OPERATOR 05/12/2024 9:04 AM CHUTE OPERATOR Matt Mendez MD LAB BLOOD ORDERABLES [facility] al Result [facility] ([place]) [address] [facility] Department of Laboratories [place], [place] [id number] * (ABNORMAL) Urinalysis reflex to microscopic and culture Urine, clean voided (05/12/2024 8:41 AM CHUTE OPERATOR) Color, ur Yellow Yellow Clarity, ur Clear Clear [facility] ([place]) Specific gravity, ur 1.028 1.003 - 1.030 [...] tendency for uric acid stone formation. Source: [facility] Current Interpretive Data was last revised [...] ([place]) Urine, clean voided 05/12/2024 8:41 AM CHUTE OPERATOR 05/12/2024 8:52 AM CHUTE OPERATOR Matt Mendez MD LAB MICROBIOLOGY - [facility] AL ORDERABLES Final Result [facility] ([place]) [address] [facility] [place] [address] * (ABNORMAL) CBC with auto differential (05/12/2024 8:41 AM CHUTE OPERATOR) WBC 7.3 3.8 - 9.9 K/cumm [...] SD 41.3 35.7 - 48.1 fL [facility] ([place]) NRBC abs 0.00 0.00 - 0.01 K/cumm [facility] ([place]) Blood 05/12/2024 8:41 AM CHUTE OPERATOR 05/12/2024 9:04 AM CHUTE OPERATOR Matt Mendez MD LAB BLOOD ORDERABLES Fin al Result Performing Organization Address City/[facility] Co de Phone Number FAN [facility] ([place]) [address] [facility] [place] [address] * (ABNORMAL) Urinalysis, microscopic only (05/12/2024 8:41 AM CHUTE OPERATOR) WBC, ur 11-20(A) 0 - 5 /HPF RBC, ur 0-2 0 - 2 /HPF [facility] ([place]) Epithelial cells, squamous, ur 1-5 0 - 5 /HPF [facility] ([place]) Culture Reflex Comment Reflex to urine culture will be performed. [facility]AN [facility] ([place]) Urine, clean voided 05/12/2024 8:41 AM CHUTE OPERATOR 05/12/2024 8:52 AM CHUTE OPERATOR Matt Mendez MD LAB URINE ORDERABLES Fin al Result Performing Organization Address [facility] Co de Phone Number [facility] ([place]) [address] [facility] [place] [address] * Urine culture Urine, clean voided (05/12/2024 8:41 AM CHUTE OPERATOR) Report Final Report: Less than 100,000 colonies/mL (clinically insignificant growth based on current clinical standards) Comment:Testing performed by : [facility], [address] [facility], [place]., [address] Organism (CLINICALLY INSIGNIFICANT GROWTH [facility] ([place]) Urine, clean voided 05/12/2024 8:41 AM CHUTE OPERATOR 05/12/2024 6:07 PM CHUTE OPERATOR Narrative [facility] ([place]) - 05/13/2024 8:19 PM CHUTE OPERATOR Urine culture reflexed based upon urinalysis results. Testing performed by [facility] Microbiology Laboratory ([phone]) Matt Mendez MD LAB MICROBIOLOGY - GENER AL ORDERABLES Final Result Performing Organization Address [facility] de Phone Number FAN [facility] ([place]) [address] [place] [address] * (ABNORMAL) Hemoglobin A1c (05/12/2024 8:41 AM CHUTE OPERATOR) Hgb A1C 7.3(H) 4.0 - 5.6 % Estimated Average Glucose 163 mg/dL [facility] ([place]) Comment: The ADA recommends reporting an estimated Average Glucose (eAG) with all Hemoglobin A1c results using the equation derived from a study of 507 normal and diabetic adults. Minority populations were underrepresented and children were not included. (Diabetes Care 31:2291-8123, 2008). The eAG is not equivalent to a fasting glucose. Blood 05/12/2024 8:41 AM CHUTE OPERATOR 05/12/2024 9:04 AM CHUTE OPERATOR Matt Mendez MD LAB BLOOD ORDERABLES Fin al Result Performing Organization Address [facility] Co de Phone Number [facility]AN [facility] ([place]) [address] [place] [address] * Comprehensive metabolic panel (05/12/2024 8:41 AM CHUTE OPERATOR) Sodium 138 135 - 145 mmol/L Potassium, pl 4.5 3.3 - 4.9 mmol/L [facility] ([place]) Chloride 101 97 - 110 mmol/L [facility] ([place]) CO2 26 22 - 32 mmol/L [facility] ([place]) Anion gap 11 2 - 15 mmol/L [facility] ([place]) BUN 12 6 - 25 mg/dL [facility] ([place]) Creatinine 1.08 0.80 - 1.30 mg/dL [facility] ([place]) Glucose 133 70 - 199 mg/dL [facility] ([place]) Comment: Interpretive Data Fasting glucose [...] [facility] ([place]) Blood 05/12/2024 8:41 AM CHUTE OPERATOR 05/12/2024 9:04 AM CHUTE OPERATOR Matt Mendez MD LAB BLOOD ORDERABLES Fin al Result [facility] ([place]) [address] [facility] [place] [address] * XR Hip Left 2 or 3 Views (04/25/2024 11:03 AM CHUTE OPERATOR) Anatomical Region Laterality Modality Lower Extremities, Hip, Pelvis Left D igital Radiography Narrative 04/27/2024 12:58 PM CHUTE OPERATOR Severe advanced left hip osteoarthritis with [id number] contact, osteophyte formation, subluxation. Right total hip arthroplasty noted in appropriate position. Matt Mendez MD IMG XR PROCEDURES Final Result * US Abdominal Aortic Aneurysm Screening (04/17/2024 11:32 AM CHUTE OPERATOR) Anatomical Region Laterality Modality Abdomen Ultrasound Fariha Dennis MD IMG US PROCEDURES Final Result * XR Hip Right 2 or 3 Views (04/11/2024 8:04 AM CHUTE OPERATOR) Anatomical Region Laterality Modality Lower Extremities, Hip, Pelvis Right D igital Radiography Narrative 04/11/2024 8:25 AM CHUTE OPERATOR Radiographs taken of the right hip today reveal a total hip arthroplasty in appropriate position with no interval change from the time of surgery. Janine Ayers NP IMG XR PROCEDURES Final Result * Hepatitis panel, acute (10/28/2020 11:46 AM CDT) Hep A IgM Nonreactive Nonreactive [facility] Comment: Interpretive Data: If Hep A IgM Ab is reported as Equivocal, a new sample should be drawn in two weeks for testing. Current interpretive data was last revised on 19. Hep B core IgM Nonreactive Nonreactive [facility] Comment: Interpretive Data If HepB Core IgM Ab is reported as Equivocal, a new sample should be drawn in two weeks for testing. Current interpretive data was last revised on 19. Hep C Ab Nonreactive Nonreactive [facility] Comment:Antibodies to HCV no t detected. Does NOT exclude the possibility of recent exposure to HCV. HepBsAg Nonreactive Nonreactive [facility] Blood specimen (specimen) 10/28/2020 11:46 AM CDT 10/28/2020 1:42 PM CDT Leola Hale MD LAB MICROBIOLOGY - GENERAL ORDER ELIS Edited Result - Final [facility] Department [place] [address] from Last 3 Months or Most Recently Relevant to Health Maintenance Insurance MEDICARE SOLUTIONS MEDICARE SOLUTIONS Advance Directives For more information, please contact: [phone] * Full Code (Latest Code Status on File) Date Activated Date Inactivated Comments 02/14/2024 3:12 PM 02/15/2024 3:18 PM * Full Code Date Activated Date Inactivated Comments 11/26/2020 12:56 PM 11/28/2020 2:34 PM Care Teams Transition Rn Relationship Specialty Start Date End Date Fariha Dennis MD [address] [place] [address] PCP - General Family Medicine 04/17/24 Matt Mendez MD [address] [place] [address] [address] [place] [address] Surgeon Orthopedic Surgery 02/15/24 Main Ny MD [address] [place] [address] [address] [place] [address] Consulting Physician General Surgery 04/17/24 Wil Camejo MD [address] [facility] [address] [place] [address] Surgeon Orthopedic Surgery 04/17/24 Leola Hale MD [address] [facility] [address] [place] [address] Consulting Physician Internal Medicine 04/17/24 Da Villaseñor, OT Occupational Therapist Occupational Therapy 05/18/24
--- OUTSIDE RECORDS SUMMARY | 2024-05-21 19:53 | XMS_ITS | Continuity of Care Document ---
Author Organization [facility] Address [address] [place] [address] Phone Care Team Providers Care Staff Certified Nurse Midwife Name Role Phone Maggi SIMPSON, Gregorio Unavailable [...] Copied on Encounter [facility], [address], [place], [place], [id number], [place] tel:[phone] [facility] No Information 3 Maggi Rodriguez er. [address], [address], [place], [place], [id number] , [place]. tel: [phone] Independent Medical Examination [facility], [address], [place], [place], [id number], [phone] [facility] [address] (chief complaint)c ervical spine (chief complaint) Cervicalgia Sep 2 Maggi Rodriguez er. [address], [address], [place], [place], [id number] , [place]. tel: [phone] Family History Family Member Type Diagnosis Age At Onset Brother Problem (finding) Diabetes Mother Problem (finding) Heart Disease Mother Problem (finding) Cancer, unknown Sister Problem (finding) Cancer, unknown Father Problem (finding) Diabetes Mother Problem (finding) Kidney Disease Father Problem (finding) Cancer, unknown Father Problem (finding) Osteoarthritis Payers Payer name Insurance type Covered constitution party ID Authoriza tion(s) No Information Social History [...] Surgeon with [facility] [place] [address], [address], [place] [address] Keyur Carranza is a pleasant 66-year-old male [...] finished the last apartment and moved onto [address]. He did have aches and pain throughout [...] evaluated in 2014 with Rochelle Bassett MSN, CRISIS MANAGER, . She referred him to Dr. Omar [...] symptoms, the patient presented to JOÃO Joe, CRISIS MANAGER, [facility] for an evaluation of his new [...]
[2024-05-21 19:57] LABS: Magnesium 2.1 mg/dL (1.6-2.3)
[2024-05-21 20:04] LABS: Lactic Acid Reflex 1.8 mmol/L (0.7-2.0)
[2024-05-21 20:05] LABS: D Dimer 0.43 ug/mL (<0.48)
[2024-05-21 20:15] LABS: NT Pro B Type Natriuretic Pept 20 pg/mL (19.9-100)
[2024-05-21 20:16] LABS: Add Urine Microscopic? NO; Appearance Urine Clear (Clear); Bilirubin Urine Negative (Negative); Blood Urine Negative (Negative); Color Urine Yellow (Yellow); Glucose Urine UA 3+ mg/dL (Negative); Ketones Urine Negative (Negative); Leukocyte Esterase Ur Negative LEU/UL (Negative); Nitrate Urine Negative (Negative); Protein Urine Negative (Negative); Specific Grav Ur 1.029 (1.001-1.035)
[2024-05-21 20:37] LABS: Influenza A QL RT-PCR Negative (Negative); Influenza B QL RT-PCR Negative (Negative); RSV RNA, RT-PCR Negative (Negative); SARS-CoV-2 RNA PCR Negative (Negative)
[2024-05-21] MEDS: KETOROLAC 15 MG/ML VIAL (*BKC) IV PUSH (21:32)
[2024-05-22] VITALS (23 sets, daily range): BP systolic 121–160; BP diastolic 68–105; PULSE 76–115; RESP 13–24; TEMP 36.2–36.6; O2SAT 93–99; BMI 37.0
--- NOTE | 2024-05-22 00:09 | ED.GENADULT ---
HPI - General Adult General Chief complaint: Syncope Stated complaint: bronchitis Time Seen by Provider: 05/21/24 19:10 History of Present Illness HPI narrative: Patient is a 69-year-old gentleman who presents emergency department with chief complaint of syncopal episodes. The patient reports that he was diagnosed with bronchitis 4 days ago reports that he has been taking Zithromax and Tessalon Perles Related Data Home Medications ?Medication ?Instructions ?Recorded ?Confirmed ?Last Taken ?Type albuterol sulfate 90 mcg/actuation 1 puff inhalation DAILY PRN 04/19/20 06/14/20 06/13/20 History aerosol inhaler .difficulty breathing alprazolam 0.5 mg tablet 0.5 mg PO DAILY PRN Anxiety 04/19/20 06/14/20 06/13/20 History escitalopram oxalate 20 mg tablet 20 mg PO DAILY 04/19/20 06/14/20 06/13/20 History esomeprazole magnesium 20 mg 20 mg PO BID 04/19/20 06/14/20 06/13/20 History capsule,delayed release (Nexium) finasteride 5 mg tablet 5 mg PO DAILY 04/19/20 06/14/20 06/13/20 History meclizine 25 mg tablet 25 mg PO DAILY PRN Dizziness 04/19/20 06/14/20 06/13/20 History Allergies Allergy/AdvReac Type Severity Reaction Status Date / Time clindamycin Allergy Intermediate Rash Verified 05/21/24 18:39 COUNTS INCLUDE 234 BEDS AT THE [facility] Past Medical History Medical History (Updated 05/22/24 @ 02:39 by Nakul Rivas MD) Colon cancer screening Psoriasis Prepatellar bursitis Arthritis Anxiety Diarrhea Vomiting Coughing Chest tightness Wears glasses Vertigo Light headedness Diabetes Obstructive sleep apnea Right knee pain GERD (gastroesophageal reflux disease) Hypercholesterolemia Surgical History Surgical History History of carpal tunnel release 2018 History of neck surgery 2013 Family History Family History Other Arthritis Depression Diabetes mellitus Heart disease High cholesterol Hypertension Kidney disorder Lung disease Malignant neoplasm Social History Social History Smoking packs per day: 3 Smoking cigarettes per day: 60.0 Years smoked: 15 Smoking pack-years: 45.00 Smoking status: Former smoker Smokeless tobacco user: chewing tobacco Smoking end date: 03/22/87 Alcohol intake: never Substance use: never Substance use type: does not use Living arrangements: with family Gender identity (if verbalized by the patient): Male Spiritual care concerns: No Course Vital Signs Vital signs: Vital Signs Temperature 36.5 C 05/21/24 18:21 Pulse Rate 88 05/21/24 18:21 Respiratory Rate 16 05/21/24 18:21 Blood Pressure 145/78 H 05/21/24 18:21 Pulse Oximetry 98 05/21/24 18:21 Oxygen Delivery Room Air 05/21/24 18:21 Temperature 36.5 C 05/21/24 18:21 Pulse Rate 76 05/22/24 02:23 Respiratory Rate 13 05/22/24 02:23 Blood Pressure 132/81 05/22/24 02:23 Pulse Oximetry 99 05/22/24 02:23 Oxygen Delivery Room Air 05/21/24 18:21 Medical Decision Making MDM Narrative Medical decision making narrative: Differential diagnosis includes pneumonia, pulmonary embolism, vasovagal syncope, electrolyte abnormality Laboratory studies were obtained on the patient showed normal CBC normal CMP COVID flu and RSV were negative chest x-ray showed no focal infiltrate CTA chest showed no evidence of pulmonary embolism CT Head showed no evidence of acute abnormality patient was attempted with ambulatory trials and could only walk a few feet without becoming unsteady. Case was discussed with hospitalist for admission for observation Vital Signs Vital Signs: Vital Signs Temperature 36.5 C 05/21/24 18:21 Pulse Rate 88 05/21/24 18:21 Respiratory Rate 16 05/21/24 18:21 Blood Pressure 145/78 H 05/21/24 18:21 Pulse Oximetry 98 05/21/24 18:21 Oxygen Delivery Room Air 05/21/24 18:21 Temperature 36.5 C 05/21/24 18:21 Pulse Rate 76 05/22/24 02:23 Respiratory Rate 13 05/22/24 02:23 Blood Pressure 132/81 05/22/24 02:23 Pulse Oximetry 99 05/22/24 02:23 Oxygen Delivery Room Air 05/21/24 18:21 Lab Data 05/21/24 19:11 05/21/24 19:11 Labs: Lab Results 03/05/1605/21/24 05/21/24 Range/Units 19:11 19:11 19:11 WBC 8.6 (4.5-10.0) K/mm3 RBC 5.51 (4.6-6.20) M/mm3 Hgb 15.1 (14.0-18.0) g/dL Hct 47.2 (42.0-52.0) % MCV 85.7 (80-100) fl MCH 27.4 (26-34) pg MCHC 32.0 (32-36) g/dl RDW 13.4 (11.5-14.5) % Plt Count 258 (150-375) k/mm3 MPV 9.8 (7.4-10.4) fl Immature Gran % (Auto) 0.2 (0-0.5) % Neut % (Auto) 64.7 (45.5-73.1) % Lymph % (Auto) 17.5 L (18.3-44.2) % Mayes % (Auto) 9.2 H (2.6-8.5) % Eos % (Auto) 6.9 H (0-4.4) % Baso % (Auto) 1.5 H (0.2-1.2) % Lymph # (Auto) 1.50 (0.9-3.2) K/mm3 Mayes # (Auto) 0.8 H (0.1-0.6) K/mm3 Eos # (Auto) 0.6 H (0-0.3) K/mm3 Baso # (Auto) 0.1 (0.0-0.1) K/mm3 Abs Immat Gran (auto) 0.02 (0.00-0.031) K/mm3 Absolute Neuts (auto) 5.6 (1.3-6.7) K/mm3 Absolute Nucleated RBC 0.000 (0.0-0.012) K/mm3 Nucleated RBC % 0.0 (0.0-0.2) % D-Dimer 0.43 (<0.48) ug/mL Sodium 140 Cancelled (137-145) mmol/L Potassium 3.9 Cancelled (3.4-5.0) mmol/L Chloride 102 (98-107) mmol/L Carbon Dioxide (22-30) mmol/L Anion Gap (4-12) mmol/L BUN (9-20) mg/dL Creatinine (0.7-1.3) mg/dL Estim Creat Clear Calc ml/min Estimated GFR (59 - ) Glucose (65-110) mg/dL Lactic Acid (0.7-2.0) mmol/L Calcium (8.4-10.2) mg/dL Magnesium (1.6-2.3) mg/dL Total Bilirubin (0.2-1.3) mg/dL AST (17-59) U/L ALT (6-50) U/L Alkaline Phosphatase (38-126) U/L Troponin I (0.000-0.034) ng/mL NT-Pro-B Natriuret Pep (19.9-100) pg/mL Total Protein (6.3-8.2) g/dL Albumin (3.5-5.1) g/dL Urine Color (Yellow) Urine Appearance (Clear) Urine pH (5.0-9.0) Ur Specific [place] (1.001-1.035) Urine Protein (Negative) mg/dL Urine Glucose (UA) (Negative) mg/dL Urine Ketones (Negative) mg/dL Ur Blood (Man) (Negative) Urine Nitrate (Negative) Urine Bilirubin (Negative) Urine Urobilinogen (<2.0) mg/dL Leukocyte Esterase Rfl (Negative) ASHISH/UL Influenza A (RT-PCR) (Negative) Influenza B (RT-PCR) (Negative) RSV (RT-PCR) (Negative) SARS-CoV-2 RNA (RT-PCR) (Negative) 05/21/24 05/21/24 05/21/24 Range/Units 19:11 19:11 19:11 WBC (4.5-10.0) K/mm3 RBC (4.6-6.20) M/mm3 Hgb (14.0-18.0) g/dL Hct (42.0-52.0) % MCV (80-100) fl MCH (26-34) pg MCHC (32-36) g/dl RDW (11.5-14.5) % Plt Count (150-375) k/mm3 MPV (7.4-10.4) fl Immature Gran % (Auto) (0-0.5) % Neut % (Auto) (45.5-73.1) % Lymph % (Auto) (18.3-44.2) % Mayes % (Auto) (2.6-8.5) % Eos % (Auto) (0-4.4) % Baso % (Auto) (0.2-1.2) % Lymph # (Auto) (0.9-3.2) K/mm3 Mayes # (Auto) (0.1-0.6) K/mm3 Eos # (Auto) (0-0.3) K/mm3 Baso # (Auto) (0.0-0.1) K/mm3 Abs Immat Gran (auto) (0.00-0.031) K/mm3 Absolute Neuts (auto) (1.3-6.7) K/mm3 Absolute Nucleated RBC (0.0-0.012) K/mm3 Nucleated RBC % (0.0-0.2) % D-Dimer (<0.48) ug/mL Sodium (137-145) mmol/L Potassium (3.4-5.0) mmol/L Chloride Cancelled (98-107) mmol/L Carbon Dioxide 28 Cancelled (22-30) mmol/L Anion Gap 10 Cancelled (4-12) mmol/L BUN 18 (9-20) mg/dL Creatinine (0.7-1.3) mg/dL Estim Creat Clear Calc ml/min Estimated GFR (59 - ) Glucose (65-110) mg/dL Lactic Acid (0.7-2.0) mmol/L Calcium (8.4-10.2) mg/dL Magnesium (1.6-2.3) mg/dL Total Bilirubin (0.2-1.3) mg/dL AST (17-59) U/L ALT (6-50) U/L Alkaline Phosphatase (38-126) U/L Troponin I (0.000-0.034) ng/mL NT-Pro-B Natriuret Pep (19.9-100) pg/mL Total Protein (6.3-8.2) g/dL Albumin (3.5-5.1) g/dL Urine Color (Yellow) Urine Appearance (Clear) Urine pH (5.0-9.0) Ur Specific [place] (1.001-1.035) Urine Protein (Negative) mg/dL Urine Glucose (UA) (Negative) mg/dL Urine Ketones (Negative) mg/dL Ur Blood (Man) (Negative) Urine Nitrate (Negative) Urine Bilirubin (Negative) Urine Urobilinogen (<2.0) mg/dL Leukocyte Esterase Rfl (Negative) ASHISH/UL Influenza A (RT-PCR) (Negative) Influenza B (RT-PCR) (Negative) RSV (RT-PCR) (Negative) SARS-CoV-2 RNA (RT-PCR) (Negative) 05/21/24 05/21/24 05/21/24 Range/Units 19:11 19:11 19:11 WBC (4.5-10.0) K/mm3 RBC (4.6-6.20) M/mm3 Hgb (14.0-18.0) g/dL Hct (42.0-52.0) % MCV (80-100) fl MCH (26-34) pg MCHC (32-36) g/dl RDW (11.5-14.5) % Plt Count (150-375) k/mm3 MPV (7.4-10.4) fl Immature Gran % (Auto) (0-0.5) % Neut % (Auto) (45.5-73.1) % Lymph % (Auto) (18.3-44.2) % Mayes % (Auto) (2.6-8.5) % Eos % (Auto) (0-4.4) % Baso % (Auto) (0.2-1.2) % Lymph # (Auto) (0.9-3.2) K/mm3 Mayes # (Auto) (0.1-0.6) K/mm3 Eos # (Auto) (0-0.3) K/mm3 Baso # (Auto) (0.0-0.1) K/mm3 Abs Immat Gran (auto) (0.00-0.031) K/mm3 Absolute Neuts (auto) (1.3-6.7) K/mm3 Absolute Nucleated RBC (0.0-0.012) K/mm3 Nucleated RBC % (0.0-0.2) % D-Dimer (<0.48) ug/mL Sodium (137-145) mmol/L Potassium (3.4-5.0) mmol/L Chloride (98-107) mmol/L Carbon Dioxide (22-30) mmol/L Anion Gap (4-12) mmol/L BUN Cancelled (9-20) mg/dL Creatinine 0.97 Cancelled (0.7-1.3) mg/dL Estim Creat Clear Calc 81 Cancelled ml/min Estimated GFR > 60 (59 - ) Glucose (65-110) mg/dL Lactic Acid (0.7-2.0) mmol/L Calcium (8.4-10.2) mg/dL Magnesium (1.6-2.3) mg/dL Total Bilirubin (0.2-1.3) mg/dL AST (17-59) U/L ALT (6-50) U/L Alkaline Phosphatase (38-126) U/L Troponin I (0.000-0.034) ng/mL NT-Pro-B Natriuret Pep (19.9-100) pg/mL Total Protein (6.3-8.2) g/dL Albumin (3.5-5.1) g/dL Urine Color (Yellow) Urine Appearance (Clear) Urine pH (5.0-9.0) Ur Specific [place] (1.001-1.035) Urine Protein (Negative) mg/dL Urine Glucose (UA) (Negative) mg/dL Urine Ketones (Negative) mg/dL Ur Blood (Man) (Negative) Urine Nitrate (Negative) Urine Bilirubin (Negative) Urine Urobilinogen (<2.0) mg/dL Leukocyte Esterase Rfl (Negative) ASHISH/UL Influenza A (RT-PCR) (Negative) Influenza B (RT-PCR) (Negative) RSV (RT-PCR) (Negative) SARS-CoV-2 RNA (RT-PCR) (Negative) 05/21/24 05/21/24 05/21/24 Range/Units 19:11 19:11 19:11 WBC (4.5-10.0) K/mm3 RBC (4.6-6.20) M/mm3 Hgb (14.0-18.0) g/dL Hct (42.0-52.0) % MCV (80-100) fl MCH (26-34) pg MCHC (32-36) g/dl RDW (11.5-14.5) % Plt Count (150-375) k/mm3 MPV (7.4-10.4) fl Immature Gran % (Auto) (0-0.5) % Neut % (Auto) (45.5-73.1) % Lymph % (Auto) (18.3-44.2) % Mayes % (Auto) (2.6-8.5) % Eos % (Auto) (0-4.4) % Baso % (Auto) (0.2-1.2) % Lymph # (Auto) (0.9-3.2) K/mm3 Mayes # (Auto) (0.1-0.6) K/mm3 Eos # (Auto) (0-0.3) K/mm3 Baso # (Auto) (0.0-0.1) K/mm3 Abs Immat Gran (auto) (0.00-0.031) K/mm3 Absolute Neuts (auto) (1.3-6.7) K/mm3 Absolute Nucleated RBC (0.0-0.012) K/mm3 Nucleated RBC % (0.0-0.2) % D-Dimer (<0.48) ug/mL Sodium (137-145) mmol/L Potassium (3.4-5.0) mmol/L Chloride (98-107) mmol/L Carbon Dioxide (22-30) mmol/L Anion Gap (4-12) mmol/L BUN (9-20) mg/dL Creatinine (0.7-1.3) mg/dL Estim Creat Clear Calc ml/min Estimated GFR Cancelled (59 - ) Glucose 152 H Cancelled (65-110) mg/dL Lactic Acid (0.7-2.0) mmol/L Calcium 9.2 Cancelled (8.4-10.2) mg/dL Magnesium 2.1 (1.6-2.3) mg/dL Total Bilirubin 0.6 (0.2-1.3) mg/dL AST (17-59) U/L ALT (6-50) U/L Alkaline Phosphatase (38-126) U/L Troponin I (0.000-0.034) ng/mL NT-Pro-B Natriuret Pep (19.9-100) pg/mL Total Protein (6.3-8.2) g/dL Albumin (3.5-5.1) g/dL Urine Color (Yellow) Urine Appearance (Clear) Urine pH (5.0-9.0) Ur Specific [place] (1.001-1.035) Urine Protein (Negative) mg/dL Urine Glucose (UA) (Negative) mg/dL Urine Ketones (Negative) mg/dL Ur Blood (Man) (Negative) Urine Nitrate (Negative) Urine Bilirubin (Negative) Urine Urobilinogen (<2.0) mg/dL Leukocyte Esterase Rfl (Negative) ASHISH/UL Influenza A (RT-PCR) (Negative) Influenza B (RT-PCR) (Negative) RSV (RT-PCR) (Negative) SARS-CoV-2 RNA (RT-PCR) (Negative) 05/21/24 05/21/24 05/21/24 Range/Units 19:11 19:11 19:11 WBC (4.5-10.0) K/mm3 RBC (4.6-6.20) M/mm3 Hgb (14.0-18.0) g/dL Hct (42.0-52.0) % MCV (80-100) fl MCH (26-34) pg MCHC (32-36) g/dl RDW (11.5-14.5) % Plt Count (150-375) k/mm3 MPV (7.4-10.4) fl Immature Gran % (Auto) (0-0.5) % Neut % (Auto) (45.5-73.1) % Lymph % (Auto) (18.3-44.2) % Mayes % (Auto) (2.6-8.5) % Eos % (Auto) (0-4.4) % Baso % (Auto) (0.2-1.2) % Lymph # (Auto) (0.9-3.2) K/mm3 Mayes # (Auto) (0.1-0.6) K/mm3 Eos # (Auto) (0-0.3) K/mm3 Baso # (Auto) (0.0-0.1) K/mm3 Abs Immat Gran (auto) (0.00-0.031) K/mm3 Absolute Neuts (auto) (1.3-6.7) K/mm3 Absolute Nucleated RBC (0.0-0.012) K/mm3 Nucleated RBC % (0.0-0.2) % D-Dimer (<0.48) ug/mL Sodium (137-145) mmol/L Potassium (3.4-5.0) mmol/L Chloride (98-107) mmol/L Carbon Dioxide (22-30) mmol/L Anion Gap (4-12) mmol/L BUN (9-20) mg/dL Creatinine (0.7-1.3) mg/dL Estim Creat Clear Calc ml/min Estimated GFR (59 - ) Glucose (65-110) mg/dL Lactic Acid (0.7-2.0) mmol/L Calcium (8.4-10.2) mg/dL Magnesium (1.6-2.3) mg/dL Total Bilirubin Cancelled (0.2-1.3) mg/dL AST 22 Cancelled (17-59) U/L ALT 24 Cancelled (6-50) U/L Alkaline Phosphatase 89 (38-126) U/L Troponin I (0.000-0.034) ng/mL NT-Pro-B Natriuret Pep (19.9-100) pg/mL Total Protein (6.3-8.2) g/dL Albumin (3.5-5.1) g/dL Urine Color (Yellow) Urine Appearance (Clear) Urine pH (5.0-9.0) Ur Specific [place] (1.001-1.035) Urine Protein (Negative) mg/dL Urine Glucose (UA) (Negative) mg/dL Urine Ketones (Negative) mg/dL Ur Blood (Man) (Negative) Urine Nitrate (Negative) Urine Bilirubin (Negative) Urine Urobilinogen (<2.0) mg/dL Leukocyte Esterase Rfl (Negative) ASHISH/UL Influenza A (RT-PCR) (Negative) Influenza B (RT-PCR) (Negative) RSV (RT-PCR) (Negative) SARS-CoV-2 RNA (RT-PCR) (Negative) 05/21/24 05/21/24 05/21/24 Range/Units 19:11 19:11 19:11 WBC (4.5-10.0) K/mm3 RBC (4.6-6.20) M/mm3 Hgb (14.0-18.0) g/dL Hct (42.0-52.0) % MCV (80-100) fl MCH (26-34) pg MCHC (32-36) g/dl RDW (11.5-14.5) % Plt Count (150-375) k/mm3 MPV (7.4-10.4) fl Immature Gran % (Auto) (0-0.5) % Neut % (Auto) (45.5-73.1) % Lymph % (Auto) (18.3-44.2) % Mayes % (Auto) (2.6-8.5) % Eos % (Auto) (0-4.4) % Baso % (Auto) (0.2-1.2) % Lymph # (Auto) (0.9-3.2) K/mm3 Mayes # (Auto) (0.1-0.6) K/mm3 Eos # (Auto) (0-0.3) K/mm3 Baso # (Auto) (0.0-0.1) K/mm3 Abs Immat Gran (auto) (0.00-0.031) K/mm3 Absolute Neuts (auto) (1.3-6.7) K/mm3 Absolute Nucleated RBC (0.0-0.012) K/mm3 Nucleated RBC % (0.0-0.2) % D-Dimer (<0.48) ug/mL Sodium (137-145) mmol/L Potassium (3.4-5.0) mmol/L Chloride (98-107) mmol/L Carbon Dioxide (22-30) mmol/L Anion Gap (4-12) mmol/L BUN (9-20) mg/dL Creatinine (0.7-1.3) mg/dL Estim Creat Clear Calc ml/min Estimated GFR (59 - ) Glucose (65-110) mg/dL Lactic Acid (0.7-2.0) mmol/L Calcium (8.4-10.2) mg/dL Magnesium (1.6-2.3) mg/dL Total Bilirubin (0.2-1.3) mg/dL AST (17-59) U/L ALT (6-50) U/L Alkaline Phosphatase Cancelled (38-126) U/L Troponin I < 0.012 (0.000-0.034) ng/mL NT-Pro-B Natriuret Pep 20 (19.9-100) pg/mL Total Protein 7.0 Cancelled (6.3-8.2) g/dL Albumin 4.5 Cancelled (3.5-5.1) g/dL Urine Color (Yellow) Urine Appearance (Clear) Urine pH (5.0-9.0) Ur Specific [place] (1.001-1.035) Urine Protein (Negative) mg/dL Urine Glucose (UA) (Negative) mg/dL Urine Ketones (Negative) mg/dL Ur Blood (Man) (Negative) Urine Nitrate (Negative) Urine Bilirubin (Negative) Urine Urobilinogen (<2.0) mg/dL Leukocyte Esterase Rfl (Negative) ASHISH/UL Influenza A (RT-PCR) (Negative) Influenza B (RT-PCR) (Negative) RSV (RT-PCR) (Negative) SARS-CoV-2 RNA (RT-PCR) (Negative) 05/21/24 05/21/24 05/21/24 Range/Units 19:46 19:55 20:10 WBC (4.5-10.0) K/mm3 RBC (4.6-6.20) M/mm3 Hgb (14.0-18.0) g/dL Hct (42.0-52.0) % MCV (80-100) fl MCH (26-34) pg MCHC (32-36) g/dl RDW (11.5-14.5) % Plt Count (150-375) k/mm3 MPV (7.4-10.4) fl Immature Gran % (Auto) (0-0.5) % Neut % (Auto) (45.5-73.1) % Lymph % (Auto) (18.3-44.2) % Mayes % (Auto) (2.6-8.5) % Eos % (Auto) (0-4.4) % Baso % (Auto) (0.2-1.2) % Lymph # (Auto) (0.9-3.2) K/mm3 [place] # (Auto) (0.1-0.6) K/mm3 Eos # (Auto) (0-0.3) K/mm3 Baso # (Auto) (0.0-0.1) K/mm3 Abs Immat Gran (auto) (0.00-0.031) K/mm3 Absolute Neuts (auto) (1.3-6.7) K/mm3 Absolute Nucleated RBC (0.0-0.012) K/mm3 Nucleated RBC % (0.0-0.2) % D-Dimer (<0.48) ug/mL Sodium (137-145) mmol/L Potassium (3.4-5.0) mmol/L Chloride (98-107) mmol/L Carbon Dioxide (22-30) mmol/L Anion Gap (4-12) mmol/L BUN (9-20) mg/dL Creatinine (0.7-1.3) mg/dL Estim Creat Clear Calc ml/min Estimated GFR (59 - ) Glucose (65-110) mg/dL Lactic Acid 1.8 (0.7-2.0) mmol/L Calcium (8.4-10.2) mg/dL Magnesium (1.6-2.3) mg/dL Total Bilirubin (0.2-1.3) mg/dL AST (17-59) U/L ALT (6-50) U/L Alkaline Phosphatase (38-126) U/L Troponin I (0.000-0.034) ng/mL NT-Pro-B Natriuret Pep (19.9-100) pg/mL Total Protein (6.3-8.2) g/dL Albumin (3.5-5.1) g/dL Urine Color Yellow (Yellow) Urine Appearance Clear (Clear) Urine pH 6.0 (5.0-9.0) Ur Specific [place] 1.029 (1.001-1.035) Urine Protein Negative (Negative) mg/dL Urine Glucose (UA) 3+ H (Negative) mg/dL Urine Ketones Negative (Negative) mg/dL Ur Blood (Man) Negative (Negative) Urine Nitrate Negative (Negative) Urine Bilirubin Negative (Negative) Urine Urobilinogen 1.0 (<2.0) mg/dL Leukocyte Esterase Rfl Negative (Negative) ASHISH/UL Influenza A (RT-PCR) Negative (Negative) Influenza B (RT-PCR) Negative (Negative) RSV (RT-PCR) Negative (Negative) SARS-CoV-2 RNA (RT-PCR) Negative (Negative) Discharge Plan Discharge Clinical Impression: Syncope, Upper respiratory infection Patient Disposition: Still a Patient Condition: Stable Patient Language: Polish Prescriptions: No Action alprazolam 0.5 mg tablet 0.5 mg PO DAILY PRN (Reason: Anxiety) meclizine 25 mg tablet 25 mg PO DAILY PRN (Reason: Dizziness) albuterol sulfate 90 mcg/actuation HFA aerosol inhaler 1 puff INHALATION DAILY PRN (Reason: .difficulty breathing) finasteride 5 mg tablet 5 mg PO DAILY esomeprazole magnesium [Nexium] 20 mg Capsule,Delayed Release(Dr/Ec) 20 mg PO BID escitalopram oxalate 20 mg tablet 20 mg PO DAILY Follow-up/Referrals: Austen,Marisa Freeman MD [Primary Care Provider] -
[2024-05-22] MEDS: methylPREDNISolone SOD SUCC 125 MG VIAL IV PUSH (02:58)
[2024-05-22] MEDS: SODIUM CHLORIDE 0.9% IV 1,000 ML 125 ML IV CONT ×2 (04:00→13:21)
[2024-05-22 04:51] LABS: Glucose Point of Care 137 mg/dl (65-105)
--- NOTE | 2024-05-22 07:57 | P.HP_ITS ---
H&P: HPI History of Present Illness Date/Time: 05/22/24 07:57 Chief Complaint: Syncope Narrative: 69yo male with DM, RA, ZAHIDA and HLD here for having a syncopal episode. Patient has chronic posterior nasal drainage of thick yellow mucous for many years. Workup including sinus CT scans and ENT evaluation have not revealed a diagnosis. He uses Nasocort and nasal saline regularly. He was doing well until about 3 days prior to admission when developed a cough. He has a live-in tenet that was sick recently with n/v. diarrhea and cough. He was prescribed Azithromycin, Tessalon pearls, Mucinex and Albuterol. Over the past 3 days, he has developed coughing jags with episodes of 'everything going black' where he is 'out for a few seconds'. He feels discombobulated but no eric confusion. He has dizziness, nausea and a pounding frontal headache when he comes to. Symptoms occur mostly when he is sitting. he has been afraid to drive. He has not fallen out of the chair or hit his head on the table in front of him. No preceding chest pain, palpations, SOB. No hx of seizures or CVA. No wheezing but feels tight in chest after the coughing jag. No fever, chills, oral lesions, sore throat, conjuncitivitis, ear pain, odynophagia, dysphagia, melena, hematochezia, abdominal pain, dysuria, hematuria or numbness/tingling/weakness extremities. He has been having diarrheal stools about 2/day. He has chickens at home but the tenet takes care of them mostly. He does go into the coop and retrieve the eggs and washes them. He last washed out the coop about 1 month ago. He is exposed to the the tenet. He has RA but is not on biologics. His DM is reasonably well controlled with glucose usually <150. A1c 7.3% recently. He had his right hip replaced 3 months ago without issue with plans for left hip replacement in a few days. He has a known murmur. He presented to the ED for evaluation. In the ED, his vital signs were stable. No hypoxia, tachycardia or fever. CBC was normal except for mild increase in eosinophils (600k/mm3). CMP and DDimer were normal except glucose 152. Troponin negative x1. UA clear except for 3+ glucose. Influenza, RSV and COVID PCR negative. CXR clear. CTA chest was negative for PE, aortic dissection or aortic aneurysm. Head CT showing no significant abnormalities. No old CVAs noted. EKG showing normal sinus rhythm with incomplete Rt BBB and PCVs. He was given Duoneb, 2L NS fluid bolus, Toradol and Solu-Medrol. He was started on maintenance IV fluids, Solu-Medrol and Duonebs and admitted for further care. Review of Systems Review of Systems: All systems reviewed & are unremarkable except as noted in HPI and below PMFSH Past Medical History Medical History BPH (benign prostatic hyperplasia) Colon cancer screening Psoriasis Prepatellar bursitis Arthritis Anxiety Diarrhea Vomiting Coughing Chest tightness Wears glasses Vertigo Light headedness Diabetes Obstructive sleep apnea Right knee pain GERD (gastroesophageal reflux disease) Hypercholesterolemia Surgical History Surgical History History of hip replacement History of carpal tunnel release 2018 History of neck surgery 2014 Family History Family History Other Arthritis Depression Diabetes mellitus Heart disease High cholesterol Hypertension Kidney disorder Lung disease Malignant neoplasm Social History Social History (Updated 05/22/24 @ 12:50 by Nakul Farias MD) Social History: He lives with his and a tenet. he has a dog and chickens. He smoked 2-3ppd for 18 years (14yo-32yo) then switched to chewing tobacco. Off all tobacco/nicotine for 2 years. Minimal alcohol use. No hx of drug use. Code status - Full Surrogate decision maker - Smoking packs per day: 3 Smoking cigarettes per day: 60.0 Years smoked: 15 Smoking pack-years: 45.00 Smoking status: Former smoker Smokeless tobacco user: chewing tobacco Smoking end date: 03/22/87 Alcohol intake: never Substance use: never Substance use type: does not use Living arrangements: with family Gender identity (if verbalized by the patient): Male Spiritual care concerns: No Meds Home Medications and Allergies Home Medications ?Medication ?Instructions ?Recorded ?Confirmed ?Type albuterol sulfate 90 mcg/actuation 1 puff inhalation DAILY PRN 04/19/20 05/22/24 History aerosol inhaler .difficulty breathing alprazolam 0.5 mg tablet 0.5 mg PO QHS PRN Anxiety 04/19/20 05/22/24 History escitalopram oxalate 20 mg tablet 20 mg PO DAILY 04/19/20 05/22/24 History finasteride 5 mg tablet 5 mg PO QPM 04/19/20 05/22/24 History atorvastatin 20 mg tablet 20 mg PO QPM 05/22/24 05/22/24 History dapagliflozin propanediol 10 mg 10 mg PO QAM 05/22/24 05/22/24 History tablet (Farxiga) duloxetine 60 mg capsule,delayed 60 mg PO QAM AND QHS 05/22/24 05/22/24 History release insulin glargine 100 unit/mL (3 27 unit subcut QHS 05/22/24 05/22/24 History mL) subcutaneous pen (Lantus Solostar U-100 Insulin) metformin 1,000 mg tablet 2,000 mg PO QAM 05/22/24 05/22/24 History trazodone 100 mg tablet 100 mg PO QPM PRN insomnia 05/22/24 05/22/24 History Allergies Allergy/AdvReac Type Severity Reaction Status Date / Time clindamycin Allergy Intermediate Rash Verified 05/21/24 18:39 Vital Signs Vital Signs - 24 hr 05/21/24 18:21 05/21/24 19:25 05/21/24 19:25 Temperature 97.7 F Pulse Rate 88 88 95 Respiratory Rate 16 Blood Pressure 145/78 H 132/78 146/79 H Pulse Oximetry 98 Oxygen Delivery Room Air 05/21/24 19:26 05/21/24 19:52 05/21/24 19:56 Temperature Pulse Rate 100 88 82 Respiratory Rate 13 10 L Blood Pressure 121/70 Pulse Oximetry Oxygen Delivery 05/21/24 20:51 05/21/24 22:00 05/22/24 01:01 Temperature Pulse Rate 88 79 80 Respiratory Rate 14 14 14 Blood Pressure 174/83 H 139/75 121/94 H Pulse Oximetry 95 96 98 Oxygen Delivery 05/22/24 01:02 05/22/24 01:03 05/22/24 01:04 Temperature Pulse Rate 94 100 86 Respiratory Rate Blood Pressure 134/105 H 121/94 H 138/78 Pulse Oximetry Oxygen Delivery 05/22/24 02:23 05/22/24 05:09 05/22/24 06:37 Temperature 97.6 F Pulse Rate 76 91 88 Respiratory Rate 13 15 13 Blood Pressure 132/81 126/78 147/83 H Pulse Oximetry 99 95 98 Oxygen Delivery Exam Narrative: AF 97.6 147/83 88 13 98% ra Gen - well appearing male in no acute respiratory distress who is nontoxic- appearing lying semi recumbent in bed HEENT - normocephalic. Atraumatic. Pupils equal round and reactive. Extraocular motions intact. Sclera clear and anicteric. Nares patent. Oropharynx was scant drainage. No oral lesions. Moist mucous membranes. Tongue was midline. Palate ericka symmetrically. No facial asymmetry. Neck - neck was supple. No dominant adenopathy, thyromegaly or masses. 2+ carotid upstrokes without bruits. Chest - lungs are clear to auscultation bilaterally. No wheezes or crackles. CV - heart was regular rate and rhythm. S1-S2. 2/6 systolic murmurLSB and apex. Abd - abdomen was soft. Nontender. Obese. Positive bowel sounds. No organomegaly or masses. Ext - no clubbing, cyanosis or edema. 2+ PT pulses bilaterally. Neuro - patient is alert and oriented x4. Strength is 5/5 in both upper and lower extremities. Cranial nerves 2-12 are intact. Speech is clear. Psych - normal mood and affect. Patient is pleasant and cooperative. Skin - warm and dry. No rashes noted. H&P: Results Labs Labs: Short CBC 05/21/24 Range/Units 19:11 WBC 8.6 (4.5-10.0) K/mm3 Hgb 15.1 (14.0-18.0) g/dL Hct 47.2 (42.0-52.0) % Plt Count 258 (150-375) k/mm3 BMP 05/21/24 05/21/24 05/21/24 19:11 19:11 19:11 Sodium 140 Cancelled Potassium 3.9 Cancelled Chloride 102 Carbon Dioxide BUN Creatinine Glucose Calcium 05/21/24 05/21/24 05/21/24 19:11 19:11 19:11 Sodium Potassium Chloride Cancelled Carbon Dioxide 28 Cancelled BUN 18 Cancelled Creatinine 0.97 Glucose Calcium 05/21/24 05/21/24 05/21/24 19:11 19:11 19:11 Sodium Potassium Chloride Carbon Dioxide BUN Creatinine Cancelled Glucose 152 H Cancelled Calcium 9.2 Cancelled Cardiac Enzymes 05/21/24 Range/Units 19:11 Troponin I < 0.012 (0.000-0.034) ng/mL Liver Function 05/21/24 05/21/24 05/21/24 Range/Units 19:11 19:11 19:11 Total Bilirubin 0.6 Cancelled (0.2-1.3) mg/dL AST 22 Cancelled (17-59) U/L ALT 24 (6-50) U/L Alkaline Phosphatase (38-126) U/L Albumin (3.5-5.1) g/dL 05/21/24 05/21/24 05/21/24 Range/Units 19:11 19:11 19:11 Total Bilirubin (0.2-1.3) mg/dL AST (17-59) U/L ALT Cancelled (6-50) U/L Alkaline Phosphatase 89 Cancelled (38-126) U/L Albumin 4.5 Cancelled (3.5-5.1) g/dL Urine 05/21/24 Range/Units 20:10 Urine Color Yellow (Yellow) Urine Appearance Clear (Clear) Urine pH 6.0 (5.0-9.0) Ur Specific [place] 1.029 (1.001-1.035) Urine Protein Negative (Negative) mg/dL Urine Glucose (UA) 3+ H (Negative) mg/dL Assessment and Plan Assessment and plan (1) Syncope: Code(s): R55 - Syncope and collapse Status: Acute (2) Upper respiratory infection: Code(s): J06.9 - Acute upper respiratory infection, unspecified Status: Acute (3) Diabetes: Code(s): E11.9 - Type 2 diabetes mellitus without complications Status: Acute (4) Obstructive sleep apnea: Code(s): G47.33 - Obstructive sleep apnea (adult) (pediatric) Status: Acute (5) Hypercholesterolemia: Code(s): E78.00 - Pure hypercholesterolemia, unspecified Status: Acute Plan Patient presents with post-tussive syncope. Workup as above was unrevealing. He has a murmur but Echo about 1 year ago showing normal EF and only mild valve disease. Monitor on tele to exclude cardiac pause or NSVT/VFib. Will check carotid ultrasound as well. For the URI, most likely a viral etiology. Consider psittacosis or pertussis. Consider aidan influenza with the headache and diarrhea but no conjunctivitis, fever, myalgias plus his exposure is minimal. Influenza, RSV and COVID PCR negative. Imaging is negative for PNA. Discuss with ID RN about testing for aidan influenza. Control cough. Glucose appears to be well controlled at home. He was started on steroids but will stop since not wheezing and this will make his glucose difficult to control. Start sliding scale protocol. Patient has ZAHIDA but is intolerant of CPAP. Review home meds and resume appropriate medications. Further recommendations as course dictates. DVT Prophylaxis - SCDs Code status - Full Hospitalist [facility] Advance Care Plan I have confirmed that the patient's Advanced Care Plan is present, code status is documented, or surrogate decision maker is listed in patient medical record.: Yes Medication Reconciliation I have utilized all available resources to obtain, update and review the patients current medications (includes all prescriptions, OTC, herbals, cannabis, and nutritional supplements).: Yes
[2024-05-22] MEDS: methylPREDNISolone SOD SUCC 125 MG VIAL 60 MG IV PUSH (10:54)
[2024-05-22 11:05] LABS: Glucose Point of Care 221 mg/dl (65-105)
[2024-05-22 13:24] LABS: Glucose Point of Care 205 mg/dl (65-105)
[2024-05-22] MEDS: INSULIN ASPART (*BKC) 100 UNITS/ML SUB-Q (13:33)
--- NOTE | 2024-05-22 14:10 | PC.NURSE ---
Pharmacy contacted about sending 60mg cymbalta, not stocked in ED pyxis
[2024-05-22] MEDS: IPRATROPIUM 0.5 MG/ALBUTEROL SULFATE 2.5 MG AMPUL.NEB 3 ML INHALATION ×2 (14:11→20:24)
[2024-05-22] MEDS: DULoxetine HCL 60 MG CAPSULE.DR PO ×2 (14:34→20:39)
[2024-05-22 14:38] LABS: Glucose Point of Care 205 mg/dl (65-105)
[2024-05-22 14:58] LABS: Hemoglobin A1C 6.9 % (<5.7)
[2024-05-22] MEDS: guaiFENesin/CODEINE (*CRX) 200/20 MG 10 ML SYRUP PO ×2 (15:56→21:11)
[2024-05-22 15:57] LABS: Glucose Point of Care 200 mg/dl (65-105)
--- NOTE | 2024-05-22 16:10 | PC.NURSE ---
Pt had coughing fit and had episode of LOC lasting roughly 30 seconds. During that time pt became tachycardic other vitals stable. Pt initially confused when coming back around but is A&OX4. contacted and given update regarding this, requested ekg monitor tech strip be printed during time of episode and gave OK for pt to go upstairs. shelter monitor strip for time of event placed in pt chart
[2024-05-22 16:13] LABS: Thyroid Stimulating Hormone Reflex 0.204 uIU/mL (0.465-4.68)
--- NOTE | 2024-05-22 16:46 | ADMGEN ---
This patient, Keyur Carranza, was admitted to Medical Room 349-01. Patient/family oriented to hospital policies and general routines including ID bracelet, bed and alarms, visiting hours, pain management, procedures, bathroom and other care routines, personal items, smoking policy, room service/diet, and visiting hours. Information on how to activate the Rapid Response Team has been discussed. Patient/Family are encouraged to report perceived risks to care and to ask questions if they do not understand what they are told or what they should do.
[2024-05-22 17:08] LABS: Glucose Point of Care 187 mg/dl (65-105)
[2024-05-22] MEDS: ATORVASTATIN 20 MG TABLET PO (17:12)
[2024-05-22] MEDS: FINASTERIDE 5 MG TABLET PO (17:12)
[2024-05-22 17:17] LABS: Free T4 Free Thyroxine Reflex 1.09 ng/dL (0.78-2.19)
[2024-05-22 18:12] LABS: Total Triiodothyronine (T3) 1.02 NG/ML (0.97-1.69)
[2024-05-22] MEDS: INSULIN GLARGINE (*BKC) 100 UNITS/ML 20 UNITS SUB-Q (20:38)
[2024-05-22] MEDS: PANTOPRAZOLE 40 MG TABLET PO (20:39)
[2024-05-22] MEDS: traZODone HCL 50 MG TABLET 100 MG PO (20:39)
[2024-05-22] MEDS: guaiFENesin 12 HR 600 MG TABCR 1200 MG PO (20:39)
[2024-05-22 20:44] LABS: Glucose Point of Care 197 mg/dl (65-105)
[2024-05-23] VITALS (16 sets, daily range): BP systolic 134–168; BP diastolic 59–79; PULSE 84–106; RESP 16–20; TEMP 36.2–36.9; O2SAT 93–97
[2024-05-23] MEDS: guaiFENesin/CODEINE (*CRX) 200/20 MG 10 ML SYRUP PO ×5 (04:33→22:15)
--- NOTE | 2024-05-23 07:06 | P.PNIM_ITS ---
Progress Note: A&P Assessment and Plan (1) Syncope: Code(s): R55 - Syncope and collapse Status: Acute (2) Upper respiratory infection: Code(s): J06.9 - Acute upper respiratory infection, unspecified Status: Acute (3) Diabetes: Code(s): E11.9 - Type 2 diabetes mellitus without complications Status: Acute (4) Obstructive sleep apnea: Code(s): G47.33 - Obstructive sleep apnea (adult) (pediatric) Status: Acute (5) Hypercholesterolemia: Code(s): E78.00 - Pure hypercholesterolemia, unspecified Status: Acute Plan Patient presents with post-tussive syncope. Workup as above was unrevealing. He has a murmur but Echo about 1 year ago showing normal EF and only mild valve disease. Monitor on tele to exclude cardiac pause or NSVT/VFib. Will check carotid ultrasound as well. For the URI, most likely a viral etiology. Consider psittacosis or pertussis. Consider aidan influenza with the headache and diarrhea but no conjunctivitis, fever, myalgias plus his exposure is minimal. Influenza, RSV and COVID PCR negative. Imaging is negative for PNA. Discuss with ID RN about testing for aidan influenza. Control cough. Glucose appears to be well controlled at home. He was started on steroids but will stop since not wheezing and this will make his glucose difficult to control. Start sliding s nidhi protocol. Patient has ZAHIDA but is intolerant of CPAP. Review home meds and resume appropriate medications. Further recommendations as course dictates. 05/23/24 -- Appropriate home meds resumed. He actually had one more day of azithromycin so will resume this to complete a course. Neuro recommends MRI brain and Echo so will order these. Cough is better with Guaifenesin with codeine. Possibly home soon if workup remains negative. DVT Prophylaxis - SCDs Code status - Full Subjective Date/time seen: 05/23/24 07:06 Interval history: 69yo male with DM, RA, ZAHIDA and HLD here for having a syncopal episode. Patient had another post-tussive syncopal episode in the ED that was one of the worst. Now with neck pain after coughing. He denies numbness, tingling or weakness in his extremities when coughing. He has a hx of C1 and C7 internal fixation in the past. Last imaging was 1 year ago at [place]. Exam Narrative: AF 97.2 134/59 88 18 97% ra Gen - NARD Chest - CTA bilaterally, nml RR CV - RRR S1/S2; Tele showing PVCs. Abd - Soft, NT/ND, Positive BS Ext - No pedal edema Neuro - Alert and oriented. Nonfocal exam. Psych - Nml mood and affect Skin - Warm and dry Objective Data Vital Signs Vital Signs: Vital Signs - 24 hr 05/22/24 08:48 05/22/24 10:54 05/22/24 10:54 Temperature Pulse Rate 106 H 108 H Respiratory Rate 16 19 Blood Pressure 147/83 H 155/68 H Pulse Oximetry 97 99 99 Oxygen Delivery Room Air Fraction of Inspired Oxygen 05/22/24 12:41 05/22/24 13:35 05/22/24 14:12 Temperature Pulse Rate 107 H 101 H 109 H Respiratory Rate 16 20 24 H Blood Pressure 155/68 H 155/68 H Pulse Oximetry 96 96 Oxygen Delivery Fraction of Inspired Oxygen 05/22/24 14:31 05/22/24 14:35 05/22/24 14:39 Temperature 97.8 F Pulse Rate 109 H 115 H Respiratory Rate 20 20 Blood Pressure 160/83 H Pulse Oximetry 95 96 Oxygen Delivery Room Air Fraction of Inspired Oxygen 05/22/24 15:52 05/22/24 16:21 05/22/24 18:21 Temperature 97.5 F L Pulse Rate 107 H 104 H Respiratory Rate 20 16 Blood Pressure 160/83 H 150/98 H Pulse Oximetry 99 97 97 Oxygen Delivery Room Air Fraction of Inspired Oxygen 05/22/24 20:00 05/22/24 20:00 05/22/24 20:25 Temperature Pulse Rate 99 101 H Respiratory Rate 20 Blood Pressure Pulse Oximetry Oxygen Delivery Room Air Fraction of Inspired Oxygen 05/22/24 20:30 05/22/24 20:34 05/22/24 21:36 Temperature 97.1 F L Pulse Rate 101 H 103 H 103 H Respiratory Rate 20 16 Blood Pressure 156/72 H Pulse Oximetry 93 93 Oxygen Delivery Room Air Fraction of Inspired Oxygen 21 05/23/24 00:00 05/23/24 04:00 05/23/24 06:00 Temperature 97.2 F L Pulse Rate 91 84 88 Respiratory Rate 18 Blood Pressure 134/59 L Pulse Oximetry 97 Oxygen Delivery Fraction of Inspired Oxygen Intake/Output Intake/Output: Intake & Output 05/20/24 05/21/24 05/22/24 05/23/24 23:59 23:59 23:59 23:59 Intake Total 1000 2267.1 2100 Output Total 700 1200 Balance 1000 1567.1 900 Meds/Results Medications: Active Medications Generic Name Dose Route Start Last Admin Trade Name Freq PRN Reason Stop Dose Admin Acetaminophen 650 mg 05/22/24 02:37 Acetaminophen 325 Mg Tablet PO Q4H PRN Mild Pain (1-3) or Fever Albuterol/Ipratropium 3 ml 05/22/24 08:00 05/23/24 04:30 Ipratropium 0.5 Mg/Albuterol Sulfate 2.5 Mg Ampul.Neb 3 Ml INHALATION Not Given Q6HRT VICKY Alprazolam 0.5 mg 05/22/24 13:11 Alprazolam (*Crx) 0.5 Mg Tablet PO QHS PRN Anxiety Atorvastatin Calcium 20 mg 05/22/24 18:00 05/22/24 17:12 Atorvastatin 20 Mg Tablet PO 20 mg QPM VICKY Administration Dextrose 12.5 gm 05/22/24 13:08 Dextrose 50% 25 Gm/50 Ml Syringe IV PUSH PRN PRN Hypoglycemia Protocol Duloxetine HCl 60 mg 05/22/24 13:30 05/22/24 20:39 Duloxetine Hcl 60 Mg Capsule.Dr PO 60 mg Q12HR VICKY Administration Escitalopram Oxalate 20 mg 05/23/24 09:00 Escitalopram Oxalate 10 Mg Tablet PO DAILY VICKY Finasteride 5 mg 05/22/24 18:00 05/22/24 17:12 Finasteride 5 Mg Tablet PO 5 mg QPM VICKY Administration Glucagon 1 mg 05/22/24 13:08 Glucagon For Inj 1 Mg Vial IM PRN PRN Hypoglycemia Protocol Glucose 15 gm 05/22/24 13:08 Glucose Oral Gel 15 Gm Of Glucse In 37.5 Gm Tube PO PRN PRN Hypoglycemia Protocol Guaifenesin 1,200 mg 05/22/24 21:00 05/22/24 20:39 Guaifenesin 12 Hr 600 Mg Tabcr PO 1,200 mg Q12HR VICKY Administration Guaifenesin/Codeine Phosphate 10 ml 05/22/24 13:09 05/23/24 04:33 Guaifenesin/Codeine (*Crx) 200/20 Mg 10 Ml Syrup PO 10 ml Q4H PRN Administration Cough Dextrose 1,000 mls @ 100 mls/hr 05/22/24 13:08 Dextrose 5% 1,000 Ml IVPB PRN PRN Hypoglycemia Protocol Insulin Aspart 4 - 8 units 05/22/24 17:00 05/22/24 13:33 Insulin Aspart (*Bkc) 100 Units/Ml SUB-Q 4 units TIDWM VICKY Administration Protocol Insulin Glargine 20 units 05/22/24 21:00 05/22/24 20:38 Insulin Glargine (*Bkc) 100 Units/Ml SUB-Q 20 units QHS VICKY Administration Pantoprazole Sodium 40 mg 05/22/24 21:00 05/22/24 20:39 Pantoprazole 40 Mg Tablet PO 40 mg Q12HR VICKY Administration Trazodone HCl 100 mg 05/22/24 13:11 05/22/24 20:39 Trazodone Hcl 50 Mg Tablet PO 100 mg QPM PRN Administration insomnia Radiology Results: ITS Impressions Chest X-Ray 05/21/24 19:51 IMPRESSION: No acute cardiopulmonary pathology. Chest CTA 05/22/24 06:11 Impression: No evidence of pulmonary embolus, aortic dissection, or aortic aneurysm. Clear lungs. Head CT 05/22/24 06:11 Impression: No significant abnormality seen. Carotid Doppler Study 05/22/24 15:50 IMPRESSION: 1. Less than 50% stenosis in the right internal carotid artery. 2. Less than 50% stenosis in the left internal carotid artery. Labs Labs: Laboratory Results - last 24 hr 05/22/24 05/22/24 05/22/24 11:02 13:22 14:30 POC Capillary Glucose 221 H 205 H Hemoglobin A1c 6.9 H TSH (Reflex) 0.204 L Free T4 1.09 Total T3 1.02 05/22/24 05/22/24 05/22/24 14:36 15:54 17:00 POC Capillary Glucose 205 H 200 H 187 H Hemoglobin A1c TSH (Reflex) Free T4 Total T3 05/22/24 20:37 POC Capillary Glucose 197 H Hemoglobin A1c TSH (Reflex) Free T4 Total T3
[2024-05-23 08:27] LABS: Glucose Point of Care 113 mg/dl (65-105)
[2024-05-23] MEDS: guaiFENesin 12 HR 600 MG TABCR 1200 MG PO ×2 (08:45→20:44)
[2024-05-23] MEDS: DULoxetine HCL 60 MG CAPSULE.DR PO ×2 (08:45→20:44)
[2024-05-23] MEDS: PANTOPRAZOLE 40 MG TABLET PO (08:45)
[2024-05-23] MEDS: ESCITALOPRAM OXALATE 10 MG TABLET 20 MG PO (08:45)
[2024-05-23] MEDS: IPRATROPIUM 0.5 MG/ALBUTEROL SULFATE 2.5 MG AMPUL.NEB 3 ML INHALATION ×3 (08:56→19:46)
--- NOTE | 2024-05-23 11:38 | WPDNEURCNPN ---
Assessment and Plan Assessment and plan (1) Diabetes: Code(s): E11.9 - Type 2 diabetes mellitus without complications Status: Acute (2) Vasovagal syncopes: Code(s): R55 - Syncope and collapse Status: Acute (3) Cervical spondylosis with myelopathy: Code(s): M47.12 - Other spondylosis with myelopathy, cervical region Status: Acute Plan 1. Syncopal episode with normal CT scan of the head ,normal Doppler study of the carotid could very well be vasovagal syncopal particularly with the history of diabetes mellitus raising the possibility of autonomic neuropathy.2. Abnormal neurological examination with positive right Babinski could very well be related to cervical myelopathy for which patient has undergone surgery but MRI of the brain can be obtained to rule out the Additional pathology. 3. For the time being medication will be continued as such. If necessary we can obtain the echocardiogram. Consult date: 05/23/24 HPI: 69 years old right-handed male has been admitted to [facility] through the emergency room for the main complaint of syncopal episode in addition to the history of bronchitis diagnosed about 4 days ago for which he has been taking Zithromax and Tessalon Perles. His other medication included alprazolam 0.5mg tablet on a p.r.n. basis, he cited pram 20mg daily, finasteride 5mg daily, meclizine 25mg daily on p.r.n. basis. He is reportedly allergic to clindamycin. Past history particularly consistent with 1. Psoriasis 2. Diabetes mellitus 3. Obstructive sleep apnea and 4. Hypercholesterolemia. Additionally has undergone surgery for the carpal tunnel release, and cervical spine surgeries in 2013 as well. He has history of years smoked 15 his smoking pack years 45 but at present is a former smoker. On initial evaluation in the emergency room his vital signs were normal, CBC was normal, BMP was normal, routine screening for the influenza a B RSV and SARs COVID were negative with you in a positive for 3+ glucose. His chest x-ray was negative, chest CTA was also negative, head CT revealed no bleed or space-occupying lesion, ultrasound the carotid was also not significant. Review of Systems Review of Systems: All systems reviewed & are unremarkable except as noted in HPI and below PMFSH Past Medical History Medical History BPH (benign prostatic hyperplasia) Colon cancer screening Psoriasis Prepatellar bursitis Arthritis Anxiety Diarrhea Vomiting Coughing Chest tightness Wears glasses Vertigo Light headedness Diabetes Obstructive sleep apnea Right knee pain GERD (gastroesophageal reflux disease) Hypercholesterolemia Surgical History Surgical History History of hip replacement History of carpal tunnel release 2018 History of neck surgery 2014 Family History Family History Other Arthritis Depression Diabetes mellitus Heart disease High cholesterol Hypertension Kidney disorder Lung disease Malignant neoplasm Social History Social History Social History: He lives with his and a tenet. he has a dog and chickens. He smoked 2-3ppd for 18 years (14yo-32yo) then switched to chewing tobacco. Off all tobacco/nicotine for 2 years. Minimal alcohol use. No hx of drug use. Code status - Full Surrogate decision maker - Smoking packs per day: 3 Smoking cigarettes per day: 60.0 Years smoked: 15 Smoking pack-years: 45.00 Smoking status: Former smoker Smokeless tobacco user: chewing tobacco Alcohol intake: never Substance use: never Substance use type: does not use Do You Feel Safe in your Home?: Yes Lack of Transportation: No Lack of Food: Never True Current Housing: I Have Housing Concerned About Future Housing: No Difficulty Paying Gas/Electric Bills: No Difficulty Paying for Meds: No Currently Unemployed: No Education: Decline to Answer Difficulty w/ Childcare or Family Care: No Living arrangements: with family Gender identity (if verbalized by the patient): Male Spiritual care concerns: No Meds Home Medications and Allergies Home Medications ?Medication ?Instructions ?Recorded ?Confirmed ?Type albuterol sulfate 90 mcg/actuation 1 puff inhalation DAILY PRN 04/19/20 05/22/24 History aerosol inhaler .difficulty breathing alprazolam 0.5 mg tablet 0.5 mg PO QHS PRN Anxiety 04/19/20 05/22/24 History escitalopram oxalate 20 mg tablet 20 mg PO DAILY 04/19/20 05/22/24 History finasteride 5 mg tablet 5 mg PO QPM 04/19/20 05/22/24 History atorvastatin 20 mg tablet 20 mg PO QPM 05/22/24 05/22/24 History dapagliflozin propanediol 10 mg 10 mg PO QAM 05/22/24 05/22/24 History tablet (Farxiga) duloxetine 60 mg capsule,delayed 60 mg PO QAM AND QHS 05/22/24 05/22/24 History release esomeprazole magnesium 20 mg 20 mg PO DAILY 05/22/24 05/22/24 History capsule,delayed release (Nexium) insulin glargine 100 unit/mL (3 27 unit subcut QHS 05/22/24 05/22/24 History mL) subcutaneous pen (Lantus Solostar U-100 Insulin) metformin 1,000 mg tablet 2,000 mg PO QAM 05/22/24 05/22/24 History trazodone 100 mg tablet 100 mg PO QPM PRN insomnia 05/22/24 05/22/24 History Allergies Allergy/AdvReac Type Severity Reaction Status Date / Time clindamycin Allergy Intermediate Rash Verified 05/21/24 18:39 Vital Signs Vital Signs - 24 hr 05/22/24 12:41 05/22/24 13:35 05/22/24 14:12 Temperature Pulse Rate 107 H 101 H 109 H Respiratory Rate 16 20 24 H Blood Pressure 155/68 H 155/68 H Pulse Oximetry 96 96 Oxygen Delivery Fraction of Inspired Oxygen 05/22/24 14:31 05/22/24 14:35 05/22/24 14:39 Temperature 36.6 C Pulse Rate 109 H 115 H Respiratory Rate 20 20 Blood Pressure 160/83 H Pulse Oximetry 95 96 Oxygen Delivery Room Air Fraction of Inspired Oxygen 05/22/24 15:52 05/22/24 16:21 05/22/24 18:21 Temperature 36.4 C L Pulse Rate 107 H 104 H Respiratory Rate 20 16 Blood Pressure 160/83 H 150/98 H Pulse Oximetry 99 97 97 Oxygen Delivery Room Air Fraction of Inspired Oxygen 05/22/24 20:00 05/22/24 20:00 05/22/24 20:25 Temperature Pulse Rate 99 101 H Respiratory Rate 20 Blood Pressure Pulse Oximetry Oxygen Delivery Room Air Fraction of Inspired Oxygen 05/22/24 20:30 05/22/24 20:34 05/22/24 21:36 Temperature 36.2 C L Pulse Rate 101 H 103 H 103 H Respiratory Rate 20 16 Blood Pressure 156/72 H Pulse Oximetry 93 93 Oxygen Delivery Room Air Fraction of Inspired Oxygen 21 05/23/24 00:00 05/23/24 04:00 05/23/24 06:00 Temperature 36.2 C L Pulse Rate 91 84 88 Respiratory Rate 18 Blood Pressure 134/59 L Pulse Oximetry 97 Oxygen Delivery Fraction of Inspired Oxygen 05/23/24 08:05 05/23/24 08:57 05/23/24 08:59 Temperature Pulse Rate 87 90 Respiratory Rate 18 Blood Pressure Pulse Oximetry 93 Oxygen Delivery Room Air Fraction of Inspired Oxygen 21 05/23/24 09:05 Temperature Pulse Rate 90 Respiratory Rate 18 Blood Pressure Pulse Oximetry Oxygen Delivery Fraction of Inspired Oxygen Exam Narrative: Revealed him to be awake alert cooperative in no obvious acute distress, head normocephalic with no cranial bruit, ear nose throat examination normal, neck supple, heart regular with murmur, lungs clear to auscultation with no rhonchi or crepitations, abdomen protuberant normal bowel sounds, extremities normal without any significant abnormalities and also with no edema, neurologically he was awake alert oriented x4. His speech not dysphasic not dysarthric, pupils round regular react to light equally, extraocular movements full with no nystagmus facial sensation intact face symmetrical tongue midline uvula midline. Motor examination revealed him to have normal strength in upper and lower extremities with no drift against gravity and deep tendon reflexes 1 to2+ symmetrical biceps and triceps. Motor examination lower extremities revealed him with normal symmetrical reflexes but upgoing plantar response on the right side. There was no evidence of ataxia or dysmetria on [id number]-finger. Results Labs 05/21/24 19:11 05/21/24 19:11
[2024-05-23 11:46] LABS: Glucose Point of Care 186 mg/dl (65-105)
--- NOTE | 2024-05-23 14:05 | PC.NURSE ---
05-22-24 @ 0625: Called [facility] per Dr. Farias's request regarding testing for H5N1 given this patient's symptoms. I spoke with Malini who called the [facility] with patient's history. State would not agree to testing as patient tested negative for influenza as 100% of H5N1 patients test positive for influenza A per nasal swab. Testing requires state authorization at this time. Dr. Farias informed of phone call response and voices understanding.
[2024-05-23 17:10] LABS: Glucose Point of Care 131 mg/dl (65-105)
[2024-05-23] MEDS: FINASTERIDE 5 MG TABLET PO (17:14)
[2024-05-23] MEDS: ATORVASTATIN 20 MG TABLET PO (17:14)
[2024-05-23] MEDS: INSULIN GLARGINE (*BKC) 100 UNITS/ML 20 UNITS SUB-Q (20:42)
[2024-05-23] MEDS: AZITHROMYCIN 250 MG TABLET PO (20:43)
[2024-05-23] MEDS: traZODone HCL 50 MG TABLET 100 MG PO (20:48)
[2024-05-23 21:13] LABS: Glucose Point of Care 188 mg/dl (65-105)
[2024-05-24] VITALS (8 sets, daily range): BP systolic 136–157; BP diastolic 82; PULSE 80–92; RESP 16–20; TEMP 36.2; O2SAT 94–100
--- NOTE | 2024-05-24 | ECHO_ITS ---
Patient Info Name: Keyur Carranza Age: 69 years : 1955 Gender: Male Ht: 69 in Wt: 251 lbs BSA: 2.40 m2 HR: 85 bpm BP: 157 / 88 mmHg Heart Rhythm: Sinus Rhythm Technical Quality: Fair Exam Date: 05/24/2024 10:56 AM Exam Location: Echo Lab Patient Status: Inpatient Admit Date: 05/23/2024 Staff Ordering Physician: Nakul Farias MD Marketing Program Manager: Elli Alejandro RDCS Attending Provider: Laura Arteaga DO Exam Type: CA echo doppler color flow Study Info Complete two-dimensional, color flow and Doppler transthoracic echocardiogram is performed. Summary 1. Left ventricular chamber dimension is normal. 2. Left ventricular systolic function is normal, estimated at 60-65%. 3. There is mildly increased left ventricular wall thickness. 4. The left ventricular diastolic function is grade I diastolic dysfunction. 5. Right ventricular systolic function is normal. 6. There is moderate aortic valve stenosis with a peak velocity of 302 cm/s, mean gradient of 23 mmHg, and aortic valve area of 1.5 cm2. Left Ventricle Left ventricular chamber dimension is normal. Left ventricular systolic function is normal, estimated at 60-65%. There is mildly increased left ventricular wall thickness. The left ventricular diastolic function is grade I diastolic dysfunction. Right Ventricle Right ventricular chamber dimension is normal. Right ventricular systolic function is normal. Left Atria Left atrial chamber dimension is normal. Right Atria Right atrial chamber dimension is normal. Atrial Septum Intact interatrial septum visualized by color flow imaging. Aortic Valve There is moderate aortic valve stenosis with a peak velocity of 302 cm/s, mean gradient of 23 mmHg, and aortic valve area of 1.5 cm2. There is no aortic valve regurgitation. There is moderate aortic valve calcification. Pulmonic Valve The pulmonic valve is not well visualized. Mitral Valve There is trace mitral valve regurgitation. The mitral valve annulus is mildly calcified. Tricuspid Valve There is trace tricuspid valve regurgitation. Pericardium/Pleural The pericardium appears epicardial fat pad. There is no pericardial effusion. Inferior Vena Cava Inferior vena cava is not well visualized. Aorta The aortic root size at the sinus of Valsalva is normal. Left Ventricular Outflow Tract Name Value Normal LVOT 2D LVOT Diameter 2.1 cm LVOT Doppler LVOT Peak Gradient 6 mmHg LVOT Mean Gradient 4 mmHg LVOT VTI 27 cm LVOT VTI/AV VTI Ratio 0.4 LVOT Stroke Volume 91 ml LVOT CO 19.4 l/min LVOT CI 8.1 l/min/m2 Pulmonic Valve Name Value Normal PV Doppler PV Peak Gradient 10 mmHg Mitral Valve Name Value Normal MV Doppler MV Decel Cecil 407 cm/s2 MV PHT 71 ms MV Area (PHT) 3.1 cm2 4.0-5.0 MV Diastolic Function MV E Peak Velocity 99 cm/s MV A Peak Velocity 94 cm/s MV E/A 1.1 MV Decel Time 244 ms MV Annular TDI MV E/e' (Septal) 9.9 <=8.0 MV E/e' (Lateral) 11.2 <=8.0 MV E/e' (Average) 10.6 Tricuspid Valve Name Value Normal TV Regurgitation Doppler TR Peak Velocity 187 cm/s TR Peak Gradient 14 mmHg Estimated PAP/RSVP RV Systolic Pressure 24 mmHg <36 Aorta Name Value Normal Ascending Aorta Ao Root Diameter (MM) 3.6 cm Ao Root Diam Index (MM) 1.5 cm/m2 Aortic Valve Name Value Normal AV Doppler AV Peak Velocity 302 cm/s AV Peak Gradient 37 mmHg AV Mean Gradient 23 mmHg AV VTI 61 cm AV Area (Cont Eq VTI) 1.5 cm2 >=3.0 AV Area (Cont Eq Lukas) 1.5 cm2 AV Regurgitation 2D LVOT Area 3.4 cm2 Ventricles Name Value Normal LV Dimensions 2D/MM IVS Diastolic Thickness (2D) 1.2 cm 0.6-1.0 LVID Diastole (2D) 3.4 cm 4.2-5.8 LVIW Diastolic Thickness (2D) 1.2 cm 0.6-1.0 LVID Systole (2D) 2.2 cm 2.5-4.0 LVOT Diameter 2.1 cm LV Mass (2D Cubed) 129.40 g 88.00-224.00 LV Mass Index (2D Cubed) 54 g/m2 49-115 Relative Wall Thickness (2D) 0.72 LV Fractional Shortening/Ejection Fraction 2D/MM LV Fractional Shortening (2D) 34 % 25-43 LV EF (2D Teicholz) 65 % 52-72 LV Diastolic Volume (4C MOD) 141 ml LV EF (4C MOD) 66 % LV Diastolic Volume (2C MOD) 92 ml LV EF (2C MOD) 56 % LV Diastolic Volume (BP MOD) 121 ml 62-150 LV Diastolic Volume Index (BP MOD) 50 ml/m2 34-74 LV Systolic Volume (BP MOD) 47 ml 21-61 LV Systolic Volume Index (BP MOD) 19 ml/m2 11-31 LV EF (BP MOD) 61 % 52-72 LV Diastolic Length (4C) 8.5 cm LV Systolic Length (4C) 7.0 cm LV Stroke Volume (4C MOD) 94 ml Atria Name Value Normal LA Dimensions LA Dimension (MM) 3.4 cm 3.0-4.1 LA Volume (4C A-L) 56 ml LA Volume (BP A-L) 61 ml RA Dimensions RA Area (4C) 15.6 cm2 <=18.0 Report Signatures
[2024-05-24] MEDS: guaiFENesin/CODEINE (*CRX) 200/20 MG 10 ML SYRUP PO ×2 (03:33→08:44)
[2024-05-24 08:19] LABS: Glucose Point of Care 132 mg/dl (65-105)
[2024-05-24] MEDS: PANTOPRAZOLE 40 MG TABLET PO (08:44)
[2024-05-24] MEDS: DULoxetine HCL 60 MG CAPSULE.DR PO (08:44)
[2024-05-24] MEDS: guaiFENesin 12 HR 600 MG TABCR 1200 MG PO (08:44)
[2024-05-24] MEDS: ESCITALOPRAM OXALATE 10 MG TABLET 20 MG PO (08:44)
--- NOTE | 2024-05-24 11:51 | PM.IMPN ---
Progress Note: A&P Assessment and Plan (1) Syncope: Code(s): R55 - Syncope and collapse Status: Acute (2) Upper respiratory infection: Code(s): J06.9 - Acute upper respiratory infection, unspecified Status: Acute (3) Diabetes: Code(s): E11.9 - Type 2 diabetes mellitus without complications Status: Acute (4) Obstructive sleep apnea: Code(s): G47.33 - Obstructive sleep apnea (adult) (pediatric) Status: Acute (5) Hypercholesterolemia: Code(s): E78.00 - Pure hypercholesterolemia, unspecified Status: Acute Plan Syncope Patient presents with post-tussive syncope. Workup as above was unrevealing. He has a murmur but Echo about 1 year ago showing normal EF and only mild valve disease. Monitor on tele to exclude cardiac pause or NSVT/VFib. carotid ultrasound 1. Less than 50% stenosis in the right internal carotid artery. 2. Less than 50% stenosis in the left internal carotid artery. echocardiogram showed 1. Left ventricular chamber dimension is normal. 2. Left ventricular systolic function is normal, estimated at 60-65%. 3. There is mildly increased left ventricular wall thickness. 4. The left ventricular diastolic function is grade I diastolic dysfunction. 5. Right ventricular systolic function is normal. 6. There is moderate aortic valve stenosis with a peak velocity of 302 cm/s, mean gradient of 23 mmHg, and aortic valve area of 1.5 cm2. Telemetry showed no significant arrhythmia related syncope URI, most likely a viral etiology. Consider psittacosis or pertussis. Consider aidan influenza with the headache and diarrhea but no conjunctivitis, fever, myalgias plus his exposure is minimal. Influenza, RSV and COVID PCR negative. Imaging is negative for PNA. Discuss with ID RN about testing for aidan influenza. Control cough. Glucose appears to be well controlled at home. started on steroids but stop since not wheezing ZAHIDA but is intolerant of CPAP. Review home meds and resume appropriate medications. Further recommendations as course dictates. 05/23/24 -- Appropriate home meds resumed. had one more day of azithromycin resume this to complete a course. Neuro recommends MRI brain MRI shows Normal aging brain Patient needs to schedule appointments with primary care doctor and neurologist and see them at scheduled appointments Discharge patient home today DVT Prophylaxis - SCDs Code status - Full Subjective Date/time seen: 05/24/24 11:51 Interval history: I saw and examined patient today, patient feels comfortable, denies lightheadedness, syncope, palpitation, chest pain, shortness of breath Exam Narrative: GENERAL: Pleasant, in no acute distress. Well-nourished. - EYES: EOMI. Anicteric. - HENT: Moist mucous membranes. - LUNGS: Clear to auscultation bilaterally, no wheezing, rhonchi, or rales. - CARDIOVASCULAR: Regular rate and rhythm. No murmur. No JVD. - ABDOMEN: Soft, non-tender and non-distended. No palpable masses. - EXTREMITIES: No edema. Peripheral pulses 2+. Non-tender. - NEUROLOGIC: No focal neurological deficits. CN II-XII grossly intact. - PSYCHIATRIC: Awake, Alert and oriented x 3. Appropriate mood and affect. - SKIN: No rashes or lesions. Warm. - LYMPH: No cervical lymphadenopathy. Objective Data Vital Signs Vital Signs: Vital Signs - 24 hr 05/23/24 12:05 05/23/24 14:39 05/23/24 14:57 Temperature 98.4 F Pulse Rate 90 88 94 Respiratory Rate 18 20 Blood Pressure 139/79 Pulse Oximetry 97 Oxygen Delivery 05/23/24 15:04 05/23/24 16:00 05/23/24 19:46 Temperature Pulse Rate 90 98 95 Respiratory Rate 20 18 Blood Pressure Pulse Oximetry Oxygen Delivery 05/23/24 19:56 05/23/24 20:00 05/23/24 21:27 Temperature 97.2 F L Pulse Rate 94 106 H 97 Respiratory Rate 18 16 Blood Pressure 168/78 H Pulse Oximetry 93 Oxygen Delivery 05/24/24 00:00 05/24/24 04:00 05/24/24 05:40 Temperature 97.2 F L Pulse Rate 88 92 88 Respiratory Rate 16 Blood Pressure 157/82 H Pulse Oximetry 94 Oxygen Delivery 05/24/24 08:00 Temperature Pulse Rate Respiratory Rate Blood Pressure Pulse Oximetry Oxygen Delivery Room Air Intake/Output Intake/Output: Intake & Output 05/21/24 05/22/24 05/23/24 05/24/24 23:59 23:59 23:59 23:59 Intake Total 1000 2267.1 4420 1090 Output Total 700 1200 950 Balance 1000 1567.1 3220 140 Meds/Results Medications: Active Medications Generic Name Dose Route Start Last Admin Trade Name Freq PRN Reason Stop Dose Admin Acetaminophen 650 mg 05/22/24 02:37 Acetaminophen 325 Mg Tablet PO Q4H PRN Mild Pain (1-3) or Fever Albuterol/Ipratropium 3 ml 05/22/24 08:00 05/24/24 08:00 Ipratropium 0.5 Mg/Albuterol Sulfate 2.5 Mg Ampul.Neb 3 Ml INHALATION Not Given Q6HRT VICKY Alprazolam 0.5 mg 05/22/24 13:11 Alprazolam (*Crx) 0.5 Mg Tablet PO QHS PRN Anxiety Atorvastatin Calcium 20 mg 05/22/24 18:00 05/23/24 17:14 Atorvastatin 20 Mg Tablet PO 20 mg QPM VICKY Administration Dextrose 12.5 gm 05/22/24 13:08 Dextrose 50% 25 Gm/50 Ml Syringe IV PUSH PRN PRN Hypoglycemia Protocol Duloxetine HCl 60 mg 05/22/24 13:30 05/24/24 08:44 Duloxetine Hcl 60 Mg Capsule.Dr PO 60 mg Q12HR VICKY Administration Escitalopram Oxalate 20 mg 05/23/24 09:00 05/24/24 08:44 Escitalopram Oxalate 10 Mg Tablet PO 20 mg DAILY VICKY Administration Finasteride 5 mg 05/22/24 18:00 05/23/24 17:14 Finasteride 5 Mg Tablet PO 5 mg QPM VICKY Administration Glucagon 1 mg 05/22/24 13:08 Glucagon For Inj 1 Mg Vial IM PRN PRN Hypoglycemia Protocol Glucose 15 gm 05/22/24 13:08 Glucose Oral Gel 15 Gm Of Glucse In 37.5 Gm Tube PO PRN PRN Hypoglycemia Protocol Guaifenesin 1,200 mg 05/22/24 21:00 05/24/24 08:44 Guaifenesin 12 Hr 600 Mg Tabcr PO 1,200 mg Q12HR VICKY Administration Guaifenesin/Codeine Phosphate 10 ml 05/22/24 13:09 05/24/24 08:44 Guaifenesin/Codeine (*Crx) 200/20 Mg 10 Ml Syrup PO 10 ml Q4H PRN Administration Cough Dextrose 1,000 mls @ 100 mls/hr 05/22/24 13:08 Dextrose 5% 1,000 Ml IVPB PRN PRN Hypoglycemia Protocol Insulin Aspart 4 - 8 units 05/22/24 17:00 05/24/24 08:41 Insulin Aspart (*Bkc) 100 Units/Ml SUB-Q Not Given TIDWM [facility] Protocol Insulin Glargine 20 units 05/22/24 21:00 05/23/24 20:42 Insulin Glargine (*Bkc) 100 Units/Ml SUB-Q 20 units QHS [facility] Administration Pantoprazole Sodium 40 mg 05/24/24 09:00 05/24/24 08:44 Pantoprazole 40 Mg Tablet PO 40 mg QAM VICKY Administration Perflutren Lipid Microsphere 0 ml 05/23/24 19:56 Perflutren Lipid Microspheres 1.5 Ml Vial Diluted To 10 Ml Total Volume IV PUSH 05/26/24 19:57 ONCE PRN adequate visualization Protocol Trazodone HCl 100 mg 05/22/24 13:11 05/23/24 20:48 Trazodone Hcl 50 Mg Tablet PO 100 mg QPM PRN Administration insomnia Radiology Results: ITS Impressions Chest X-Ray 05/21/24 19:51 IMPRESSION: No acute cardiopulmonary pathology. Chest CTA 05/22/24 06:11 Impression: No evidence of pulmonary embolus, aortic dissection, or aortic aneurysm. Clear lungs. Head CT 05/22/24 06:11 Impression: No significant abnormality seen. Carotid Doppler Study 05/22/24 15:50 IMPRESSION: 1. Less than 50% stenosis in the right internal carotid artery. 2. Less than 50% stenosis in the left internal carotid artery. Brain MRI 05/24/24 08:43 IMPRESSION: 1. Normal aging brain. Labs Labs: Laboratory Results - last 24 hr 05/23/24 05/23/24 05/24/24 16:54 20:41 08:16 POC Capillary Glucose 131 H 188 H 132 H
[2024-05-24 12:08] LABS: Glucose Point of Care 112 mg/dl (65-105)
[2024-05-24] MEDS: IPRATROPIUM 0.5 MG/ALBUTEROL SULFATE 2.5 MG AMPUL.NEB 3 ML INHALATION (14:37)
--- NOTE | 2024-05-24 15:58 | P.DS_ITS ---
DS: Admitting Diagnosis Discharge Date 05/24 Admitting Diagnosis (1) Syncope: Code(s): R55 - Syncope and collapse Status: Acute (2) Upper respiratory infection: Code(s): J06.9 - Acute upper respiratory infection, unspecified Status: Acute (3) Diabetes: Code(s): E11.9 - Type 2 diabetes mellitus without complications Status: Acute (4) Obstructive sleep apnea: Code(s): G47.33 - Obstructive sleep apnea (adult) (pediatric) Status: Acute (5) Hypercholesterolemia: Code(s): E78.00 - Pure hypercholesterolemia, unspecified Status: Acute DS: Discharge Diagnosis Discharge Diagnosis (1) Syncope: Code(s): R55 - Syncope and collapse Status: Acute (2) Upper respiratory infection: Code(s): J06.9 - Acute upper respiratory infection, unspecified Status: Acute (3) Diabetes: Code(s): E11.9 - Type 2 diabetes mellitus without complications Status: Acute (4) Obstructive sleep apnea: Code(s): G47.33 - Obstructive sleep apnea (adult) (pediatric) Status: Acute (5) Hypercholesterolemia: Code(s): E78.00 - Pure hypercholesterolemia, unspecified Status: Acute DS: Summary Hospital Course Hospital Course: 69yo male with DM, RA, ZAHIDA and HLD here for having a syncopal episode. Patient has chronic posterior nasal drainage of thick yellow mucous for many years. Workup including sinus CT scans and ENT evaluation have not revealed a diagnosis. He uses Nasocort and nasal saline regularly. He was doing well until about 3 days prior to admission when developed a cough. He has a live-in [facility] that was sick recently with n/v. diarrhea and cough. He was prescribed Azithromycin, Tessalon pearls, Mucinex and Albuterol. Over the past 3 days, he has developed coughing jags with episodes of 'everything going black' where he is 'out for a few seconds'. He feels discombobulated but no eric confusion. He has dizziness, nausea and a pounding frontal headache when he comes to. Symptoms occur mostly when he is sitting. he has been afraid to drive. He has not fallen out of the chair or hit his head on the table in front of him. No preceding chest pain, palpations, SOB. No hx of seizures or CVA. No wheezing but feels tight in chest after the coughing jag. No fever, chills, oral lesions, sore throat, conjuncitivitis, ear pain, odynophagia, dysphagia, melena, hematochezia, abdominal pain, dysuria, hematuria or numbness/tingling/weakness extremities. He has been having diarrheal stools about 2/day. He has chickens at home but the [employer]et takes care of them mostly. He does go into the coop and retrieve the eggs and washes them. He last washed out the coop about 1 month ago. He is exposed to the the [employer]et. He has RA but is not on biologics. His DM is reasonably well controlled with glucose usually <150. A1c 7.3% recently. He had his right hip replaced 3 months ago without issue with plans for left hip replacement in a few days. He has a known murmur. He presented to the ED for evaluation. In the ED, his vital signs were stable. No hypoxia, tachycardia or fever. CBC was normal except for mild increase in eosinophils (600k/mm3). CMP and DDimer were normal except glucose 152. Troponin negative x1. UA clear except for 3+ glucose. Influenza, RSV and COVID PCR negative. CXR clear. CTA chest was negativ e for PE, aortic dissection or aortic aneurysm. Head CT showing no significant abnormalities. No old CVAs noted. EKG showing normal sinus rhythm with incomplete Rt BBB and PCVs. He was given Duoneb, 2L NS fluid bolus, Toradol and Solu-Medrol. He was started on maintenance IV fluids, Solu-Medrol and Duonebs and admitted for further care. The following med issues have been addressed during hospitalization Syncope Patient presents with post-tussive syncope. Workup as above was unrevealing. He has a murmur but Echo about 1 year ago showing normal EF and only mild valve disease. Monitor on tele to exclude cardiac pause or NSVT/VFib. carotid ultrasound 1. Less than 50% stenosis in the right internal carotid artery. 2. Less than 50% stenosis in the left internal carotid artery. echocardiogram showed 1. Left ventricular chamber dimension is normal. 2. Left ventricular systolic function is normal, estimated at 60-65%. 3. There is mildly increased left ventricular wall thickness. 4. The left ventricular diastolic function is grade I diastolic dysfunction. 5. Right ventricular systolic function is normal. 6. There is moderate aortic valve stenosis with a peak velocity of 302 cm/s, mean gradient of 23 mmHg, and aortic valve area of 1.5 cm2. Telemetry showed no significant arrhythmia related syncope URI, most likely a viral etiology. Consider psittacosis or pertussis. Consider aidan influenza with the headache and diarrhea but no conjunctivitis, fever, myalgias plus his exposure is minimal. Influenza, RSV and COVID PCR negative. Imaging is negative for PNA. Discuss with ID RN about testing for aidan influenza. Control cough. started on steroids but stop since not wheezing ZAHIDA but is intolerant of CPAP. Review home meds and resume appropriate medications. Further recommendations as course dictates. 05/23/24 -- Appropriate home meds resumed. had one more day of azithromycin resume this to complete a course. Neuro recommends MRI brain MRI shows Normal aging brain Patient needs to schedule appointments with primary care doctor and neurologist and see them at scheduled appointments Type 2 diabetes Resume home medication Glucose appears to be well controlled at home. Optimize medications for diabetes control per primary care doctor Discharge patient home today Hospital course uneventful Time Spent with Patient Time attestation: Total time spent providing and/or coordinating discharge services: Exam Narrative: GENERAL: Pleasant, in no acute distress. Well-nourished. - EYES: EOMI. Anicteric. - HENT: Moist mucous membranes. - LUNGS: Clear to auscultation bilateral ly, no wheezing, rhonchi, or rales. - CARDIOVASCULAR: Regular rate and rhyth m. No murmur. No JVD. - ABDOMEN: Soft, non-tender and non-dist ended. No palpable masses. - EXTREMITIES: No edema. Peripheral puls es 2+. Non-tender. - NEUROLOGIC: No focal neurological defi cits. CN II-XII grossly intact. - PSYCHIATRIC: Awake, Alert and oriented x 3. Appropriate mood and affect. - SKIN: No rashes or lesions. Warm. - LYMPH: No cervical lymphadenopathy. DS: Data Data Completed and Pending Labs on day of discharge: Labs from last 24 hours 05/24/24 05/24/24 05/23/24 12:05 08:16 20:41 POC Capillary Glucose 112 H 132 H 188 H 05/23/24 16:54 POC Capillary Glucose 131 H Discharge Plan Discharge Attending physician on discharge: Mago Conrad Consulting providers: Syd He Discharging Clinician: Mago Conrad Anticipated Discharge Date/Time: 05/24/24 16:03 Patient Disposition: Home, Self-Care Activity: as tolerated Diet: as tolerated and diabetic Patient Instructions: Antibiotic Form Patient Language: Guinean Stand Alone Forms: General Discharge Information Follow-up/Referrals: Silvia Guerra MD [Physician] - (Patient needs to schedule appointment with neurologist for follow-up) PHYSICIAN NOT ON STAFF,NONSTAFF [Primary Care Provider] - (Patient needs to see primary care doctor in 1 week) Discharge Medications: Continued alprazolam 0.5 mg tablet 0.5 mg PO QHS PRN (Reason: Anxiety) albuterol sulfate 90 mcg/actuation HFA aerosol inhaler 1 puff INHALATION DAILY PRN (Reason: .difficulty breathing) finasteride 5 mg tablet 5 mg PO QPM escitalopram oxalate 20 mg tablet 20 mg PO DAILY duloxetine 60 mg capsule,delayed release(DR/EC) 60 mg PO QAM AND QHS atorvastatin 20 mg tablet 20 mg PO QPM metformin 1,000 mg tablet 2,000 mg PO QAM dapagliflozin propanediol [Farxiga] 10 mg tablet 10 mg PO QAM trazodone 100 mg tablet 100 mg PO QPM PRN (Reason: insomnia) insulin glargine [Lantus Solostar U-100 Insulin] 100 unit/mL (3 mL) insulin pen 27 unit SUBCUT QHS esomeprazole magnesium [Nexium] 20 mg capsule,delayed release(DR/EC) 20 mg PO DAILY Date of admission: 05/23/24 14:47 Primary Care Provider: PHYSICIAN NOT ON STAFF,NONSTAFF Admitting Provider: Laura Arteaga Attending physician on admission: Laura Arteaga Condition: Stable
[2024-05-25 11:18] LABS: Adenovirus DNA Not Detected (Not Detected); Chlamydophila pneumoniae Not Detected (Not Detected); Coronavirus 229E Not Detected (Not Detected); Coronavirus HKU1 Not Detected (Not Detected); Coronavirus NL63 Not Detected (Not Detected); Coronavirus OC43 Not Detected (Not Detected); Human Metapneumovirus Not Detected (Not Detected); Human Parainfluenza Virus 1 Not Detected (Not Detected); Human Parainfluenza Virus 2 Not Detected (Not Detected); Human Parainfluenza Virus 3 Not Detected (Not Detected); Human Parainfluenza Virus 4 Not Detected (Not Detected); Human RSV B Not Detected (Not Detected); Influenza A Not Detected (Not Detected); Influenza B Not Detected (Not Detected); Mycoplasma pneumoniae Not Detected (Not Detected); Rhinovirus/Enterovirus Not Detected (Not Detected)
[2024-05-26 00:39] LABS: C. pneumoniae Ab (IgM) <1:10 titer; C. psittaci Ab (IgM) <1:10 titer; C. trachomatis Ab (IgM) <1:10 titer
== END 2024-05-24 16:32 | disposition home or self-care (01) | DRG 312 ==
LOC: ANHED 05-22 02:39 → ANH3MEDSUR 05-22 03:28 → ANH3MED 05-22 15:19
PROVIDERS: Internal Medicine; Physician Assistant; Admitting Provider Internal Medicine; Emergency Provider Emergency Medicine; Visit Provider Hospitalist
DX: R55 Syncope and collapse (principal); M47.12 Other spondylosis with myelopathy, cervical region; R05.8 Other specified cough; J06.9 Acute upper respiratory infection, unspecified; E11.9 Type 2 diabetes mellitus without complications; G47.33 Obstructive sleep apnea (adult) (pediatric); E78.00 Pure hypercholesterolemia, unspecified; M06.9 Rheumatoid arthritis, unspecified; E78.5 Hyperlipidemia, unspecified; Z20.822 Contact with and (suspected) exposure to COVID-19; K21.9 Gastro-esophageal reflux disease without esophagitis; L40.9 Psoriasis, unspecified; N40.0 Benign prostatic hyperplasia without lower urinary tract symptoms; Z96.649 Presence of unspecified artificial hip joint; Z87.891 Personal history of nicotine dependence
CPT/HCPCS: 36415; 70450; 70553; 71046; 71275; 80053; 81003; 82948; 83036; 83605; 83735; 83880; 84439; 84443; 84480; 84484; 85025; 85380; 86632; 87633; 87637; 87798; 93005; 93306; 93880; 94640; 96361; 96374; 99285; A9270; A9579; G0378; J1815; J1885; J2919; J7030; Q9967

== ENCOUNTER 2024-10-23 11:08 | Outpatient (CLI) | payer MEDICARE, SELFPAY ==
--- OUTSIDE RECORDS SUMMARY | 2024-10-23 11:34 | XMS_ITS | Encounter Summary ---
Author Organization [facility] Address [address] [place] [address] Care Team Providers Care Retirement Sales Consultant Name Role Phone Unavailable Primary Care Provider Unavailabl e Encounter Details Date Type Department Care Team (Late st Contact Info) Description 01/20/2022 Lab Requisition [facility] [address] [facility] [place] [id number] Juan Justice MD [address] [place] [address] Social History Tobacco Use Types Packs/Day Years Used Date Smoking Tobacco: Never Assessed Sex and Gender Information Value Date Recorded Sex Assigned at Not on file Legal Sex Male 7:47 AM CDT Gender Identity Not on file Sexual Orientation Not on file documented as of this encounter Plan of Treatment Not on file documented as of this encounter Procedures Procedure Name Priority Date/Time Associated Diagnosis Comments DERMATOPATHOLOGY Routine 01/20/2022 12:0 0 AM CDT documented in this encounter Results * DERMATOPATHOLOGY (01/20/2022 12:00 AM CDT) Case Report Dermatopathology Report Case: [id number] Authorizing Provider: Juan Justice MD Collected: 01/20/2022 12:00 AM Ordering Location: [facility] Received: 01/20/2022 04:46 PM Pathologist: Floresita White MD Specimens: A) - Skin, left sup shoulder B) - Skin, left waist 5:32 PM CDT DERMATOPATHOLOGY LABORATORY Final Diagnosis Specimen A. SKIN, left sup shoulder: ACROCHORDON (SOFT FIBROMA, SKIN TAG) (L91.8) PRESENT AT MARGIN Specimen B. SKIN, left waist: BENIGN VERRUCOUS KERATOSIS, INFLAMED (L82.1) PRESENT AT MARGIN 2 5:32 PM CDT DERMATOPATHOLOGY LABORATORY at 1732 CDT Clinical History A-B: IFEP. Please Check Margins. 2 5:32 PM CDT DERMATOPATHOLOGY LABORATORY Gross Description Specimen A: Received is one formalin filled container labeled with the patients name and designated left sup shoulder. The specimen consists of a shave removal measuring [id number] that is inked and bisected. Jar 0. Specimen B: Received is one formalin filled container labeled with the patients name and designated left waist. The specimen consists of a shave removal measuring [id number] that is inked and bisected. Jar 0. 2 5:32 PM CDT DERMATOPATHOLOGY LABORATORY Microscopic Description Specimen A. SKIN, [...] margin of the specimen. 2 5:32 PM CDT DERMATOPATHOLOGY LABORATORY Disclaimer An external and internal positive and negative controls are appropriate for the histochemical, immunohistochemical and immunofluorescence stain(s) in this case (if any), except where stated explicitly. The performance characteristics of the stain(s) cited in this report were developed and its performance characteristic determined by the Dermatopathology Laboratory at [facility], directed by Dr. Sugey White. These tests need not be, and therefore are not, approved by the [place] Food and Drug Administration. The tests are used for clinical purposes. Billing Codes Specimen Charges Stain Charges 19677 [id number] 1 1 2 5:32 PM CDT DERMATOPATHOLOGY LABORATORY Embedded Images 2 5:32 PM CDT DERMATOPATHOLOGY LABORATORY Pathology/Cytology TISSUE SPECIMEN FROM SKIN / Unknown 01/20/2022 01/20/2022 4:46 PM CDT Miscellaneous samples (specimen) TISSUE SPECIMEN FROM SKIN / Unknown 01/20/2022 01/20/2022 4:46 PM CDT us Juan Justice MD LAB - PATHOLOGY/CYTOLOGY ORDERAB LES Final Result DERMATOPATHOLOGY LABORATORY [facility] - Department of Dermatology [facility] Medicine [address] [place] [address], [address] [phone] documented in this encounter Visit Diagnoses Not on filedocumented in this encounter
--- OUTSIDE RECORDS SUMMARY | 2024-10-23 11:34 | XMS_ITS | Referral Summary ---
Author Organization [facility] Address [address] [place] [address] Care Team Providers Care Gluing Machine Feeder Name Role Phone Matt Mendez MD Unavailable [phone] Fariha Ch MD Primary Care Provider + Main Ny MD Unavailable Wil Camejo MD Unavailable [phone] Leola Hale MD Unavailable Da Villaseñor OT Unavailable Unavailable Encounters Date Type Department Care Team Description 09/28/2024 Orders Only [facility] Primary Care at [address] [phone] Fariha Ch MD 09/26/2024 Orders Only [facility] Residency Clinic at [address] [phone] Riri Moore MD Hearing loss, unspecified hearing loss type, unspecified laterality (Primary Dx) 09/18/2024 Results Follow-Up [facility] Residency Clinic at [address] [phone] Riri Moore MD Albumin Creatinine Ratio, Urine 09/11/2024 Telephone [facility] Residency Clinic at [address] [phone] Fariha Ch MD Referral Request 09/07/2024 8:36 AM CDT - 09/07/2024 11:59 PM CDT Hospital Encounter [facility] [address] [place] [address] Type 2 diabetes mellitus with hyperglycemia, with long-term current use of insulin (HCC) Discharge Disposition: Discharge to home or self care 09/07/2024 Orders Only [facility] Residency Clinic at [address] [place] [address] Riri Moore MD Diabetic eye exam (HCC) (Primary Dx); Rheumatoid arthritis, involving unspecified site, unspecified whether rheumatoid factor present (HCC) 09/07/2024 8:00 AM CDT Office Visit [facility] Residency Clinic at [address] [place] [address] Riri Moore MD Type 2 diabetes mellitus with hyperglycemia, with long-term current use of insulin (HCC) (Primary Dx); Rheumatoid arthritis, involving unspecified site, unspecified whether rheumatoid factor present (HCC); Primary insomnia 08/24/2024 Telephone [facility] [address] [facility] [address] [place] [address] Audrey Márquez RPh 08/07/2024 Results Follow-Up [address] [phone] Riri Moore MD [facility] Mobile Cardiac Telemetry Event Monitor 07/26/2024 3:00 PM CDT Lab [address] [phone] Inflammatory arthritis 07/26/2024 2:30 PM CDT Office Visit [facility] [employer] [facility] at [address] [place] [address] Bonita Potts MD Right bundle branch block (RBBB); Mild aortic valve stenosis; Syncope, unspecified syncope type 07/26/2024 8:40 AM CDT Office Visit [facility] Rheumatology [facility] 5th [place] [address] [place] [phone] Leola Hale MD Inflammatory arthritis (Primary Dx) from Last 3 Months Allergies Active Allergy Reactions Criticality Noted Date Comments Clindamycin Rash Medium 01/11/2024 Medications esomeprazole magnesium (NEXIUM 24HR ORAL) Take 40 mg by mouth nightly Active valACYclovir (VALTREX) 1 gram tabletIndicati ons:Prophylaxi s, Medical,cold sore Take 1 tablet (1,000 mg total) by mouth as needed (cold sores) 2 Active triamcinolone (NASACORT) 55 mcg nasal inhaler Administer 2 sprays into each nostril as needed for allergies or rhinitis Active OneTouch Verio test strips strip USE TO TEST BLOOD SUGAR TWICE DAILY 3 Active OneTouch Verio Flex meter misc 2 (two) times a day 3 Active BD Aletha 2nd Gen Pen Needle 32 gauge x /32 needle daily 3 Active lancets (Microlet Lancet) misc TEST DAILY UTD Ac tive DULoxetine DR (CYMBALTA) 60 mg capsule Take 1 capsule (60 mg total) by mouth daily 30 capsule 11 4 Active Farxiga 10 mg tablet Take 1 tablet (10 mg total) by mouth daily Active metFORMIN (FORTAMET) 1,000 mg 24 hr tablet Take 2 tablets (2,000 mg total) by mouth daily with breakfast Active albuterol HFA (PROVENTIL HFA,VENTOLIN HFA,PROAIR HFA) 90 mcg/actuation inhaler Inhale 2 puffs as needed for shortness of breath (cough) 1 each 11 5 Active atorvastatin (LIPITOR) 20 mg tablet Take 1 tablet (20 mg total) by mouth nightly 90 tablet 1 5 Active ALPRAZolam (XANAX) 0.5 mg tablet Take 1 tablet (0.5 mg total) by mouth as needed for anxiety 30 tablet 5 Active meclizine (ANTIVERT) 25 mg tablet Take 1 tablet (25 mg total) by mouth 3 (three) times a day as needed for dizziness 270 tablet 3 5 07/21/19 26 Active traZODone (DESYREL) 150 mg tablet Take 1 tablet (150 mg total) by mouth nightly as needed for sleep 90 tablet 3 5 07/21/19 26 Active finasteride (PROSCAR) 5 mg tablet Take 1 tablet (5 mg total) by mouth daily 90 tablet 1 5 Active etanercept (ENBREL) 50 mg/mL (1 mL) injection Inject 1 mL (50 mg total) under the skin once a week 4 mL 2 5 Active naproxen (NAPROSYN) 500 mg tablet TAKE 1 TABLET BY MOUTH TWICE DAILY WITH MEALS 60 tablet 3 5 Active LANTUS 100 unit/mL (3 mL) pen for injection Inject 25 Units under the skin nightly 22.5 mL 3 5 Active LANTUS 100 unit/mL (3 mL) pen for injection 25 Units nightly 3 10/22/19 25 Discontinu ed(Reorder ) Active Problems Problem Noted Date Diagnosed Date Rheumatoid arthritis 09/07/2024 Assessment & Plan (09/07/2024 10:12 AM CDT): Patient reports history of Rheumatoid Arthritis, under the care of Dr. Leola Hale, Fruit Pitter. Currently on duloxetine 60 mg daily, and naproxen. Was supposed to start Enbrel, but has been unable to afford. Patient reports difficulty getting to the new casino runner as it is 2 4. Would like to get referral to 1 that is closer. -Will send referral for Rheumatology Chronic pain 07/18/2024 Assessment & Plan (07/18/2024 10:49 AM CDT): Patient's pain is likely multifactorial, has rheumatoid arthritis and is seeing Rheumatology. Has already been referred to pain management, we will not make any changes today. Did discuss safe dosages of Tylenol given that he is taking up to 1500 mg at a time. Recommended not to exceed 1000 at a time, can take up to 3 times a day. He continues with his NSAID, no other agents added today. As his rheumatology visit is next week, they may consider additional treatment options. Syncope 06/01/2024 Assessment & Plan (06/01/2024 10:57 AM CDT): Post-tussive syncope. Likely secondary to vasovagal vs orthostatic/dehydration. Cardiac conduction/structural abnormalities also possible given history of RBBB and AV stenosis. No further episodes of syncope since discharge. -Will send referral to Cardiology -30 day cardiac monitoring Preop examination 05/18/2024 Assessment & Plan (05/18/2024 11:21 AM HAND RUG CLEANER): Revised Cardiac Risk Index; 6% risk for major cardiac event. Perioperative risk for SC/CA; 0.2% Patient is at acceptable risk for [...] 05/18/2024 Assessment & Plan (05/18/2024 2:00 PM HAND RUG CLEANER): Primary OA of left hip. Plans for arthroplasty by orthopedic surgery. Acute cough 04/17/2024 Assessment & Plan (04/17/2024 8:49 AM HAND RUG CLEANER): No evidence of bacterial infection. Will refill albuterol and patient will let me know if not improving or wrosening in the next week or so Severe obesity 04/17/2024 Assessment & Plan (04/17/2024 11:12 AM HAND RUG CLEANER): We discussed healthy lifestyle issues including healthy diet and regular exercise of 150 minutes weekly, and exercise including resistance training. Primary osteoarthritis of right hip 02/14/2024 Mass of subcutaneous tissue of back 01/13/2024 Assessment & Plan (01/25/2024 9:28 AM HAND RUG CLEANER): Pathology has been reviewed with the patient [...] magnetic resonance imaging of cervical spine 06/02/2023 Moderate aortic valve stenosis 02/15/2023 Overview (10/07/2023): Echo 03/2023 Assessment & Plan (06/01/2024 10:58 AM CDT): Reportedly had mild aortic stenosis on echo from . Not available in chart. Echo from this admission (05/21-05/24 at [facility]) with evidence of moderate aortic stenosis. -Patient to benefit from establishing with Cardiology, will send referral. Assessment & Plan (05/18/2024 2:08 PM HAND RUG CLEANER): Reportedly has mild aortic stenosis on echo from . Not available in chart. Grade 1/4 murmur heard on exam. Currently asymptomatic. Post-viral cough syndrome 02/15/2023 Pruritic rash 12/24/2022 Rash 07/27/2022 Multiple joint pain 05/26/2022 Insomnia 05/26/2022 Assessment & Plan (09/07/2024 10:13 AM CDT): Doing well with trazodone 50 mg. Does have issues with sleep, mainly due to pain. Anticipate better pain control once RA is more controlled. Assessment & Plan (07/18/2024 10:48 AM CDT): Given that he has done well in the past with his trazodone 100 mg, try increasing to 150 mg at night. If this works for him, we will send a new Rx. If no improvement after a week would decrease back to the 100 mg and consider other therapy. Advised him I do not recommend him using his Xanax as a sleep aid. Discussed also some relaxation techniques and recommended he discuss his insomnia with his therapist. Assessment & Plan (04/17/2024 11:06 AM HAND RUG CLEANER): Currently using trazodone at night, alprazolam p.r.n.. Recommended he cut down the use of alprazolam as tolerated, however with his intermittent use I am okay with refilling when the time comes. Inflammatory arthritis 10/01/2021 Right bundle branch block (RBBB) 11/20/2020 Assessment & Plan (06/01/2024 11:00 AM CDT): Documented history of RBBB. Evidence of incomplete RBBB on ECG from recent admission. Syncope can be possibly as a result of conduction abnormalities, however unlikely. -Will order 30-day quality assurance monitor chassis Class 1 obesity in adult 11/20/2020 Complete tear of left rotator cuff 11/13/2020 Overview (11/13/2020): Added automatically from request for surgery [id number] Spinal stenosis in cervical region 09/17/2020 Raised prostate specific antigen 04/30/2020 Assessment & Plan (04/17/2024 11:06 AM HAND RUG CLEANER): His chart has previously elevated PSA, he also has known BPH. No longer follow with Urology, will check PSA this year Hyperlipidemia 04/30/2020 Assessment & Plan (05/18/2024 2:04 PM HAND RUG CLEANER): Lipid panel ordered. Continue atorvastatin 20 mg daily. Assessment & Plan (04/17/2024 8:47 AM HAND RUG CLEANER): Will recheck lipids, unclear to me why he is not on a statin. Type 2 diabetes mellitus with hyperglycemia 11/2020 Assessment & Plan (09/07/2024 10:10 AM CDT): >>ASSESSMENT AND PLAN FOR TYPE 2 DIABETES MELLITUS (HCC) WRITTEN ON 04/17/2024 11:14 AM BY FARIHA CH MD Has been well controlled previously, will check A1c, needs dilated eye exam and urine microalbumin. Assessment & Plan (09/07/2024 10:10 AM CDT): >>ASSESSMENT AND PLAN FOR TYPE 2 DIABETES MELLITUS (HCC) WRITTEN ON 05/18/2024 2:03 PM BY RIRI MOORE MD A1c 7.3, Can be better controlled, but stable at this time. Continue current Lantus 25 units nightly, metformin 2000 mg daily, and Farxiga 10 mg. Assessment & Plan (09/07/2024 10:11 AM CDT): POCT A1c 7.5 today, Can be better controlled, but stable at this time. Continue current Lantus 25 units nightly, metformin 2000 mg daily, and Farxiga 10 mg. -Will get uACR -Send referral for eye exam Spinal stenosis 04/08/2020 ZAHIDA on CPAP 04/08/2020 Diverticulitis 04/08/2020 Depressive disorder 04/08/2020 Chronic sinusitis 04/08/2020 Osteoarthritis 04/08/2020 Anxiety 04/08/2020 Acute bronchitis 04/07/2020 Assessment & Plan (05/18/2024 11:20 AM HAND RUG CLEANER): Clinically consistent with acute bronchitis. Cough with [...] do you have a drink containing alcohol? Never 09/07/2024 Q2: How many drinks containi ng alcohol do you have on a typical day when you are drinking? Patient does not drink Q3: How often do you have si x or more drinks on one occasion? Never 09/07/2024 PHQ-2 Answer Date Recorded PHQ-2 Total Score (If total score is 3 or more points, staff should administer the PHQ-9) 0 09/07/2024 Personal Safety Answer Date Recorded Have you ever been in or are you currently in a harmful physical or emotional relationship or is someone making you feel afraid or unsafe? 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 Not on file Not on file Not on file Last Filed Vital Signs Vital Sign Reading Time Taken Comments Blood Pressure 126/74 09/07/2024 7:55 AM CDT Pulse 76 09/07/2024 7:55 AM CDT Temperature 36.6 C (97.9 F) 07/26/2024 8:42 AM CDT Respiratory Rate 16 09/07/2024 7:55 AM CDT Oxygen Saturation 98% 09/07/2024 7:55 AM CDT Inhaled Oxygen Concentration - - Weight 110.6 kg (243 lb 14.4 oz) 09/07/2024 7:55 AM CDT Height 174 cm (5' 8.5) 09/07/2024 7:55 AM CDT Body Mass Index 36.54 09/07/2024 7:55 AM CDT Plan of Treatment Not on file Medical Devices Implanted Type Area Budget Counselor Device Identifier Shelf Expiration Date Model / Serial / Lot Depuy Synthes Spine [id number] Set Screw - [id number] Implanted:Qty: 6 on 11/26/2020 by Omar Beck MD at [facility] N/A: Spine Cervical Depuy Synthes Spine [id number] / / Depuy Synthes Spine [id number] 3.5mm 18mm Ply Spine Screw Bone Nonsterile 4mm Gold - [id number] Implanted:Qty: 2 on 11/26/2020 by Omar Beck MD at [facility] N/A: Spine Cervical Depuy Synthes Spine [id number] / / Depuy Synthes Spine [id number] 4mm 240mm Straight Gold Spinal Titanium - [id number] Implanted:Qty: 1 on 11/26/2020 by Omar Beck MD at [facility] N/A: Spine Cervical Depuy Synthes Spine [id number] / / Depuy Synthes Spine [id number] 3.5mm 16mm Ply Spine Screw Bone Nonsterile 4mm Gold - [id number] Implanted:Qty: 2 on 11/26/2020 by Omar Beck MD at [facility] N/A: Spine Cervical Depuy Synthes Spine [id number] / / 4.0x20mm Screw Implanted:Qty: 2 on 11/26/2020 by Omar Beck MD at [facility] N/A: Spine Cervical DEPUY SYNTHES COMPANIES [id number] / / Description:Depuy synthes sy mphony spine Allosource [id number] Freeze Dried Crushed 1-4mm Graft 15ml Bone Cancellous - [id number] Implanted:Qty: 1 on 11/26/2020 by Omar Beck MD at [facility] N/A: Spine Cervical Allosource 06/08/2025 [id number] / / [id number] Ar[employer]rex Inc Ar-2324 Bcm Swivelock 4.75mm 24.5mm Self Punch Vent Shoulder Brooklyn Suture - [id number] Implanted:Qty: 1 on 04/17/2021 by Wil Camejo MD at [facility] Left: Shoulder [employer] Inc 12/19/2024 AR-2324BCM / / [id number] Ar[employer] Inc Ar-2290 Fiberloop 3.2mm Drill Pin Needle Shoehorn Cannula Kit Suture - [id number] Implanted:Qty: 1 on 04/17/2021 by Wil Camejo MD at [facility] Left: Shoulder [employer] Inc 02/18/2026 AR-2290 / / [id number] Ar[employer]rex Inc Ar-1927bct Corkscrew Suturetape 5.5mm 14.7mm Bioabsorbable Full Thread 1.3mm - [id number] Implanted:Qty: 1 on 04/17/2021 by Wil Camejo MD at [facility] Left: Shoulder [employer] Inc 01/19/2023 [id number]-[id number] / / [id number] Ar[employer] Inc Ar-2324 Bcm Swivelock 4.75mm 24.5mm Self Punch Vent Shoulder Brooklyn Suture - [id number] Implanted:Qty: 1 on 04/17/2021 by Wil Camejo MD at [facility] Left: Shoulder [employer] 12/19/2024 AR-2324BCM / / [id number] [employer] Inc Fiberloop 3.2mm Drill Pin Needle Shoehorn Cannula Kit Suture Ar-2290 - [id number] Implanted:Qty: 1 on 10/10/2021 by Wil Camejo MD at [facility] Right: Shoulder [employer] Inc 05/19/2026 AR-2290 / / [id number] Ar[employer] Inc Corkscrew Suturetape 5.5mm 14.7mm Bioabsorbable Full Thread 1.3mm Ar-1927bct - [id number] Implanted:Qty: 1 on 10/10/2021 by Wil Camejo MD at [facility] Right: Shoulder [employer] 06/20/2023 AR-1927BCT / / [id number] [employer] Ar-2324 Bcm Swivelock 4.75mm 24.5mm Self Punch Vent Shoulder Brooklyn Suture - [id number] Implanted:Qty: 1 on 10/10/2021 by Wil Camejo MD at [facility] Right: Shoulder [employer] Inc 05/19/2025 AR-2324BCM / / [id number] [employer] Inc Ar-2324 Bcm Swivelock 4.75mm 24.5mm Self Punch Vent Shoulder Brooklyn Suture - [id number] Implanted:Qty: 1 on 10/10/2021 by Wil Camejo MD at [facility] Right: Shoulder [employer] Inc 05/19/2025 AR-2324BCM / / [id number] Davol Inc/C R Bard Mesh Surgical Mid Anatomical Synthetic Patch 3dmax 4x6in [id number] - [id number] Implanted:Qty: 1 on 10/20/2023 by Main Ny MD at [facility] Right: Inguinal [employer]ol Inc/C R Bard 01/17/2028 [id number] / / [id number] Davol Inc/C R Bard Mesh Surgical Inguinal Hernia Synthetic Patch 3dmax 4x6in [id number] - [id number] Implanted:Qty: 1 on 10/20/2023 by Main Ny MD at [facility] Left: Inguinal [employer]ol Inc/C R Bard 04/18/2028 [id number] / / [id number] Depuy Orthopaedics Inc [place] 58mm Sector Hip Shell Acetabular Gription Sterile Latex Free [id number] - [id number] Implanted:Qty: 1 on 02/14/2024 by Matt Mendez MD at [facility] Right: Hip Depuy Orthopaedics Inc [id number] 11/19/2033 [id number] / / [id number] Depuy Orth[employer] Inc [place] 58mm 36mm Hip Neutral Liner Acetabular Altrx Sterile Latex Free [id number] - [id number] Implanted:Qty: 1 on 02/14/2024 by Matt Mendez MD at [facility] Right: Hip Depuy Orthopaedics Inc [id number] 11/19/2028 [id number] / / [id number] Depuy Orthopaedics Inc Actis L107 Mm Collar Hip 6 High Offset Stem Femoral [id number] - [id number] Implanted:Qty: 1 on 02/14/2024 by Matt Mendez MD at [facility] Right: Hip Depuy Orthopaedics Inc [id number] 06/19/2033 [id number] / / [id number] Depuy Orthopaedics Inc Articul/Francisco Javier 36mm Cementless Hip +1.5mm 12/14 Taper Head Femoral Latex Free [id number] - [id number] Implanted:Qty: 1 on 02/14/2024 by Matt Mendez MD at [facility] Right: Hip Depuy Orthopaedics Inc [id number] 11/19/2028 [id number] / / [id number] Procedures Procedure Name Priority Date/Time Associated Diagnosis Comments POCT HEMOGLOBIN A1C Routine 09/07/2024 8 :40 AM CDT Type 2 diabetes mellitus with hyperglycemia, with long-term current use of insulin ([facility]) ALBUMIN CREATININE RATIO, URINE Routine 09/07/2024 8:36 AM CDT Type 2 diabetes mellitus with hyperglycemia, with long-term current use of insulin ([facility]) EGFR Routine 07/26/2024 3:14 PM CDT Inflammatory arthritis DIFFERENTIAL AUTO Routine 07/26/2024 3:1 4 PM CDT Inflammatory arthritis TB TEST, QUANTIFERON GOLD Routine 07/26/2024 3:14 PM CDT COMPREHENSIVE METABOLIC PANEL Routine 07/26/2024 3:14 PM CDT Inflammatory arthritis CBC WITH AUTO DIFFERENTIAL Routine 07/26/2024 3:14 PM CDT Inflammatory arthritis CRP (ACUTE PHASE) Routine 07/26/2024 3:1 4 PM CDT Inflammatory arthritis ERYTHROCYTE SEDIMENTATION RATE Routine 07/26/2024 3:14 PM CDT Inflammatory arthritis HEPATITIS PANEL, ACUTE Routine 07/26/2024 3:14 PM CDT Inflammatory arthritis ABDOMINAL AORTIC ANEURYSM SCREENING Schedule Routine, Read Routine (OP Routine) 04/17/2024 11:32 AM HAND RUG CLEANER Encounter for abdominal aortic aneurysm (AAA) screening from Last 3 Months or Most Recently Relevant to Health Maintenance Results * (ABNORMAL) POCT hemoglobin A1c (09/07/2024 8:40 AM CDT) Hemoglobin A1C, POC 7.5(A) 4.0 - 5.6 % Capillary blood 09/07/2024 8 :40 AM CDT Riri Moore MD POINT OF CARE TEST ORDERABLES Final Result * Albumin Creatinine Ratio, Urine (09/07/2024 8:36 AM CDT) Albumin Ur <12.0 mg/L Comment: Interpretive Data No reference range established. Current interpretive data was last revised 2018. Creatinine Ur 77.2 mg/dL [facility] Comment: Interpretive Data No reference range established. Current interpretive data was last revised 2018. Albumin Creatinine Ratio, Ur <16 1 - 29 mg/g [facility] Urine 09/07/2024 8:36 AM CDT 09/07/2024 8:05 PM CDT Riri Moore MD LAB URINE ORDERABLES Final Res ult [facility] [address] [address] Department [place] [address] * eGFR (07/26/2024 3:14 PM CDT) eGFR 80 >=60 mL/min/1. 73 m2 Comment: Interpretive Data [...] interpretive data was last reviewed 2021. Blood 07/26/2024 3:14 PM CDT 07/26/2024 3:21 PM CDT us Leola Hale MD LAB BLOOD ORDERABLES Final Resul t [facility] ([facility]) [facility] Department [place] [address] * Differential, auto (07/26/2024 3:14 PM CDT) Neutrophil abs 4.31 1.50 - 6.50 K/cumm Imm gran abs 0.01 0.00 - 0.10 K/cumm [facility] ([place]) Lymphocyte abs 1.81 0.80 - 3.30 K/cumm [facility] ([place]) Monocyte abs 0.70 0.20 - 0.80 K/cumm [facility] ([place]) Eosinophil abs 0.22 0.00 - 0.50 K/cumm [facility] ([place]) Basophil abs 0.07 0.00 - 0.10 K/cumm [facility] ([place]) Neutrophil pct 60.6 % [facility] ([place] Comment: Interpretive Data Percent cell count reference ranges are not reported, since discordance with absolute values may lead to misinterpretation of CBC data. Current Interpretive Data was last revised on 2017. Imm gran pct 0.1 % [facility] ([place]) Comment: Interpretive Data Percent cell count reference ranges are not reported, since discordance with absolute values may lead to misinterpretation of CBC data. Current Interpretive Data was last revised on 2017. Lymphocyte pct 25.4 % [facility] ([place] Comment: Interpretive Data Percent cell count reference ranges are not reported, since discordance with absolute values may lead to misinterpretation of CBC data. Current Interpretive Data was last revised on 2017. Monocyte pct 9.8 % [facility] ([place]) Comment: Interpretive Data Percent cell count reference ranges are not reported, since discordance with absolute values may lead to misinterpretation of CBC data. Current Interpretive Data was last revised on 2017. Eosinophil pct 3.1 % [facility] ([place] Comment: Interpretive [...] Data was last revised on 2017. Blood 07/26/2024 3:14 PM CDT 07/26/2024 3:21 PM CDT us Leola Hale MD LAB BLOOD ORDERABLES Final Resul t [facility] ([place]) 1 [facility] Department [place] [address] * TB test, quantiferon gold (07/26/2024 3:14 PM CDT) Pathologist [facility] Quantiferon TB Gold Negative Negative [place] ref Lab Comment: No interferon-gamma response to M. tuberculosis antigens was detected. Latent infection with M. tuberculosis is unlikely. A single negative result does not exclude infection with M. tuberculosis. In patients at high risk for M.tuberculosis infection, a second test should be considered in accordance with the 2017 ATS/IDSA/CDC Clinical Practice Guidelines for Diagnosis of Tuberculosis in Adults and Children [[place]uhckins[place]han NIDA et. al. Clin. Infect. Dis. 2017;64(2):111-115]. The reference range for the 'TB1 Ag minus Nil Result' and 'TB2 Ag minus Nil Result' is an Interferon-gamma level <0.35 IU/mL. TB-Nil 0.01 IUnits/mL [facility] TB2-Nil 0.00 IUnits/mL [facility] ([place]) Mitogen-Nil 9.97 IUnits/mL [facility] ([place]) NIL 0.03 IUnits/mL [facility] ([place]) Comment: Test Performed by: [place] [address] Surgical Supervisor: Tammie Lacey Ph.D.; CLIA# [id number] Blood 07/26/2024 3:14 PM CDT 07/26/2024 3:20 PM CDT us eLola Hale MD LAB BLOOD ORDERABLES Final Resul t [facility] ([place]) 1 [facility] Department [place] [address] [place] ref Lab * (ABNORMAL) CBC with auto differential (07/26/2024 3:14 PM CDT) [facility] WBC 7.12 3.80 - 9.90 K/cumm Hgb 14.2 13.0 - 17.5 g/dL [facility] ([place]) Hct 44.8 38.9 - 50.3 % [facility] ([place]) Plt 255 150 - 400 K/cumm [facility] ([place]) MPV 9.5 9.1 - 12.3 fL [facility] ([place]) RBC 5.44 4.30 - 5.80 M/cumm [facility] ([place]) MCV 82.4 81.3 - 96.4 fL [facility] ([place] MCH 26.1(L) 27.1 - 33.3 pg [facility] ([place]) MCHC 31.7(L) 32.3 - 35.7 g/dL [facility] ([place]) RDW CV 14.4 11.1 - 14.9 % [facility] [place] RDW SD 42.6 35.7 - 48.1 fL [facility] ([place] NRBC abs 0.00 0.00 - 0.01 K/cumm [facility] ([place]) Blood 07/26/2024 3:14 PM CDT 07/26/2024 3:21 PM CDT us Leola Hale MD LAB BLOOD ORDERABLES Final Resul t [facility] ([place]) 1 [facility] Department [place] [address] * Hepatitis panel, acute Blood (07/26/2024 3:14 PM CDT) Hep A IgM Nonreactive Nonreactive Comment: Interpretive Data: If Hep A IgM Ab is reported as Equivocal, a new sample should be drawn in two weeks for testing. Current interpretive data was last revised on 19. Testing performed by: [facility], [address] [place] [address]., [id number] Hep B core IgM Nonreactive Nonreactive C [facility] ([place]) Comment: Interpretive Data If HepB Core IgM Ab is reported as Equivocal, a new sample should be drawn in two weeks for testing. Current interpretive data was last revised on 19. Testing performed by: [facility], [address] [place] [address]., [id number] Hep C Ab Nonreactive Nonreactive FAN [facility] ([place]) Comment: Interpretive Data Nonreactive: Antibodies to HCV not detected. Does NOT exclude the possibility of recent exposure to HCV. Equivocal: Equivocal for HCV antibodies. Supplemental molecular testing will be automatically performed to determine infection status in accordance with current CDC screening recommendations. Reactive: Positive for HCV antibodies. This may represent current or past HCV infection. Supplemental molecular testing will be automatically performed to determine current infection status in accordance with current CDC screening recommendations. Interpretive data was last revised on 2019. Testing performed by: [facility], [address] [place] [address]., [id number] HepBsAg Nonreactive Nonreactive [facility] ([place]) Comment:Testing performed by : [facility], [address] [place] [address]., [id number] Blood 07/26/2024 3:14 PM CDT 07/26/2024 8:42 PM CDT Leola Hale MD LAB MICROBIOLOGY - GENERAL ORDER ELIS Final Result Performing Organization Address City/[facility] Co de Phone Number FAN [facility]IN (MUTUAL) 1 [facility] [place] [address] * Erythrocyte sedimentation rate (07/26/2024 3:14 PM CDT) Erythrocyte sedimentation rate 8 1 - 20 mm/hr Blood 07/26/2024 3:14 PM CDT 07/26/2024 3:21 PM CDT Leola Hale MD LAB BLOOD ORDERABLES Final Resul t Performing Organization Address [facility] Co de Phone Number FAN JIN (MUTUAL) 1 [facility] [place] [employer] [address] * CRP (acute phase) (07/26/2024 3:14 PM CDT) CRP 4.3 <=10.0 mg/L Blood 07/26/2024 3:14 PM CDT 07/26/2024 3:21 PM CDT Leola Hale MD LAB BLOOD ORDERABLES Final Resul t Performing Organization Address [facility]/ZIP Co de Phone Number FAN JIN (MUTUAL) 1 [facility] [place] [address] * Comprehensive metabolic panel (07/26/2024 3:14 PM CDT) Sodium 138 135 - 145 mmol/L Potassium, pl 4.2 3.3 - 4.9 mmol/L [facility] ([place]) Chloride 103 97 - 110 mmol/L [facility] ([place]) CO2 24 22 - 32 mmol/L [facility] ([place]) Anion gap 12 2 - 15 mmol/L [facility] ([place]) BUN 21 6 - 25 mg/dL [facility] ([place]) Creatinine 1.03 0.80 - 1.30 mg/dL [facility] ([place]) Glucose 115 70 - 199 mg/dL [facility] ([place]) Comment: Interpretive Data Fasting glucose [...] interpretive data was last revised 2022. Calcium 9.2 8.5 - 10.3 mg/dL [facility] ([place]) Bilirubin, total 0.5 0.1 - 1.2 mg/dL [facility] ([place]) Protein, pl 7.0 6.5 - 8.5 g/dL [facility] ([place]) Albumin 4.2 3.5 - 5.0 g/dL [facility] ([place]) Alk phos 101 40 - 130 Units/L [facility] ([place]) ALT 22 7 - 55 Units/L [facility] ([place]) AST 28 10 - 50 Units/L [facility] ([place]) Blood 07/26/2024 3:14 PM CDT 07/26/2024 3:21 PM CDT us Leola Hale MD LAB BLOOD ORDERABLES Final Resul t [facility] ([place]) 1 [facility] Department [place] [address] * US Abdominal Aortic Aneurysm Screening (04/17/2024 11:32 AM HAND RUG CLEANER) Anatomical Region Laterality Modality Abdomen Ultrasound Fariha Ch MD IMG US PROCEDURES Final Result from Last 3 Months or Most Recently Relevant to Health Maintenance Insurance MEDICARE ADVANTAGE MEDICARE ADVANTAGE Advance Directives For more information, please contact: [phone] * Full Code (Latest Code Status on File) Date Activated Date Inactivated Comments 02/14/2024 3:12 PM 02/15/2024 3:18 PM * Full Code Date Activated Date Inactivated Comments 11/26/2020 12:56 PM 11/28/2020 2:34 PM Care Teams Gluing Machine Feeder Relationship Specialty Start Date End Date Fariha Ch MD [address] [place] [address] [address] [place] [address] PCP - General Family Medicine 04/17/24 Matt Mendez MD [address] [place] [address] [address] [place] [address] Surgeon Orthopedic Surgery 02/15/24 Main Ny MD [address] [place] [address] [address] [place] [address] Consulting Physician General Surgery 04/17/24 Wil Camejo MD [address] [facility] [address] [address] Surgeon Orthopedic Surgery 04/17/24 Leola Hale MD [address] [facility] [address] [address] Consulting Physician Internal Medicine 04/17/24 Da Villaseñor, OT Occupational Therapist Occupational Therapy 05/18/24
--- OUTSIDE RECORDS SUMMARY | 2024-10-23 11:34 | XMS_ITS | Clinical Summary ---
Author Organization [facility] Address [address] [place] [address] Care Team Providers Care Blowing Engineer Name Role Phone Matt Mendez MD Unavailable [phone] Fariha Ch MD Primary Care Provider + Main Ny MD Unavailable Wil Camejo MD Unavailable [phone] Leola Hale MD Unavailable Da Villaseñor OT [...] for shortness of breath (cough) 1 each 5 Active atorvastatin (LIPITOR) 20 mg tablet [...] under the care of Dr. Leola Hale, Chief Investigator. Currently on duloxetine 60 mg daily, and naproxen. Was supposed to start Enbrel, but has been unable to afford. Patient reports difficulty getting to the new mule packer as it is 2 4. Would like [...] 05/18/2024 Assessment & Plan (05/18/2024 11:21 AM DISTRIBUTION DISPATCHER): Revised Cardiac Risk Index; 6% risk for major cardiac event. Perioperative risk for VA/CA; 0.2% Patient is at acceptable risk for [...] 05/18/2024 Assessment & Plan (05/18/2024 2:00 PM DISTRIBUTION DISPATCHER): Primary OA of left hip. Plans for arthroplasty by orthopedic surgery. Acute cough 04/17/2024 Assessment & Plan (04/17/2024 8:49 AM DISTRIBUTION DISPATCHER): No evidence of bacterial infection. Will refill albuterol and patient will let me know if not improving or wrosening in the next week or so Severe obesity 04/17/2024 Assessment & Plan (04/17/2024 11:12 AM DISTRIBUTION DISPATCHER): We discussed healthy lifestyle issues including healthy diet and regular exercise of 150 minutes weekly, and exercise including resistance training. Primary osteoarthritis of right hip 02/14/2024 Mass of subcutaneous tissue of back 01/13/2024 Assessment & Plan (01/25/2024 9:28 AM DISTRIBUTION DISPATCHER): Pathology has been reviewed with the patient [...] chart. Echo from this admission (05/21-05/24 at [facility]) with evidence of moderate aortic stenosis. -Patient to benefit from establishing with Cardiology, will send referral. Assessment & Plan (05/18/2024 2:08 PM DISTRIBUTION DISPATCHER): Reportedly has mild aortic stenosis on echo [...] therapist. Assessment & Plan (04/17/2024 11:06 AM DISTRIBUTION DISPATCHER): Currently using trazodone at night, alprazolam p.r.n.. [...] unlikely. -Will order 30-day quality assurance monitor final Class 1 obesity in adult 11/20/2020 Complete tear of left rotator cuff 11/13/2020 Overview (11/13/2020): Added automatically from request for surgery [id number] Spinal stenosis in cervical region 09/17/2020 Raised prostate specific antigen 04/30/2020 Assessment & Plan (04/17/2024 11:06 AM DISTRIBUTION DISPATCHER): His chart has previously elevated PSA, he also has known BPH. No longer follow with Urology, will check PSA this year Hyperlipidemia 04/30/2020 Assessment & Plan (05/18/2024 2:04 PM DISTRIBUTION DISPATCHER): Lipid panel ordered. Continue atorvastatin 20 mg daily. Assessment & Plan (04/17/2024 8:47 AM DISTRIBUTION DISPATCHER): Will recheck lipids, unclear to me why [...] 04/07/2020 Assessment & Plan (05/18/2024 11:20 AM DISTRIBUTION DISPATCHER): Clinically consistent with acute bronchitis. Cough with [...] Department Care Team Description 09/28/[address] [facility] Primary Care at [address] [address] Fariha Ch MD 09/26/[address] [facility] Residency Clinic at [address] [address] Riri Moore MD Hearing loss, unspecified hearing loss type, unspecified laterality (Primary Dx) 09/18/2024 Results Follow-Up [facility] Residency Clinic at [address] [address] Riri Moore MD Albumin Creatinine Ratio, Urine 09/11/[address] [facility] Residency Clinic at [address] [address] Fariha Ch MD Referral Request 09/07/2024 8:36 AM CDT - 09/07/2024 11:59 PM CDT Hospital Encounter [facility] [address] [place] [address] Type 2 diabetes mellitus with hyperglycemia, with long-term current use of insulin (HCC) Discharge Disposition: Discharge to home or self care 09/07/2024 8:00 AM CDT Office Visit [facility] Residency Clinic at [address] [place] [address] Riri Moore MD Type 2 diabetes mellitus with hyperglycemia, with long-term current use of insulin (HCC) (Primary Dx); Rheumatoid arthritis, involving unspecified site, unspecified whether rheumatoid factor present (HCC); Primary insomnia 09/07/[address] [facility] Residency Clinic at [address] [place] [address] Riri Moore MD Diabetic eye exam (HCC) (Primary Dx); Rheumatoid arthritis, involving unspecified site, unspecified whether rheumatoid factor present (HCC) 08/24/2024 Telephone [facility] [address] [facility] [address] [place] [address] Audrey Márquez RPh 08/07/2024 Results Follow-Up [address] [address] Riri Moore MD [facility] Mobile Cardiac Telemetry Event Monitor 07/26/2024 3:00 PM CDT Lab [address] [address] Inflammatory arthritis 07/26/2024 2:30 PM CDT Office Visit [facility] at [address] [place] [address] Bonita Potts MD Right bundle branch block (RBBB); Mild aortic valve stenosis; Syncope, unspecified syncope type 07/26/2024 8:40 AM CDT Office Visit [facility] 5th [place] [address] [place] [address] Leola Hale MD Inflammatory arthritis (Primary Dx) from Last 3 Months Immunizations [...] & 2020 VASECTOMY 1989 COLONOSCOPY HERNIA REPAIR 2023 CYSTECTOMY on the back JOINT REPLACEMENT 02/14/2024 Right hip Medical History Medical History Date Comments Arthritis 2003 Gout Gastric reflux Sleep apnea 2019 does not use c-p ap GERD (gastroesophageal reflux disease) 2003 HLD (hyperlipidemia) Cervical myelopathy (HCC) PONV (postoperative nausea a nd vomiting) vomiting after cervical surg andi transporting to radiology Motion sickness Diabetes mellitus, type 2 (HCC) BPH (benign prostatic hyperplasia) Osteoarthritis Emphysema of lung Heart murmur Tobacco user 05/09/2020 Family History [...] Father Matt D. Cancer Maternal Grandfather Apollo Langstonbayronolga [address] history of malignant neoplasm - Relation: Grandfather (Added by TW Conv) Heart disease Maternal Grandfather Apollo Cai F amily history of cardiac disorder - Relation: Grandfather (Added by TW Conv) Stroke Maternal Grandfather Apollo Cai Fa lane history of cerebrovascular accident - Relation: Grandfather (Added by TW Conv) Cancer Mother Irma Eqsuivel. Family history of malignant neoplasm - (Added [...] Gout Other Osteoporosis Other Cancer Sister Giovana Canas. Family history of malignant neoplasm - (Added by Conv) Anesthesia problems Neg Hx Relation Name Status Comments Brother Matt Lobo. Father Matt Jaeger. Maternal Grandfather Apollo Cai Mother Irma Esquivel. Other Sister Giovana Canas. Social History Tobacco Use Types Packs/Day Years [...] on file Legal Sex Male 2:32 AM DISTRIBUTION DISPATCHER Gender Identity Not on file Sexual Orientation [...] 09/07/2024 7:55 AM CDT Plan of Treatment Health Maintenance Due Date Last Done Comments Colon Cancer Screening-Colonoscopy 1957 Prostate Cancer Screening-PSA 1957 Dilated Eye Exam 1957 Lipid Panel 1957 Zoster Vaccine (1 of 2) 2007 Well Visit 65+ 2022 Covid-19 Vaccine (2023-2 5 season) 2024 12/25/2023, 02/07/2022, 03/06/2021, Additional history exists Influenza Vaccine (#1) 2024 , 11/24/2023, 03/18/2023, Additional history exists Hemoglobin A1C 03/09/2025 09/07/2024, 04/23, 02/02/2024, Additional history exists Foot Exam 04/17/2025 04/17/2024 Fall Risk Assessment 07/18/2025 07/18/2024, 06/01/2024, 04/17/2024, Additional history exists eGFR 07/26/2025 07/26/2024, 04/23, 02/15/2024, Additional history exists Albumin Creatinine Ratio, Urine 09/07/2025 Depression Screening 09/07/2025 09/07/2024, 07/18/2024, 06/01/2024, Additional history exists DTaP/Tdap/Td Vaccine (2 - Td or Tdap) 04/28/2032 04/28/2022 Hepatitis B Screening Completed 11/06/2003 , 07/09/2003, 06/06/2003 Pneumococcal vaccine 65+ Completed 02/16/2022, 12/20 Abdominal Aortic Aneurysm (A AA) Screen Completed 04/17/2024 Hepatitis C Screening Completed 07/26/2024, 021 Medical Devices Implanted Type Area Shade Hanger Device Identifier Shelf Expiration Date Model / Serial / Lot Depuy Synthes Spine [id number] Set Screw - [id number] Implanted:Qty: 6 on 11/26/2020 by Omar Beck MD at [facility] N/A: Spine Cervical Depuy Synthes Spine [id number] / / Depuy Synthes Spine [id number] 3.5mm 18mm Ply Spine Screw Bone Nonsterile 4mm Gold - [id number] Implanted:Qty: 2 on 11/26/2020 by Omar Beck MD at [facility] N/A: Spine Cervical Depuy Synthes Spine [id number] / / Depuy Synthes Spine [id number] 4mm 240mm Straight Gold Spinal Titanium - [id number] Implanted:Qty: 1 on 11/26/2020 by Omar Beck MD at [facility] N/A: Spine Cervical Depuy Synthes Spine [id number] / / Depuy Synthes Spine [id number] 3.5mm 16mm Ply Spine Screw Bone Nonsterile 4mm Gold - [id number] Implanted:Qty: 2 on 11/26/2020 by Omar Beck MD at [facility] N/A: Spine Cervical Depuy Synthes Spine [id number] / / 4.0x20mm Screw Implanted:Qty: 2 on 11/26/2020 by Omar Beck MD at [facility] N/A: Spine Cervical DEPUY Silver Push COMPANIES [id number] / / Description:DepLightningBuy sy mphony spine Allosource [id number] Freeze Dried Crushed 1-4mm Graft 15ml Bone Cancellous - [id number] Implanted:Qty: 1 on 11/26/2020 by Omar Beck MD at [facility] N/A: Spine Cervical Allosource 06/08/2025 [id number] / / [id number] Arthrex Inc Ar-2324 Bcm Swivelock 4.75mm 24.5mm Self Punch Vent Shoulder Curtiss Suture - [id number] Implanted:Qty: 1 on 04/17/2021 by Wil Camejo MD at [facility] Left: Shoulder Arthrex Inc 12/19/2024 AR-2324BCM / / [id number] Arthrex Inc Ar-2290 Fiberloop 3.2mm Drill Pin Needle Shoehorn Cannula Kit Suture - [id number] Implanted:Qty: 1 on 04/17/2021 by Wil Camejo MD at [facility] Left: Shoulder Ar[employer]rex Inc 02/18/2026 AR-2290 / / [id number] Ar[employer]rex Inc Ar-1927bct Corkscrew Suturetape 5.5mm 14.7mm Bioabsorbable Full Thread 1.3mm - [id number] Implanted:Qty: 1 on 04/17/2021 by Wil Camejo MD at [facility] Left: Shoulder [employer] Inc 01/19/2023 AR-1927BCT / / [id number] Ar[employer] Inc Ar-2324 Bcm Swivelock 4.75mm 24.5mm Self Punch Vent Shoulder Curtiss Suture - [id number] Implanted:Qty: 1 on 04/17/2021 by Wil Camejo MD at [facility] Left: Shoulder [employer] Inc 12/19/2024 AR-2324BCM / / [id number] Ar[employer]rex Inc Fiberloop 3.2mm Drill Pin Needle Shoehorn Cannula Kit Suture Ar-2290 - [id number] Implanted:Qty: 1 on 10/10/2021 by Wil Camejo MD at [facility] Right: Shoulder [employer] Inc 05/19/2026 AR-2290 / / [id number] Ar[employer]rex Inc Corkscrew Suturetape 5.5mm 14.7mm Bioabsorbable Full Thread 1.3mm Ar-1927bct - [id number] Implanted:Qty: 1 on 10/10/2021 by Wil Camejo MD at [facility] Right: Shoulder [employer] Inc 06/20/2023 AR-1927BCT / / [id number] Ar[employer] Inc Ar-2324 Bcm Swivelock 4.75mm 24.5mm Self Punch Vent Shoulder Curtiss Suture - [id number] Implanted:Qty: 1 on 10/10/2021 by Wil Camejo MD at [facility] Right: Shoulder [employer] Inc 05/19/2025 AR-2324BCM / / [id number] Ar[employer] Inc Ar-2324 Bcm Swivelock 4.75mm 24.5mm Self Punch Vent Shoulder Curtiss Suture - [id number] Implanted:Qty: 1 on 10/10/2021 by Wil Camejo MD at [facility] Right: Shoulder Ar[employer]rex Inc 05/19/2025 AR-2324BCM / / [id number] Davol Inc/C R Bard Mesh Surgical Mid Anatomical Synthetic Patch 3dmax 4x6in [id number] - [id number] Implanted:Qty: 1 on 10/20/2023 by Main Ny MD at [facility] Right: Inguinal Davol Inc/C R Bard 01/17/2028 [id number] / / [id number] Davol Inc/C R Bard Mesh Surgical Inguinal Hernia Synthetic Patch 3dmax 4x6in [id number] - [id number] Implanted:Qty: 1 on 10/20/2023 by Main Ny MD at [facility] Left: Inguinal Davol Inc/C R Bard 04/18/2028 [id number] / / [id number] Depuy Orthopaedics Inc Arthur 58mm Sector Hip Shell Acetabular Gription Sterile Latex Free [id number] - [id number] Implanted:Qty: 1 on 02/14/2024 by Matt Mendez MD at [facility] Right: Hip Depuy Orthopaedics Inc [id number] 11/19/2033 [id number] / / [id number] Depuy Orthopaedics Inc Arthur 58mm 36mm Hip Neutral Liner Acetabular Altrx Sterile Latex Free [id number] - [id number] Implanted:Qty: 1 on 02/14/2024 by Matt Mendez MD at [facility] Right: Hip Depuy Orthopaedics Inc [id number] 11/19/2028 [id number] / / [id number] Depuy Orthopaedics Inc Actis L107 Mm Collar Hip 6 High Offset Stem Femoral [id number] - [id number] Implanted:Qty: 1 on 02/14/2024 by Matt Mendez MD at [facility] Right: Hip Depuy Orthopaedics Inc [id number] 06/19/2033 [id number] / / [id number] Depuy Orthopaedics Inc Articul/Francisco Javier 36mm Cementless Hip +1.5mm 03/04 Taper Head Femoral Latex Free [id number] - [id number] Implanted:Qty: 1 on 02/14/2024 by Matt Mendez MD at [facility] Right: Hip Depuy Orthopaedics Inc [id number] 11/19/2028 [id number] / / [id number] Procedures Procedure Name Priority Date/Time Associated Diagnosis Comments POCT HEMOGLOBIN A1C Routine 09/07/2024 8 :40 AM CDT Type 2 diabetes mellitus with hyperglycemia, with long-term current use of insulin (HCC) ALBUMIN CREATININE RATIO, URINE Routine 09/07/2024 8:36 AM CDT Type 2 diabetes mellitus with hyperglycemia, with long-term current use of insulin (HCC) EGFR Routine 07/26/2024 3:14 PM CDT Inflammatory [...] Read Routine (OP Routine) 04/17/2024 11:32 AM DISTRIBUTION DISPATCHER Encounter for abdominal aortic aneurysm (AAA) screening [...] URINE ORDERABLES Final Res ult [facility] [address] Department [place] [address] * eGFR (07/26/2024 3:14 PM CDT) eGFR [...] MD LAB BLOOD ORDERABLES Final Resul t [facility] ([place] 1 [facility] Department of Laboratories [place], [place] [id number] * Differential, auto (07/26/2024 3:14 PM CDT) Neutrophil abs 4.31 1.50 - 6.50 K/cumm Imm gran abs 0.01 0.00 - 0.10 K/cumm [facility] ([place]) Lymphocyte abs 1.81 0.80 - 3.30 K/cumm [facility] ([place]) Monocyte abs 0.70 0.20 - 0.80 K/cumm [facility] ([place]) Eosinophil abs 0.22 0.00 - 0.50 K/cumm [facility] ([place]) Basophil abs 0.07 0.00 - 0.10 K/cumm [...] LAB BLOOD ORDERABLES Final Resul t [facility] ([place]) 1 [facility] Department [place] [address] * TB test, quantiferon gold (07/26/2024 3:14 PM CDT) [facility] Quantiferon TB Gold Negative Negative [facility] Comment: No interferon-gamma response to M. tuberculosis antigens was detected. Latent infection with M. tuberculosis is unlikely. A single negative result does not exclude infection with M. tuberculosis. In patients at high risk for M.tuberculosis infection, a second test should be considered in accordance with the 2017 ATS/IDSA/CDC Clinical Practice Guidelines for Diagnosis of Tuberculosis in Adults and Children [Lacey ALVA et. al. Clin. Infect. Dis. 2017;64(2):111-115]. The reference range for the 'TB1 Ag minus Nil Result' and 'TB2 Ag minus Nil Result' is an Interferon-gamma level <0.35 IU/mL. TB-Nil 0.01 IUnits/mL [facility] ([place] TB2-Nil 0.00 IUnits/mL [facility] ([place]) Mitogen-Nil 9.97 IUnits/mL [facility] ([place]) NIL 0.03 IUnits/mL [facility] ([place]) Comment: Test Performed by: [facility] [id number] Bicycle Racer: Tammie Lacey Ph.D.; CLIA# [id number] Blood 07/26/2024 3:14 PM CDT 07/26/2024 3:20 PM CDT us Leola Hale MD LAB BLOOD ORDERABLES Final Resul t [facility] ([place]) 1 [facility] Department [place] [address] [facility] * (ABNORMAL) CBC with auto differential (07/26/2024 3:14 PM CDT) WBC 7.12 3.80 - 9.90 K/cumm Hgb 14.2 13.0 - 17.5 g/dL [facility] ([place]) Hct 44.8 38.9 - 50.3 % [facility] ([place]) Plt 255 150 - 400 K/cumm [facility] ([place]) MPV 9.5 9.1 - 12.3 fL [facility] ([place]) RBC 5.44 4.30 - 5.80 M/cumm [facility] ([place]) MCV 82.4 81.3 - 96.4 fL [facility] ([place]) MCH 26.1(L) 27.1 - 33.3 pg [facility] ([place]) MCHC 31.7(L) 32.3 - 35.7 g/dL [facility] ([place]) RDW CV 14.4 11.1 - 14.9 % [facility] ([place]) RDW SD 42.6 35.7 - 48.1 fL [facility] ([place]) NRBC abs 0.00 0.00 - 0.01 K/cumm [facility] ([place]) Blood 07/26/2024 3:14 PM CDT 07/26/2024 3:21 PM CDT us Leola Hale MD LAB BLOOD ORDERABLES Final Resul t [facility] ([place]) 1 [facility] Department [place] [address] * Hepatitis panel, acute Blood (07/26/2024 3:14 PM CDT) Hep A IgM Nonreactive Nonreactive Comment: Interpretive Data: If Hep A IgM Ab is reported as Equivocal, a new sample should be drawn in two weeks for testing. Current interpretive data was last revised on 19. Testing performed by: [address] [address] Hep B core IgM Nonreactive Nonreactive [facility] ([place]) Comment: Interpretive Data If HepB Core IgM Ab is reported as Equivocal, a new sample should be drawn in two weeks for testing. Current interpretive data was last revised on 19. Testing performed by: [facility], [address] [place] [address]., [address] Hep C Ab Nonreactive Nonreactive [facility] ([place]) Comment: Interpretive Data Nonreactive: Antibodies to [...] last revised on 2019. Testing performed by: [address] [place]., [address] HepBsAg Nonreactive Nonreactive [facility] ([place]) Comment:Testing performed by : [facility], [address] [facility], [facility], [address] Blood 07/26/2024 3:14 PM CDT 07/26/2024 8:42 PM CDT Leola Hale MD LAB MICROBIOLOGY - GENERAL ORDER ELIS Final Result [facility] ([place]) 1 [facility] [place] [address] * Erythrocyte sedimentation rate (07/26/2024 3:14 PM CDT) Pathologist [facility] Erythrocyte sedimentation rate 8 1 - 20 mm/hr Blood 07/26/2024 3:14 PM CDT 07/26/2024 3:21 PM CDT Leola Hale MD LAB BLOOD ORDERABLES Final Resul t Performing Organization Address [facility]/ZIP Co de Phone Number [facility] ([place]) 1 [facility] [employer] [address] * CRP (acute phase) (07/26/2024 3:14 PM CDT) Pathologist [facility] CRP 4.3 <=10.0 mg/L Blood 07/26/2024 3:14 PM CDT 07/26/2024 3:21 PM CDT Leola Hale MD LAB BLOOD ORDERABLES Final Resul t Performing Organization Address City/[facility]/ZIP Co de Phone Number [facility] ([place]) 1 [facility] [employer] [place] [address] * Comprehensive metabolic panel (07/26/2024 3:14 PM CDT) Sodium 138 135 - 145 mmol/L Potassium, pl 4.2 3.3 - 4.9 mmol/L [facility] ([place]) Chloride 103 97 - 110 mmol/L [...] LAB BLOOD ORDERABLES Final Resul t [facility] ([place]) 1 [facility] Department [place] [address] * US Abdominal Aortic Aneurysm Screening (04/17/2024 11:32 AM DISTRIBUTION DISPATCHER) Anatomical Region Laterality Modality Abdomen Ultrasound us Fariha Ch MD [facility] US PROCEDURES Final Result from Last 3 Months or Most Recently Relevant to Health Maintenance Insurance [facility] ADV[facility] [employer] MEDICARE ADVANTAGE Advance Directives For more information, please contact: [phone] * Full Code (Latest Code Status on File) Date Activated Date Inactivated Comments 02/14/2024 3:12 PM 02/15/2024 3:18 PM * Full Code Date Activated Date Inactivated Comments 11/26/2020 12:56 PM 11/28/2020 2:34 PM Care Teams Blowing Engineer Relationship Specialty Start Date End Date Fariha Ch MD [address] [facility] [address] [place] [address] PCP - General Family Medicine 04/17/24 Matt Mendez MD [address] [place] [address] [address] [place] [address] Surgeon Orthopedic Surgery 02/15/24 Main Ny MD [address] [place] [address] [address] [place] [address] Consulting Physician General Surgery 04/17/24 Wil Camejo MD [address] [facility] [place] [address] Surgeon Orthopedic Surgery 04/17/24 Leola Hale MD [address] [facility] [place] [place] [address] Consulting Physician Internal Medicine 04/17/24 Da Villaseñor OT Occupational Therapist Occupational Therapy 05/18/24
--- OUTSIDE RECORDS SUMMARY | 2024-10-23 11:34 | XMS_ITS | Encounter Summary ---
Author Organization [facility] Healthcare Address [address] [place] [address] Care Team Providers Care Procurement Analyst Name Role Phone Matt Mendez MD Unavailable [phone] Fariha Dennis MD Primary Care Provider + Main Ny MD Unavailable Wil Camejo MD Unavailable [phone] Leola Hale MD Unavailable Da Villaseñor OT Unavailable Unavailable Encounter Details Date Type Department Care Team (Late st Contact Info) Description 09/18/2024 Results Follow-Up [facility] Residency Clinic at [address] [address] Riri Veliz MD [address] [place] [address] [address] [place] [address] Albumin Creatinine Ratio, Urine Social History Tobacco Use Types Packs/Day Years [...] on file 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 [address] [place] [address] PCP - General Family Medicine 04/17/24 Matt Mendez MD [address] [place] [address] [place] [address] Surgeon Orthopedic Surgery 02/15/24 Main Ny MD [address] [place] [address] [address] [place] [address] Consulting Physician General Surgery 04/17/24 Wil Camejo MD [address] [facility] [place] [address] Surgeon Orthopedic Surgery 04/17/24 Leola Hale MD [address] [place] [address] Consulting Physician Internal Medicine 04/17/24 Da Villaseñor OT Occupational Therapist Occupational Therapy 05/18/24 documented as of this encounter
--- OUTSIDE RECORDS SUMMARY | 2024-10-23 11:34 | XMS_ITS | Clinical Summary ---
Author Organization [facility] Address [address] [place] [address] Care Team Providers Care Cook Morning Name Role Phone Unavailable Primary Care Provider Unavailabl e Source Comments [facility],non-owned Affiliates and Associated Physician Practices is amultiple site organization consisting of ambulatory clinics and hospital sitesin [place], [place], [place] and [place]. This disclosure is being madepursuant to the Care Everywhere program and may not contain all information available regarding this patient. Last updated 17.[facility] Social History Tobacco Use Types Packs/Day Years [...] VACCINE ( - 2023-2 5 season) 2023 DEPRESSION SCREENING 03/22/2024 INFLUENZA VACCINE (#1) 2024 Respiratory Syncytial Virus (RSV) Vaccine Pt: or [...] to complete this topic MENINGOCOCCAL (Group B) VACC INE SHARED DECISION-MAKING Aged Out No longer eligibl e based on patient's age to complete this topic MENINGOCOCCAL GROUPS A/C/Y/W VACCINE Aged Out No longer eligible b ased on patient's age to complete this topic Insurance
== END 2024-10-23 11:09 | disposition home or self-care (01) ==
LOC: ANHAUDIO 11:09
DX: H90.3 Sensorineural hearing loss, bilateral (principal); H93.13 Tinnitus, bilateral
CPT/HCPCS: 92557; 92567